=== PATIENT | female | born 1990 | race Caucasian/White ===

== ENCOUNTER 2019-09-01 21:06 | Emergency (ER) | payer OTHER, SELFPAY ==
--- NOTE | ~2019-09-01 | CT_ITS ---
EXAMINATION: CT abdomen pelvis w con EXAM DATE: 09/01/2019 23:20 INDICATION: Right upper quadrant, epigastric pain. TECHNIQUE: Spiral CT of the abdomen and pelvis was performed following intravenous injection of 100 m L Omnipaque 350. Axial, coronal and sagittal images were reviewed. The dose-length product (DLP) fo r this examination was 257.22 mGy-cm. The exposure was tailored according to patient size (auto mA e xposure control), and iterative reconstruction (ASIR) was used as additional dose reduction technique . Comparison is made to prior examination from 09/27/2018. FINDINGS: The liver, spleen, adrenal glands and pancreas are unremarkable. Gallbladder is unremarkab le. No biliary obstruction. Portal and splenic veins are patent. Kidneys enhance symmetrically. T here is no hydronephrosis. The uterus is unremarkable. The bladder is collapsed at time of imagin g limiting evaluation. There is no retroperitoneal or pelvic lymphadenopathy. The appendix is normal. There are surgical changes from intact gastric bypass surgery. There is exp ected amount of colonic stool. No free intraperitoneal gas. The heart is normal in size. There a re no pericardial or pleural effusions. The lung bases are unremarkable. The bones are unremarkable . IMPRESSION: 1. No acute intra-abdominal findings. Reviewed, dictated and finalized at location A.
[2019-09-01 21:07] VITALS: BP 120/69; PULSE 76; RESP 20; TEMP 36.9; O2SAT 100
--- NOTE | 2019-09-01 21:22 | ED.ABDPAIN ---
HPI - Abdominal Pain General Chief Complaint: Abdominal Pain Stated Complaint: abd pain Time Seen by Provider: 09/01/19 21:19 History of Present Illness HPI narrative: dull stabbing epigastric abdominal pain for the past week. Worse for the past 2 hours. Radiates to the back. She has never had this pain before. She has a h/o gastric bypass. Related Data Allergies Allergy/AdvReac Type Severity Reaction Status Date / Time NSAIDS (Non-Steroidal AdvReac Abdominal Verified 09/01/19 21:13 Anti-Inflamma Pain Review of Systems Review of Systems: All systems reviewed & are unremarkable except as noted in HPI and below Constitutional: Constitutional: Denies fever(s) Cardiovascular: Cardiovascular: Denies chest pain Respiratory: Respiratory: Denies dyspnea Gastrointestinal: Gastrointestinal: Reports abdominal pain and Denies vomiting Genitourinary: Genitourinary: Denies hematuria and Denies dysuria Neurologic: Denies numbness and Denies weakness PMFSH Past Medical History Medical History History of cardiac monitoring Hypothyroid Third degree heart block Surgical History Surgical History H/O abdominoplasty History of facial surgery right side facial reconstruction Hx of gastric bypass Hx of tonsillectomy Social History Social History Smoking status: Current every day smoker Tobacco type: cigarettes and e-cigarettes/vaping Gender identity (if verbalized by the patient): Female Exam Const: General: healthy appearing, no acute distress and alert Nutritional Appearance: well nourished Orientation/consciousness: patient oriented x3 HENMT: Head: normal to inspection Neck: Neck: normal visual inspection and no lymphadenopathy Chest: Chest palpation & inspection: no tenderness Resp: Effort & Inspection: normal respiratory effort Auscultation: clear to auscultation bilaterally, no rales, no rhonchi and no wheezes Cardio: Jugular venous distension: no JVD Rate: regular rate Rhythm: regular rhythm Heart sounds: no murmurs GI: Inspection: non-distended GI Palp: Yes Soft to palpation and Yes Tenderness to palpation present (GI) (epigastrium) Skin: General skin exam: normal color Neuro: General: patient oriented x3, moves all extremities and CN's II-XI intact bilaterally Speech: normal speech Extrem: General: no edema Psych: Appearance: well kempt Affect: normal affect Course Vital Signs Vital signs: Vital Signs Temperature 36.9 C 09/01/19 21:07 Pulse Rate 76 09/01/19 21:07 Respiratory Rate 20 09/01/19 21:07 Blood Pressure 120/69 09/01/19 21:07 Pulse Oximetry 100 09/01/19 21:07 Temperature 36.9 C 09/01/19 21:07 Pulse Rate 61 09/02/19 01:27 Respiratory Rate 18 09/02/19 01:27 Blood Pressure 112/74 09/02/19 01:27 Pulse Oximetry 98 09/02/19 01:27 MDM - Abdominal Pain MDM Narrative Medical decision making narrative: CT and labs reassuring. Differential Diagnosis Differential diagnosis: Likely pancreatitis and other (PUD, IBS) Medical Records Attestation: I reviewed the patient's medical records. Lab Data Attestation: I reviewed the patient's lab results. Result diagrams: 09/01/19 21:30 09/01/19 21:30 Labs: Lab Results 09/01/19 09/01/19 09/01/19 Range/Units 21:30 21:30 22:52 WBC 7.4 (4.5-10.0) K/mm3 RBC 3.77 L (4.2-5.4) M/mm3 Hgb 11.4 L (12.0-15.0) g/dL Hct 34.3 L (37.0-47.0) % MCV 91.0 (80-100) fl MCH 30.2 (26-34) pg MCHC 33.2 (32-36) g/dl RDW 13.3 (11.5-14.5) % Plt Count 231 (150-375) k/mm3 MPV 8.8 (7.4-10.4) fl Immature Gran % (Auto) 0.1 (0-0.5) % Neut % (Auto) 47.5 (45.5-73.1) % Lymph % (Auto) 40.8 (18.3-44.2) % [place] % (Auto) 8.6 H (2.6-8.5) % Eos % (Auto) 2.7 (0-4
[2019-09-01 21:36] LABS: Basophils Percent Auto 0.3 % (0.2-1.2); Eosinophils Absolute Auto 0.2 K/mm3 (0-0.3); Eosinophils Percent Auto 2.7 % (0-4.4); Hematocrit 34.3 % (37.0-47.0); Hemoglobin 11.4 g/dL (12.0-15.0); Immature Granulocyte Absolute 0.01 K/mm3 (0.00-0.031); Immature Granulocyte Percent A 0.1 % (0-0.5); Lymphocytes Percent Auto 40.8 % (18.3-44.2); Mean Corpuscular HGB Conc 33.2 g/dl (32-36); Mean Corpuscular Hemoglobin 30.2 pg (26-34); Mean Platelet Volume 8.8 fl (7.4-10.4); Monocytes Absolute Auto 0.6 K/mm3 (0.1-0.6); Monocytes Percent Auto 8.6 % (2.6-8.5); Neutrophils Absolute Auto 3.5 K/mm3 (1.3-6.7); Neutrophils Percent Auto 47.5 % (45.5-73.1); Platelet Count Result 231 k/mm3 (150-375); Red Blood Count 3.77 M/mm3 (4.2-5.4); Red Cell Distribution Width 13.3 % (11.5-14.5); White Blood Count 7.4 K/mm3 (4.5-10.0)
[2019-09-01 21:48] LABS: Alanine Aminotransferase 21 U/L (4-35); Albumin Level 4.4 g/dL (3.5-5.1); Alkaline Phosphatase 77 U/L (38-126); Aspartate Amino Transferase 30 U/L (14-36); Bilirubin,Total 0.2 mg/dL (0.2-1.3); Blood Urea Nitrogen 16 mg/dL (7-17); Carbon Dioxide 24 mmol/L (22-30); Chloride 107 mmol/L (98-107); Estimated CRCL calculation 108 ml/min; Estimated Glomerular Filt Rate > 60; Glucose 78 mg/dL (65-105); Lipase 70 U/L (23-300); Potassium 3.9 mmol/L (3.4-5.0); Sodium 137 mmol/L (137-145)
[2019-09-01 22:37] VITALS: BP 106/69; PULSE 54; RESP 18; O2SAT 100
[2019-09-01 23:11] LABS: Add Urine Microscopic? YES; Appearance Urine Cloudy (Clear); Bacteria Urine Trace /hpf; Bilirubin Urine Negative (Negative); Blood Urine Negative (Negative); Color Urine Yellow (Yellow); Glucose Urine UA Negative (Negative); Ketones Urine Negative (Negative); Leukocyte Esterase Ur Trace LEU/UL (Negative); Mucus Urine Rare /lpf; Nitrate Urine Negative (Negative); Protein Urine Negative (Negative); RBC Urine 0-2 /hpf (0-2); Specific Grav Ur 1.029 (1.001-1.035); Squamous Epithelial Cell Urine Many /hpf (Few)
[2019-09-02] MEDS: DICYCLOMINE HCL INJ 20 MG/2 ML VIAL IM (00:08)
[2019-09-02 01:27] VITALS: BP 112/74; PULSE 61; RESP 18; O2SAT 98
== END 2019-09-02 01:27 | disposition home or self-care (01) ==
PROVIDERS: Emergency Provider Emergency Medicine
DX: R10.13 Epigastric pain (principal); E03.9 Hypothyroidism, unspecified; Z98.84 Bariatric surgery status; F17.210 Nicotine dependence, cigarettes, uncomplicated
CPT/HCPCS: 36415; 74177; 80053; 81001; 81025; 83690; 85025; 96372; 96374; 99284; J0500; J3010; Q9967

== ENCOUNTER 2019-09-07 21:22 | Inpatient (IN) | payer OTHER, SELFPAY ==
--- NOTE | ~2019-09-07 | XR_ITS ---
EXAMINATION: XR abdomen obstructive series DATE: 09/07/2019 22:53 INDICATION: Vomiting blood for 2 hours. Midline abdominal pain for a week. TECHNIQUE: Supine and upright views of the abdomen. FINDINGS: No prior studies for comparison. The visualized lung parenchyma is normal.. There is a nonobstructive bowel gas pattern. Gas and stool are seen throughout the colon to the level of the rectum. There is no free air. . There are surgica l changes in the left upper abdomen. There are innumerable pelvic phleboliths. IMPRESSION: 1. No acute abdominal abnormality. Reviewed, dictated and finalized at location A.
[2019-09-07 21:22] VITALS: BP 159/91; PULSE 116; RESP 18; TEMP 36.8; O2SAT 100
[2019-09-07 21:35] LABS: Basophils Absolute Auto 0.1 K/mm3 (0.0-0.1); Basophils Percent Auto 0.6 % (0.2-1.2); Eosinophils Absolute Auto 0.3 K/mm3 (0-0.3); Hematocrit 32.7 % (37.0-47.0); Hemoglobin 10.9 g/dL (12.0-15.0); Immature Granulocyte Absolute 0.02 K/mm3 (0.00-0.031); Immature Granulocyte Percent A 0.2 % (0-0.5); Lymphocytes Absolute Auto 3.22 K/mm3 (0.9-3.2); Lymphocytes Percent Auto 35.9 % (18.3-44.2); Mean Corpuscular HGB Conc 33.3 g/dl (32-36); Mean Corpuscular Hemoglobin 30.7 pg (26-34); Mean Corpuscular Volume 92.1 fl (80-100); Mean Platelet Volume 8.9 fl (7.4-10.4); Monocytes Absolute Auto 0.6 K/mm3 (0.1-0.6); Monocytes Percent Auto 6.5 % (2.6-8.5); Neutrophils Absolute Auto 4.8 K/mm3 (1.3-6.7); Neutrophils Percent Auto 53.8 % (45.5-73.1); Platelet Count Result 244 k/mm3 (150-375); Red Blood Count 3.55 M/mm3 (4.2-5.4); Red Cell Distribution Width 13.3 % (11.5-14.5)
--- NOTE | 2019-09-07 21:37 | PC.NURSE ---
pt in wr at this time, states she isn't able to urinate.
[2019-09-07 21:46] LABS: Alanine Aminotransferase 18 U/L (4-35); Albumin Level 4.6 g/dL (3.5-5.1); Alkaline Phosphatase 55 U/L (38-126); Aspartate Amino Transferase 27 U/L (14-36); Bilirubin,Total 0.4 mg/dL (0.2-1.3); Blood Urea Nitrogen 17 mg/dL (7-17); Calcium 9.5 mg/dL (8.4-10.2); Carbon Dioxide 27 mmol/L (22-30); Chloride 104 mmol/L (98-107); Estimated CRCL calculation 137 ml/min; Estimated Glomerular Filt Rate > 60; Glucose 96 mg/dL (65-105); Lipase 56 U/L (23-300); Potassium 4.5 mmol/L (3.4-5.0); Sodium 137 mmol/L (137-145)
[2019-09-07 21:51] VITALS: BP 133/74; PULSE 86; RESP 20; O2SAT 100
[2019-09-07 22:16] LABS: Add Urine Microscopic? YES; Appearance Urine Clear (Clear); Bilirubin Urine Negative (Negative); Blood Urine Negative (Negative); Color Urine Yellow (Yellow); Glucose Urine UA Negative (Negative); Ketones Urine Trace mg/dL (Negative); Leukocyte Esterase Ur Negative LEU/UL (Negative); Mucus Urine Rare /lpf; Nitrate Urine Negative (Negative); Protein Urine Negative (Negative); Specific Grav Ur 1.016 (1.001-1.035); Squamous Epithelial Cell Urine Many /hpf (Few); WBC Urine 0-3 /hpf
[2019-09-07 22:27] VITALS: BP 132/86; PULSE 90; RESP 20; O2SAT 100
--- NOTE | 2019-09-07 22:29 | ED.ABDPAIN ---
HPI - Abdominal Pain General Chief Complaint: Abdominal Pain Stated Complaint: vomiting blood Time Seen by Provider: 09/07/19 22:22 Source: RN notes reviewed History of Present Illness HPI narrative: Patient presents emergency department from home for hematemesis. Patient states that she had 3 episodes of vomiting blood with clots at home today as well as 1 episode in the bathroom at the emergency department. Patient states that symptoms are associated with epigastric abdominal pain. States that she was in the emergency department on 09/02/2019 and at that time had lab performed showed no acute process. States she is on a PPI. Patient states she does have a history of gastric bypass surgery done by physician approximately 3 years ago. She denies any fevers or chills chest pain shortness of breath or any other symptoms Related Data Allergies Allergy/AdvReac Type Severity Reaction Status Date / Time NSAIDS (Non-Steroidal AdvReac Abdominal Verified 09/07/19 21:52 Anti-Inflamma Pain Review of Systems Review of Systems: Narrative: Gen.: Denies fevers or chills ENT: Denies congestion Respiratory: Denies shortness of breath or cough CV: Denies chest pain or palpitations GI: See HPI denies burning, urgency, frequency or hematuria Musculoskeletal: Denies back pain or muscle pain Neuro: Denies numbness, tingling, weakness or focal weakness Skin: Denies rash Except as documented, all other systems reviewed and negative [facility] Past Medical History Medical History History of cardiac monitoring Hypothyroid Third degree heart block Social History Social History Smoking status: Current every day smoker Tobacco type: cigarettes and e-cigarettes/vaping Gender identity (if verbalized by the patient): Female Exam Narrative: Exam Narrative: APPEARANCE: No acute distress, nontoxic, resting in bed HEENT: Normocephalic, atraumatic, OMM RESPIRATORY: No respiratory distress, clear to auscultation bilaterally with no rhonchi wheezing or rales CARDIOVASCULAR: RRR s murmur ABDOMINAL: Soft, nondistended, tender palpation epigastric, right upper quadrant left upper quadrant, no tenderness right lower quadrant left lower quadrant, no rebound or guarding MUSCULOSKELETAl: Moves all extremities. No clubbing, cyanosis or edema. NEURO: Awake and alert. Following commands, speech normal, no focal deficits SKIN:: Warm, dry. Normal Color PSYCHIATRIC: Normal affect/mood Course Course Emergency Course: Discussed with Dr. Angel presentation and work-up. At this time recommends to be started on Protonix 40 mg IV twice daily n.p.o. and will follow as inpatient Discussed with Dr. Trejo presentation work-up. Agrees with admission at this time Discussed with patient and family results of workup and diagnosis. Discussed need for admission. Patient and family understand and agree to current treatment plan Vital Signs Vital signs: Vital Signs Temperature 98.3 F 09/07/19 21:22 Pulse Rate 116 H 09/07/19 21:22 Respiratory Rate 18 09/07/19 21:22 Blood Pressure 159/91 H 09/07/19 21:22 Pulse Oximetry 100 09/07/19 21:22 Temperature 98.3 F 09/07/19 21:22 Pulse Rate 88 09/07/19 23:41 Respiratory Rate 20 09/07/19 23:41 Blood Pressure 122/77 09/07/19 23:41 Pulse Oximetry 100 09/07/19 23:41 MDM - Abdominal Pain Lab Data Result diagrams: 09/07/19 21:29 09/07/19 21:29 Labs: Lab Results 09/07/19 09/07/19 09/07/19 Range/Units 21:28 21:29 21:29 WBC 9.0 (4.5-10.0) K/mm3 RBC 3.55 L (4.2-5.4) M/mm3 Hgb 10.9 L (12.0-15.0) g/dL Hct 32.7 L (37.0-47.0) % MCV 92.1 (80-100) fl MCH 30.7 (26-34) pg MCHC 33.3 (32-36) g/dl RDW 13.3 (11.5-14.5) % Plt Count 244 (150-375) k/mm3 MPV 8.9 (7.4-10.4) fl Immature Gran % (Auto) 0.2
[2019-09-07] MEDS: ONDANSETRON INJ 4 MG/2 ML VIAL IV PUSH (22:32)
[2019-09-07] MEDS: SODIUM CHLORIDE 0.9% IV 1,000 ML 999 ML IV CONT (22:32)
[2019-09-07 22:54] LABS: INR 1.1; Prothrombin Time 13.4 Seconds (11.1-14.7)
[2019-09-07 22:55] LABS: Partial Thromboplastin Time 27.3 SECONDS (22.3-36.8)
[2019-09-07 23:07] VITALS: BP 113/80; PULSE 82; RESP 20; O2SAT 100
[2019-09-07] MEDS: PANTOPRAZOLE SODIUM IV 40 MG VIAL IV PUSH (23:15)
[2019-09-07] MEDS: MORPHINE SULFATE 2 MG/ML INJ IV PUSH (23:26)
[2019-09-07 23:41] VITALS: BP 122/77; PULSE 88; RESP 20; O2SAT 100
[2019-09-08] VITALS (10 sets, daily range): BP systolic 96–124; BP diastolic 49–79; PULSE 59–83; RESP 14–20; TEMP 36.6–37.2; O2SAT 100; BMI 20.9
--- NOTE | 2019-09-08 00:45 | ADMGEN ---
This patient, Aura Gonzalez, was admitted to [facility] Surg Room 301-01. Patient/family oriented to hospital policies and general routines including ID bracelet, bed and alarms, visiting hours, pain management, procedures, bathroom and other care routines, personal items, smoking policy, room service/diet, and visiting hours. Valuables list has been completed. Information on how to activate the Rapid Response Team has been discussed. Patient/Family are encouraged to report perceived risks to care and to ask questions if they do not understand what they are told or what they should do.
[2019-09-08] MEDS: SODIUM CHLORIDE 0.9% IV 1,000 ML 125 ML IV CONT ×2 (00:52→08:42)
[2019-09-08] MEDS: ONDANSETRON INJ 4 MG/2 ML VIAL IV PUSH ×2 (00:52→05:58)
[2019-09-08 02:27] LABS: Hemoglobin 8.2 g/dL (12.0-15.0)
[2019-09-08 02:39] LABS: Alanine Aminotransferase 15 U/L (4-35); Albumin Level 3.5 g/dL (3.5-5.1); Alkaline Phosphatase 44 U/L (38-126); Aspartate Amino Transferase 20 U/L (14-36); Bilirubin,Total 0.5 mg/dL (0.2-1.3); Blood Urea Nitrogen 19 mg/dL (7-17); Carbon Dioxide 25 mmol/L (22-30); Chloride 105 mmol/L (98-107); Estimated CRCL calculation 134 ml/min; Estimated Glomerular Filt Rate > 60; Glucose 79 mg/dL (65-105); Potassium 4.1 mmol/L (3.4-5.0); Sodium 134 mmol/L (137-145)
[2019-09-08 06:17] LABS: Basophils Percent Auto 0.5 % (0.2-1.2); Eosinophils Absolute Auto 0.3 K/mm3 (0-0.3); Eosinophils Percent Auto 3.6 % (0-4.4); Hematocrit 23.3 % (37.0-47.0); Hemoglobin 7.7 g/dL (12.0-15.0); Immature Granulocyte Absolute 0.02 K/mm3 (0.00-0.031); Immature Granulocyte Percent A 0.3 % (0-0.5); Lymphocytes Absolute Auto 3.85 K/mm3 (0.9-3.2); Lymphocytes Percent Auto 51.2 % (18.3-44.2); Mean Corpuscular Hemoglobin 30.4 pg (26-34); Mean Corpuscular Volume 92.1 fl (80-100); Mean Platelet Volume 8.9 fl (7.4-10.4); Monocytes Absolute Auto 0.5 K/mm3 (0.1-0.6); Monocytes Percent Auto 6.4 % (2.6-8.5); Neutrophils Absolute Auto 2.9 K/mm3 (1.3-6.7); Platelet Count Result 167 k/mm3 (150-375); Red Blood Count 2.53 M/mm3 (4.2-5.4); Red Cell Distribution Width 13.4 % (11.5-14.5); White Blood Count 7.5 K/mm3 (4.5-10.0)
[2019-09-08 09:00] LABS: Hematocrit 23.8 % (37.0-47.0); Hemoglobin 7.8 g/dL (12.0-15.0)
--- NOTE | 2019-09-08 10:01 | PM.IMHP ---
H&P: HPI History of Present Illness Chief complaint: GI Bleed Narrative: Date of admission: 09/07/2019 Date of service: 09/08/2019 Aura Gonzalez is a 29 year old female with a past medical history significant for Adolfo-en-Y surgery 2 and half years ago which was complicated by scarring at anastomosis site requiring 5 subsequent dilations, hypothyroidism, and anxiety who presented to the emergency department on 09/07/2019 with complaints of hematemesis and epigastric pain. She states that she has been having abdominal issues the past several months. Last week she was evaluated in the [place] ED for epigastric pain and had a CT scan which was unremarkable. She then followed up with her primary care provider and was initiated on sucralfate. She had orders to get a right upper quadrant ultrasound on 09/09/2019 and she was referred to gastroenterology, but has not been contacted with appointment information. She states that the past few weeks she has had epigastric pain which radiates directly through to her back. The pain improves shortly after eating meals, but she notes that the pain becomes much worse if she is hungry, and often wakes her up in the middle of the night when she has not eaten. Last night she was at a graduation libertarian and had approximately a half of a rum and Coke and then shortly after had a large volume of dark red emesis. This was around 8:50 p.m. on 09/07/2019. She then had several other episodes of hematemesis which were bright red and she noted that there were blood clots in her emesis. Early this morning she states that her emesis was more coffee-ground in appearance. Her last bowel movement was yesterday and was soft, formed, and light brown. She denies melena or hematochezia. She rates her epigastric pain currently as a 10/10. She also feels weak and fatigued. She reports she eats a pretty balanced diet, she avoids NSAIDs, but has been under recent stress lately related to moving to the area, concerns for COVID-19, and having general anxiety. Review of Systems Review of Systems: Narrative: She has no additional concerns. She does have depression and was recently started on Cymbalta but stopped taking this medication. She believes her mood is affected by her GI issues. Her last menstrual period was 08/09/2019. [facility] Past Medical History Medical History (Updated 09/08/19 @ 10:34 by Ghislaine Steward PA-C) Anxiety Depression History of cardiac monitoring History of uterine bleeding Hypothyroid Third degree heart block Unconfirmed, currently being evaluated by Cardiology outpatient Surgical History Surgical History (Updated 09/08/19 @ 10:17 by Ghislaine Steward PA-C) H/O abdominoplasty History of facial surgery right side facial reconstruction Hx of gastric bypass Adolfo-en-Y 2018 Hx of tonsillectomy Family History Family History (Updated 09/08/19 @ 10:17 by Ghislaine Steward PA-C) Mother Hypertension Father Hypertension Social History Social History (Updated 09/08/19 @ 10:48 by Ghislaine Steward PA-C) Social History: Ms. Gonzalez lives at home with her and two children. Her family recently moved to the area from [place] where her was stationed with the [employer]. She would like to be a full code and she designates her as her surrogate decision maker. Smoking packs per day: 0.25 Smoking cigarettes per day: 5.0 Years smoked: 15 Smoking pack-years: 3.75 Smoking status: Current every day smoker Tobacco type: cigarettes Additional smoking assessment comments: Patient used to smoke 1 ppd but has cut down to 5-6/day the past 6 months. Alcohol intake: current Drinks per week: 2 Alcohol use details: She typically drinks alcohol once every 2 weeks. Substance use: former Substance use type: marijuana Living arrangements: with family Additional occupation/education comments: She stays home with her children. Gender i
[2019-09-08] MEDS: ALPRAZOLAM 0.25 MG TABLET PO (13:06)
[2019-09-08 13:48] LABS: Hematocrit 21.8 % (37.0-47.0); Hemoglobin 7.2 g/dL (12.0-15.0)
[2019-09-08 14:10] LABS: Iron 221 ug/dL (37-170)
[2019-09-08 14:20] LABS: Percent Iron Saturation 58 % (20-50)
--- NOTE | 2019-09-08 14:55 | WPDANESEPPF ---
Anes - Initial Pre Proc Eval Procedure: Operation Date: 09/08/19 14:30 Proposed Procedures p Esophagogastroduodenoscopy - Dionisio Angel MD Date/Time: 09/08/19 14:55 Surgeon: Ghislaine Steward PA-C Pre Op Diagnosis: GI Bleed Patient Data Age: 29 Gender: F Height: 1.73 m Weight: 62.6 kg Last Vital Signs Temp 36.6 C 09/08/19 14:00 Pulse 59 L 09/08/19 14:00 Resp 18 09/08/19 14:00 BP 117/64 09/08/19 14:00 Pulse Ox 100 09/08/19 14:00 Allergies Allergy/AdvReac Type Severity Reaction Status Date / Time NSAIDS (Non-Steroidal AdvReac Abdominal Verified 09/07/19 21:52 Anti-Inflamma Pain Home Medications Medication Instructions Recorded Confirmed Type hydroxyzine HCl 50 mg PO HS PRN 09/08/19 09/08/19 History melatonin 10 mg PO HS 09/08/19 09/08/19 History multivit with min-folic acid 0.4 mg PO DAILY 09/08/19 09/08/19 History [Adult One Daily Multivitamin] omeprazole 20 mg PO DAILY 09/08/19 09/08/19 History sucralfate 1 g PO Q3-4H 09/08/19 09/08/19 History Laboratory Tests 09/07/19 09/07/19 09/07/19 21:28 21:29 21:29 WBC 9.0 K/mm3 K/mm3 (4.5-10.0) RBC 3.55 M/mm3 L M/mm3 (4.2-5.4) Hgb 10.9 g/dL L g/dL (12.0-15.0) Hct 32.7 % L % (37.0-47.0) MCV 92.1 fl fl (80-100) MCH 30.7 pg pg (26-34) MCHC 33.3 g/dl g/dl (32-36) RDW 13.3 % % (11.5-14.5) Plt Count 244 k/mm3 k/mm3 (150-375) MPV 8.9 fl fl (7.4-10.4) Immature Gran % (Auto) 0.2 % % (0-0.5) Neut % (Auto) 53.8 % % (45.5-73.1) Lymph % (Auto) 35.9 % % (18.3-44.2) [place] % (Auto) 6.5 % % (2.6-8.5) Eos % (Auto) 3.0 % % (0-4.4) Baso % (Auto) 0.6 % % (0.2-1.2) Lymph # (Auto) 3.22 K/mm3 H K/mm3 (0.9-3.2) [place] # (Auto) 0.6 K/mm3 K/mm3 (0.1-0.6) Eos # (Auto) 0.3 K/mm3 K/mm3 (0-0.3) Baso # (Auto) 0.1 K/mm3 K/mm3 (0.0-0.1) Abs Immat Gran (auto) 0.02 K/mm3 K/mm3 (0.00-0.031) Absolute Neuts (auto) 4.8 K/mm3 K/mm3 (1.3-6.7) Absolute Nucleated RBC 0.0 K/mm3 K/mm3 (0.0-0.012) Nucleated RBC % 0.0 % % (0.0-0.2) PT 13.4 Seconds Seconds (11.1-14.7) INR 1.1 APTT 27.3 SECONDS SECONDS (22.3-36.8) Sodium 137 mmol/L mmol/L (137-145) Potassium 4.5 mmol/L mmol/L (3.4-5.0) Chloride 104 mmol/L mmol/L (98-107) Carbon Dioxide 27 mmol/L mmol/L (22-30) BUN 17 mg/dL mg/dL (7-17) Creatinine 0.50 mg/dL L mg/dL (0.7-1.0) Estim Creat Clear Calc 137 ml/min ml/min Estimated GFR > 60 (59 - ) Glucose 96 mg/dL mg/dL (65-105) Calcium 9.5 mg/dL mg/dL (8.4-10.2) Iron TIBC % Saturation Ferritin Total Bilirubin 0.4 mg/dL mg/dL (0.2-1.3) AST 27 U/L U/L (14-36) ALT 18 U/L U/L (4-35) Alkaline Phosphatase 55 U/L U/L (38-126) Total Protein 7.0 g/dL g/dL (6.3-8.2) Albumin 4.6 g/dL g/dL (3.5-5.1) Lipase 56 U/L U/L (23-300) Vitamin B12 Folate TSH (Reflex) Urine Color Urine Appearance Urine pH Ur Specific [place] Urine Protein Urine Glucose (UA) Urine Ketones Ur Blood (Man) Urine Nitrate Urine Bilirubin Urine Urobilinogen Leukocyte Esterase Rfl Urine RBC Urine WBC Ur Squamous Epith Cells Hyaline Casts Urine Mucus Blood Type Antibody Screen 09/07/19 09/07/19 09/08/19 22:07 23:09 02:04 WBC RBC Hgb 8.2 g/dL L g/dL (1
[2019-09-08] MEDS: LACTATED RINGERS 1,000 ML 150 ML IV CONT (15:03)
[2019-09-08 15:07] LABS: Folic Acid 14.2 ng/mL (2.76->20)
--- NOTE | 2019-09-08 15:24 | PM.PROC ---
Procedure Note - Detailed Date of procedure: 09/08/19 Pre-op diagnosis: GI Bleed Acute blood loss anemia; hematemesis. Post-op diagnosis: other (Anastomotic ulcers.) Procedure performed: EGD Implants: None Anesthesia: MAC Surgeon: Dionisio Angel MD Estimated blood loss (mL): 0 Pathology: other (LO) Complications: No immediate complications Condition: stable Disposition: floor Findings: DIONISIO ANGEL MD, FACG, FACP UPPER ENDOSCOPY 09-08-2019 INDICATION: Acute blood loss anemia; hematemesis. POST-OP: Anastomotic ulcers-biopsied for LO. SEDATION: Per anesthesia With the patient in the left lateral decubitus position, the Action Pharman upper endoscope was used to easily intubate the patient?s esophagus and advanced to the small bowel. Careful inspection of the mucosa was made upon insertion and withdrawal of the endoscope with retroflexion in the stomach. FINDINGS: Esophagus: SC Jx at 40 cm. Esophagus normal. No esophagitis, stricture, mass or Ross?s. Stomach: The anastomosis had numerous white-based and benign appearing ulcers. The stomach was otherwise normal. Biopsies taken throughout the stomach for LO. No AVM or malignancy. Small bowel: Normal to the extent of the scope. No complications, blood loss or implants. ASSESSMENT AND PLAN: Acute blood loss anemia; hematemesis, epigastric pain: - Secondary to anastomotic ulcers - Protonix 40 mg IV BID today-> po tomorrow - Restart Carafate - Biopsies done; treat if H. pylori positive - Full liquid diet today; advance in am if ok - Repeat EGD in 8-10 weeks Dionisio Angel M.D. [phone]
--- NOTE | 2019-09-08 15:39 | CONS_ITS ---
DATE OF CONSULTATION: 09/08/2019 HISTORY OF PRESENT ILLNESS: A 29-year-old female with history of Adolfo-en-Y gastric bypass approximately 2-1/2 years ago complicated by scarring. She has had 6 dilations for dysphagia with endoscopy. These were all done in [place] where her surgery was. She has medical history of abdominoplasty, hypothyroidism, and anxiety/depression. I am now asked to provide GI evaluation at the request of the hospitalist service for epigastric pain, acute blood loss anemia with hematemesis. The patient's primary care provider is Dr. Nohemi Lees. Patient states she has had epigastric pain for 1 month that seems to get better after eating. It is worsened if she has not eaten and in the middle of the night. The pain radiates through to her back. Last night she had a rum and Coke and had significant pain associated with emesis of bright red blood. REVIEW OF SYSTEMS: She denies hematochezia or melena. She currently denies lightheadedness, chest pain, shortness of breath. She otherwise denies heartburn, trouble swallowing, loss of appetite or weight, diarrhea, constipation, fever, jaundice, scleral icterus, dark urine, light stools, itching, hot or cold intolerance, hematuria, dysuria, new cough or visual changes, easy bruising, tingling of skin, bone pain or tremors. No endocarditis risk factors. ALLERGIES: NO KNOWN DRUG ALLERGIES. MEDICATIONS: Include melatonin, multivitamin, omeprazole 20 mg daily, and Carafate 1 g 3-4 times a day. SOCIAL HISTORY: Patient is a smoker. Cessation recommended. She drinks alcohol about every other week, small amounts. FAMILY HISTORY: Negative for GI malignancy. PHYSICAL EXAM: GENERAL: Well-developed, well-nourished female, lying in bed, in no apparent distress. She has no lower extremity edema, jaundice, spider angioma, or palmar erythema. HEENT: Skull is normocephalic, atraumatic. Pupils nonicteric. Oropharynx clear. NECK: Supple without thyromegaly. LUNGS: Clear to auscultation. HEART: Rate and rhythm regular. S1, S2 normal. ABDOMEN: Normoactive bowel sounds. Soft, nontender, nonrigid, nondistended without hepatosplenomegaly or masses. RECTAL: Deferred. NEURO: Conscious and alert x3. LABORATORY DATA: On admission, hemoglobin 8, hematocrit 25. LFTs are normal. Today, hematocrit 23, MCV 92. ASSESSMENT AND PLAN: Patient with acute blood loss anemia with hematemesis and epigastric pain. Certainly concern for upper GI ulcer disease but could be Ghislaine-Jefferson tear. Less likely neoplasm or other process such as varices. Patient does not appear to have active GI bleeding. We will follow H and H and transfuse as needed. We will avoid aspirin, nonsteroidals, and anticoagulants and continue PPI. We will perform upper endoscopy and further recommendations will follow. The procedure of upper endoscopy, its indications, alternatives of barium studies, and risks including perforation, bleeding, infection, reaction to medication as well as possible need for blood or surgery. She voices understanding and agrees to proceed and provides informed consent. Thank you for allowing me to share in the care of this very nice patient. Further recommendations will follow endoscopy. CRESCENCIO NARAYAN M.D. [phone] CC:? Nohemi Lees MD DIVING SUPERVISOR DIVING SUPERVISOR D I MT: Dian [place]
[2019-09-08] MEDS: PANTOPRAZOLE SODIUM IV 40 MG VIAL IV PUSH (17:38)
[2019-09-08 20:47] LABS: Hematocrit 21.8 % (37.0-47.0); Hemoglobin 7.2 g/dL (12.0-15.0)
[2019-09-09] MEDS: ONDANSETRON INJ 4 MG/2 ML VIAL IV PUSH (01:40)
[2019-09-09] MEDS: MORPHINE SULFATE 2 MG/ML INJ IV PUSH ×2 (01:40→13:11)
[2019-09-09 02:14] LABS: Hematocrit 20.9 % (37.0-47.0)
[2019-09-09 03:16] VITALS: BP 121/45; PULSE 74; RESP 16; TEMP 37.1; O2SAT 100
[2019-09-09 03:32] VITALS: BP 109/56; PULSE 66; RESP 18; TEMP 37.2; O2SAT 100
[2019-09-09 04:32] VITALS: BP 103/49; PULSE 64; RESP 18; TEMP 36.7; O2SAT 98
[2019-09-09 05:32] VITALS: BP 107/43; PULSE 71; RESP 18; TEMP 37.1; O2SAT 100
[2019-09-09 06:00] VITALS: BP 106/50; PULSE 66; RESP 18; TEMP 36.9; O2SAT 100
[2019-09-09] MEDS: SODIUM CHLORIDE 0.9% IV 1,000 ML 125 ML IV CONT ×2 (07:43→14:42)
[2019-09-09 08:01] LABS: Basophils Percent Auto 0.2 % (0.2-1.2); Eosinophils Absolute Auto 0.2 K/mm3 (0-0.3); Eosinophils Percent Auto 3.5 % (0-4.4); Hematocrit 24.2 % (37.0-47.0); Hemoglobin 7.9 g/dL (12.0-15.0); Lymphocytes Absolute Auto 2.65 K/mm3 (0.9-3.2); Lymphocytes Percent Auto 58.4 % (18.3-44.2); Mean Corpuscular HGB Conc 32.6 g/dl (32-36); Mean Platelet Volume 9.4 fl (7.4-10.4); Monocytes Absolute Auto 0.3 K/mm3 (0.1-0.6); Monocytes Percent Auto 6.4 % (2.6-8.5); Neutrophils Absolute Auto 1.4 K/mm3 (1.3-6.7); Neutrophils Percent Auto 31.5 % (45.5-73.1); Platelet Count Result 138 k/mm3 (150-375); Red Blood Count 2.63 M/mm3 (4.2-5.4); Red Cell Distribution Width 13.6 % (11.5-14.5); White Blood Count 4.5 K/mm3 (4.5-10.0)
[2019-09-09 08:18] LABS: Alanine Aminotransferase 11 U/L (4-35); Albumin Level 3.2 g/dL (3.5-5.1); Alkaline Phosphatase 45 U/L (38-126); Aspartate Amino Transferase 19 U/L (14-36); Bilirubin,Total 0.2 mg/dL (0.2-1.3); Blood Urea Nitrogen 12 mg/dL (7-17); Calcium 7.9 mg/dL (8.4-10.2); Carbon Dioxide 27 mmol/L (22-30); Chloride 105 mmol/L (98-107); Estimated CRCL calculation 99 ml/min; Estimated Glomerular Filt Rate > 60; Glucose 86 mg/dL (65-105); Potassium 3.8 mmol/L (3.4-5.0); Sodium 134 mmol/L (137-145)
[2019-09-09] MEDS: PANTOPRAZOLE 40 MG TABLET PO (09:11)
--- NOTE | 2019-09-09 11:48 | WPDANESPN ---
Anes - Prog Note Post-Op Date/Time: 09/09/19 11:48 Cardiovascular status: normal Respiratory status: normal Airway patency: baseline Mental status: baseline Post-Op hydration status: normal Vital Signs: Last Vital Signs Temp 36.9 C 09/09/19 06:00 Pulse 66 09/09/19 06:00 Resp 18 09/09/19 06:00 BP 106/50 L 09/09/19 06:00 Pulse Ox 100 09/09/19 06:00 Pain Score (VAS): 0/10. Patient resting in bed at time of assessment, appears comfortable. PCT at bedside. I/O: Intake & Output 09/08/19 09/09/19 09/09/19 23:59 07:59 15:59 Intake Total 1000 794 Balance 1000 794 Laboratory Tests 09/09/19 07:26 09/09/19 07:26 09/07/19 09/08/19 09/08/19 23:09 13:42 13:42 WBC RBC Hgb 7.2 L Hct 21.8 L MCV MCH MCHC RDW Plt Count MPV Immature Gran % (Auto) Neut % (Auto) Lymph % (Auto) Posey % (Auto) Eos % (Auto) Baso % (Auto) Lymph # (Auto) Posey # (Auto) Eos # (Auto) Baso # (Auto) Abs Immat Gran (auto) Absolute Neuts (auto) Absolute Nucleated RBC Nucleated RBC % Sodium Potassium Chloride Carbon Dioxide BUN Creatinine Estim Creat Clear Calc Estimated GFR Glucose Calcium Iron 221 H TIBC 380 % Saturation 58 H Ferritin 16.10 Total Bilirubin AST ALT Alkaline Phosphatase Total Protein Albumin Vitamin B12 Folate TSH (Reflex) 2.560 Blood Type O Positive Antibody Screen Negative Crossmatch See Detail 09/08/19 09/08/19 09/09/19 13:42 20:42 01:18 WBC RBC Hgb 7.2 L 7.0 L Hct 21.8 L 20.9 L* MCV MCH MCHC RDW Plt Count MPV Immature Gran % (Auto) Neut % (Auto) Lymph % (Auto) Posey % (Auto) Eos % (Auto) Baso % (Auto) Lymph # (Auto) Posey # (Auto) Eos # (Auto) Baso # (Auto) Abs Immat Gran (auto) Absolute Neuts (auto) Absolute Nucleated RBC Nucleated RBC % Sodium Potassium Chloride Carbon Dioxide BUN Creatinine Estim Creat Clear Calc Estimated GFR Glucose Calcium Iron TIBC % Saturation Ferritin Total Bilirubin AST ALT Alkaline Phosphatase Total Protein Albumin Vitamin B12 274.0 Folate 14.2 TSH (Reflex) Blood Type Antibody Screen Crossmatch 09/09/19 09/09/19 07:26 07:26 WBC 4.5 RBC 2.63 L Hgb 7.9 L Hct 24.2 L MCV 92.0 MCH 30.0 MCHC 32.6 RDW 13.6 Plt Count 138 L MPV 9.4 Immature Gran % (Auto) 0.0 Neut % (Auto) 31.5 L Lymph % (Auto) 58.4 H Posey % (Auto) 6.4 Eos % (Auto) 3.5 Baso % (Auto) 0.2 Lymph # (Auto) 2.65 Posey # (Auto) 0.3 Eos # (Auto) 0.2 Baso # (Auto) 0.0 Abs Immat Gran (auto) 0.00 Absolute Neuts (auto) 1.4 Absolute Nucleated RBC 0.0 Nucleated RBC % 0.0 Sodium 134 L Potassium 3.8 Chloride 105 Carbon Dioxide 27 BUN 12 D Creatinine 0.70 Estim Creat Clear Calc 99 Estimated GFR > 60 Glucose 86 Calcium 7.9 L Iron TIBC % Saturation Ferritin Total Bilirubin 0.2 AST 19 ALT 11 Alkaline Phosphatase 45 Total Protein 5.0 L Albumin 3.2 L Vitamin B12 Folate TSH (Reflex) Blood Type Antibody Screen Crossmatch Post-procedural complaints: none Patient Feedback: Patient satisfied with anesthetic care.
--- NOTE | 2019-09-09 12:32 | PM.DS ---
DS: Admitting Diagnosis Admitting Diagnosis Admitting Diagnosis: Gastrointestinal hemorrhage, unspecified DS: Discharge Diagnosis Discharge Diagnosis (1) Anastomotic ulcer: Code(s): K28.9 - Gastrojejunal ulcer, unspecified as acute or chronic, without hemorrhage or perforation Status: Acute Assessment and Plan: Patient presented with hematemesis and 10/10 epigastric pain. She underwent EGD and colonoscopy by Dr. Angel on 09/08/19 and was found to have numerous white-based and benign appearing ulcers at the Adolfo-en-Y anastamosis. Biopsies were taken and she was tested for H. pylori. She will continue PO protonix and carafate. She will follow up with Dr. Angel for repeat EGD in 8-10 weeks. (2) Acute upper GI bleeding: Code(s): K92.2 - Gastrointestinal hemorrhage, unspecified Status: Acute Assessment and Plan: Patient had hematemesis x4, ranging in color from bright red to dark red to coffee-ground on 09/07/19. An acute abdominal series x-ray revealed no acute process. This was secondary to anastomatic ulcers. Bleeding resolved. She was able to tolerate a regular diet. (3) Normocytic anemia: Code(s): D64.9 - Anemia, unspecified Status: Acute Assessment and Plan: Patient was acutely anemic secondary to hematemesis. She underwent transfusion 1 unit pRBC on 09/09/19. H&H was monitored closely and improved following transfusion. At time of discharge, hemoglobin was 8.6 and Hct was 26.6. She will repeat an H&H in 1 week. (4) Anxiety: Code(s): F41.9 - Anxiety disorder, unspecified Status: Acute Assessment and Plan: She has a history of anxiety and believed that her anxiety has been increased lately given her recent move and concerns of the COVID-19 pandemic. She will continue hydroxyzine as needed for anxiety. (5) Hypothyroid: Code(s): E03.9 - Hypothyroidism, unspecified Status: Acute Assessment and Plan: She reports a history of hypothyroid but has been off medication for many years. She reports regular thyroid monitoring by her primary care provider. TSH was evaluated and was within normal limits. DS: Summary Hospital Course Reason for hospitalization: Hematemesis Hospital Course: Date of admission: 09/07/2019 Date of discharge: 09/09/2019 Aura Gonzalez is a 29-year-old female with a past medical history significant for Adolfo-en-Y surgery 2.5 years ago which was complicated by scarring at anastomosis site requiring 5 subsequent dilations, hypothyroidism, and anxiety who presented to the emergency department on 09/07/2019 with complaints of hematemesis and epigastric pain. She reported she been having epigastric pain for several months. One week prior to presentation, she had been evaluated in the [facility] for epigastric pain. She had CT abdomen and pelvis which was unremarkable. She then followed up with her primary care provider and was initiated on sucralfate. Her epigastric pain continued to worsen, and she noted the pain sometimes improved shortly after eating meals and worsened at night if she was hungry. At presentation, Hgb 10.9, Hct 32.7, BMP wnl, LFTs wnl, lipase 56, and abdominal x-ray with no acute abnormality. She was admitted to the hospitalist service on 09/07/2019 and was seen in consultation by deliverer food Dr. Angel. She was made NPO and initiated on IV Protonix. She underwent EGD on 09/08/19 which revealed numerous ulcers at the site of anastomosis. She will obtain a repeat EGD in 8-10 weeks. Her diet was advanced and she was able to tolerate regular diet. She began feeling much better and her pain and hematemesis resolved. Given symptomatic improvement and stable vitals and labs, she was determined to no longer require inpatient care. We discussed her medication changes and all of her questions were answered. She was discharged home in hemodynamically stable condition on the afternoon of
[2019-09-09 12:57] LABS: Hematocrit 26.6 % (37.0-47.0); Hemoglobin 8.6 g/dL (12.0-15.0)
[2019-09-09] MEDS: SUCRALFATE 1 GM TABLET PO (13:11)
[2019-09-09 14:00] VITALS: BP 100/70; PULSE 72; RESP 16; TEMP 37.1; O2SAT 100
== END 2019-09-09 16:19 | disposition home or self-care (01) | DRG 378 ==
LOC: ANHED 23:46 → ANH3MEDSUR 09-08 00:02
PROVIDERS: Internal Medicine Gastroenterology; Physician Assistant; Admitting Provider Internal Medicine; Emergency Provider Emergency Medicine; Visit Provider Internal Medicine
PROC: 0DJ08ZZ Inspection of Upper Intestinal Tract, Via Natural or Artificial Opening Endoscopic (ICD-10-PCS; CPT 43235; principal; 2019-09-08 14:30)
DX: K28.4 Chronic or unspecified gastrojejunal ulcer with hemorrhage (principal); I44.2 Atrioventricular block, complete; D62 Acute posthemorrhagic anemia; E03.9 Hypothyroidism, unspecified; F41.8 Other specified anxiety disorders; F17.210 Nicotine dependence, cigarettes, uncomplicated; F17.290 Nicotine dependence, other tobacco product, uncomplicated; Z98.84 Bariatric surgery status
CPT/HCPCS: 36415; 36430; 74019; 80053; 81001; 81025; 82607; 82728; 82746; 83540; 83550; 83690; 84443; 85014; 85018; 85025; 85610; 85730; 86850; 86900; 86901; 86920; 87081; 96361; 96374; 96375; 96376; 99285; A9270; C9113; G0378; J0131; J2001; J2270; J2405; J2704; J7030; J7120; P9016

== ENCOUNTER 2020-02-26 11:46 | Outpatient (CLI) | payer BC, SELFPAY ==
[2020-02-26 12:05] LABS: Basophils Percent Auto 0.8 % (0.2-1.2); Eosinophils Absolute Auto 0.1 K/mm3 (0-0.3); Eosinophils Percent Auto 1.4 % (0-4.4); Hematocrit 30.8 % (37.0-47.0); Hemoglobin 9.3 g/dL (12.0-15.0); Immature Granulocyte Absolute 0.01 K/mm3 (0.00-0.031); Immature Granulocyte Percent A 0.2 % (0-0.5); Lymphocytes Absolute Auto 1.36 K/mm3 (0.9-3.2); Lymphocytes Percent Auto 26.9 % (18.3-44.2); Mean Corpuscular HGB Conc 30.2 g/dl (32-36); Mean Corpuscular Hemoglobin 24.5 pg (26-34); Mean Corpuscular Volume 81.3 fl (80-100); Mean Platelet Volume 9.4 fl (7.4-10.4); Monocytes Absolute Auto 0.4 K/mm3 (0.1-0.6); Monocytes Percent Auto 7.7 % (2.6-8.5); Neutrophils Absolute Auto 3.2 K/mm3 (1.3-6.7); Platelet Count Result 208 k/mm3 (150-375); Red Blood Count 3.79 M/mm3 (4.2-5.4); Red Cell Distribution Width 20.2 % (11.5-14.5); White Blood Count 5.1 K/mm3 (4.5-10.0)
[2020-02-26 18:01] LABS: Alanine Aminotransferase 21 U/L (4-35); Albumin Level 4.2 g/dL (3.5-5.1); Alkaline Phosphatase 60 U/L (38-126); Anion Gap 6 mmol/L (8-16); Aspartate Amino Transferase 29 U/L (14-36); Bilirubin,Total 0.3 mg/dL (0.2-1.3); Blood Urea Nitrogen 13 mg/dL (7-17); Calcium 9.5 mg/dL (8.4-10.2); Carbon Dioxide 29 mmol/L (22-30); Chloride 103 mmol/L (98-107); Estimated Glomerular Filt Rate > 60; Glucose 89 mg/dL (65-105); Potassium 4.2 mmol/L (3.4-5.0); Sodium 138 mmol/L (137-145)
[2020-02-26 18:31] LABS: Iron < 10 ug/dL (37-170)
[2020-02-26 19:04] LABS: Percent Iron Saturation < 2 % (20-50)
[2020-02-26 19:07] LABS: Ferritin 8.22 ng/mL (6.24-137)
== END 2020-02-26 11:47 | disposition home or self-care (01) ==
LOC: ANHLAB 11:48
PROVIDERS: Visit Provider Internal Medicine Hematology & Oncology
DX: D64.9 Anemia, unspecified (principal)
CPT/HCPCS: 36415; 80053; 82607; 82728; 83540; 83550; 85025

== ENCOUNTER 2020-04-14 16:10 | Emergency (ER) | payer BC, SELFPAY ==
--- NOTE | ~2020-04-14 | XR_ITS ---
EXAMINATION: XR chest 2V EXAM DATE: 04/14/2020 16:50 INDICATION: Left-sided chest pain. TECHNIQUE: Frontal and lateral projections of the chest obtained and reviewed. Comparison is made to prior examination from 10/02/2018. FINDINGS: There is been interval placement of a heart monitor device. The lungs are clear. There ar e no pleural effusions. The cardiomediastinal silhouette is within normal limits. There is no pneum othorax suspected. The bones and soft tissues are unremarkable. IMPRESSION: No acute cardiopulmonary findings. Reviewed, dictated and finalized at location A. ION PLOTTER OPERATOR
[2020-04-14 16:09] VITALS: BP 134/75; PULSE 116; RESP 19; O2SAT 100
[2020-04-14 16:15] VITALS: PULSE 115
--- NOTE | 2020-04-14 16:20 | ECG_ITS ---
Measurements Intervals [place] Rate: 112 P: 78 AR: 151 QRS: 73 QRSD: 97 T: 48 QT: 331 QTc: 452 Interpretive Statements SINUS TACHYCARDIA BASELINE WANDER- I, II, AVR, AVF, V3, V6 ABNORMAL ECG Electronically Signed On 04-14-2020 18:07:42 CATEGORY SPECIALIST by Bladimir Hernandez D.O.
--- NOTE | 2020-04-14 16:22 | ED.CHESTPAIN ---
HPI - Chest Pain General Chief Complaint: Chest Pain Stated Complaint: chest fluttering Time Seen by Provider: 04/14/20 16:13 Source: patient Mode of arrival: EMS Limitations: no limitations History of Present Illness HPI narrative: A 30-year-old female presents to the emergency department today with complaints of chest pain. Patient states at baseline she always has an aching, nagging pain. She does note every once in a while that her pain seems to spike up in a sharp stabbing feeling in her left chest. She denies any radiation of this pain. She denies any associated symptoms with this specifically shortness of breath, nausea, diaphoresis and fatigue. Patient does note that she has a history of an implantable ekg monitor. Patient states that this was placed in because she was having passing out episodes. She notes this device went off yesterday, was told by the monitoring physician to come into the ER today because she was feeling unwell. Related Data Home Medications Medication Instructions Recorded Confirmed Adult One Daily Multivitamin 0.4 mg PO DAILY 09/08/19 09/08/19 hydroxyzine HCl 50 mg PO HS PRN 09/08/19 09/08/19 melatonin 10 mg PO HS 09/08/19 09/08/19 sucralfate 1 g PO Q3-4H 09/08/19 09/08/19 Allergies Allergy/AdvReac Type Severity Reaction Status Date / Time NSAIDS (Non-Steroidal AdvReac Abdominal Verified 04/14/20 16:16 Anti-Inflamma Pain Review of Systems Review of Systems: Narrative: CONSTITUTIONAL: Denies fever, chills, or sweats. EYES: Denies visual changes, redness, or discharge. ENT: Denies rhinorrhea, congestion, sore throat, or otalgia. CARDIOVASCULAR: Denies palpitations, or edema. Endorses episodic chest pain. RESPIRATORY: Denies cough or dyspnea. GASTROINTESTINAL: Denies abdominal pain, nausea, vomiting, or diarrhea. GENITOURINARY: Denies dysuria or hematuria. SKIN: Denies rash or itching. MUSCULOSKELETAL: Denies back pain, joint pain, or myalgia. NEUROLOGIC: Denies headache, numbness, dizziness, or weakness. PSYCHIATRIC: Denies anxiety or depression. All systems reviewed & are unremarkable except as noted in HPI and below PMFSH Past Medical History Medical History Anxiety Depression History of cardiac monitoring History of uterine bleeding Hypothyroid Third degree heart block Unconfirmed, currently being evaluated by Cardiology outpatient Surgical History Surgical History H/O abdominoplasty History of facial surgery right side facial reconstruction Hx of gastric bypass Adolfo-en-Y 2018 Hx of tonsillectomy Family History Family History Mother Hypertension Father Hypertension Social History Social History Social History: Ms. Gonzalez lives at home with her and two children. Her family recently moved to the area from [place] where her was stationed with the [employer]. She would like to be a full code and she designates her as her surrogate decision maker. Smoking packs per day: 0.25 Smoking cigarettes per day: 5.0 Years smoked: 15 Smoking pack-years: 3.75 Smoking status: Current every day smoker Tobacco type: cigarettes and e-cigarettes/vaping Additional smoking assessment comments: Patient used to smoke 1 ppd but has cut down to 5-6/day the past 6 months. Alcohol intake: current Drinks per week: 2 Substance use: former Substance use type: marijuana Additional occupation/education comments: She stays home with her children. Gender identity (if verbalized by the patient): Female Spiritual care concerns: No Agree to blood products: Yes Exam Narrative: Exam Narrative: GENERAL: Well-appearing, well-nourished, and in no acute distress. HEAD: Normocephalic, atraumatic. EYES: PERRLA and EOMI. EN
[2020-04-14] MEDS: MORPHINE SULFATE (*CRX) 2 MG/ML INJ IV PUSH (16:34)
[2020-04-14] MEDS: ONDANSETRON INJ 4 MG/2 ML VIAL IV PUSH (16:34)
[2020-04-14 16:48] LABS: Basophils Absolute Auto 0.1 K/mm3 (0.0-0.1); Basophils Percent Auto 1.6 % (0.2-1.2); Eosinophils Absolute Auto 0.1 K/mm3 (0-0.3); Eosinophils Percent Auto 1.2 % (0-4.4); Hematocrit 34.9 % (37.0-47.0); Hemoglobin 10.7 g/dL (12.0-15.0); Immature Granulocyte Absolute 0.02 K/mm3 (0.00-0.031); Immature Granulocyte Percent A 0.4 % (0-0.5); Lymphocytes Absolute Auto 1.52 K/mm3 (0.9-3.2); Lymphocytes Percent Auto 30.2 % (18.3-44.2); Mean Corpuscular HGB Conc 30.7 g/dl (32-36); Mean Corpuscular Hemoglobin 25.5 pg (26-34); Mean Corpuscular Volume 83.1 fl (80-100); Mean Platelet Volume 8.7 fl (7.4-10.4); Monocytes Absolute Auto 0.3 K/mm3 (0.1-0.6); Monocytes Percent Auto 5.4 % (2.6-8.5); Neutrophils Absolute Auto 3.1 K/mm3 (1.3-6.7); Neutrophils Percent Auto 61.2 % (45.5-73.1); Platelet Count Result 264 k/mm3 (150-375); Red Cell Distribution Width 19.9 % (11.5-14.5)
--- NOTE | 2020-04-14 16:53 | PC.NURSE ---
patient unable to give urine sample at this time, will attempt again later. patient declines straight cath
[2020-04-14 16:57] LABS: Alanine Aminotransferase 30 U/L (4-35); Albumin Level 4.8 g/dL (3.5-5.1); Alkaline Phosphatase 91 U/L (38-126); Anion Gap 18 mmol/L (8-16); Aspartate Amino Transferase 65 U/L (14-36); Bilirubin,Total 0.4 mg/dL (0.2-1.3); Blood Urea Nitrogen 10 mg/dL (7-17); Carbon Dioxide 20 mmol/L (22-30); Chloride 104 mmol/L (98-107); Estimated Glomerular Filt Rate > 60; Glucose 65 mg/dL (65-105); Lipase 60 U/L (23-300); Potassium 3.6 mmol/L (3.4-5.0); Sodium 142 mmol/L (137-145)
[2020-04-14 17:08] LABS: Troponin I < 0.012 ng/mL (0.000-0.034)
[2020-04-14 17:13] LABS: Beta HCG Quantitative < 2.39 mIU/ML
[2020-04-14 17:34] VITALS: BP 112/72; PULSE 102; RESP 13; O2SAT 99
[2020-04-14 17:45] LABS: Add Urine Microscopic? YES; Appearance Urine Clear (Clear); Bacteria Urine Trace /hpf; Bilirubin Urine Negative (Negative); Blood Urine Negative (Negative); Color Urine Straw (Yellow); Glucose Urine UA Negative (Negative); Ketones Urine 1+ mg/dL (Negative); Leukocyte Esterase Ur Negative LEU/UL (Negative); Mucus Urine Rare /lpf; Nitrate Urine Negative (Negative); Protein Urine Negative (Negative); RBC Urine 0-2 /hpf (0-2); Squamous Epithelial Cell Urine Many /hpf (Few); Urobilinogen Urine Negative mg/dL (<2.0); WBC Urine 0-3 /hpf
[2020-04-14] MEDS: LORazepam INJ (*CRX) 2 MG/ML VIAL 1 MG IV PUSH (18:03)
[2020-04-14 18:34] VITALS: BP 111/76; PULSE 95; RESP 18; O2SAT 99
--- NOTE | 2020-04-14 18:51 | PC.NURSE ---
Patient found in room taking medications out of pill bottles. patient states I took lots of pills from these two bottles of home medications. Patients bottles of sucralfate 1gm, Ferrous Sulfate 325mg both empty at bedside. Patient states I just took all the medications that I wanted, not to hurt myself. Patient also found with pantoprazole and amitriptyline that are her daughters medications. patient denies any SI or HI at this time. EDP aware at this time, verbal order for activated charcoal.
--- NOTE | 2020-04-14 18:57 | PC.NURSE ---
Poison Control called at this time, states that they would not expect toxicity from the iron at this time. Could result in abd pain and vomiting. Monitoring for a few hours at this time. Patient also was found with venlafaxine 150mg empty bottle at bedside, patient is unsure how many she took, prescription filled on 02/04/20.
[2020-04-14] MEDS: CHARCOAL ACTIVATED LIQUID 50 GM/240 ML BOTTLE PO (19:14)
[2020-04-14 19:42] LABS: Troponin I < 0.012 ng/mL (0.000-0.034)
[2020-04-14] MEDS: LACTATED RINGERS 1,000 ML 999 ML IV CONT (20:33)
[2020-04-14 21:03] VITALS: BP 114/64; PULSE 92; RESP 16; O2SAT 99
== END 2020-04-14 21:42 | disposition home or self-care (01) ==
PROVIDERS: Emergency Provider Emergency Medicine; PCP Family Medicine
DX: T50.904A Poisoning by unspecified drugs, medicaments and biological substances, undetermined, initial encounter (principal); F41.9 Anxiety disorder, unspecified; R00.0 Tachycardia, unspecified; F32.9 Major depressive disorder, single episode, unspecified; E03.9 Hypothyroidism, unspecified; Z98.84 Bariatric surgery status
CPT/HCPCS: 36415; 71046; 80053; 81001; 81025; 83690; 84484; 84702; 85025; 93005; 96361; 96374; 96375; 99284; J2060; J2270; J2405; J7120

== ENCOUNTER 2020-05-18 14:53 | Emergency (ER) | payer BC, SELFPAY ==
[2020-05-18] VITALS (25 sets, daily range): BP systolic 99–128; BP diastolic 53–88; PULSE 69–109; RESP 13–21; TEMP 36.8; O2SAT 98–100
--- NOTE | ~2020-05-18 | XR_ITS ---
XR chest 2V DATE: 05/18/2020 15:27 INDICATION: Left chest pain, irregular heart rate. TECHNIQUE: PA and lateral views COMPARISON: 04/14/2020 2 view chest FINDINGS: Normal heart size. No hilar or mediastinal enlargement. cardiac monitor technician device is noted in the left chest wall. The lungs are clear of infiltrate or consolidation. No pleural effusion or pulmonary vascular congest ion or pneumothorax is detected. IMPRESSION: No active cardiopulmonary disease Reviewed, dictated and finalized at location A. FERRY MASTER
--- NOTE | ~2020-05-18 | CT_ITS ---
EXAMINATION: CTA chest PE protocol DATE: 05/18/2020 17:11 INDICATION: Rest pain and dyspnea TECHNIQUE: Computed tomography (CT) pulmonary angiogram of the chest was performed with 100 mL Omnipa que-350 intravenous contrast. Additional 3D reconstructions utilizing coronal maximum intensity proje ction (MIP) were performed. The dose-length product was 209.93 mGy-cm. COMPARISON: None FINDINGS: Good contrast opacification of the pulmonary arteries. There is mild streak artifact from dense contr ast in the superior vena cava and right atrium. Minimal scattered respiratory motion artifact which d oes not significantly limit evaluation. No pulmonary embolism. No pneumonia, pulmonary edema or other pulmonary infiltrates. No pleural effusion or pneumothorax. Heart size is normal. No pericardial eff usion. Thoracic aorta is normal in caliber with no dissection. No pathologically enlarged thoracic ly mphadenopathy. Diffuse hepatic steatosis. Postoperative changes in the left upper quadrant of likely prior gastric bypass procedure. Mild S-shaped curvature of the thoracic and upper lumbar spine. Bones are otherwise unremarkable. IMPRESSION: 1. No pulmonary nodule is more other acute cardiopulmonary disease. 2. Diffuse hepatic steatosis. Reviewed, dictated and finalized at location A. NDARY MARKET MANAGER
--- NOTE | ~2020-05-18 | CT_ITS ---
EXAMINATION: CT brain wo con DATE: 05/18/2020 17:11 INDICATION: Fall with loss of consciousness TECHNIQUE: Computed tomography (CT) of the head was performed without intravenous contrast. Sagittal and coronal reconstructions were performed. The mA was adjusted according to patient size. Iterative reconstruction technique was employed. The dose-length product was 605.33 mGy-cm. COMPARISON: head CT dated 02/09/2008 FINDINGS: No fracture. No acute intracranial hemorrhage, acute infarction or abnormal extra axial fluid collect ion. Ventricles are normal and symmetric. No mass/mass effect. Mild mucoperiosteal thickening the isma ateral ethmoid sinuses. The orbits and mastoid air cells are normal. IMPRESSION: 1. Normal brain. No fracture or acute intracranial process. Reviewed, dictated and finalized at location A. T PRODUCER
--- NOTE | 2020-05-18 15:03 | ECG_ITS ---
Measurements Intervals [place] Rate: 104 P: 58 MN: 103 QRS: 42 QRSD: 93 T: 4 QT: 366 QTc: 482 Interpretive Statements SINUS TACHYCARDIA WITH SHORT [place] INTERVAL BORDERLINE ST-T WAVE ABNORMALITY- INFERIOR LEADS BASELINE ARTIFACT- V1, V3-V6 ABNORMAL ECG Electronically Signed On 05-18-2020 17:18:42 DIRECTOR OF RESTAURANT by Bladimir Hernandez D.O.
--- NOTE | 2020-05-18 15:21 | PC.NURSE ---
Called to lab to add on MG & TSH
--- NOTE | 2020-05-18 15:28 | PC.NURSE ---
Called lab to add on D Dimer
--- NOTE | 2020-05-18 15:31 | ED.ARRPALP ---
HPI - Arrhythmia/Palpitations General Chief Complaint: Arrhythmia/Palpitations Stated Complaint: cp Time Seen by Provider: 05/18/20 15:19 Source: RN notes reviewed History of Present Illness HPI narrative: Patient presents to emergency department from home via EMS for heart arrhythmia. Patient states upon arrival she began to feel like her heart was racing. She states that that time she had left-sided chest pain shortness of breath and passed out having a syncopal episode hitting the right side of her head. States that time her called EMS and that when EMS arrived patient was noted to be in SVT Valsalva maneuvers were done and the patient's heart rate returned to sinus tachycardia patient states her chest pain and shortness of breath have resolved this time. States she is followed by [facility] and has a legal assistant on she denies any fevers or chills or any other symptoms Related Data Home Medications Medication Instructions Recorded Confirmed Adult One Daily Multivitamin 0.4 mg PO DAILY 09/08/19 05/12/20 melatonin 10 mg PO HS 09/08/19 05/12/20 sucralfate 1 g PO Q3-4H 09/08/19 05/12/20 alprazolam [Xanax] 0.5 mg PO TID PRN 05/05/20 05/12/20 olanzapine 2.5 mg PO DAILY 05/05/20 05/12/20 Allergies Allergy/AdvReac Type Severity Reaction Status Date / Time NSAIDS (Non-Steroidal AdvReac Abdominal Verified 05/18/20 15:10 Anti-Inflamma Pain Review of Systems Review of Systems: Narrative: Gen.: Denies fevers or chills Eyes: Denies eye pain or visual change ENT: Denies congestion Respiratory: Denies shortness of breath CV: See HPI GI: Denies abdominal pain nausea, emesis or diarrhea Musculoskeletal: Denies back pain or muscle pain Neuro: Denies numbness, tingling, weakness or focal weakness with loss of consciousness Skin: Denies rash Except as documented, all other systems reviewed and negative PMFSH Past Medical History Medical History Anxiety Depression History of cardiac monitoring History of uterine bleeding Hypothyroid Third degree heart block Unconfirmed, currently being evaluated by Cardiology outpatient Surgical History Surgical History H/O abdominoplasty History of facial surgery right side facial reconstruction Hx of gastric bypass Adolfo-en-Y 2018 Hx of tonsillectomy Family History Family History Mother Hypertension Father Hypertension Social History Social History Social History: Ms. Gonzalez lives at home with her and two children. Her family recently moved to the area from [place] where her was stationed with the [employer]. She would like to be a full code and she designates her as her surrogate decision maker. Smoking packs per day: 0.5 Smoking cigarettes per day: 10.0 Years smoked: 15 Smoking pack-years: 7.50 Smoking status: Current every day smoker Tobacco type: cigarettes Additional smoking assessment comments: Patient used to smoke 1 ppd but has cut down to 5-6/day the past 6 months. Alcohol intake: current Drinks per week: 2 Substance use: former Substance use type: marijuana Additional occupation/education comments: She stays home with her children. Gender identity (if verbalized by the patient): Female Agree to blood products: Yes Exam Narrative: Exam Narrative: APPEARANCE: No acute distress, nontoxic, resting in bed EYES: EOMI HEENT: Normocephalic, atraumatic, OMM RESPIRATORY: No respiratory distress Clear to auscultation bilaterally with no rhonchi wheezing or rales. CARDIOVASCULAR: Regular rate and rhythm without murmurs rubs or gallops. ABDOMINAL: Soft, nontender, nondistended, no rebound or guarding MUSCULOSKELETAl: Moves all extremities. No clubbing, cyanosis or ed
[2020-05-18 15:35] LABS: INR 0.9; Prothrombin Time 12.7 Seconds (11.1-14.7)
[2020-05-18 15:36] LABS: Partial Thromboplastin Time 25.5 SECONDS (22.3-36.8)
[2020-05-18 15:39] LABS: D Dimer 0.93 ug/mL (<0.48)
[2020-05-18 15:41] LABS: Anion Gap 18 mmol/L (8-16); Blood Urea Nitrogen 13 mg/dL (7-17); Calcium 9.8 mg/dL (8.4-10.2); Carbon Dioxide 21 mmol/L (22-30); Chloride 104 mmol/L (98-107); Estimated CRCL calculation 86 ml/min; Estimated Glomerular Filt Rate > 60; Glucose 119 mg/dL (65-105); Magnesium 1.7 mg/dL (1.6-2.3); Potassium 3.6 mmol/L (3.4-5.0); Sodium 143 mmol/L (137-145)
[2020-05-18 15:53] LABS: Troponin I < 0.012 ng/mL (0.000-0.034)
[2020-05-18 16:06] LABS: Amphetamine Screen Urine Negative (Negative); Barbiturate Screen Urine Negative (Negative); Benzodiazepines Screen Urine Negative (Negative); Cannabinoid Screen Urine Negative (Negative); Cocaine Screen Urine Negative (Negative); Methadone Screen Urine Negative (Negative); Opiate Screen Urine Negative (Negative); Phencyclidine Screen Urine Negative (Negative)
[2020-05-18 16:11] LABS: Basophils Absolute Auto 0.1 K/mm3 (0.0-0.1); Basophils Percent Auto 1.1 % (0.2-1.2); Eosinophils Absolute Auto 0.1 K/mm3 (0-0.3); Eosinophils Percent Auto 0.9 % (0-4.4); Hemoglobin 11.3 g/dL (12.0-15.0); Immature Granulocyte Absolute 0.04 K/mm3 (0.00-0.031); Immature Granulocyte Percent A 0.7 % (0-0.5); Lymphocytes Absolute Auto 1.47 K/mm3 (0.9-3.2); Lymphocytes Percent Auto 26.6 % (18.3-44.2); Mean Corpuscular HGB Conc 32.3 g/dl (32-36); Mean Corpuscular Hemoglobin 26.5 pg (26-34); Mean Corpuscular Volume 82.2 fl (80-100); Mean Platelet Volume 8.9 fl (7.4-10.4); Monocytes Absolute Auto 0.3 K/mm3 (0.1-0.6); Monocytes Percent Auto 4.9 % (2.6-8.5); Neutrophils Absolute Auto 3.6 K/mm3 (1.3-6.7); Neutrophils Percent Auto 65.8 % (45.5-73.1); Platelet Count Result 287 k/mm3 (150-375); Red Blood Count 4.26 M/mm3 (4.2-5.4); Red Cell Distribution Width 20.9 % (11.5-14.5); White Blood Count 5.5 K/mm3 (4.5-10.0)
[2020-05-18 16:12] LABS: Thyroid Stimulating Hormone 0.777 uIU/mL (0.465-4.680)
[2020-05-18] MEDS: SODIUM CHLORIDE 0.9% IV 1,000 ML 999 ML IV CONT (16:24)
[2020-05-18 16:50] LABS: Pregnancy On Board Control Positive; Urine Pregnancy Test Negative
[2020-05-18 18:26] LABS: Troponin I < 0.012 ng/mL (0.000-0.034)
[2020-05-18] MEDS: METOPROLOL TARTRATE 12.5 MG TABLET PO (18:32)
== END 2020-05-18 19:10 | disposition home or self-care (01) ==
PROVIDERS: Emergency Provider Emergency Medicine; PCP Family Medicine
DX: I47.1 Supraventricular tachycardia (principal); R55 Syncope and collapse; R07.9 Chest pain, unspecified; F41.9 Anxiety disorder, unspecified; F32.9 Major depressive disorder, single episode, unspecified; E03.9 Hypothyroidism, unspecified; Z98.84 Bariatric surgery status; F17.210 Nicotine dependence, cigarettes, uncomplicated; K76.0 Fatty (change of) liver, not elsewhere classified; R94.31 Abnormal electrocardiogram [ECG] [EKG]
CPT/HCPCS: 36415; 70450; 71046; 71275; 80048; 80307; 81025; 83735; 84443; 84484; 85025; 85380; 85610; 85730; 93005; 99284; A9270; J7030; Q9967

== ENCOUNTER 2020-07-01 00:09 | Emergency (ER) | payer BC, SELFPAY ==
[2020-07-01 00:13] VITALS: BP 125/76; PULSE 88; RESP 20; TEMP 36.3; O2SAT 100
--- NOTE | 2020-07-01 00:26 | ED.FEMALEGU ---
HPI - Female Genitourinary General Chief complaint: Urogenital-Female Stated complaint: Blood in urine, lower abd pain Time Seen by Provider: 07/01/20 00:26 History of Present Illness HPI Narrative: 30 yo female presents to the ED for abdominal pain and dysuria. She reports that she had mild abdominal pain in the morning. Later she noted a small amount of blood on the tissue after she urinated. She then developed several lower abdominal and gross hematuria. No fever, flank pain, vaginal bleeding, discharge. Related Data Home Medications Medication Instructions Recorded Confirmed Adult One Daily Multivitamin 0.4 mg PO DAILY 09/08/19 06/17/20 melatonin 10 mg PO HS 09/08/19 06/17/20 sucralfate 1 g PO Q3-4H 09/08/19 06/17/20 alprazolam [Xanax] 0.5 mg PO TID PRN 05/05/20 06/17/20 olanzapine 2.5 mg PO DAILY 05/05/20 06/17/20 metoprolol tartrate 25 mg PO ONCE 06/03/20 06/17/20 Allergies Allergy/AdvReac Type Severity Reaction Status Date / Time NSAIDS (Non-Steroidal AdvReac Abdominal Verified 06/03/20 13:18 Anti-Inflamma Pain Review of Systems Review of Systems: All systems reviewed & are unremarkable except as noted in HPI and below Constitutional: Constitutional: Denies chills ENT: Reports system reviewed and no additional complaints, except as documented Cardiovascular: Cardiovascular: Denies chest pain Respiratory: Respiratory: Denies dyspnea Gastrointestinal: Gastrointestinal: Reports abdominal pain and Reports nausea Genitourinary: Genitourinary: Denies abnormal vaginal bleeding, Reports hematuria, Denies flank pain and Denies vaginal discharge Musculoskeletal: Musculoskeletal: Denies back pain Neurologic: Reports system reviewed and no additional complaints, except as documented [facility] Past Medical History Medical History Anxiety Depression History of cardiac monitoring History of uterine bleeding Hypothyroid Third degree heart block Unconfirmed, currently being evaluated by Cardiology outpatient Surgical History Surgical History H/O abdominoplasty History of facial surgery right side facial reconstruction Hx of gastric bypass Adolfo-en-Y 2018 Hx of tonsillectomy Family History Family History Mother Hypertension Father Hypertension Social History Social History Social History: Ms. Gonzalez lives at home with her and two children. Her family recently moved to the area from [place] where her was stationed with the [employer]. She would like to be a full code and she designates her as her surrogate decision maker. Smoking packs per day: 0.5 Smoking cigarettes per day: 10.0 Years smoked: 15 Smoking pack-years: 7.50 Smoking status: Current every day smoker Tobacco type: cigarettes Additional smoking assessment comments: Patient used to smoke 1 ppd but has cut down to 5-6/day the past 6 months. Alcohol intake: current Drinks per week: 2 Substance use: former Substance use type: marijuana Additional occupation/education comments: She stays home with her children. Gender identity (if verbalized by the patient): Female Agree to blood products: Yes Exam Const: General: healthy appearing, no acute distress and alert Orientation/consciousness: patient oriented x3 HENMT: Head: normal to inspection Chest: Chest palpation & inspection: no tenderness Resp: Effort & Inspection: normal respiratory effort Auscultation: clear to auscultation bilaterally, no rales, no rhonchi and no wheezes Cardio: Jugular venous distension: no JVD Rate: regular rate Rhythm: regular rhythm Heart sounds: no murmurs GI: Inspection: non-distended GI Palp: Yes Soft to palpation and No Tenderness to palpation present (GI) Ski
[2020-07-01] MEDS: PHENAZOPYRIDINE HCL 100 MG TABLET 200 MG PO (00:45)
[2020-07-01 00:55] LABS: Add Urine Microscopic? YES; Appearance Urine Cloudy (Clear); Mucus Urine Heavy /lpf; RBC Urine >75 /hpf (0-2); Squamous Epithelial Cell Urine Many /hpf (Few); WBC Urine >75 /hpf
[2020-07-01 00:56] LABS: Color Urine Red (Yellow)
[2020-07-01 00:58] LABS: Bilirubin Urine Unable to determine (Negative); Blood Urine Unable to determine (Negative); Glucose Urine UA Unable to determine mg/dL (Negative); Ketones Urine Unable to determine mg/dL (Negative); Nitrate Urine Unable to determine (Negative); Protein Urine Unable to determine mg/dL (Negative)
[2020-07-01 00:59] LABS: Leukocyte Esterase Ur Unable to determine LEU/UL (Negative); Urobilinogen Urine Unable to determine mg/dL (<2.0)
[2020-07-01] MEDS: NITROFURANTOIN MONOHYD MACROCR 100 MG CAP PO (01:26)
[2020-07-01] MEDS: HYDROcodone/acetaminophen (*CRX) 5-325 MG TABLET 1 TAB PO (01:33)
[2020-07-01 01:54] VITALS: BP 119/70; PULSE 77; RESP 18; O2SAT 98
--- NOTE | 2020-07-01 02:04 | PC.NURSE ---
pt d/ci was going over her urine results ,pt asking how can you tell i have a uti, pt states why did you not draw my blood. pt had told dr. ponce she just had her blood drawen the other day. offered lighter captain wheelchair to exit . pt refused and said i am going to another hospital. pt mad a statement that last time i was here they gave me pain meds, and i said something , and the someone from crisis came out to talk to me . pt appeared angry , i was very polite and professional, but pt did not understand her care.
== END 2020-07-01 01:59 | disposition home or self-care (01) ==
PROVIDERS: Emergency Provider Emergency Medicine; PCP Family Medicine
DX: N30.01 Acute cystitis with hematuria (principal); F17.210 Nicotine dependence, cigarettes, uncomplicated; F41.9 Anxiety disorder, unspecified; F32.9 Major depressive disorder, single episode, unspecified; E03.9 Hypothyroidism, unspecified; Z98.84 Bariatric surgery status
CPT/HCPCS: 81001; 81025; 87077; 87086; 87088; 99283; A9270

== ENCOUNTER 2020-08-27 06:28 | Emergency (ER) | payer BC, SELFPAY ==
--- NOTE | ~2020-08-27 | CT_ITS ---
EXAMINATION: CT brain wo con DATE: 08/27/2020 09:03 INDICATION: Syncope. Dizziness. Head injury. TECHNIQUE: Computed tomography (CT) of the head was performed without intravenous contrast. The mA wa s adjusted according to patient size. Iterative reconstruction technique was employed. The dose-lengt h product was 605.33 mGy-cm. COMPARISON: Head CT 05/18/2020 FINDINGS: There is no intracranial hemorrhage, acute infarction, or abnormal intracranial mass lesion . The ventricles are normal in size. There is mucosal thickening in the paranasal sinuses. The orbits are normal. The mastoid air cells are normal. IMPRESSION: 1. Normal brain. Reviewed, dictated and finalized at location A. IMPRESSION: 1. Normal brain.
--- NOTE | ~2020-08-27 | CT_ITS ---
EXAMINATION: CTA chest PE protocol DATE: 08/27/2020 09:03 INDICATION: Syncope. TECHNIQUE: Computed tomography angiography (CTA) of the chest was performed with 100 mL Omnipaque-350 intravenous contrast timed to evaluate the pulmonary arteries. Coronal maximum intensity projection 3D-reconstructions were created by the technologist. Automated exposure control and iterative reconst ruction technique were employed. The dose-length product was 605.33 mGy-cm. COMPARISON: Chest CT 05/18/2020 FINDINGS: There are centrilobular nodules and small airspace and groundglass opacities in posterior s egment right upper lobe, consistent with pneumonia. No pleural effusion. The heart size is normal. No pericardial effusion. There is no pulmonary embolus. There are surgical changes in the stomach. Ther e is mild thoracic spondylosis. IMPRESSION: 1. No pulmonary embolus. 2. Pneumonia involving posterior segment right upper lobe. Reviewed, dictated and finalized at location A.
[2020-08-27 06:32] VITALS: BP 126/89; PULSE 121; RESP 17; TEMP 36.9; O2SAT 100
[2020-08-27 06:41] VITALS: BP 111/86; PULSE 108
--- NOTE | 2020-08-27 06:41 | ECG_ITS ---
Measurements Intervals [place] Rate: 116 P: 140 MS: 153 QRS: 143 QRSD: 92 T: -40 QT: 330 QTc: 460 Interpretive Statements SINUS TACHYCARDIA ARM LEADS REVERSED BORDERLINE ST-T WAVE ABNORMALITY- ANTEROLAT/INF LEADS BASELINE ARTIFACT- I, II, III, AVL, AVF ABNORMAL ECG Electronically Signed On 08-27-2020 10:27:27 CDT by Bladimir Hernandez D.O.
[2020-08-27 06:44] VITALS: BP 122/88; PULSE 118
[2020-08-27 06:45] VITALS: BP 119/78; PULSE 128
--- NOTE | 2020-08-27 06:48 | PC.NURSE ---
Pt ambulated in green to restroom to provide urine sample. Standby assist and steady gait.
--- NOTE | 2020-08-27 06:52 | PC.NURSE ---
Pt presents to ED with complaints of a syncopal episode at approx 0430 at home. Pt states she loc at home in the kitchen. States she hit her head possibly on the counter top. No obvious wounds or injury noted post fall. Denies use of blood thinner. Pt states on Monday she had an ablasion done and she has not been feeling well since. Pt states she has had x2 blood transfusions in the past due to low hgb. Pt states she also had gastric bypass performed in 2017 and she now receives iron transfusion every 6+ weeks. Pt noted to be alert and oriented x4 with stable vitals. Pt is no obvious distress at this time. Call button and personal items within reach. Pt advised to press call button for assistance.
[2020-08-27 07:05] LABS: Basophils Absolute Auto 0.1 K/mm3 (0.0-0.1); Basophils Percent Auto 0.5 % (0.2-1.2); Eosinophils Absolute Auto 0.3 K/mm3 (0-0.3); Eosinophils Percent Auto 2.9 % (0-4.4); Hematocrit 39.2 % (37.0-47.0); Hemoglobin 13.2 g/dL (12.0-15.0); Immature Granulocyte Absolute 0.03 K/mm3 (0.00-0.031); Immature Granulocyte Percent A 0.3 % (0-0.5); Lymphocytes Absolute Auto 2.36 K/mm3 (0.9-3.2); Lymphocytes Percent Auto 21.6 % (18.3-44.2); Mean Corpuscular HGB Conc 33.7 g/dl (32-36); Mean Corpuscular Hemoglobin 32.5 pg (26-34); Mean Corpuscular Volume 96.6 fl (80-100); Mean Platelet Volume 8.5 fl (7.4-10.4); Monocytes Absolute Auto 0.6 K/mm3 (0.1-0.6); Monocytes Percent Auto 5.5 % (2.6-8.5); Neutrophils Absolute Auto 7.6 K/mm3 (1.3-6.7); Neutrophils Percent Auto 69.2 % (45.5-73.1); Platelet Count Result 179 k/mm3 (150-375); Red Blood Count 4.06 M/mm3 (4.2-5.4); White Blood Count 10.9 K/mm3 (4.5-10.0)
[2020-08-27 07:18] LABS: Anion Gap 8 mmol/L (8-16); Blood Urea Nitrogen 10 mg/dL (7-17); Calcium 8.7 mg/dL (8.4-10.2); Carbon Dioxide 29 mmol/L (22-30); Chloride 105 mmol/L (98-107); Estimated Glomerular Filt Rate > 60; Glucose 154 mg/dL (65-105); Sodium 142 mmol/L (137-145)
--- NOTE | 2020-08-27 07:20 | PC.NURSE ---
Water provided to pt, ok per Dr. Amato. Pt states she received last iron transfusion in May, had ablation Mon for heavy menses, this am stood up to get water I tried grabbing onto a chair, then I ended up on the floor . States she hit R side of forehead, no wounds or deformities observed. Denies N/V
--- NOTE | 2020-08-27 07:29 | ED.SYNCOPE ---
HPI - Syncope General Chief Complaint: Syncope Stated Complaint: passed out. Time Seen by Provider: 08/27/20 07:02 Source: patient and RN notes reviewed Mode of arrival: ambulatory Limitations: no limitations History of Present Illness HPI narrative: This is a 30 year old female with history of gastric bypass, PUD, abnormal uterine bleeding s/p uterine ablation who presents for evaluation of a syncopal episode. She states this morning she passed out. She states she got up to walk to kitchen when she developed dizziness, and she passed out. She does report hitting her head on the counter. She reports mild right frontal headache and dizziness. She denies chest pain, palpitations or shortness of breath. She also denies nausea, vomiting or diarrhea. She thinks her blood count may be low. She states on Monday she was having heavy vaginal bleeding so her route driver salesperson performed an ablation. She reports minimal bleeding now. She denies bloody stools or melena. She is receiving iron infusions. Related Data Home Medications Medication Instructions Recorded Confirmed Adult One Daily Multivitamin 0.4 mg PO DAILY 09/08/19 07/01/20 melatonin 10 mg PO HS 09/08/19 07/01/20 sucralfate 1 g PO Q3-4H 09/08/19 07/01/20 alprazolam [Xanax] 0.5 mg PO TID PRN 05/05/20 07/01/20 olanzapine 2.5 mg PO DAILY 05/05/20 07/01/20 metoprolol tartrate 25 mg PO ONCE 06/03/20 07/01/20 Allergies Allergy/AdvReac Type Severity Reaction Status Date / Time NSAIDS (Non-Steroidal AdvReac Abdominal Verified 06/03/20 13:18 Anti-Inflamma Pain Review of Systems Review of Systems: All systems reviewed & are unremarkable except as noted in HPI and below PMFSH Past Medical History Medical History Anxiety Depression History of cardiac monitoring History of uterine bleeding Hypothyroid Third degree heart block Unconfirmed, currently being evaluated by Cardiology outpatient Surgical History Surgical History H/O abdominoplasty History of facial surgery right side facial reconstruction Hx of gastric bypass Adolfo-en-Y 2018 Hx of tonsillectomy Family History Family History Mother Hypertension Father Hypertension Social History Social History Social History: Ms. Gonzalez lives at home with her and two children. Her family recently moved to the area from [place] where her was stationed with the [employer]. She would like to be a full code and she designates her as her surrogate decision maker. Smoking packs per day: 0.5 Smoking cigarettes per day: 10.0 Years smoked: 15 Smoking pack-years: 7.50 Smoking status: Current every day smoker Tobacco type: cigarettes Additional smoking assessment comments: Patient used to smoke 1 ppd but has cut down to 5-6/day the past 6 months. Alcohol intake: current Drinks per week: 2 Substance use: former Substance use type: marijuana Additional occupation/education comments: She stays home with her children. Gender identity (if verbalized by the patient): Female Agree to blood products: Yes Exam Const: General: no acute distress and alert Orientation/consciousness: patient oriented x3 Eyes: EOM: EOMs intact bilaterally Chest: Chest palpation & inspection: normal inspection of the chest Resp: Effort & Inspection: normal respiratory effort and no retractions Auscultation: clear to auscultation bilaterally Cardio: Rate: regular rate Rhythm: regular rhythm Heart sounds: no murmurs GI: GI Palp: Yes Soft to palpation and No Tenderness to palpation present (GI) Auscultation: normal bowel sounds Skin: General skin exam: normal color Rashes: no rashes Neuro: General: patient oriented x3, moves all extremities a
[2020-08-27] MEDS: SODIUM CHLORIDE 0.9% IV 1,000 ML 999 ML IV CONT (07:38)
[2020-08-27] MEDS: POTASSIUM CHLORIDE 20 MEQ TABLET 40 MEQ PO (07:39)
[2020-08-27 08:15] VITALS: BP 119/79; PULSE 78; RESP 18; O2SAT 100
[2020-08-27 08:17] LABS: INR 0.9; Prothrombin Time 12.9 Seconds (11.1-14.7)
[2020-08-27 08:18] LABS: Partial Thromboplastin Time 26.8 SECONDS (22.3-36.8)
[2020-08-27 08:21] LABS: D Dimer 0.94 ug/mL (<0.48)
[2020-08-27 09:53] VITALS: BP 116/75; PULSE 91; RESP 13; O2SAT 100
== END 2020-08-27 10:31 | disposition home or self-care (01) ==
PROVIDERS: Emergency Provider General Practice; PCP Family Medicine
DX: J18.9 Pneumonia, unspecified organism (principal); E87.6 Hypokalemia; R55 Syncope and collapse; S09.90XA Unspecified injury of head, initial encounter; E03.9 Hypothyroidism, unspecified; Z98.84 Bariatric surgery status; Z87.11 Personal history of peptic ulcer disease; F41.9 Anxiety disorder, unspecified; F32.9 Major depressive disorder, single episode, unspecified; F17.210 Nicotine dependence, cigarettes, uncomplicated; W01.198A Fall on same level from slipping, tripping and stumbling with subsequent striking against other object, initial encounter
CPT/HCPCS: 36415; 70450; 71275; 80048; 81025; 85025; 85380; 85610; 85730; 93005; 96361; 96365; 99284; A9270; J0696; J7030; Q9967

== ENCOUNTER 2021-08-07 15:55 | Emergency (ER) | payer BC, SELFPAY ==
--- NOTE | ~2021-08-07 | XR_ITS ---
EXAM: XR ribs LT 2V w CXR 2V HISTORY: left rib pain after fall TODAY, PAIN AROUND RIB 8 COMPARISON: 05/18/2020 FINDINGS: Loop recorder. Suture material in the left upper quadrant. Lungs are clear. Normal cardiom ediastinal silhouette. Left ninth posterolateral rib fracture, with one half shaft width inferior dis placement of the distal fragment. No other fracture detected. IMPRESSION: Displaced left ninth posterolateral rib fracture. Reviewed, dictated and finalized at location K.
--- NOTE | ~2021-08-07 | CT_ITS ---
EXAMINATION: CT abdomen pelvis w con DATE: 08/07/2021 18:00 INDICATION: Rib fracture, evaluate for intra-abdominal trauma. TECHNIQUE: Computed tomography (CT) of the chest, abdomen, and pelvis was performed with 100 mL Omnip aque-350 intravenous contrast. Automated exposure control and iterative reconstruction technique were employed. The dose-length product was 537.13 mGy-cm. COMPARISON: CT abdomen pelvis 09/01/2019. FINDINGS: ABDOMEN/PELVIS: Left subcapsular renal hematoma. No other solid organ injury. No evidence of bowel or mesenteric injury. No free fluid or free air. No retroperitoneal hematoma. Pelvic contents are atraumatic. Bladder wall thickening. MUSCULOSKELETAL: Mildly displaced left posterior 12th rib fracture. Displaced fracture of the left ninth posterior lat eral rib. Displaced and nondisplaced fractures of the left eighth posterior lateral and lateral rib. No fracture or traumatic malalignment of the thoracic or lumbar spine. IMPRESSION: Multiple left rib fractures. Left renal subcapsular hematoma (grade 1 injury). Possible cystitis. Reviewed, dictated and finalized at location K.
[2021-08-07 16:13] VITALS: BP 134/94; PULSE 116; RESP 16; TEMP 37; O2SAT 100
--- NOTE | 2021-08-07 16:48 | ED.FALL ---
HPI - Fall General Chief Complaint: Fall <Brisa Amado PA-C - Last Filed: 08/07/21 19:06> Stated Complaint: fall, left rib pain <BERT Maurer Last Filed: 08/07/21 19:06> Time Seen by Provider: 08/07/21 16:22 <BERT Maurer Last Filed: 08/07/21 19:06> Source: patient <BERT Maurer Last Filed: 08/07/21 19:06> Mode of arrival: ambulatory <BERT Maurer Last Filed: 08/07/21 19:06> Limitations: no limitations <BERT Maurer Last Filed: 08/07/21 19:06> History of Present Illness HPI Narrative: This is a 31 year old female that presents to the ER for left lateral rib pain present after a fall today. Reports she slipped while in the shower and hit her left side of the bathtub. Reports pain in the ribs since. Worse with movement and breathing. Relieved with rest. Denies other injuries, hitting her head, loss of consciousness, or vomiting. <Brisa Amado PA-C - Last Filed: 08/07/21 19:06> Related Data Home Medications: Home Medications Medication Instructions Recorded Confirmed melatonin 10 mg PO HS 09/08/19 02/17/21 multivit with min-folic acid 0.4 mg PO DAILY 09/08/19 02/17/21 [Adult One Daily Multivitamin] sucralfate 1 g PO Q3-4H 09/08/19 02/17/21 alprazolam [Xanax] 0.5 mg PO TID PRN 05/05/20 02/17/21 olanzapine 2.5 mg PO DAILY 05/05/20 02/17/21 metoprolol tartrate 25 mg PO ONCE 06/03/20 02/17/21 <BERT Maurer Last Filed: 08/07/21 19:06> Allergies/Adverse Reactions: Allergies Allergy/AdvReac Type Severity Reaction Status Date / Time NSAIDS (Non-Steroidal AdvReac Abdominal Verified 08/07/21 16:24 Anti-Inflamma Pain <Brisa Amado PA-C - Last Filed: 08/07/21 19:06> Review of Systems Review of Systems: CONSTITUTIONAL: Denies fever CARDIOVASCULAR: Reports rib pain RESPIRATORY: Denies dyspnea. GASTROINTESTINAL: Denies abdominal pain, nausea, vomiting <Brisa Amado PA-C - Last Filed: 08/07/21 19:06> All systems reviewed & are unremarkable except as noted in HPI and below <Brisa Amado PA-C - Last Filed: 08/07/21 19:06> [facility] Past Medical History Medical History: Medical History Anxiety Depression History of cardiac monitoring History of uterine bleeding Hypothyroid Third degree heart block Unconfirmed, currently being evaluated by Cardiology outpatient <Brisa Amado PA-C - Last Filed: 08/07/21 19:06> Surgical History Surgical History: Surgical History H/O abdominoplasty History of facial surgery right side facial reconstruction Hx of gastric bypass Adolfo-en-Y 2018 Hx of tonsillectomy <Brisa Amado PA-C - Last Filed: 08/07/21 19:06> Family History Family History: Family History Mother Hypertension Father Hypertension <Brisa Amado PA-C - Last Filed: 08/07/21 19:06> Social History Social History: Social History Social History: Ms. Gonzalez lives at home with her and two children. Her family recently moved to the area from [place] where her was stationed with the [employer]. She would like to be a full code and she designates her as her surrogate decision maker. Smoking packs per day: 0.5 Smoking cigarettes per day: 10.0 Years smoked: 15 Smoking pack-years: 7.50 Smoking status: Current every day smoker Tobacco type: cigarettes Additional smoking assessment comments: Patient used to smoke 1 ppd but has cut down to 5-6/day the past 6 months. Alcohol intake: current Drinks per week: 2 Alcohol use details: She typically drinks alcohol once every 2 weeks. Substance use: former Substance use type: marijuana Additional occupation/education comments: She st
[2021-08-07] MEDS: HYDROcodone/acetaminophen (*CRX) 5-325 MG TABLET 1 TAB PO (16:49)
[2021-08-07 17:17] LABS: Basophils Percent Auto 0.4 % (0.2-1.2); Eosinophils Absolute Auto 0.1 K/mm3 (0-0.3); Eosinophils Percent Auto 0.7 % (0-4.4); Immature Granulocyte Absolute 0.03 K/mm3 (0.00-0.031); Immature Granulocyte Percent A 0.4 % (0-0.5); Lymphocytes Absolute Auto 1.51 K/mm3 (0.9-3.2); Lymphocytes Percent Auto 20.7 % (18.3-44.2); Mean Corpuscular HGB Conc 34.2 g/dl (32-36); Mean Corpuscular Hemoglobin 31.9 pg (26-34); Mean Corpuscular Volume 93.1 fl (80-100); Mean Platelet Volume 8.6 fl (7.4-10.4); Monocytes Absolute Auto 0.5 K/mm3 (0.1-0.6); Monocytes Percent Auto 6.8 % (2.6-8.5); Neutrophils Absolute Auto 5.2 K/mm3 (1.3-6.7); Platelet Count Result 209 k/mm3 (150-375); Red Blood Count 4.08 M/mm3 (4.2-5.4); Red Cell Distribution Width 12.6 % (11.5-14.5); White Blood Count 7.3 K/mm3 (4.5-10.0)
[2021-08-07 17:27] LABS: Prothrombin Time 12.6 Seconds (11.1-14.7)
[2021-08-07 17:28] LABS: Partial Thromboplastin Time 26.2 SECONDS (22.3-36.8)
[2021-08-07 17:29] LABS: Anion Gap 10 mmol/L (8-16); Blood Urea Nitrogen 7 mg/dL (7-17); Calcium 8.7 mg/dL (8.4-10.2); Carbon Dioxide 27 mmol/L (22-30); Chloride 106 mmol/L (98-107); Estimated CRCL calculation 114 ml/min; Estimated Glomerular Filt Rate > 60; Glucose 99 mg/dL (65-110); Potassium 3.9 mmol/L (3.4-5.0); Sodium 143 mmol/L (137-145)
[2021-08-07] MEDS: ONDANSETRON INJ 4 MG/2 ML VIAL IV PUSH (17:35)
[2021-08-07] MEDS: MORPHINE SULFATE (*CRX) 2 MG/ML INJ IV PUSH ×2 (17:36→18:51)
[2021-08-07 18:59] VITALS: BP 115/84; PULSE 100; RESP 20; O2SAT 100
--- NOTE | 2021-08-07 19:08 | PC.NURSE ---
consent obtained and patient aware of transfer. no questions/concerns at this time. report called to mahi at [facility].
[2021-08-07] MEDS: LORazepam INJ (*CRX) 2 MG/ML VIAL 0.5 MG IV PUSH (19:27)
== END 2021-08-07 19:33 | disposition short-term general hospital (02) ==
PROVIDERS: Physician Assistant; Emergency Provider Emergency Medicine; PCP Family Medicine
DX: S22.42XA Multiple fractures of ribs, left side, initial encounter for closed fracture (principal); S37.012A Minor contusion of left kidney, initial encounter; E03.9 Hypothyroidism, unspecified; F41.9 Anxiety disorder, unspecified; F32.A Depression, unspecified; Z98.84 Bariatric surgery status; F17.210 Nicotine dependence, cigarettes, uncomplicated; W18.2XXA Fall in (into) shower or empty bathtub, initial encounter
CPT/HCPCS: 36415; 71046; 71100; 74177; 80048; 81025; 85025; 85610; 85730; 96374; 96375; 96376; 99285; A9270; J2060; J2270; J2405; Q9967

== ENCOUNTER 2022-01-27 10:00 | Emergency (ER) | payer BC, SELFPAY ==
--- NOTE | ~2022-01-27 | XR_ITS ---
EXAMINATION: XR sacrum coccyx min 2V DATE: 01/27/2022 12:41 INDICATION: Sacral injury. Low back injury. TECHNIQUE: 3 views of the sacrum and coccyx were obtained. COMPARISON: None. FINDINGS: There is thoracolumbar dextrocurvature. No fracture. There is mild osteoarthritis of the sa croiliac joints. There is mild lumbar spondylosis. IMPRESSION: 1. No fracture. Reviewed, dictated and finalized at location A. IMPRESSION: 1. No fracture.
--- NOTE | ~2022-01-27 | XR_ITS ---
EXAMINATION: XR lumbar spine 2-3V DATE: 01/27/2022 12:41 INDICATION: Low back injury. TECHNIQUE: 3 views of lumbar spine were obtained. COMPARISON: Lumbar spine radiographs 10/09/2006 FINDINGS: There is 7 degrees dextrocurvature of thoracic lumbar spine. Vertebral body heights are nor mal. There is mildly decreased disc height at L4-L5. There are endplate osteophytes at multiple level s. There is multilevel mild to moderate facet joint osteoarthritis. IMPRESSION: 1. Mild lumbar spondylosis. Reviewed, dictated and finalized at location A. IMPRESSION: 1. Mild lumbar spondylosis.
[2022-01-27 10:39] VITALS: BP 106/65; PULSE 75; RESP 18; TEMP 36.7; O2SAT 100
[2022-01-27 11:23] LABS: Basophils Percent Auto 0.5 % (0.2-1.2); Eosinophils Absolute Auto 0.2 K/mm3 (0-0.3); Hematocrit 38.5 % (37.0-47.0); Hemoglobin 12.8 g/dL (12.0-15.0); Immature Granulocyte Absolute 0.04 K/mm3 (0.00-0.031); Immature Granulocyte Percent A 0.5 % (0-0.5); Lymphocytes Absolute Auto 1.42 K/mm3 (0.9-3.2); Lymphocytes Percent Auto 16.4 % (18.3-44.2); Mean Corpuscular HGB Conc 33.2 g/dl (32-36); Mean Corpuscular Hemoglobin 31.4 pg (26-34); Mean Corpuscular Volume 94.4 fl (80-100); Mean Platelet Volume 9.4 fl (7.4-10.4); Monocytes Absolute Auto 0.6 K/mm3 (0.1-0.6); Monocytes Percent Auto 6.5 % (2.6-8.5); Neutrophils Absolute Auto 6.4 K/mm3 (1.3-6.7); Neutrophils Percent Auto 74.1 % (45.5-73.1); Platelet Count Result 195 k/mm3 (150-375); Red Blood Count 4.08 M/mm3 (4.2-5.4); Red Cell Distribution Width 12.8 % (11.5-14.5); White Blood Count 8.7 K/mm3 (4.5-10.0)
[2022-01-27 11:31] LABS: Add Urine Microscopic? YES; Appearance Urine Cloudy (Clear); Bacteria Urine Trace /hpf; Bilirubin Urine Negative (Negative); Blood Urine Negative (Negative); Color Urine Yellow (Yellow); Glucose Urine UA Negative (Negative); Ketones Urine Negative (Negative); Leukocyte Esterase Ur Negative LEU/UL (Negative); Mucus Urine Few /lpf; Nitrate Urine Negative (Negative); Protein Urine Negative (Negative); Specific Grav Ur 1.027 (1.001-1.035); Squamous Epithelial Cell Urine Many /hpf (Few); WBC Urine 0-3 /hpf
[2022-01-27 11:39] LABS: Alanine Aminotransferase 27 U/L (6-35); Albumin Level 4.8 g/dL (3.5-5.1); Alkaline Phosphatase 76 U/L (38-126); Anion Gap 8 mmol/L (8-16); Aspartate Amino Transferase 24 U/L (14-36); Bilirubin,Total 0.5 mg/dL (0.2-1.3); Blood Urea Nitrogen 15 mg/dL (7-17); Calcium 9.4 mg/dL (8.4-10.2); Carbon Dioxide 26 mmol/L (22-30); Chloride 105 mmol/L (98-107); Estimated CRCL calculation 88 ml/min; Estimated Glomerular Filt Rate > 60; Glucose 78 mg/dL (65-110); Potassium 3.9 mmol/L (3.4-5.0); Sodium 139 mmol/L (137-145)
--- NOTE | 2022-01-27 12:35 | ED.GENADULT ---
HPI - General Adult General Chief complaint: Urogenital-Female Stated complaint: blood in urine Time Seen by Provider: 01/27/22 10:49 History of Present Illness HPI narrative: 31-year-old female history of kidney injury secondary to rib fracture presents to the emergency room for left-sided lower back pain. Patient states several days ago she was wrestling with her children, 1 1 jumped on her landing on her lower back. Patient patient states that she took a muscle relaxer and an old [place] with no relief. Patient states that she is also being treated for a urinary tract infection, and has noticed scant amount of blood in her urine. Patient states pain is worse with bending forward and rotating her trunk Related Data Home Medications Medication Instructions Recorded Confirmed melatonin 10 mg capsule 10 mg PO HS 09/08/19 02/17/21 multivitamin with minerals-folic 0.4 mg PO DAILY 09/08/19 02/17/21 acid 0.4 mg tablet (Adult One Daily Multivitamin) sucralfate 1 gram tablet 1 g PO Q3-4H 09/08/19 02/17/21 alprazolam 0.5 mg tablet (Xanax) 0.5 mg PO TID PRN Anxiety 05/05/20 02/17/21 olanzapine 2.5 mg tablet 2.5 mg PO DAILY 05/05/20 02/17/21 metoprolol tartrate 25 mg tablet 25 mg PO ONCE 06/03/20 02/17/21 Allergies Allergy/AdvReac Type Severity Reaction Status Date / Time NSAIDS (Non-Steroidal AdvReac Abdominal Verified 08/07/21 16:24 Anti-Inflamma Pain Review of Systems Review of Systems: CONSTITUTIONAL: Denies fever, chills, or sweats. EYES: Denies visual changes, redness, or discharge. ENT: Denies rhinorrhea, congestion, sore throat, or otalgia. CARDIOVASCULAR: Denies chest pain, palpitations, or edema. RESPIRATORY: Denies cough or dyspnea. GASTROINTESTINAL: Denies abdominal pain, nausea, vomiting, or diarrhea. GENITOURINARY: Denies dysuria or hematuria. SKIN: Denies rash or itching. MUSCULOSKELETAL: Reports lower back pain NEUROLOGIC: Denies headache, numbness, dizziness, or weakness. PSYCHIATRIC: Denies anxiety or depression. [facility] Past Medical History Medical History Anxiety Depression History of cardiac monitoring History of uterine bleeding Hypothyroid Third degree heart block Unconfirmed, currently being evaluated by Cardiology outpatient Surgical History Surgical History H/O abdominoplasty History of facial surgery right side facial reconstruction Hx of gastric bypass Adolfo-en-Y 2018 Hx of tonsillectomy Family History Family History Mother Hypertension Father Hypertension Social History Social History Social History: Ms. Gonzalez lives at home with her and two children. Her family recently moved to the area from [place] where her was stationed with the [employer]. She would like to be a full code and she designates her as her surrogate decision maker. Smoking packs per day: 0.5 Smoking cigarettes per day: 10.0 Years smoked: 15 Smoking pack-years: 7.50 Smoking status: Current every day smoker Tobacco type: cigarettes Additional smoking assessment comments: Patient used to smoke 1 ppd but has cut down to 5-6/day the past 6 months. Alcohol intake: current Drinks per week: 2 Alcohol use details: She typically drinks alcohol once every 2 weeks. Substance use: former Substance use type: marijuana Additional occupation/education comments: She stays home with her children. Gender identity (if verbalized by the patient): Female Agree to blood products: Yes Exam Narrative: GENERAL: Well-appearing, well-nourished, no physical limitations, and in no acute distress. HEAD: Normocephalic, atraumatic. EYES: Conjunctivae normal, PERRLA and EOMI. CHEST: Clear to auscultation. No respiratory distress. No wheezes rales or rhon
--- NOTE | 2022-01-27 15:38 | PC.NURSE ---
Patient presented to the nurse desk stating that she was leaving and going to her doctor . Patient informed she would need to sign an AMA form. Patient signed form and ambulated out of department before waiting for discharge instructions or vital signs
== END 2022-01-27 13:30 | disposition home or self-care (01) ==
PROVIDERS: Emergency Medicine; Emergency Provider Nurse Practitioner Family; PCP Family Medicine
DX: S30.0XXA Contusion of lower back and pelvis, initial encounter (principal); E03.9 Hypothyroidism, unspecified; F41.9 Anxiety disorder, unspecified; F32.A Depression, unspecified; Z95.0 Presence of cardiac pacemaker; F17.210 Nicotine dependence, cigarettes, uncomplicated; W51.XXXA Accidental striking against or bumped into by another person, initial encounter
CPT/HCPCS: 36415; 72100; 72220; 80053; 81001; 85025; 99284

== ENCOUNTER 2022-05-25 15:01 | Outpatient (CLI) | payer BC, SELFPAY ==
[2022-05-25 15:50] LABS: Alanine Aminotransferase 27 U/L (6-35); Albumin Level 4.8 g/dL (3.5-5.1); Alkaline Phosphatase 59 U/L (38-126); Anion Gap 6 mmol/L (8-16); Aspartate Amino Transferase 24 U/L (14-36); Bilirubin,Total 0.4 mg/dL (0.2-1.3); Blood Urea Nitrogen 14 mg/dL (7-17); Calcium 9.3 mg/dL (8.4-10.2); Carbon Dioxide 26 mmol/L (22-30); Chloride 103 mmol/L (98-107); Estimated Glomerular Filt Rate > 60; Glucose 113 mg/dL (65-110); Potassium 4.3 mmol/L (3.4-5.0); Sodium 135 mmol/L (137-145)
== END 2022-05-25 15:02 | disposition home or self-care (01) ==
PROVIDERS: Visit Provider Obstetrics & Gynecology
DX: N94.6 Dysmenorrhea, unspecified (principal); Z92.89 Personal history of other medical treatment; Z01.818 Encounter for other preprocedural examination
CPT/HCPCS: 36415; 80053; 86850; 86900; 86901

== ENCOUNTER 2022-06-01 01:37 | Day surgery (SDC) | payer BC, SELFPAY ==
[2022-05-17 14:38] VITALS: BMI 21.9
--- NOTE | 2022-05-17 14:55 | PC.NURSE ---
Report to the Outpatient Waiting Room, entrance under the green pavilion located off [facility], at 0600 on 06/01/22. Planned Procedure Time: 0730. Time changes happen often and if your time is changed the preop area will call you the afternoon before. - You and your visitor will be asked to self-screen and do not enter if you have any COVID symptoms. - Only one visitor is requested with a max of two and NO children visitors are allowed at this time. - The patient visitor may be requested to leave or wait in car when not with patient due to distancing restrictions. - A mask is optional within the hospital at this time. Patients may have clear liquids (water, carbonated beverages, clear teas, apple juice) until 3 hours prior to surgery with a maximum of 20 ounces. - No food from midnight until time of surgery. Take the following medications with a SIP of water the morning of surgery: Adderall DO NOT STOP ANY OF YOUR OTHER PRESCRIPTION MEDICATIONS PRIOR TO SURGERY ?EXCEPT THE FOLLOWING Medications to discontinue per physician multivitamin Date to take last dose 3 days prior Please no make-up, nail [place], hairspray, perfume, deodorant, or body powder the day of surgery. No jewelry (including any body piercings) or valuables the day of surgery, leave them at home. Please take a shower or bath the night before, or the morning of, surgery with an antibacterial soap. Wear comfortable, loose fitting clothing. - Jewelry must be removed prior to entering the operating room. Rings and piercings that are not removed may be cut off. - The hospital will not accept responsibility for valuables. - Please leave all valuables, including medications, at home the day of surgery. If you are going home after surgery, a licensed tour bus driver/guide must drive you home. - NO public transportation without another adult if you receive anesthesia. - We recommend that an adult stay with you for 24 hours following discharge. - We also recommend that you do not drive, make important decision, drink alcoholic beverages, or take any drugs that were not prescribed by your health care provider for at least 24 hours after your discharge time. Follow any additional instructions given to you from your surgeon. If you or anyone in your household have experienced Covid symptoms in the past week, please notify your surgeon or the nurse liaison at the phone number below for possible testing. Telephone instructions given to patient and asked if any additional questions and then verbalized understanding. Patient advised to call surgeon office or pre surgery nurse liaison [phone] if any additional questions.
[2022-06-01] VITALS (9 sets, daily range): BP systolic 100–121; BP diastolic 60–76; PULSE 55–88; RESP 9–16; TEMP 36.3–36.7; O2SAT 94–100
[2022-06-01] MEDS: ACETAMINOPHEN 500 MG TABLET 1000 MG PO (06:30)
[2022-06-01] MEDS: KETOROLAC 15 MG/ML VIAL (*BKC) IV PUSH (06:30)
[2022-06-01] MEDS: LACTATED RINGERS 1,000 ML 30 ML IV CONT ×2 (06:30→09:37)
--- NOTE | 2022-06-01 07:15 | WPDANESEPPF ---
Anes - Initial Pre Proc Eval Procedure: Operation Date: 06/01/22 07:30 Proposed Procedures p Total Laparoscopic Hysterectomy, Bilateral Salpingectomy - Moisés Steve MD Date/Time: 06/01/22 07:15 Surgeon: Moisés Steve MD Pre Op Diagnosis: dysmenorrhea Patient Data Age: 32 Gender: F Height: 1.7 m Weight: 63.5 kg Allergies Allergy/AdvReac Type Severity Reaction Status Date / Time NSAIDS (Non-Steroidal AdvReac Unknown r/t Verified 05/17/22 14:30 Anti-Inflamma gastric bypass and ulcer history Home Medications Medication Instructions Recorded Confirmed Type melatonin 10 mg capsule 10 mg PO HS 09/08/19 05/17/22 History multivitamin with minerals-folic 0.4 mg PO DAILY 09/08/19 05/17/22 History acid 0.4 mg tablet (Adult One Daily Multivitamin) sucralfate 1 gram tablet 1 g PO Q3-4H 09/08/19 05/17/22 History pantoprazole 40 mg tablet,delayed 40 mg PO Q12HR #30 tabs 09/09/19 05/17/22 Rx release dextroamphetamine-amphetamine ER 10 mg PO DAILY 05/17/22 05/17/22 History 10 mg 24hr capsule,extend release (Adderall XR) Laboratory Tests 06/01/22 06:51 Serum HCG, Qual Pending Patient hx anesthesia problems: none Family hx anesthesia problems: none Results Review: All pre-operative results and documents have been reviewed as part of the pre-operative evaluation. [facility] Past Medical History Medical History Anxiety Depression History of cardiac monitoring History of uterine bleeding Hypothyroid Third degree heart block Unconfirmed, currently being evaluated by Cardiology outpatient Surgical History Surgical History H/O abdominoplasty History of facial surgery right side facial reconstruction Hx of gastric bypass Adolfo-en-Y 2018 Hx of tonsillectomy Family History Family History Mother Hypertension Father Hypertension Social History Social History Social History: Ms. Gonzalez lives at home with her and two children. Her family recently moved to the area from [place] where her was stationed with the [employer]. She would like to be a full code and she designates her as her surrogate decision maker. Smoking packs per day: 0.5 Smoking cigarettes per day: 10.0 Years smoked: 15 Smoking pack-years: 7.50 Smoking status: Current every day smoker Tobacco type: cigarettes Second hand tobacco smoke exposure: Yes Additional smoking assessment comments: Patient used to smoke 1 ppd but has cut down to 5-6/day the past 6 months. Alcohol intake: never Drinks per week: 2 Alcohol use details: She typically drinks alcohol once every 2 weeks. Substance use: never Substance use type: marijuana Living arrangements: with family Additional occupation/education comments: She stays home with her children. Gender identity (if verbalized by the patient): Female Spiritual care concerns: No Agree to blood products: Yes Anes - Eval Final PreProcedure Day of Procedure 06/01/22 07:15 Patient weight: normal Heart: regular rate and rhythm Lungs: clear to auscultation Airway: Mallampati scale class II Neurological: alert and oriented (really sleep states took anxiety pill last night) Last oral intake: >/= 8 hours ASA classification: II Emergent: no Anesthetic plan: proceed Anesthesia type and monitoring: general ETT and standard monitoring Results Review: All pre-operative results and documents have been reviewed as part of the pre-operative evaluation. Informed Consent: The patient's anesthetic plan and its attendant risks and benefits were discussed with the patient/family/POA. Questions were solicited and answers provided to the satisfaction of the patient/family/POA.
--- NOTE | 2022-06-01 07:17 | WPDHPUPDATE1 ---
History and Physical Update Update Date/Time: 06/01/22 07:17 History and Physical has been reviewed, including an updated exam of the patient. There are NO changes in the patient's condition. Risks, benefits, and alternatives have been discussed and questions answered. Patient agrees to proceed with procedure.
[2022-06-01 07:34] LABS: SPREG INTERNAL CONTROL Positive; Serum Qual hCG Negative
[2022-06-01] MEDS: ceFAZolin 2 GM/D5W 50 ML 2 GM/50 ML BAG IVPB (07:43)
[2022-06-01] MEDS: ceFAZolin SODIUM 1 GM VIAL (08:10)
--- NOTE | 2022-06-01 08:41 | SUR.OPER ---
Pre op patient very sleepy with sedated type affect. Answered all questions appropriately with eyes closed.
--- NOTE | 2022-06-01 09:12 | SUR.OPER ---
PATIENT MAINTAINS POSITION AND URINE BAG COLOR YELLOW NO AIR
--- NOTE | 2022-06-01 09:17 | SUR.OPER ---
uterus 68.8gm
[2022-06-01] MEDS: fentaNYL CITRATE INJ (*CRX) 100 MCG/2 ML VIAL 25 MCG IV PUSH ×8 (09:45→10:32)
--- NOTE | 2022-06-01 09:46 | W.PM.PROC2 ---
Procedure Note - Detailed Date of Procedure 06/01/22 Pre-op Diagnosis dysmenorrhea Post-op Diagnosis Same Procedure Performed Total laparoscopic hysterectomy. Surgeon Moisés Steve MD Anesthesia General Indications Dysmenorrhea Findings normal appearing uterus, tubes, ovaries. Description of Procedure This patient was taken to the operating room. She was prepped and draped in the dorsal lithotomy position after induction of general anesthesia. The uterine manipulator and Medardo cup were placed. This was done with a speculum and tenaculum. The speculum was placed. The cervix was grasped with a tenaculum. The stay sutures were placed at 3 and 9:00 a.m.. The stay sutures of 0 Vicryl were brought through the appropriately sized Medardo cup. The tip of the VALORIE manipulator was placed in the intrauterine cavity. The cup was slid into place around the cervix and into the fornices. It was locked into place. The sutures were then wrapped around the handle and tied under tension. A 5 mm skin incision was made in the left upper quadrant the abdomen. A 5 mm trocar was inserted into the intrauterine cavity under direct visualization of the scope. Pneumoperitoneum was achieved. A left lower quadrant 11 mm incision was made with scalpel. An 11 mm trocar was inserted into the anterior abdominal cavity under direct visualization the scope. A 5 mm infraumbilical incision was made with a scalpel and a 5 mm trocar was inserted the intra-abdominal cavity under direct visualization of the scope. Bilateral ureteral lysis was performed. This was done from the pelvic brim down to the uterine artery. This was done with careful dissection using sharp and blunt dissection. The fallopian tubes were removed bilaterally. The mesosalpinx around the fallopian tubes were cauterized transected with LigaSure cautery. This was done in a bilateral fashion from the ovary to the uterine cornua. The fallopian tube was transected at the uterine cornu and amputated. The tube was taken out the left lower quadrant trocar site. In a stepwise fashion along the lateral aspects of the uterus the round ligament and broad ligaments were cauterized transected down to the level of the uterine arteries. A bladder flap was created in the bladder was moved distally to the end of the cervix and over the Medardo cup. The bilateral uterine arteries were cauterized and transected. Colpotomy was then performed. In a circumferential fashion the vagina was transected using unipolar cautery. The incision was made down on the Medardo cup. The uterus and cervix were taken out through the vagina. A pneumo occluder was placed in the vagina. The vaginal cuff was closed with a 0 V lock suture in a running fashion. The pelvis was irrigated with copious amounts antibiotic irrigation. The ureters were again examined and found to be intact and flowing freely under the uterine arteries into the bladder. The bladder was intact. It was examined directly. The vagina was irrigated with Betadine solution after removal of the Pneumo occluder. The patient was taken to recovery room. She was stable condition. Sponge lap and needle counts were correct x2. Estimated Blood Loss -50.0 Urine Output -150.0 Drains Yes Packing No Pathology Yes Complications No immediate complications Condition Stable Disposition Floor
[2022-06-01] MEDS: ONDANSETRON INJ 4 MG/2 ML VIAL IV PUSH (10:07)
[2022-06-01] MEDS: HYDROmorphone HCL INJ (*CRX) 1 MG/ML SYR 0.5 MG IV PUSH ×2 (10:36→10:43)
--- NOTE | 2022-06-01 11:00 | PC.NURSE ---
PT arrived on unit via bed accompanied by spouse and taken to room 283. PT alert and awake and oriented to room and surrounding area. PT introductions made and plan of care discussed per post op surgery, pain management, and daily care activities and pending discharge to home.
[2022-06-01] MEDS: DEXTROSE 5%/0.45% SOD CHL 1,000 ML 125 ML IV CONT (12:02)
[2022-06-01] MEDS: Acetaminophen/HYDROcodone ELIXIR (*CRX) 7.5 MG/15 ML UDC PO ×2 (12:03→15:09)
[2022-06-01] MEDS: PHARMACIST COMMUNICATION ORDER 1 EACH XX (14:35)
--- NOTE | 2022-06-01 15:20 | PC.NURSE ---
Pt discharged to home via wheelchair accompanied by spouse and taken to waiting car. follow up appts confirmed
== END 2022-06-01 15:20 | disposition home or self-care (01) ==
LOC: ANHSURGERY 10:18 → ANHOB2 11:04
PROVIDERS: Anesthesiology; Visit Provider Obstetrics & Gynecology
PROC: 0UT9FZZ Resection of Uterus, Via Natural or Artificial Opening With Percutaneous Endoscopic Assistance (ICD-10-PCS; CPT 58571; principal; 2022-06-01 07:30)
DX: N94.6 Dysmenorrhea, unspecified (principal); N87.9 Dysplasia of cervix uteri, unspecified; N83.8 Other noninflammatory disorders of ovary, fallopian tube and broad ligament; F41.9 Anxiety disorder, unspecified; F32.A Depression, unspecified; F17.210 Nicotine dependence, cigarettes, uncomplicated
CPT/HCPCS: 58571; 36415; 84703; 88307; 99199; A9270; J0330; J0690; J1100; J1170; J1885; J2250; J2370; J2405; J2704; J2710; J3010; J7030; J7120

== ENCOUNTER 2022-07-02 11:27 | Outpatient (CLI) | payer BC, SELFPAY ==
--- NOTE | ~2022-07-02 | MR_ITS ---
MRI of the lumbar spine Clinical History: Back pain Technique: Axial T2-weighted images, and sagittal T1-weighted, T2-weighted, and T2 fat-sat images wer e acquired. Findings: There is no fracture or subluxation of the lumbar spine. Vertebral bodies maintain normal h eight and alignment. No suspicious or focal bone marrow signal abnormality seen. At L1-L2 and L2-L3, there is no disc bulge or herniation. There are mild facet joint degenerative lorena nges. No spinal canal stenosis or neural foraminal narrowing at these levels. At L3-L4, there is minimal disc bulge with facet arthropathy. No spinal canal stenosis or neural fora vane narrowing. At L4-L5, there is minimal disc bulge with facet arthropathy. No spinal canal stenosis or neural fora vane narrowing. At L5-S1, there is a disc extrusion at the central to left paracentral region, which mildly compresse s the thecal sac, and impinges the descending left-sided S1-S2 level nerve root. There is severe bila teral neural foraminal narrowing. Impression: Disc extrusion at the central left paracentral region L5-S1, impinging the descending left-sided S1-S 2 level nerve root, and contributing to severe bilateral neural foraminal narrowing and mild compress ion of the thecal sac at this level. Additional minimal degenerative changes, as above. Reviewed, dictated and finalized at [facility]. Impression: Disc extrusion at the central left paracentral region L5-S1, impinging the desc ending left-sided S1-S2 level nerve root, and contributing to severe bilateral neural foraminal narrowing and mild compression of the thecal sac at this level . Additional minimal degenerative changes, as above.
== END 2022-07-02 11:28 ==
LOC: MICIMG 11:29
PROVIDERS: PCP Nurse Practitioner Family; Visit Provider Nurse Practitioner Family
DX: M25.552 Pain in left hip (principal); M51.27 Other intervertebral disc displacement, lumbosacral region
CPT/HCPCS: 72148

== ENCOUNTER 2022-07-15 17:44 | Emergency (ER) | payer BC, SELFPAY ==
--- NOTE | 2022-07-15 17:47 | ED.EYEPROB ---
HPI - Eye Problem General Chief complaint: Eye Problems Stated complaint: Bilateral Eye Irritation Time Seen by Provider: 07/15/22 18:24 Source: patient and RN notes reviewed Mode of arrival: ambulatory Limitations: no limitations History of Present Illness HPI Narrative: 32-year-old female presents with concern for bilateral eye irritation discharge. Reports she noticed symptoms this morning. 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 She denies vision changes, cold symptoms MD chief complaint: eye redness Related Data Home Medications Medication Instructions Recorded Confirmed multivitamin with minerals-folic 0.4 mg PO DAILY 09/08/19 07/15/22 acid 0.4 mg tablet (Adult One Daily Multivitamin) dextroamphetamine-amphetamine ER 10 mg PO BID 05/17/22 07/15/22 10 mg 24hr capsule,extend release (Adderall XR) esomeprazole magnesium 40 mg 40 mg PO BID 06/15/22 07/15/22 capsule,delayed release lamotrigine 25 mg tablet 100 mg PO DAILY 06/15/22 07/15/22 disulfiram 250 mg tablet 250 mg PO DAILY 07/15/22 07/15/22 spironolactone 100 mg tablet 100 mg PO DAILY 07/15/22 07/15/22 vortioxetine 10 mg tablet 10 mg PO DAILY 07/15/22 07/15/22 (Trintellix) Allergies Allergy/AdvReac Type Severity Reaction Status Date / Time NSAIDS (Non-Steroidal AdvReac Unknown r/t Verified 07/15/22 18:16 Anti-Inflamma gastric bypass and ulcer history Review of Systems Review of Systems: CONSTITUTIONAL: Denies malaise, chills, sweats, or fever. EYES: Denies visual changes. Reports bilateral redness, irritation, discharge. ENT: Denies rhinorrhea, congestion, sinus pain, otalgia or sore throat. SKIN: Denies rash or itching. NEUROLOGIC: Denies numbness, weakness, or headache. PSYCHIATRIC: Denies anxiety or depression. All systems reviewed & are unremarkable except as noted in HPI and below PMFSH Past Medical History Medical History (Updated 07/15/22 @ 18:30 by Catrachita Cheng NP) Anxiety Depression Encounter to establish care History of cardiac monitoring History of uterine bleeding Hypothyroid Low back pain radiating to left lower extremity Third degree heart block Unconfirmed, currently being evaluated by Cardiology outpatient Surgical History Surgical History (Updated 06/15/22 @ 14:19 by SHARIF Yoder) H/O abdominoplasty H/O section H/O: hysterectomy History of facial surgery right side facial reconstruction Hx of gastric bypass Adolfo-en-Y 2018 Hx of tonsillectomy Family History Family History (Updated 06/15/22 @ 14:22 by SHARIF Yoder) Mother Hypertension Anxiety Depression Father Hypertension Other Cancer Anxiety Depression Grandparent Cancer Diabetes mellitus Depression Heart disease Anxiety Sibling Anxiety Depression Daughter Anxiety Depression Social History Social History (Updated 06/15/22 @ 15:30 by SHARIF Yoder) Social History: Ms. Gonzalez lives at home with her and two children. Her family recently moved to the area from [place] where her was stationed with the [employer]. She would like to be a full code and she designates her as her surrogate decision maker. Smoking packs per day: 0.5 Smoking cigarettes per day: 10.0 Years smoked: 15 Smoking pack-years: 7.50 Smoking status: Current every day smoker Tobacco type: cigarettes Second hand tobacco smoke exposure: Yes Alcohol intake: never Substance use: never Substance use type: does not use Lack of Transportation: No Lack of Food: Never True Current Housing: I Have Housing Concerned About Future Housing: No Difficulty Paying Gas/Electric Bills: No Difficulty Paying for Meds: No Currently Unemployed: No Education: Master's Degree or Higher Difficulty w/ Childcare or Family Care: No Living arrangements: with family Trevor
[2022-07-15 17:53] VITALS: BP 113/69; PULSE 85; RESP 18; TEMP 36.9; O2SAT 100
== END 2022-07-15 18:33 | disposition home or self-care (01) ==
PROVIDERS: Emergency Provider Nurse Practitioner; PCP Nurse Practitioner Family
DX: H10.33 Unspecified acute conjunctivitis, bilateral (principal); E03.9 Hypothyroidism, unspecified; F17.210 Nicotine dependence, cigarettes, uncomplicated
CPT/HCPCS: 99213; G0463

== ENCOUNTER 2022-07-18 10:13 | Emergency (ER) | payer BC, SELFPAY ==
[2022-07-18 11:29] VITALS: BP 107/63; PULSE 87; RESP 18; TEMP 36.9; O2SAT 100
--- NOTE | 2022-07-18 11:34 | ED.URI ---
HPI - URI/Sore Throat General Chief Complaint: Upper Respiratory Infection Stated Complaint: sorethroat Time Seen by Provider: 07/18/22 11:35 History of Present Illness HPI Narrative: 32-year-old female presented for complaint of sore throat since yesterday. Endorses current treatment for pink eye, which she states is improving. Denies any associated symptoms. Denies taking anything for symptoms. Denies sick contacts. Related Data Home Medications Medication Instructions Recorded Confirmed multivitamin with minerals-folic 0.4 mg PO DAILY 09/08/19 07/18/22 acid 0.4 mg tablet (Adult One Daily Multivitamin) dextroamphetamine-amphetamine ER 10 mg PO BID 05/17/22 07/18/22 10 mg 24hr capsule,extend release (Adderall XR) esomeprazole magnesium 40 mg 40 mg PO BID 06/15/22 07/18/22 capsule,delayed release lamotrigine 25 mg tablet 100 mg PO DAILY 06/15/22 07/18/22 spironolactone 100 mg tablet 100 mg PO DAILY 07/15/22 07/18/22 vortioxetine 10 mg tablet 10 mg PO DAILY 07/15/22 07/18/22 (Trintellix) Allergies Allergy/AdvReac Type Severity Reaction Status Date / Time NSAIDS (Non-Steroidal AdvReac Unknown r/t Verified 07/18/22 11:32 Anti-Inflamma gastric bypass and ulcer history Review of Systems Review of Systems: CONSTITUTIONAL: Denies body aches, fever, chills, or sweats. EYES: Denies visual changes, redness, or discharge. ENT: Denies rhinorrhea, congestion, or otalgia. CARDIOVASCULAR: Denies chest pain, palpitations, or edema. RESPIRATORY: Denies dyspnea. GASTROINTESTINAL: Denies abdominal pain, nausea, vomiting, or diarrhea. SKIN: Denies rash, itching, or wounds. MUSCULOSKELETAL: Denies back pain, joint pain, or myalgia. NEUROLOGIC: Denies headache PMFSH Past Medical History Medical History Anxiety Depression Encounter to establish care History of cardiac monitoring History of uterine bleeding Hypothyroid Low back pain radiating to left lower extremity Third degree heart block Unconfirmed, currently being evaluated by Cardiology outpatient Surgical History Surgical History H/O abdominoplasty H/O section H/O: hysterectomy History of facial surgery right side facial reconstruction Hx of gastric bypass Adolfo-en-Y 2018 Hx of tonsillectomy Family History Family History Mother Hypertension Anxiety Depression Father Hypertension Other Cancer Anxiety Depression Grandparent Cancer Diabetes mellitus Depression Heart disease Anxiety Sibling Anxiety Depression Daughter Anxiety Depression Social History Social History Social History: Ms. Gonzalez lives at home with her and two children. Her family recently moved to the area from [place] where her was stationed with the [employer]. She would like to be a full code and she designates her as her surrogate decision maker. Smoking packs per day: 0.5 Smoking cigarettes per day: 10.0 Years smoked: 15 Smoking pack-years: 7.50 Smoking status: Current every day smoker Tobacco type: cigarettes Second hand tobacco smoke exposure: Yes Alcohol intake: never Substance use: never Substance use type: does not use Lack of Transportation: No Lack of Food: Never True Current Housing: I Have Housing Concerned About Future Housing: No Difficulty Paying Gas/Electric Bills: No Difficulty Paying for Meds: No Currently Unemployed: No Education: Master's Degree or Higher Difficulty w/ Childcare or Family Care: No Living arrangements: with family Additional occupation/education comments: She stays home with her children. Gender identity (if verbalized by the patient): Female Spiritual care concerns: No Agree to b
== END 2022-07-18 11:39 | disposition home or self-care (01) ==
PROVIDERS: Emergency Provider Nurse Practitioner Family; PCP Nurse Practitioner Family
DX: J02.9 Acute pharyngitis, unspecified (principal); F17.210 Nicotine dependence, cigarettes, uncomplicated; E03.9 Hypothyroidism, unspecified; I44.2 Atrioventricular block, complete; F32.A Depression, unspecified; Z98.84 Bariatric surgery status
CPT/HCPCS: 87081; 87880; 99213; G0463

== ENCOUNTER 2022-12-03 08:22 | Outpatient (CLI) | payer BC, SELFPAY ==
--- NOTE | ~2022-12-03 | MR_ITS ---
MRI of the lumbar spine Clinical History: Left lower extremity pain and numbness Technique: Axial T2-weighted images, and sagittal T1-weighted, T2-weighted, and T2 fat-sat images wer e acquired. COMPARISON: 07/02/2022 Findings: There is no fracture or subluxation of the lumbar spine. Vertebral bodies maintain normal h eight and alignment. Patient is status post interval left L5 hemilaminectomy. No suspicious bone lizbeth ow signal abnormality seen. At L1-L2 and L2-L3, the intervertebral discs maintain normal signal and position. No disc bulge or he rniation at these levels. No spinal canal stenosis or neural foraminal narrowing at these levels. The re are mild facet joint degenerative changes at these levels. At L3-L4, there is minimal disc bulge with moderate facet arthropathy. No central canal stenosis or n eural foraminal narrowing. Tiny annular fissure noted. At L4-L5, there is mild disc bulge with moderate facet arthropathy and tiny annular fissure. No centr al canal stenosis or definite neural foraminal narrowing. At L5-S1, there is persistent/recurrent left paracentral disc protrusion, with left lateral recess st enosis. There is moderate to severe bilateral neural foraminal narrowing. Paravertebral soft tissues are unremarkable aside from expected postoperative change. Impression: Persistent/recurrent left paracentral disc protrusion at L5-S1, with left lateral recess stenosis and moderate to severe bilateral neural foraminal narrowing. The size of the disc protrusion/herniation is decreased as compared to prior exam. Status post interval left hemilaminectomy at L5. Additional minimal degenerative changes, as above. Reviewed, dictated and finalized at location . Impression: Persistent/recurrent left paracentral disc protrusion at L5-S1, with left later al recess stenosis and moderate to severe bilateral neural foraminal narrowing. The size of the disc protrusion/herniation is decreased as compared to prior e xam. Status post interval left hemilaminectomy at L5. Additional minimal degenerative changes, as above.
== END 2022-12-03 08:23 ==
LOC: MICIMG 08:23
DX: M79.605 Pain in left leg (principal); R29.898 Other symptoms and signs involving the musculoskeletal system; M51.27 Other intervertebral disc displacement, lumbosacral region
CPT/HCPCS: 72148

== ENCOUNTER 2023-04-27 10:17 | Outpatient (CLI) | payer BC, SELFPAY ==
[2023-04-27 10:32] LABS: Basophils Percent Auto 0.7 % (0.2-1.2); Eosinophils Absolute Auto 0.2 K/mm3 (0-0.3); Eosinophils Percent Auto 2.9 % (0-4.4); Hematocrit 39.5 % (37.0-47.0); Immature Granulocyte Absolute 0.02 K/mm3 (0.00-0.031); Immature Granulocyte Percent A 0.3 % (0-0.5); Lymphocytes Absolute Auto 1.71 K/mm3 (0.9-3.2); Lymphocytes Percent Auto 29.2 % (18.3-44.2); Mean Corpuscular HGB Conc 32.9 g/dl (32-36); Mean Corpuscular Hemoglobin 29.4 pg (26-34); Mean Corpuscular Volume 89.4 fl (80-100); Mean Platelet Volume 9.1 fl (7.4-10.4); Monocytes Absolute Auto 0.4 K/mm3 (0.1-0.6); Monocytes Percent Auto 6.7 % (2.6-8.5); Neutrophils Absolute Auto 3.5 K/mm3 (1.3-6.7); Neutrophils Percent Auto 60.2 % (45.5-73.1); Platelet Count Result 215 k/mm3 (150-375); Red Blood Count 4.42 M/mm3 (4.2-5.4); Red Cell Distribution Width 13.6 % (11.5-14.5); White Blood Count 5.9 K/mm3 (4.5-10.0)
[2023-04-27 11:11] LABS: Alanine Aminotransferase 25 U/L (6-35); Albumin Level 4.6 g/dL (3.5-5.1); Alkaline Phosphatase 71 U/L (38-126); Anion Gap 9 mmol/L (8-16); Aspartate Amino Transferase 28 U/L (14-36); Bilirubin,Total 0.6 mg/dL (0.2-1.3); Blood Urea Nitrogen 14 mg/dL (7-17); Calcium 9.6 mg/dL (8.4-10.2); Carbon Dioxide 27 mmol/L (22-30); Chloride 107 mmol/L (98-107); Estimated Glomerular Filt Rate > 60; Glucose 75 mg/dL (65-110); Potassium 4.1 mmol/L (3.4-5.0); Sodium 143 mmol/L (137-145)
[2023-04-27 12:18] LABS: Folic Acid 7.2 ng/mL (2.76->20)
[2023-04-27 13:47] LABS: Iron 76 ug/dL (37-170)
[2023-04-27 14:03] LABS: Percent Iron Saturation 16 % (20-50)
[2023-04-27 14:21] LABS: Ferritin 8.84 ng/mL (6.24-137)
== END 2023-04-27 10:18 | disposition home or self-care (01) ==
LOC: ANHLAB 10:19
PROVIDERS: Nurse Practitioner Family; Visit Provider Internal Medicine Hematology & Oncology
DX: D51.3 Other dietary vitamin B12 deficiency anemia (principal); D64.9 Anemia, unspecified
CPT/HCPCS: 36415; 80053; 82607; 82728; 82746; 83540; 83550; 85025

== ENCOUNTER 2023-04-28 15:19 | Outpatient (CLI) | payer BC, SELFPAY ==
--- NOTE | ~2023-04-28 | CT_ITS ---
EXAMINATION: CT lumbar spine wo con DATE: 04/28/2023 15:46 INDICATION: Lower lumbar spinal fusion presenting with postoperative low back pain and left hip pain. TECHNIQUE: Computed tomography (CT) of the lumbar spine was performed without intravenous contrast. A utomated exposure control and iterative reconstruction technique were employed. The dose-length produ ct was 236.07 mGy-cm. COMPARISON: None FINDINGS: Again seen are changes of a prior L5 left hemilaminotomy with resection of the left inferior articula r process. Postoperative change of interval L5-S1 instrumented anterior spinal fusion with interbody fusion device and posterior fusion with bilateral vertical diana and pedicle screw fixation. No lucency surrounding the screws to suggest loosening or infection. Alignment is normal. Vertebral body height s are normal. Mild disc height loss at L4-L5. 7 mm sclerotic likely bone island at the right posterio r iliac spine. The following disc levels are specifically discussed: T11-T12: The disc does not extend beyond the endplate margin. There is mild bilateral facet joint ost eoarthritis. There is no neural foraminal stenosis. There is no central canal stenosis. T12-L1: The disc does not extend beyond the endplate margin. There is minimal bilateral facet joint o steoarthritis. There is no neural foraminal stenosis. There is no central canal stenosis. L1-L2: The disc does not extend beyond the endplate margin. There is mild bilateral facet joint osteo arthritis. There is no neural foraminal stenosis. There is no central canal stenosis. L2-L3: The disc does not extend beyond the endplate margin. There is mild bilateral facet joint osteo arthritis. There is no neural foraminal stenosis. There is no central canal stenosis. L3-L4: Disc is bulging. There is mild bilateral facet joint osteoarthritis. There is mild right and m inimal left neural foraminal stenosis. There is mild central canal stenosis. L4-L5: Disc is bulging. There is mild bilateral facet joint osteoarthritis. There is mild bilateral n eural foraminal stenosis. There is mild central canal stenosis. L5-S1: There is streak artifact from the instrumentation for the anterior and posterior spinal fusion at this level which mildly limits evaluation. There is mild bilateral neural foraminal stenosis. The re is no evident central canal stenosis although assessment is significantly limited by the artifact. IMPRESSION: 1. Mild lumbar spondylosis with interval placement of an estimated anterior and posterior spinal fusi on at L5-S1. Reviewed, dictated and finalized at location A. [employer] CURVE GRINDER IMPRESSION: 1. Mild lumbar spondylosis with interval placement of an estimated anterior and posterior spinal fusion at L5-S1.
== END 2023-04-28 15:20 ==
LOC: MICIMG 15:20
DX: Z98.890 Other specified postprocedural states (principal); M47.896 Other spondylosis, lumbar region; Z98.1 Arthrodesis status
CPT/HCPCS: 72131

== ENCOUNTER 2023-05-05 13:11 | Outpatient (CLI) | payer BC, SELFPAY ==
[2023-05-05 14:32] LABS: Appearance Urine Clear (Clear); Bacteria Urine 1+ /hpf; Bilirubin Urine Negative (Negative); Blood Urine Negative (Negative); Color Urine Yellow (Yellow); Glucose Urine UA Negative (Negative); Ketones Urine Trace mg/dL (Negative); Leukocyte Esterase Ur Trace LEU/UL (NEGATIVE); Nitrate Urine Negative (Negative); Non Pathogenic Casts 0-2; Protein Urine Negative (Negative); RBC Urine 0-2 /hpf (0-2); Specific Grav Ur 1.024 (1.001-1.035); Squamous Epithelial Cell Urine Moderate /hpf (Few); WBC Urine 0-5 /hpf (0-3); pH Urine 6.5 (5.0-9.0)
[2023-05-05 14:34] LABS: Add Urine Microscopic? YES
== END 2023-05-05 13:12 | disposition home or self-care (01) ==
LOC: ANHLAB 13:14
PROVIDERS: Nurse Practitioner Family; Visit Provider Internal Medicine Hematology & Oncology
DX: D64.9 Anemia, unspecified (principal); E53.8 Deficiency of other specified B group vitamins; N39.0 Urinary tract infection, site not specified
CPT/HCPCS: 81001; 87086

== ENCOUNTER 2023-05-20 08:56 | Outpatient (CLI) | payer BC, SELFPAY ==
--- NOTE | ~2023-05-20 | MR_ITS ---
MRI of the thoracic spine Clinical History: Back pain, upper extremity numbness Technique: Axial T2-weighted and gradient images, and sagittal T1-weighted, T2-weighted, and STIR justine ges were acquired. Findings: There is no fracture or subluxation of the thoracic spine. Vertebral bodies maintain normal height and alignment. Intervertebral disc spaces are relatively well-preserved. No significant disc bulge or herniation seen at any thoracic level. No spinal canal stenosis or cord compression identified. No epidural mass or collection seen. No abnormal signal seen in the spinal cord. Paravertebral soft tissues are unremarkable. Impression: No significant abnormality seen. Reviewed, dictated and finalized at [facility]. TIONS ANALYST Impression: No significant abnormality seen.
== END 2023-05-20 08:57 ==
LOC: MICIMG 08:57
DX: N64.4 Mastodynia (principal); M54.9 Dorsalgia, unspecified
CPT/HCPCS: 72146

== ENCOUNTER 2023-06-16 00:26 | Day surgery (SDC) | payer BC, SELFPAY ==
[2023-06-05 15:43] VITALS: BMI 20.5
[2023-06-16 09:45] VITALS: BP 102/59; PULSE 66; RESP 18; TEMP 36.1; O2SAT 100
[2023-06-16] MEDS: LACTATED RINGERS 1,000 ML 150 ML IV CONT (09:54)
--- NOTE | 2023-06-16 10:18 | WPDANESEPPF ---
Anes - Initial Pre Proc Eval Procedure: Operation Date: 06/16/23 11:00 Proposed Procedures p Esophagogastroduodenoscopy - Gurinder Hoffman MD Date/Time: 06/16/23 10:18 Surgeon: Gurinder Hoffman MD Pre Op Diagnosis: bariatic status,Epigastric pain,Gastric ulcer Patient Data Age: 33 Gender: F Height: 1.73 m Weight: 63.5 kg Last Vital Signs Temp 97 F L 06/16/23 09:45 Pulse 66 06/16/23 09:45 Resp 18 06/16/23 09:45 BP 102/59 L 06/16/23 09:45 Pulse Ox 100 06/16/23 09:45 O2 Del Method Room Air 06/16/23 09:45 Allergies Allergy/AdvReac Type Severity Reaction Status Date / Time NSAIDS (Non-Steroidal AdvReac Unknown r/t Verified 06/16/23 09:43 Anti-Inflamma gastric bypass and ulcer history Home Medications Medication Instructions Recorded Confirmed Type sucralfate 1 gram tablet 1 g PO TID #90 tabs 08/04/22 06/05/23 Rx esomeprazole magnesium 40 mg 40 mg PO BID #60 caps 02/22/23 06/05/23 Rx capsule,delayed release (Nexium) Adult Multivitamin Gummies 1 gummy PO DAILY 06/05/23 06/05/23 History Caltrate with Vitamin D3 1 cap PO DAILY 06/05/23 06/05/23 History Ultra [place]-3 1,135 mg PO DAILY 06/05/23 06/05/23 History cyanocobalamin (vitamin B-12) 1,000 mcg PO DAILY 06/05/23 06/05/23 History 1,000 mcg tablet (Vitamin B-12) dextroamphetamine-amphetamine 20 20 mg PO DAILY 06/05/23 06/05/23 History mg tablet (Adderall) estradiol 0.025 mg/24 hr 1 patch topical 2XW 06/05/23 06/05/23 History semiweekly transdermal patch (Lyllana) lamotrigine 100 mg tablet 100 mg PO DAILY 06/05/23 06/05/23 History magnesium 2 gummy PO DAILY 06/05/23 06/05/23 History Results Review: All pre-operative results and documents have been reviewed as part of the pre-operative evaluation. PMFSH Past Medical History Medical History (Updated 02/22/23 @ 11:47 by Silvina Mello APRN) Anxiety BMI 21.0-21.9, adult Chronic anastomotic ulcer of gastrojejunal region Depression Encounter to establish care Epigastric pain GERD (gastroesophageal reflux disease) Hematemesis History of cardiac monitoring History of uterine bleeding Hypothyroid Low back pain radiating to left lower extremity Third degree heart block Unconfirmed, currently being evaluated by Cardiology outpatient Tobacco abuse Surgical History Surgical History (Updated 02/22/23 @ 11:28 by Silvina Mello APRN) H/O abdominoplasty H/O section H/O spinal fusion H/O: hysterectomy History of facial surgery right side facial reconstruction History of Adolfo-en-Y gastric bypass Hx of gastric bypass Adolfo-en-Y 2018 Hx of tonsillectomy Family History Family History Mother Hypertension Anxiety Depression Father Hypertension Other Cancer Anxiety Depression Grandparent Cancer Diabetes mellitus Depression Heart disease Anxiety Sibling Anxiety Depression CVS disease Daughter Anxiety Depression Social History Social History Social History: Ms. Gonzalez lives at home with her and two children. Her family recently moved to the area from [place] where her was stationed with the [employer]. She would like to be a full code and she designates her as her surrogate decision maker. Smoking packs per day: 0.5 Smoking cigarettes per day: 10.0 Years smoked: 15 Smoking pack-years: 7.50 Smoking status: Never smoker Tobacco type: cigarettes Second hand tobacco smoke exposure: Yes Alcohol intake: current Substance use: former Substance use type: does not use Lack of Transportation: No Lack of Food: Never True Current Housing: I Have Housing Concerned About Future Housing: No Difficulty Paying Gas/Electric Bills: No Difficulty Paying for Meds: No Currently Unemployed: No Education: Master'
--- NOTE | 2023-06-16 10:22 | WPDANESEPPF ---
Anes - Initial Pre Proc Eval Procedure: Operation Date: 06/16/23 11:00 Proposed Procedures p Esophagogastroduodenoscopy - Gurinder Hoffman MD Date/Time: 06/16/23 10:22 Surgeon: Gurinder Hoffman MD Pre Op Diagnosis: bariatic status,Epigastric pain,Gastric ulcer Patient Data Age: 33 Gender: F Height: 1.73 m Weight: 63.5 kg Last Vital Signs Temp 97 F L 06/16/23 09:45 Pulse 66 06/16/23 09:45 Resp 18 06/16/23 09:45 BP 102/59 L 06/16/23 09:45 Pulse Ox 100 06/16/23 09:45 O2 Del Method Room Air 06/16/23 09:45 Allergies Allergy/AdvReac Type Severity Reaction Status Date / Time NSAIDS (Non-Steroidal AdvReac Unknown r/t Verified 06/16/23 09:43 Anti-Inflamma gastric bypass and ulcer history Home Medications Medication Instructions Recorded Confirmed Type sucralfate 1 gram tablet 1 g PO TID #90 tabs 08/04/22 06/05/23 Rx esomeprazole magnesium 40 mg 40 mg PO BID #60 caps 02/22/23 06/05/23 Rx capsule,delayed release (Nexium) Adult Multivitamin Gummies 1 gummy PO DAILY 06/05/23 06/05/23 History Caltrate with Vitamin D3 1 cap PO DAILY 06/05/23 06/05/23 History Ultra [place]-3 1,135 mg PO DAILY 06/05/23 06/05/23 History cyanocobalamin (vitamin B-12) 1,000 mcg PO DAILY 06/05/23 06/05/23 History 1,000 mcg tablet (Vitamin B-12) dextroamphetamine-amphetamine 20 20 mg PO DAILY 06/05/23 06/05/23 History mg tablet (Adderall) estradiol 0.025 mg/24 hr 1 patch topical 2XW 06/05/23 06/05/23 History semiweekly transdermal patch (Lyllana) lamotrigine 100 mg tablet 100 mg PO DAILY 06/05/23 06/05/23 History magnesium 2 gummy PO DAILY 06/05/23 06/05/23 History Patient hx anesthesia problems: none Family hx anesthesia problems: none Results Review: All pre-operative results and documents have been reviewed as part of the pre-operative evaluation. [facility] Past Medical History Medical History (Updated 02/22/23 @ 11:47 by Silvina Mello APRN) Anxiety BMI 21.0-21.9, adult Chronic anastomotic ulcer of gastrojejunal region Depression Encounter to establish care Epigastric pain GERD (gastroesophageal reflux disease) Hematemesis History of cardiac monitoring History of uterine bleeding Hypothyroid Low back pain radiating to left lower extremity Third degree heart block Unconfirmed, currently being evaluated by Cardiology outpatient Tobacco abuse Surgical History Surgical History (Updated 02/22/23 @ 11:28 by Silvina Mello APRN) H/O abdominoplasty H/O section H/O spinal fusion H/O: hysterectomy History of facial surgery right side facial reconstruction History of Adolfo-en-Y gastric bypass Hx of gastric bypass Adolfo-en-Y 2018 Hx of tonsillectomy Family History Family History Mother Hypertension Anxiety Depression Father Hypertension Other Cancer Anxiety Depression Grandparent Cancer Diabetes mellitus Depression Heart disease Anxiety Sibling Anxiety Depression CVS disease Daughter Anxiety Depression Social History Social History Social History: Ms. Gonzalez lives at home with her and two children. Her family recently moved to the area from [place] where her was stationed with the [employer]. She would like to be a full code and she designates her as her surrogate decision maker. Smoking packs per day: 0.5 Smoking cigarettes per day: 10.0 Years smoked: 15 Smoking pack-years: 7.50 Smoking status: Never smoker Tobacco type: cigarettes Second hand tobacco smoke exposure: Yes Alcohol intake: current Substance use: former Substance use type: does not use Lack of Transportation: No Lack of Food: Never True Current Housing: I Have Housing Concerned About Future Housing: No Difficulty Paying Gas/Electric Bills: No Diffic
--- NOTE | 2023-06-16 10:42 | PM.HPGS ---
History of Present Illness History of Present Illness Consent: Risks, benefits, and alternatives have been discussed and questions answered. Patient agrees to proceed with procedure. Chief complaint: bariatic status,Epigastric pain,Gastric ulcer Narrative: Aura Gonzalez is a 33 year old female here for egd with more epigastric pain recently, using omeprazole 40 mg and carafate both bid. She has a history of Adolfo-en Y gastric bypass for weight loss in [place] in 2018 complicated in the past with bleeding ulcers and previous dilatation- no recent dysphagia. Review of Systems Constitutional: Constitutional: Denies headache(s) and Denies weakness Eyes: Eyes: Denies blurry vision ENT: Reports Normal hearing present, Denies headache(s) and Denies neck pain Cardiovascular: Cardiovascular: Denies chest pain and Denies dyspnea Respiratory: Respiratory: Denies dyspnea Gastrointestinal: Gastrointestinal: Reports no additional gastrointestinal complaints Genitourinary: Genitourinary: Denies dysuria Musculoskeletal: Musculoskeletal: Denies neck pain Integumentary/Breasts: Skin/Breast: Denies dry skin Neurologic: Reports Normal hearing present, Denies headache(s) and Denies weakness Psychiatric: Psychiatric: Denies anxiety Endocrine: Endocrine: Denies change in body appearance Hematologic/Lymphatic: Hematologic/Lymphatic: Denies easy bleeding Allergic/Immunologic: Allergic/Immunologic: Denies urticaria PMFSH Past Medical History Medical History (Updated 02/22/23 @ 11:47 by Silvina Mello APRN) Anxiety BMI 21.0-21.9, adult Chronic anastomotic ulcer of gastrojejunal region Depression Encounter to establish care Epigastric pain GERD (gastroesophageal reflux disease) Hematemesis History of cardiac monitoring History of uterine bleeding Hypothyroid Low back pain radiating to left lower extremity Third degree heart block Unconfirmed, currently being evaluated by Cardiology outpatient Tobacco abuse Surgical History Surgical History (Updated 02/22/23 @ 11:28 by Silvina Mello APRN) H/O abdominoplasty H/O section H/O spinal fusion H/O: hysterectomy History of facial surgery right side facial reconstruction History of Adolfo-en-Y gastric bypass Hx of gastric bypass Adolfo-en-Y 2018 Hx of tonsillectomy Family History Family History Mother Hypertension Anxiety Depression Father Hypertension Other Cancer Anxiety Depression Grandparent Cancer Diabetes mellitus Depression Heart disease Anxiety Sibling Anxiety Depression CVS disease Daughter Anxiety Depression Social History Social History Social History: Ms. Gonzalez lives at home with her and two children. Her family recently moved to the area from [place] where her was stationed with the [employer]. She would like to be a full code and she designates her as her surrogate decision maker. Smoking packs per day: 0.5 Smoking cigarettes per day: 10.0 Years smoked: 15 Smoking pack-years: 7.50 Smoking status: Never smoker Tobacco type: cigarettes Second hand tobacco smoke exposure: Yes Alcohol intake: current Substance use: former Substance use type: does not use Lack of Transportation: No Lack of Food: Never True Current Housing: I Have Housing Concerned About Future Housing: No Difficulty Paying Gas/Electric Bills: No Difficulty Paying for Meds: No Currently Unemployed: No Education: Master's Degree or Higher Difficulty w/ Childcare or Family Care: No Living arrangements: with family Occupation/Education: occupation Additional occupation/education comments: She stays home with her children. Gender identity (if verbalized by the patient): Female Spiritual care concerns: No Agree to blood products: Yes Meds Home Medicatio
[2023-06-16 10:55] VITALS: BP 100/62; PULSE 76; RESP 17; O2SAT 100
[2023-06-16 11:05] VITALS: BP 107/72; PULSE 64; RESP 18; O2SAT 100
[2023-06-16 11:15] VITALS: BP 97/64; PULSE 56; RESP 13; O2SAT 100
== END 2023-06-16 11:21 | disposition home or self-care (01) ==
PROVIDERS: PCP Family Medicine; Visit Provider Internal Medicine Gastroenterology
PROC: 0DJ08ZZ Inspection of Upper Intestinal Tract, Via Natural or Artificial Opening Endoscopic (ICD-10-PCS; CPT 43235; principal; 2023-06-16 11:00)
DX: K28.9 Gastrojejunal ulcer, unspecified as acute or chronic, without hemorrhage or perforation (principal); Z98.84 Bariatric surgery status; K21.9 Gastro-esophageal reflux disease without esophagitis; E03.9 Hypothyroidism, unspecified; F41.9 Anxiety disorder, unspecified; F32.A Depression, unspecified
CPT/HCPCS: 43239; 88305; J2704; J7120

== ENCOUNTER 2023-08-15 11:24 | Emergency (ER) | payer BC, SELFPAY ==
--- NOTE | 2023-08-15 11:30 | ED.URI ---
HPI - URI/Sore Throat General Chief Complaint: Upper Respiratory Infection Stated Complaint: Sore Throat Time Seen by Provider: 08/15/23 11:30 Source: patient Mode of arrival: ambulatory Limitations: no limitations History of Present Illness HPI Narrative: Aura is a 33-year-old female patient presenting to the clinic today with complaints of a sore throat, body aches, chills, congestion x 5 days. She reports that her kids both have strep at home. Has completed two at-home COVID testing and they were negative. MD elicited complaint: sore throat and nasal congestion Related Data Home Medications Medication Instructions Recorded Confirmed cyclobenzaprine 30 mg 30 mg PO PRN PRN Muscle Pain 08/15/23 08/15/23 capsule,extended release 24 hr dextroamphetamine-amphetamine 20 20 mg PO BID 08/15/23 08/15/23 mg tablet esomeprazole magnesium 40 mg 40 mg PO BID 08/15/23 08/15/23 capsule,delayed release estradiol 0.05 mg/24 hr semiweekly 1 patch transdermal 2XW 08/15/23 08/15/23 transdermal patch lamotrigine 100 mg tablet 100 mg PO DAILY 08/15/23 08/15/23 lisdexamfetamine 50 mg chewable 50 mg PO DAILY 08/15/23 08/15/23 tablet sucralfate 1 gram tablet 1 g PO TID 08/15/23 08/15/23 Allergies Allergy/AdvReac Type Severity Reaction Status Date / Time NSAIDS (Non-Steroidal AdvReac Intermediate r/t Verified 08/15/23 11:36 Anti-Inflamma gastric bypass and ulcer history Review of Systems Review of Systems: Pertinent positives per HPI. Patient denies any fever, chills, rash, headache, visual changes, dizziness, cough, shortness of breath, chest pain, palpitations, nausea, vomiting, diarrhea, constipation, abdominal pain, or any urinary issues. [facility] Past Medical History Medical History Anxiety BMI 21.0-21.9, adult Chronic anastomotic ulcer of gastrojejunal region Depression Encounter to establish care Epigastric pain GERD (gastroesophageal reflux disease) Hematemesis History of cardiac monitoring History of uterine bleeding Hypothyroid Low back pain radiating to left lower extremity Third degree heart block Unconfirmed, currently being evaluated by Cardiology outpatient Tobacco abuse Surgical History Surgical History H/O abdominoplasty H/O section H/O spinal fusion H/O: hysterectomy History of facial surgery right side facial reconstruction History of Adolfo-en-Y gastric bypass Hx of gastric bypass Adolfo-en-Y 2018 Hx of tonsillectomy Family History Family History Mother Hypertension Anxiety Depression Father Hypertension Other Cancer Anxiety Depression Grandparent Cancer Diabetes mellitus Depression Heart disease Anxiety Sibling Anxiety Depression CVS disease Daughter Anxiety Depression Social History Social History Social History: Ms. Gonzalez lives at home with her and two children. Her family recently moved to the area from [place] where her was stationed with the [employer]. She would like to be a full code and she designates her as her surrogate decision maker. Smoking packs per day: 0.5 Smoking cigarettes per day: 10.0 Years smoked: 15 Smoking pack-years: 7.50 Smoking status: Never smoker Tobacco type: cigarettes Second hand tobacco smoke exposure: Yes Alcohol intake: current Substance use: former Substance use type: does not use Lack of Transportation: No Lack of Food: Never True Current Housing: I Have Housing Concerned About Future Housing: No Difficulty Paying Gas/Electric Bills: No Difficulty Paying for Meds: No Currently Unemployed: No Education: Master's Degree or Higher Difficulty w/ Childcare or Family Care: No [place]
[2023-08-15 11:38] VITALS: BP 102/61; PULSE 84; RESP 16; TEMP 36.7; O2SAT 100
[2023-08-15 11:41] VITALS: BP 102/61; PULSE 84; RESP 16; TEMP 36.7; O2SAT 100
== END 2023-08-15 11:54 | disposition home or self-care (01) ==
PROVIDERS: Emergency Provider Nurse Practitioner Family; PCP Family Medicine
DX: J06.9 Acute upper respiratory infection, unspecified (principal); J02.9 Acute pharyngitis, unspecified; K21.9 Gastro-esophageal reflux disease without esophagitis; E03.9 Hypothyroidism, unspecified; F41.8 Other specified anxiety disorders
CPT/HCPCS: 87081; 87804; 87880; 99213; G0463

== ENCOUNTER 2023-08-18 19:25 | Emergency (ER) | payer BC, SELFPAY ==
[2023-08-18 19:38] VITALS: BP 113/56; PULSE 90; RESP 18; TEMP 37.3; O2SAT 100
--- NOTE | 2023-08-18 20:01 | ED.SKABFB ---
HPI - Skin/Abscess/Foreign Bdy General Chief complaint: Skin/Abscess/Foreign Body Stated complaint: swollen & painful rt breast Source: patient Mode of arrival: ambulatory Limitations: no limitations History of Present Illness HPI narrative: 33 y/o female presented for c/o right breast pain for over one month. Pain is described as 'someone punched it,' and states the breast appeared swollen to her today when she did a BSE. Endorses she has been able to express 'white discharge' from the nipple for many years. Reports subjective fever. Denies redness, streaking, or pus. Denies injury. No med for pain. Scheduled for further evaluation with Obgyn in September. Related Data Home Medications Medication Instructions Recorded Confirmed cyclobenzaprine 30 mg 30 mg PO PRN Muscle Pain 08/15/23 08/18/23 capsule,extended release 24 hr dextroamphetamine-amphetamine 20 20 mg PO BID 08/15/23 08/18/23 mg tablet estradiol 0.05 mg/24 hr semiweekly 1 patch transdermal 2XW 08/15/23 08/18/23 transdermal patch lamotrigine 100 mg tablet 100 mg PO DAILY 08/15/23 08/18/23 sucralfate 1 gram tablet 1 g PO TID 08/15/23 08/18/23 omeprazole 20 mg tablet,delayed 20 mg PO BID 08/18/23 08/18/23 release Allergies Allergy/AdvReac Type Severity Reaction Status Date / Time NSAIDS (Non-Steroidal AdvReac Intermediate r/t Verified 08/18/23 19:45 Anti-Inflamma gastric bypass and ulcer history Review of Systems Review of Systems: CONSTITUTIONAL: Denies body aches, fever, chills, or sweats. EYES: Denies visual changes, redness, or discharge. ENT: Denies rhinorrhea, congestion CARDIOVASCULAR: Denies chest pain, palpitations, or edema. RESPIRATORY: Denies cough or dyspnea. GASTROINTESTINAL: Denies abdominal pain, nausea, vomiting, or diarrhea. SKIN: denies wounds, rash MUSCULOSKELETAL: Reports right breast pain Denies back pain, joint pain, or myalgia. NEUROLOGIC: Denies headache, numbness, tingling, or weakness. [facility] Past Medical History Medical History Anxiety BMI 21.0-21.9, adult Chronic anastomotic ulcer of gastrojejunal region Depression Encounter to establish care Epigastric pain GERD (gastroesophageal reflux disease) Hematemesis History of cardiac monitoring History of uterine bleeding Hypothyroid Low back pain radiating to left lower extremity Third degree heart block Unconfirmed, currently being evaluated by Cardiology outpatient Tobacco abuse Surgical History Surgical History H/O abdominoplasty H/O section H/O spinal fusion H/O: hysterectomy History of facial surgery right side facial reconstruction History of Adolfo-en-Y gastric bypass Hx of gastric bypass Adolfo-en-Y 2018 Hx of tonsillectomy Family History Family History Mother Hypertension Anxiety Depression Father Hypertension Other Cancer Anxiety Depression Grandparent Cancer Diabetes mellitus Depression Heart disease Anxiety Sibling Anxiety Depression CVS disease Daughter Anxiety Depression Social History Social History Social History: Ms. Gonzalez lives at home with her and two children. Her family recently moved to the area from [place] where her was stationed with the [employer]. She would like to be a full code and she designates her as her surrogate decision maker. Smoking packs per day: 0.5 Smoking cigarettes per day: 10.0 Years smoked: 15 Smoking pack-years: 7.50 Smoking status: Never smoker Tobacco type: cigarettes Second hand tobacco smoke exposure: Yes Alcohol intake: current Substance use: former Substance use type: does not use Lack of Transportation: No Lack of Food: Never True Current Housing: I Have
== END 2023-08-18 20:18 | disposition home or self-care (01) ==
PROVIDERS: Emergency Provider Nurse Practitioner Family; PCP Family Medicine
DX: N64.4 Mastodynia (principal); K21.9 Gastro-esophageal reflux disease without esophagitis; E03.9 Hypothyroidism, unspecified; Z98.84 Bariatric surgery status
CPT/HCPCS: 99213; G0463

== ENCOUNTER 2023-08-24 13:43 | Outpatient (CLI) | payer BC, SELFPAY ==
--- NOTE | ~2023-08-24 | MMUS_ITS ---
EXAMINATION: MM diagnostic elmer BI w august, US breast BI complete HISTORY: Referring physician reportedly felt a lump in the right breast TECHNIQUE: ML, MLO and CC 3-D tomosynthesis images of both breasts were performed and synthetic 2-D i mages were generated. CAD analysis was submitted and interpreted. High resolution complete bilateral breast ultrasound examination including all 4 quadrants and subareolar area of each breast was perfor med. COMPARISON: None BREAST PARENCHYMAL COMPOSITION: The breasts are heterogeneously dense, which may obscure small masses . FINDINGS: MAMMOGRAPHIC FINDINGS: No suspicious mass or architectural distortion, malignant calcification, skin thickening or retractio n is detected. ULTRASOUND: No suspicious mass or shadowing, cyst or other survey of sonographic abnormality of either breast is detected. IMPRESSION: 1. No evidence of malignancy 2. Routine annual mammographic screening beginning at age 40 is recommended unless there are earlier symptoms or physical findings. BI-RADS Category 1: Negative Reviewed, dictated and finalized at location B. IMPRESSION: 1. No evidence of malignancy 2. Routine annual mammographic screening beginning at age 40 is recommended unl ess there are earlier symptoms or physical findings. BI-RADS Category 1: Negative
== END 2023-08-24 13:44 | disposition home or self-care (01) ==
PROVIDERS: PCP Family Medicine; Visit Provider Nurse Practitioner
DX: N63.10 Unspecified lump in the right breast, unspecified quadrant (principal); R92.8 Other abnormal and inconclusive findings on diagnostic imaging of breast
CPT/HCPCS: 76641; 77062; 77066; G0279

== ENCOUNTER 2023-09-18 09:32 | Outpatient (CLI) | payer BC, SELFPAY ==
--- NOTE | ~2023-09-18 | MR_ITS ---
MR breast BI wo/w con 09/18/2023 12:48 CDT INDICATION: Breast pain. Nipple discharge. TECHNIQUE: MRI of the breasts perform using standard protocol pre-and post IV contrast with the follo wing sequences: Axial T2 STIR, axial T1, axial vibrant T1 with fat suppression precontrast and multip hasic postcontrast. 12 cc MultiHance administered intravenously. COMPARISON: Mammogram and ultrasound dated 08/24/2023 FINDINGS: There are no abnormalities on the precontrast sequences. There is moderate background paren chymal enhancement. In the upper inner quadrant of the right breast at approximately 12:00, middle th ird there is a 9 x 1.6 x 0.5 cm enhancing mass 4 cm posterior to the nipple with oval-shaped, circums cribed margins and heterogeneous enhancement. There are is rapid plateau enhancement. No evidence of signal abnormalities in the axillary or internal mammary node distributions. LEFT BREAST: No signal abnormalities on precontrast sequences. There is moderate background parenchy mal enhancement. No enhancing lesions following contrast administration. No areas of enhancement m eeting threshold criteria on CAD analysis. No evidence of signal abnormalities in the axillary or i nternal mammary node distributions.] IMPRESSION: 1: Right breast: Enhancing 1.6 cm mass upper inner quadrant of the right breast at approximately 12: 00, most likely benign intramammary lymph node. Recommend second look targeted right breast ultrasoun d. BI-RADS Category 3. 2: Left breast: Negative. No evidence of malignancy. BI-RADS category 1. Recommend annual mammogr aphy follow-up. Reviewed, dictated and finalized at location B. IMPRESSION: 1: Right breast: Enhancing 1.6 cm mass upper inner quadrant of the right breas t at approximately 12:00, most likely benign intramammary lymph node. Recommend second look targeted right breast ultrasound. BI-RADS Category 3. 2: Left breast: Negative. No evidence of malignancy. BI-RADS category 1. Re commend annual mammography follow-up.
== END 2023-09-18 09:33 | disposition home or self-care (01) ==
PROVIDERS: PCP Family Medicine; Visit Provider Surgery
DX: N64.52 Nipple discharge (principal)
CPT/HCPCS: 77049; A9577; C8908

== ENCOUNTER 2023-10-06 08:22 | Outpatient (CLI) | payer BC, SELFPAY ==
--- NOTE | ~2023-10-06 | US_ITS ---
Ultrasound of the right axilla CLINICAL HISTORY: Palpable lump Technique: Targeted sonographic imaging at the area of palpable concern in the right axilla was perfo rmed. FINDINGS: At the area of clinical concern, there is a 1.8 x 2.4 x 0.6 cm lymph node, with prominent f atty hilum. The lymph node cortex is uniform and thin at 2-3 mm. No other lesion identified in the re gion scanned. IMPRESSION: Prominent, but morphologically normal, right axillary lymph node, as detailed above. Reviewed, dictated and finalized at location M. IMPRESSION: Prominent, but morphologically normal, right axillary lymph node, as detailed a freddy.
--- NOTE | ~2023-10-06 | US_ITS ---
EXAMINATION: US breast RT limited HISTORY: Probable intramammary lymph node versus other mass seen in the upper, inner right breast on breast MRI. Second look ultrasound was recommended. TECHNIQUE: High resolution limited right breast ultrasound was performed. COMPARISON: MRI dated 09/18/2023 FINDINGS: Sonographic imaging of the upper, inner right breast demonstrates no convincing abnormal mass or lymp h node. No cystic lesion identified. IMPRESSION: No definite sonographic correlate for the MR lesion is identified. No distinct sonographic abnormali ty seen in the region scanned. As the lesion is only identified on MR imaging, and was rated probably benign, six-month follow-up MR is advised. BI-RADS category 3, probably benign findings. Reviewed, dictated and finalized at [facility]. IMPRESSION: No definite sonographic correlate for the MR lesion is identified. No distinct sonographic abnormality seen in the region scanned. As the lesion is only iden tified on MR imaging, and was rated probably benign, six-month follow-up MR is advised. BI-RADS category 3, probably benign findings.
--- NOTE | ~2023-10-06 | CT_ITS ---
EXAMINATION: CTA neck DATE: 10/06/2023 08:55 INDICATION: Cervical lymphadenopathy. TECHNIQUE: Computed tomographic angiography (CTA) of the neck was performed with 100 mL Omnipaque-350 intravenous contrast. Automated exposure control and iterative reconstruction technique were employe d. The dose-length product was 492.84 mGy-cm. Maximum intensity projection 3D-reconstructions were cr eated by the technologist on a separate workstation. COMPARISON: None. FINDINGS: There are no pathologically enlarged lymph nodes. The major salivary glands are normal. The re is no significant stenosis of the vertebral arteries. There is no visible plaque in the proximal i nternal carotid arteries. There is 0% stenosis of the proximal right internal carotid artery relative to normal distal artery lumen diameter (NASCET criteria). There is 0% stenosis of the proximal left internal carotid artery relative to normal distal artery lumen diameter. There is mild facet joint os teoarthritis in lower cervical spine. IMPRESSION: 1. No lymphadenopathy. 2. 0% stenosis of the proximal internal carotid arteries relative to normal distal artery lumen diame ters (NASCET criteria). Reviewed, dictated and finalized at location A. IMPRESSION: 1. No lymphadenopathy. 2. 0% stenosis of the proximal internal carotid arteries relative to normal dis nella artery lumen diameters (NASCET criteria).
== END 2023-10-06 08:23 | disposition home or self-care (01) ==
PROVIDERS: PCP Family Medicine; Visit Provider Surgery
DX: N63.12 Unspecified lump in the right breast, upper inner quadrant (principal); R59.0 Localized enlarged lymph nodes; R92.8 Other abnormal and inconclusive findings on diagnostic imaging of breast
CPT/HCPCS: 70498; 76642; 76882; Q9967

== ENCOUNTER 2023-11-15 09:30 | Outpatient (CLI) | payer BC, SELFPAY ==
--- NOTE | ~2023-11-15 | US_ITS ---
Limited Abdominal Sonogram: Real-time sonographic imaging of the right upper quadrant was performed. Clinical History: Epigastric pain Findings: The liver appears normal with no evidence of mass lesion or bile duct dilatation. Main por nella vein demonstrates normal direction of flow. The gallbladder is well distended, and appears normal with no evidence of gallstone or wall thickening. The common bile duct measures 5 mm. The visualize d pancreas, aorta, and IVC are unremarkable. Impression: No significant abnormality seen. Reviewed, dictated and finalized at location M. Impression: No significant abnormality seen.
== END 2023-11-15 09:31 | disposition home or self-care (01) ==
LOC: ANHIMG 09:31
PROVIDERS: PCP Family Medicine; Visit Provider Nurse Practitioner
DX: R10.13 Epigastric pain (principal)
CPT/HCPCS: 76705

== ENCOUNTER 2023-11-30 11:29 | Outpatient (CLI) | payer BC, SELFPAY ==
[2023-11-30 11:47] LABS: Basophils Absolute Auto 0.1 K/mm3 (0.0-0.1); Basophils Percent Auto 0.7 % (0.2-1.2); Eosinophils Absolute Auto 0.1 K/mm3 (0-0.3); Eosinophils Percent Auto 1.9 % (0-4.4); Hematocrit 33.2 % (37.0-47.0); Hemoglobin 10.6 g/dL (12.0-15.0); Immature Granulocyte Absolute 0.01 K/mm3 (0.00-0.031); Immature Granulocyte Percent A 0.1 % (0-0.5); Lymphocytes Absolute Auto 2.52 K/mm3 (0.9-3.2); Lymphocytes Percent Auto 36.7 % (18.3-44.2); Mean Corpuscular HGB Conc 31.9 g/dl (32-36); Mean Corpuscular Hemoglobin 28.7 pg (26-34); Mean Platelet Volume 9.3 fl (7.4-10.4); Monocytes Absolute Auto 0.5 K/mm3 (0.1-0.6); Monocytes Percent Auto 7.1 % (2.6-8.5); Neutrophils Absolute Auto 3.7 K/mm3 (1.3-6.7); Neutrophils Percent Auto 53.5 % (45.5-73.1); Platelet Count Result 225 k/mm3 (150-375); Red Blood Count 3.69 M/mm3 (4.2-5.4); Red Cell Distribution Width 13.5 % (11.5-14.5); White Blood Count 6.9 K/mm3 (4.5-10.0)
[2023-11-30 12:31] LABS: Alanine Aminotransferase 48 U/L (6-35); Albumin Level 4.4 g/dL (3.5-5.1); Alkaline Phosphatase 72 U/L (38-126); Anion Gap 7 mmol/L (4-12); Aspartate Amino Transferase 41 U/L (14-36); Bilirubin,Total 0.1 mg/dL (0.2-1.3); Blood Urea Nitrogen 26 mg/dL (7-17); Calcium 8.7 mg/dL (8.4-10.2); Carbon Dioxide 27 mmol/L (22-30); Chloride 103 mmol/L (98-107); Estimated Glomerular Filt Rate > 60; Glucose 97 mg/dL (65-110); Sodium 137 mmol/L (137-145)
[2023-11-30 13:07] LABS: Iron 23 ug/dL (37-170)
[2023-11-30 13:18] LABS: Percent Iron Saturation 5 % (20-50)
[2023-11-30 13:38] LABS: Folic Acid 6.4 ng/mL (2.76->20)
[2023-11-30 13:47] LABS: Ferritin 5.85 ng/mL (6.24-137)
== END 2023-11-30 11:30 | disposition home or self-care (01) ==
LOC: ANHLAB 11:31
PROVIDERS: Nurse Practitioner Family; PCP Family Medicine; Visit Provider Internal Medicine Hematology & Oncology
DX: D51.3 Other dietary vitamin B12 deficiency anemia (principal); D64.9 Anemia, unspecified; N39.0 Urinary tract infection, site not specified
CPT/HCPCS: 36415; 80053; 82607; 82728; 82746; 83540; 83550; 85025; 87086; 87088

== ENCOUNTER 2023-12-07 10:16 | Outpatient (CLI) | payer BC, SELFPAY ==
--- NOTE | ~2023-12-07 | US_ITS ---
EXAMINATION: US soft tissue head and neck DATE: 12/07/2023 10:47 INDICATION: Swollen right posterior neck lymph node. TECHNIQUE: Multiple grayscale and Doppler ultrasound images of the head and neck were obtained. COMPARISON: Neck CTA 10/06/2023 FINDINGS: There are normal superficial lymph nodes in the patient's area of concern in right posterio r neck. IMPRESSION: 1. No abnormal neck mass or lymphadenopathy. Reviewed, dictated and finalized at location A.
--- NOTE | ~2023-12-07 | US_ITS ---
US axilla RT 12/07/2023 10:47 Indication: Follow-up right axillary lymph node Procedure: High-resolution ultrasound of the right axilla Comparison: Ultrasound dated 10/06/2023 Findings: There is a normal-appearing right axillary lymph node measuring 2 x 0.5 x 1.4 cm compared w ith 2.4 x 1.8 x 0.6 cm on prior examination. Normal cortical thickness. Impression: 1: Decreased size of normal-appearing right axillary lymph node, likely reactive. Reviewed, dictated and finalized at location B. Impression: 1: Decreased size of normal-appearing right axillary lymph node, likely reactiv e.
== END 2023-12-07 10:17 ==
PROVIDERS: PCP Surgery; Visit Provider Surgery
DX: R59.0 Localized enlarged lymph nodes (principal); N63.10 Unspecified lump in the right breast, unspecified quadrant
CPT/HCPCS: 76536; 76882

== ENCOUNTER 2023-12-12 09:36 | Outpatient (CLI) | payer BC, SELFPAY ==
[2023-12-12 09:58] LABS: Basophils Absolute Auto 0.1 K/mm3 (0.0-0.1); Basophils Percent Auto 0.6 % (0.2-1.2); Eosinophils Absolute Auto 0.2 K/mm3 (0-0.3); Eosinophils Percent Auto 1.8 % (0-4.4); Hematocrit 35.3 % (37.0-47.0); Hemoglobin 11.2 g/dL (12.0-15.0); Immature Granulocyte Absolute 0.02 K/mm3 (0.00-0.031); Immature Granulocyte Percent A 0.2 % (0-0.5); Lymphocytes Absolute Auto 3.19 K/mm3 (0.9-3.2); Lymphocytes Percent Auto 39.3 % (18.3-44.2); Mean Corpuscular HGB Conc 31.7 g/dl (32-36); Mean Corpuscular Hemoglobin 28.6 pg (26-34); Mean Corpuscular Volume 90.1 fl (80-100); Mean Platelet Volume 8.8 fl (7.4-10.4); Monocytes Absolute Auto 0.6 K/mm3 (0.1-0.6); Monocytes Percent Auto 7.4 % (2.6-8.5); Neutrophils Absolute Auto 4.1 K/mm3 (1.3-6.7); Neutrophils Percent Auto 50.7 % (45.5-73.1); Platelet Count Result 228 k/mm3 (150-375); Red Blood Count 3.92 M/mm3 (4.2-5.4); Red Cell Distribution Width 13.7 % (11.5-14.5); White Blood Count 8.1 K/mm3 (4.5-10.0)
[2023-12-12 12:05] LABS: Anion Gap 10 mmol/L (4-12); Blood Urea Nitrogen 20 mg/dL (7-17); Carbon Dioxide 26 mmol/L (22-30); Chloride 102 mmol/L (98-107); Estimated Glomerular Filt Rate > 60; Glucose 89 mg/dL (65-110); Potassium 3.7 mmol/L (3.4-5.0); Sodium 138 mmol/L (137-145)
[2023-12-12 13:06] LABS: Folic Acid 10.5 ng/mL (2.76->20)
[2023-12-12 16:49] LABS: Iron 35 ug/dL (37-170)
[2023-12-12 17:00] LABS: Percent Iron Saturation 7 % (20-50)
[2023-12-12 17:20] LABS: Ferritin 6.51 ng/mL (6.24-137)
== END 2023-12-12 09:37 | disposition home or self-care (01) ==
LOC: ANHLAB 09:42
PROVIDERS: Nurse Practitioner Family; PCP Surgery; Visit Provider Internal Medicine Hematology & Oncology
DX: D64.9 Anemia, unspecified (principal)
CPT/HCPCS: 36415; 80048; 82607; 82728; 82746; 83540; 83550; 85025

== ENCOUNTER 2023-12-20 13:46 | Outpatient (CLI) | payer BC, SELFPAY ==
--- NOTE | ~2023-12-20 | MR_ITS ---
EXAMINATION: MR brain/brain stem wo con DATE: 12/20/2023 14:27 INDICATION: Memory loss. Syncope. TECHNIQUE: Magnetic resonance imaging (MRI) of the brain and brainstem was performed without intraven ous contrast. COMPARISON: None. FINDINGS: There is no intracranial hemorrhage, acute infarction, or abnormal intracranial mass lesion . The ventricles are normal in size. The orbits are normal. There is mild mucosal thickening in the p aranasal sinuses. The mastoid air cells are normal. IMPRESSION: 1. Normal brain. Reviewed, dictated and finalized at location A. IMPRESSION: 1. Normal brain.
== END 2023-12-20 13:47 | disposition home or self-care (01) ==
LOC: GOSHIMG 13:47
PROVIDERS: PCP Nurse Practitioner Family; Visit Provider Nurse Practitioner Family
DX: R41.3 Other amnesia (principal); R55 Syncope and collapse; R29.90 Unspecified symptoms and signs involving the nervous system
CPT/HCPCS: 70551

== ENCOUNTER 2023-12-22 07:45 | Outpatient (CLI) | payer BC, SELFPAY ==
--- NOTE | ~2023-12-22 | CT_ITS ---
EXAMINATION: CT soft tissue neck w con DATE: 12/22/2023 08:09 INDICATION: Cervical lymphadenopathy. TECHNIQUE: Computed tomography (CT) of the neck was performed with 75 mL Omnipaque-350 intravenous co ntrast. Automated exposure control and iterative reconstruction technique were employed. The dose-leonor gth product was 351.47 mGy-cm. COMPARISON: CT 10/06/2023 FINDINGS: There are no pathologically enlarged lymph nodes. The cervical carotid arteries are normal. There is mild kyphosis of cervical spine. The mastoid air cells are normal. There is mild mucosal th ickening in the ethmoid sinuses. IMPRESSION: 1. No abnormal neck mass or lymphadenopathy. Reviewed, dictated and finalized at location A.
== END 2023-12-22 07:46 | disposition home or self-care (01) ==
PROVIDERS: PCP Family Medicine; Visit Provider Family Medicine
DX: R59.0 Localized enlarged lymph nodes (principal)
CPT/HCPCS: 70491; Q9967

== ENCOUNTER 2024-01-17 12:32 | Outpatient (CLI) | payer BC, SELFPAY ==
--- NOTE | ~2024-01-17 | XR_ITS ---
Exam: Abdomen 2V HISTORY: R10.2 - Pelvic and perineal pain, LEFT LOWER QUAD PAIN COMPARISON: 09/07/2019 TECHNIQUE: Supine images of the abdomen and pelvis. FINDINGS: Postoperative change within the left upper quadrant and left flank. Orthopedic hardware within the lower lumbar spine. Fecal stasis throughout the colon. Air identified within the rectum. IMPRESSION: Nonspecific, nonobstructive bowel gas pattern, as detailed above. Reviewed, dictated and finalized at location A.
[2024-01-17 12:56] LABS: Hematocrit 38.3 % (37.0-47.0); Hemoglobin 12.4 g/dL (12.0-15.0); Mean Corpuscular HGB Conc 32.4 g/dl (32-36); Mean Corpuscular Hemoglobin 29.5 pg (26-34); Mean Platelet Volume 8.8 fl (7.4-10.4); Platelet Count Result 223 k/mm3 (150-375); Red Blood Count 4.21 M/mm3 (4.2-5.4); Red Cell Distribution Width 16.3 % (11.5-14.5); White Blood Count 6.8 K/mm3 (4.5-10.0)
[2024-01-17 12:58] LABS: Add Urine Microscopic? NO; Appearance Urine Clear (Clear); Bilirubin Urine Negative (Negative); Blood Urine Negative (Negative); Color Urine Yellow (Yellow); Glucose Urine UA Negative (Negative); Ketones Urine Negative (Negative); Leukocyte Esterase Ur Negative LEU/UL (Negative); Nitrate Urine Negative (Negative); Protein Urine Negative (Negative); Specific Grav Ur 1.016 (1.001-1.035); Urobilinogen Urine 0.2 mg/dL (<2.0); pH Urine 5.5 (5.0-9.0)
[2024-01-17 13:14] LABS: Alanine Aminotransferase 27 U/L (6-35); Albumin Level 4.4 g/dL (3.5-5.1); Alkaline Phosphatase 61 U/L (38-126); Anion Gap 4 mmol/L (4-12); Aspartate Amino Transferase 23 U/L (14-36); Bilirubin,Total 0.4 mg/dL (0.2-1.3); Blood Urea Nitrogen 15 mg/dL (7-17); CRP < 0.5 mg/dL (<1.0); Calcium 9.1 mg/dL (8.4-10.2); Carbon Dioxide 27 mmol/L (22-30); Chloride 107 mmol/L (98-107); Estimated Glomerular Filt Rate > 60; Glucose 61 mg/dL (65-110); Lipase 54 U/L (23-300); Potassium 3.8 mmol/L (3.4-5.0); Sodium 138 mmol/L (137-145)
[2024-01-17 13:40] LABS: Erythrocyte Sedimentation Rate 16 mm/hr (0-20)
== END 2024-01-17 12:33 | disposition home or self-care (01) ==
PROVIDERS: PCP Family Medicine; Visit Provider Nurse Practitioner
DX: R10.2 Pelvic and perineal pain (principal); R10.32 Left lower quadrant pain
CPT/HCPCS: 36415; 74018; 80053; 81003; 83690; 84443; 85027; 85652; 86140

== ENCOUNTER 2024-01-20 12:20 | Outpatient (CLI) | payer BC, SELFPAY ==
--- NOTE | ~2024-01-20 | CT_ITS ---
EXAMINATION: CT abdomen pelvis w con DATE: 01/20/2024 12:46 INDICATION: suprapubic pain/llq pain, mucous in stools TECHNIQUE: Computed tomography (CT) of the abdomen and pelvis was performed with 100 mL Omnipaque-350 intravenous contrast. Automated exposure control and iterative reconstruction technique were employe d. The dose-length product was 348.45 mGy-cm. COMPARISON: 08/07/2021, 09/01/2019; x-ray abdomen 01/17/2024; ultrasound abdomen 11/15/2023. FINDINGS: Lower thorax: Unremarkable Liver: Normal. Biliary/Gallbladder: Gallbladder is normal. No bile duct dilation. Pancreas: No mass or duct dilation. Spleen: Normal. Adrenals:No mass. Kidneys: No suspicious mass, obstructing stone, or hydronephrosis. GI tract: Prior gastric surgery. Mild distal esophageal and gastric wall edema. No small or large bow el dilation. Normal appendix. Mesentery/Peritoneum: No ascites, mass, or free air. Retroperitoneum: No mass. Pelvis: Incompletely distended but otherwise normal-appearing urinary bladder. Absent uterus. Normal bilateral ovaries. Corpus luteal cyst on the left. Small volume deep pelvic fluid, in physiologic ran ge. Soft Tissues: Soft tissues and body wall unremarkable. Bones: No acute osseous finding. Uncomplicated posterior fusion hardware at L5-S1. IMPRESSION: Mild esophagitis/gastritis. Otherwise unremarkable CT abdomen and pelvis findings. Reviewed, dictated and finalized at location K.
== END 2024-01-20 12:21 | disposition home or self-care (01) ==
LOC: ANHIMG 12:21
PROVIDERS: PCP Family Medicine; Visit Provider Nurse Practitioner
DX: K20.90 Esophagitis, unspecified without bleeding (principal); R10.2 Pelvic and perineal pain; R10.32 Left lower quadrant pain
CPT/HCPCS: 74177; Q9967

== ENCOUNTER 2024-01-30 09:09 | Outpatient (CLI) | payer BC, SELFPAY ==
--- NOTE | ~2024-01-30 | NM_ITS ---
EXAMINATION: NM hepatobiliary wo pharm DATE: 01/30/2024 11:49 INDICATION: Functional dyspepsia. COMPARISON: CT abdomen and pelvis 01/20/2024 TECHNIQUE: 4.8 mCi Tc-99m mebrofenin (Choletec) was administered intravenously. Scintigraphic images of the abdomen were obtained for one hour. Then, the patient drank 8 oz Ensure, and imaging was cont inued for 60 minutes. FINDINGS: There is normal clearance of radiotracer from the blood pool. There is homogeneous tracer u ptake by the liver. Activity progresses to the bowel and gallbladder. Gallbladder ejection fraction (GBEF) was 50%. Note that with this technique, normal GBEF >= 33%. IMPRESSION: 1. Normal hepatobiliary scintigraphy. Reviewed, dictated and finalized at location A.
== END 2024-01-30 09:10 | disposition home or self-care (01) ==
LOC: ANHIMG 09:10
PROVIDERS: PCP Family Medicine; Visit Provider Nurse Practitioner
DX: K30 Functional dyspepsia (principal)
CPT/HCPCS: 78226; A9537

== ENCOUNTER 2024-03-11 00:17 | Day surgery (SDC) | payer BC, SELFPAY ==
[2024-02-20 12:57] VITALS: BMI 22.1
[2024-03-11 11:22] VITALS: BP 101/61; PULSE 84; RESP 18; TEMP 36.4; O2SAT 100; BMI 21.7
[2024-03-11] MEDS: LACTATED RINGERS 1,000 ML 150 ML IV CONT (11:30)
--- NOTE | 2024-03-11 11:32 | SUR.PREOP ---
md eda notified pt requesting anti anxiety medication prior to procedure
--- NOTE | 2024-03-11 11:34 | WPDANESEPPF ---
Anes - Initial Pre Proc Eval Procedure: Operation Date: 03/11/24 12:30 Proposed Procedures p Colonoscopy - Gurinder Hoffman MD Date/Time: 03/11/24 11:34 Surgeon: Gurinder Hoffman MD Pre Op Diagnosis: hx colon polyps, LLQP Patient Data Age: 33 Gender: F Height: 1.73 m Weight: 64.8 kg Last Vital Signs Temp 36.4 C L 03/11/24 11:22 Pulse 84 03/11/24 11:22 Resp 18 03/11/24 11:22 BP 101/61 03/11/24 11:22 Pulse Ox 100 03/11/24 11:22 O2 Del Method Room Air 03/11/24 11:22 Allergies Allergy/AdvReac Type Severity Reaction Status Date / Time NSAIDS (Non-Steroidal AdvReac Intermediate r/t Verified 03/11/24 11:17 Anti-Inflamma gastric bypass and ulcer history Home Medications Medication Instructions Recorded Confirmed Type esomeprazole magnesium 40 mg 40 mg PO BID #60 caps 01/17/24 03/11/24 Rx capsule,delayed release viloxazine 100 mg capsule,extended 200 mg PO DAILY 02/05/24 03/11/24 History release 24 hr (Qelbree) dextroamphetamine-amphetamine 15 15 mg PO BID 02/20/24 03/11/24 History mg tablet (Adderall) ferrous sulfate 27 mg iron tablet 27 mg PO DAILY 02/20/24 03/11/24 History multivit with minerals-folic acid 1 tablet PO DAILY 02/20/24 03/11/24 History 200 mcg-biotin 300 mcg chew tablet (Women's Multivitamin with Biotin) sucralfate 1 gram tablet 1 g PO DAILY 02/20/24 03/11/24 History bupropion HCl 300 mg 24 hr tablet, 300 mg PO DAILY 03/11/24 03/11/24 History extended release Patient hx anesthesia problems: none Family hx anesthesia problems: none Results Review: All pre-operative results and documents have been reviewed as part of the pre-operative evaluation. [facility] Past Medical History Medical History Anxiety BMI 21.0-21.9, adult Chronic anastomotic ulcer of gastrojejunal region Depression Encounter to establish care Epigastric pain GERD (gastroesophageal reflux disease) Hematemesis History of cardiac monitoring History of uterine bleeding Hypothyroid Low back pain radiating to left lower extremity Third degree heart block Unconfirmed, currently being evaluated by Cardiology outpatient Tobacco abuse Surgical History Surgical History H/O abdominoplasty H/O section H/O rhinoplasty H/O spinal fusion H/O: hysterectomy History of facial surgery right side facial reconstruction History of Adolfo-en-Y gastric bypass Hx of gastric bypass Adolfo-en-Y 2018 Hx of tonsillectomy Family History Family History Mother Hypertension Anxiety Depression Alcoholism Heart disease Father Hypertension Heart disease Cancer Other Cancer Anxiety Depression Grandparent Cancer Diabetes mellitus Depression Heart disease Anxiety Cerebrovascular accident Sibling Anxiety Depression CVS disease Daughter Anxiety Depression Grandparent Cancer Grandparent Cancer Social History Social History Social History: Ms. Gonzalez lives at home with her and two children. Her family recently moved to the area from [place] where her was stationed with the [employer]. She would like to be a full code and she designates her as her surrogate decision maker. Smoking packs per day: 0.5 Smoking cigarettes per day: 10.0 Years smoked: 15 Smoking pack-years: 7.50 Smoking status: Current every day smoker Tobacco type: cigarettes Second hand tobacco smoke exposure: Yes Alcohol intake: never Substance use: former Substance use type: does not use Do You Feel Safe in your Home?: Yes Lack of Transportation: No Lack of Food: Never True Current Housing: I Have Housing Concerned About Future Housing: No Difficulty Paying Gas/Electric Bills: No Difficulty Paying for Meds: No Currently Unemployed: No Education: Master's Degree or Higher Difficulty w/ Childcare or Family Care: No Living arrangements: with family Additional living arrangements comments: with and kids Occupation/Education: occupation Additional occupation/education comments: She stays home with her children. Gender identity (if verbalized by the patient): Female Spiritual care concerns: No Agree to blood products: Yes Anes - Eval Final PreProcedure Day of Procedure 03/11/24 11:34 Patient weight: normal Heart: regular rate and rhythm Lungs: clear to auscultation Airway: Mallampati scale class 1 Neurological: alert and oriented Last oral intake: >/= 8 hours ASA classification: III Emergent: no Anesthetic plan: proceed Anesthesia type and monitoring: general GIVS and standard monitoring Results Review: All pre-operative results and documents have been reviewed as part of the pre-operative evaluation. Informed Consent: The patient's anesthetic plan and its attendant risks and benefits were discussed with the patient/family/POA. Questions were solicited and answers provided to the satisfaction of the patient/family/POA.
[2024-03-11] MEDS: MIDAZOLAM HCL (*CRX) 2 MG/2 ML VIAL IV PUSH (11:58)
--- NOTE | 2024-03-11 12:05 | PM.HPGS ---
History of Present Illness History of Present Illness Consent: Risks, benefits, and alternatives have been discussed and questions answered. Patient agrees to proceed with procedure. Chief complaint: hx colon polyps, LLQP Narrative: Aura Gonzalez is a 33 year old female with a past medical surgical history of gastric bypass in 2007 complicated with chronic ulcers at anastomosis. She has been having intermittent pain in lower abdomen, last colonoscopy 2018. Review of Systems Review of Systems: All systems reviewed & are unremarkable except as noted in HPI and below PMFSH Past Medical History Medical History Anxiety BMI 21.0-21.9, adult Chronic anastomotic ulcer of gastrojejunal region Depression Encounter to establish care Epigastric pain GERD (gastroesophageal reflux disease) Hematemesis History of cardiac monitoring History of uterine bleeding Hypothyroid Low back pain radiating to left lower extremity Third degree heart block Unconfirmed, currently being evaluated by Cardiology outpatient Tobacco abuse Surgical History Surgical History H/O abdominoplasty H/O section H/O rhinoplasty H/O spinal fusion H/O: hysterectomy History of facial surgery right side facial reconstruction History of Adolfo-en-Y gastric bypass Hx of gastric bypass Adolfo-en-Y 2018 Hx of tonsillectomy Family History Family History Mother Hypertension Anxiety Depression Alcoholism Heart disease Father Hypertension Heart disease Cancer Other Cancer Anxiety Depression Grandparent Cancer Diabetes mellitus Depression Heart disease Anxiety Cerebrovascular accident Sibling Anxiety Depression CVS disease Daughter Anxiety Depression Grandparent Cancer Grandparent Cancer Social History Social History Social History: Ms. Gonzalez lives at home with her and two children. Her family recently moved to the area from [place] where her was stationed with the [employer]. She would like to be a full code and she designates her as her surrogate decision maker. Smoking packs per day: 0.5 Smoking cigarettes per day: 10.0 Years smoked: 15 Smoking pack-years: 7.50 Smoking status: Current every day smoker Tobacco type: cigarettes Second hand tobacco smoke exposure: Yes Alcohol intake: never Substance use: former Substance use type: does not use Do You Feel Safe in your Home?: Yes Lack of Transportation: No Lack of Food: Never True Current Housing: I Have Housing Concerned About Future Housing: No Difficulty Paying Gas/Electric Bills: No Difficulty Paying for Meds: No Currently Unemployed: No Education: Master's Degree or Higher Difficulty w/ Childcare or Family Care: No Living arrangements: with family Additional living arrangements comments: with and kids Occupation/Education: occupation Additional occupation/education comments: She stays home with her children. Gender identity (if verbalized by the patient): Female Spiritual care concerns: No Agree to blood products: Yes Meds Home Medications and Allergies Home Medications Medication Instructions Recorded Confirmed Type esomeprazole magnesium 40 mg 40 mg PO BID #60 caps 01/17/24 03/11/24 Rx capsule,delayed release viloxazine 100 mg capsule,extended 200 mg PO DAILY 02/05/24 03/11/24 History release 24 hr (Qelbree) dextroamphetamine-amphetamine 15 15 mg PO BID 02/20/24 03/11/24 History mg tablet (Adderall) ferrous sulfate 27 mg iron tablet 27 mg PO DAILY 02/20/24 03/11/24 History multivit with minerals-folic acid 1 tablet PO DAILY 02/20/24 03/11/24 History 200 mcg-biotin 300 mcg chew tablet (Women's Multivitamin with Biotin) sucralfate 1 gram tablet 1 g PO DAILY 02/20/24 03/11/24 History bupropion HCl 300 mg 24 hr tablet, 300 mg PO DAILY 03/11/24 03/11/24 History extended release Allergies Allergy/AdvReac Type Severity Reaction Status Date / Time NSAIDS (Non-Steroidal AdvReac Intermediate r/t Verified 03/11/24 11:17 Anti-Inflamma gastric bypass and ulcer history Vital Signs Vital Signs - 24 hr 03/11/24 11:22 Temperature 97.5 F L Pulse Rate 84 Respiratory Rate 18 Blood Pressure 101/61 Pulse Oximetry 100 Oxygen Delivery Room Air Exam Const: General: comfortable and no acute distress HENMT: Face/Nose/Sinus: Normal nares present Eyes: General: appearance normal, both eyes and all related structures Neck: Neck: no JVD Resp: Auscultation: clear to auscultation bilaterally Cardio: Rate: regular rate Rhythm: regular rhythm GI: Inspection: non-distended GI Palp: Yes Soft to palpation Skin: General skin exam: normal color Neuro: General: gait normal Speech: normal speech Extrem: General: normal to inspection Psych: Mental Status: mental status grossly normal Assessment and Plan Assessment and plan (1) LLQ pain: Code(s): R10.32 - Left lower quadrant pain Status: Acute Assessment and Plan: colonoscopy
[2024-03-11 12:24] VITALS: BP 93/52; PULSE 78; RESP 19; O2SAT 100
[2024-03-11 12:34] VITALS: BP 88/55; PULSE 75; RESP 14; O2SAT 100
[2024-03-11 12:44] VITALS: BP 97/60; PULSE 74; RESP 17; O2SAT 100
== END 2024-03-11 12:53 | disposition home or self-care (01) ==
PROVIDERS: PCP Family Medicine; Referring Provider Nurse Practitioner; Visit Provider Internal Medicine Gastroenterology
PROC: 0DJD8ZZ Inspection of Lower Intestinal Tract, Via Natural or Artificial Opening Endoscopic (ICD-10-PCS; CPT 45378; principal; 2024-03-11 12:30)
DX: R10.32 Left lower quadrant pain (principal); K21.9 Gastro-esophageal reflux disease without esophagitis; F41.9 Anxiety disorder, unspecified; F32.A Depression, unspecified; Z98.84 Bariatric surgery status; F17.210 Nicotine dependence, cigarettes, uncomplicated
CPT/HCPCS: 45378; J2003; J2250; J2704; J7120

== ENCOUNTER 2024-03-14 11:25 | Outpatient (CLI) | payer BC, SELFPAY ==
--- NOTE | ~2024-03-14 | MR_ITS ---
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 Nipple discharge. TECHNIQUE: MRI of the breasts perform using standard protocol pre-and post IV contrast with the follo wing sequences: Axial T2 STIR, axial T1, axial vibrant T1 with fat suppression precontrast and multip hasic postcontrast. 14 cc MultiHance administered intravenously. COMPARISON: MRI dated 09/18/2023, right breast ultrasound dated 10/06/2023 and 08/24/2023 and diagnostic bilateral mammogram dated 08/24/2023 FINDINGS: There are no abnormalities on the precontrast sequences. There is mild background parenchym al enhancement. No enhancing lesions following contrast administration. No areas of enhancement apple ting threshold criteria on CAD analysis. No evidence of signal abnormalities in the axillary or inte rnal mammary node distributions. LEFT BREAST: No signal abnormalities on precontrast sequences. There is moderate background parenchy mal enhancement. No enhancing lesions following contrast administration. There is susceptibility ar tifact in the left breast medially. No areas of enhancement meeting threshold criteria on CAD analysi s. No evidence of signal abnormalities in the axillary or internal mammary node distributions.] IMPRESSION: 1: Right breast: Negative. Enhancing mass seen on prior MRI examination not visualized on the curre nt study. No evidence of malignancy. BI-RADS category 1. Recommend annual mammography follow-up. 2: Left breast: Negative. No evidence of malignancy. BI-RADS category 1. Recommend annual mammogr aphy follow-up. Follow-up MRI may be useful for supplementing mammographic evaluation as clinically indicated. Reviewed, dictated and finalized at location B. 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 Enhancing mass seen on prior MRI examination not v isualized on the current study. No evidence of malignancy. BI-RADS category 1. Recommend annual mammography follow-up. 2: Left breast: Negative. No evidence of malignancy. BI-RADS category 1. Re commend annual mammography follow-up. Follow-up MRI may be useful for supplementing mammographic evaluation as clinic ally indicated.
== END 2024-03-14 11:26 | disposition home or self-care (01) ==
LOC: ANHIMG 11:27
PROVIDERS: PCP Family Medicine; Visit Provider Surgery
DX: N63.10 Unspecified lump in the right breast, unspecified quadrant (principal); N64.52 Nipple discharge
CPT/HCPCS: 77049; A9577; C8908

== ENCOUNTER 2024-03-20 01:27 | Day surgery (SDC) | payer BC, SELFPAY ==
[2024-03-19 12:44] VITALS: BMI 22.1
--- NOTE | 2024-03-20 12:10 | P.SEDATION_ITS ---
Moderate Sedation Note-Pt Data Patient Data Diagnosis: Permanently implant loop recorder at MOMO Present Complaint: No complaints, desire to have all loop recorder explanted Procedure to be performed/Plan: Explantation of Medtronic LINQ loop recorder Allergies Allergy/AdvReac Type Severity Reaction Status Date / Time NSAIDS (Non-Steroidal AdvReac Intermediate r/t Verified 03/19/24 12:56 Anti-Inflamma gastric bypass and ulcer history Home Medications ?Medication ?Instructions ?Recorded ?Confirmed ?Type esomeprazole magnesium 40 mg 40 mg PO BID #60 caps 01/17/24 03/19/24 Rx capsule,delayed release ferrous sulfate 27 mg iron tablet 27 mg PO DAILY 02/20/24 03/19/24 History sucralfate 1 gram tablet 1 g PO QID 02/20/24 03/19/24 History bupropion HCl 300 mg 24 hr tablet, 300 mg PO DAILY 03/11/24 03/19/24 History extended release cholecalciferol (vitamin D3) 1,250 50,000 unit PO WEEKLY 03/19/24 03/19/24 History mcg (50,000 unit) capsule omeprazole 40 mg capsule,delayed 40 mg PO BID 03/19/24 03/19/24 History release viloxazine 200 mg capsule,extended 200 mg PO BID 03/19/24 03/19/24 History release 24 hr (Qelbree) Sedation/Anesthesia: No previous sedation/anesthesia problems (including family history). [facility] Past Medical History Medical History Anxiety BMI 21.0-21.9, adult Chronic anastomotic ulcer of gastrojejunal region Depression Encounter to establish care Epigastric pain GERD (gastroesophageal reflux disease) Hematemesis History of cardiac monitoring History of uterine bleeding Hypothyroid Low back pain radiating to left lower extremity Third degree heart block Unconfirmed, currently being evaluated by Cardiology outpatient Tobacco abuse Surgical History Surgical History H/O abdominoplasty H/O section H/O rhinoplasty H/O spinal fusion H/O: hysterectomy History of facial surgery right side facial reconstruction History of Adolfo-en-Y gastric bypass Hx of gastric bypass Adolfo-en-Y 2018 Hx of tonsillectomy Family History Family History Mother Hypertension Anxiety Depression Alcoholism Heart disease Father Hypertension Heart disease Cancer Other Cancer Anxiety Depression Grandparent Cancer Diabetes mellitus Depression Heart disease Anxiety Cerebrovascular accident Sibling Anxiety Depression CVS disease Daughter Anxiety Depression Grandparent Cancer Grandparent Cancer Social History Social History Social History: Ms. Gonzalez lives at home with her and two children. Her family recently moved to the area from [place] where her was stationed with the [employer]. She would like to be a full code and she designates her as her surrogate decision maker. Smoking packs per day: 0.5 Smoking cigarettes per day: 10.0 Years smoked: 15 Smoking pack-years: 7.50 Smoking status: Current every day smoker Tobacco type: cigarettes Second hand tobacco smoke exposure: Yes Alcohol intake: never Substance use: former Substance use type: does not use Do You Feel Safe in your Home?: Yes Lack of Transportation: No Lack of Food: Never True Current Housing: I Have Housing Concerned About Future Housing: No Difficulty Paying Gas/Electric Bills: No Difficulty Paying for Meds: No Currently Unemployed: No Education: Master's Degree or Higher Difficulty w/ Childcare or Family Care: No Living arrangements: with family Additional living arrangements comments: with and kids Occupation/Education: occupation Additional occupation/education comments: She stays home with her children. Gender identity (if verbalized by the patient): Female Spiritual care concerns: No Agree to blood products: Yes Mod Sed Physical Exam Physical Exam Pre Procedural Exam: Normal: Appearance, Throat, Airway, Lungs, Heart Size, Heart Rate, Heart Rhythm, Neuro Exam and Extremities Hours since solid foods: 12 Hours since liquid intake: 12 Mallampati Classification: class II ASA Classification/Sedation ASA Classification/Sedation ASA Class: II Emergent: No Risks: Risks, benefits and alternatives explained and patient/family accepted plan for sedation. Patient re-evaluated immediately prior to sedation.
--- NOTE | 2024-03-20 12:14 | P.PCNCC_ITS ---
Cardiac Cath Procedure Note Date of procedure:: 03/20/24 Performing physician:: Khalif Melo MD Indication:: LINQ loop recorder at end of service Brief clinical history:: This is a 33-year-old woman who had a Medtronic LINQ loop recorder implanted in the past elsewhere because of palpitations. No arrhythmias were discovered. The device is nonfunctional as battery has been depleted. The patient is dima irous of having the device removed Procedure Procedure performed:: Explantation of Medtronic LINQ loop recorder Sedation/Medication given:: Versed 2 will Access site:: Left anterior chest Estimated blood loss:: Minimal Procedure note:: Patient was brought to the cardiac catheterization lab where the left anterior chest wall was prepped and draped in the sterile fashion. The site of the implanted LINQ device was easily palpable. She received 10 cc of 1% lidocaine over the device and an incision was then made about 1 cm long above the device. The electrocautery was used to provide cutaneous hemostasis. The subcutaneous tissue was dissected to the level of the LINQ device this was then expressed out of the incision and sick and controlled using the Jael clamp. Following this device was extracted with the surrounding fibrous tissue being a cut with the blade and the Metzenbaum scissors. The wound was then closed with 4-0 Vicryl and subcuticular fashion. Aquacel dressing was placed over the incision she was taken to the holding area stable condition without any complaints or problems Findings:: As above Conclusion:: Successful uncomplicated explantation of depleted Medtronic LINQ loop recorder Khalif Melo MD [facility]
[2024-03-20 12:15] VITALS: BP 109/58; PULSE 66; RESP 14; O2SAT 100
[2024-03-20 12:30] VITALS: BP 104/57; PULSE 79; RESP 16; O2SAT 99
[2024-03-20 12:45] VITALS: BP 102/59; PULSE 64; RESP 14; O2SAT 98
[2024-03-20 13:00] VITALS: BP 103/57; PULSE 66; RESP 16; O2SAT 98
== END 2024-03-20 13:08 | disposition home or self-care (01) ==
PROVIDERS: PCP Family Medicine; Visit Provider Specialist
PROC: (CPT 33286; principal; 2024-03-20 11:00)
DX: Z45.09 Encounter for adjustment and management of other cardiac device (principal); I47.10 Supraventricular tachycardia, unspecified; E03.9 Hypothyroidism, unspecified; K21.9 Gastro-esophageal reflux disease without esophagitis; F41.9 Anxiety disorder, unspecified; K28.7 Chronic gastrojejunal ulcer without hemorrhage or perforation; F32.A Depression, unspecified; F17.210 Nicotine dependence, cigarettes, uncomplicated; Z98.890 Other specified postprocedural states; Z98.1 Arthrodesis status; Z98.84 Bariatric surgery status; Z80.9 Family history of malignant neoplasm, unspecified; Z82.49 Family history of ischemic heart disease and other diseases of the circulatory system
CPT/HCPCS: 33286; J2003; J2250

== ENCOUNTER 2024-06-20 08:57 | Outpatient (CLI) | payer BC, SELFPAY ==
[2024-06-20 09:10] LABS: Hematocrit 39.3 % (37.0-47.0); Hemoglobin 13.2 g/dL (12.0-15.0); Mean Corpuscular HGB Conc 33.6 g/dl (32-36); Mean Corpuscular Hemoglobin 31.7 pg (26-34); Mean Corpuscular Volume 94.5 fl (80-100); Mean Platelet Volume 8.7 fl (7.4-10.4); Platelet Count Result 174 k/mm3 (150-375); Red Blood Count 4.16 M/mm3 (4.2-5.4); Red Cell Distribution Width 12.5 % (11.5-14.5); White Blood Count 5.7 K/mm3 (4.5-10.0)
--- OUTSIDE RECORDS SUMMARY | 2024-06-20 09:49 | XMS_ITS ---
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 Name Role Phone Sreekanth Maciel Primary Care Provider Herman Castillo [phone] REASON FOR VISIT Patient billed $50.00 for missed appointment Medications Medication SIG (Take, Route, Frequency, Duration) Notes Start Date End Date Status Esomeprazole Magnesium 40 MG Oral for 30 Days Active Qelbree 200 MG Oral for 30 Days Active Vitamin D 50 MCG (1999) 1 tablet Oral ly Once a day Active Iron 28 MG 1 tablet Orally Thre e times a Week Active Amphetamine-Dextroamphetami ne 30 MG Oral for 30 Days Active Encounters Encounter Location Date Provider Diagnosis [facility] [address] [place] [address] 03/18/2024 Herman Kumar Plan Of Treatment Next Appt Details Follow Up: prn, Reason: Progress Notes * Maximiliano TREVIZOOB:1990 (33 yo F)Acc No.[id number]:03/18/2024 Asthma F/U Patient: Daisha BILL Geronimo Provider: Johnnie Kumar PA-C :1990 A ge:33 Y S ex:Female Date:03/18/2024 Address:[address] [id number] Pcp:Sreekanth Maciel Subjective: * Chief Complaints: * P atient billed $50.00 for missed appointment * Medical History: * Surgical History: * Hospitalization/Major Diagno stic Procedure: * Medications: T akingIron 28 MG Tablet 1 tablet Orally Three times a Week Vitamin D 50 MCG (1999) Tablet 1 tablet Orally Once a day Esomeprazole Magnesium 40 MG Capsule Delayed Release Oral Qelbree 200 MG Capsule Extended Release 24 Hour Oral Amphetamine-Dextroamphetamine 30 MG Tablet Oral Taking Iron 28 MG Tablet 1 tablet Orally Three times a Week Taking Vitamin D 50 MCG (1999 [place]) Tablet 1 tablet Orally Once a day Taking Esomeprazole Magnesium 40 MG Capsule Delayed Release Oral Taking Qelbree 200 MG Capsule Extended Release 24 Hour Oral Taking Amphetamine-Dextroamphetamine 30 MG Tablet Oral Objective: * Vitals: Assessment: Plan: * Treatment: * Procedure Codes: 0 0002 No Show - Follow-up * Follow Up: p rn * Billing Information: * Visit Code: * Procedure Codes: 48626 No Show - Follow-up. * STAGE CONSULTANT Sign off status: Completed true * Provider: Johnnie Kumar PA-C Date: 1 05/19/2023 Generated for Jus martinez/Travis/Jean Carlositting on: 0 06/20/2024 09:49 AM CDT History and Physical Notes * HPI (History of Present Illness) Category Sub-Category Detail Notes Category Not es *Introduction
--- OUTSIDE RECORDS SUMMARY | 2024-06-20 09:50 | XMS_ITS | Clinical Summary ---
Author Organization [address] Address [address] [place] [id number] Care Team Providers Care Credit Interviewer Name Role Phone Sreekanth Maciel MD Primary Care Provider Theresa Mcgowan ELECTRONIC OPERATOR Unavailable Arash Steve MD Unavailable [phone] Sandoval Jung MD Unavailable [phone] Allergies Active Allergy Reactions Criticality Noted Date Comments [place] Gluconate Unknown 02/28/2024 Patient had testing done and is allergic to cobalt in ingredients in medications Nsaids (Non-Steroidal Anti-Inflammatory Drug) Other (See comments) High 08/27/2019 Post gastric bypass Medications omeprazole (PriLOSEC) 40 mg capsule Take 1 capsule (40 mg total) by mouth 2 (two) times a day Active Qelbree 200 mg capsule,extende d release 24hr 4 Active sucralfate (CARAFATE) 1 gram tablet Take 1 tablet (1 g total) by mouth 4 (four) times a day 1 Active cholecalciferol (VITAMIN D-3) 50,000 unit capsule TAKE 1 CAPSULE BY MOUTH ONCE A WEEK 12 capsule 4 Active buPROPion XL (WELLBUTRIN XL) 300 mg 24 hr tablet TAKE 1 TABLET BY MOUTH DAILY IN THE MORNING. 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 Symptoms appear to be in remission, partially, at this time. Visit for wound check 03/28/2024 SVT (supraventricular tachycardia) 02/26/2024 Allergic rhinitis due to animal hair and dander 01/02/2024 Allergic rhinitis due to pollen 01/02/2024 Chronic allergic conjunctivitis 01/02/2024 Allergic rhinitis 01/02/2024 Chronic rhinitis 01/02/2024 Mild persistent asthma without complication 12/10 Encounter for medical examination to establish c are 05/15/2023 Assessment & Plan (05/18/2023 4:40 PM MANAGER SPRING): A(n) initial well visit to establish care has been performed today. Aura Trevizo is not up to date on screening tests. She is in need of Cholesterol screening. She is not up to date on needed preventative vaccinations; She is in need of Tdap/Td, Influenza, Pneumonia (Prevnar-13 or Pneumovax-23), and Covid-19 (booster). We discussed healthy lifestyle habits, educational material has been given. Medications reviewed, changes documented as per the medical record and discussed with patient along with risks vs benefits. 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 Fatigue 05/15/2023 Heartburn 05/15/2023 Hypermobility syndrome 05/15/2023 Laryngopharyngeal reflux 05/15/2023 Lumbago 05/15/2023 Lumbar radiculopathy 05/15/2023 Neoplasm of uncertain behavior of skin Nondisplaced fracture of lateral malleolus of ri ght fibula 05/15/2023 Pain in thoracic spine 05/15/2023 Stricture intestinal 05/15/2023 Vitamin D deficiency 05/15/2023 Fall 08/07/2021 Multiple closed fractures of ribs of left side 0 08/07/2021 Renal hematoma, left 08/07/2021 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 Overview (03/18/2021): Added automatically from request for surgery [id number] Marginal ulcer 02/18/2021 Overview (02/18/2021): Added automatically from request for surgery [id number] Other dietary vitamin B12 deficiency anemia 02/08 Iron deficiency anemia 02/26/2020 Tobacco use 09/17/2019 Assessment & Plan (09/17/2019 10:38 AM CDT): Will start chantix Monitor symptoms Reviewed the risks/benefits of medication Call if symptoms change Peptic ulcer 09/17/2019 Assessment & Plan (09/17/2019 10:39 AM CDT): By history Continue protonix twice a day Keep appointment with GI Work on quitting Avoid triggers that could upset stomach Update me after GI Call for questions or concerns Epigastric discomfort 08/27/2019 Assessment & Plan (09/03/2019 3:59 PM CDT): Will start with an ultrasound Will refer to GI for further guidance Will refill omeprazole 20 mg BID Petroleum diet Update me in the next couple days Anything emergent, to the er Call for questions or concerns Assessment & Plan (08/27/2019 1:20 PM CDT): GERD versus other We discussed checking an ultrasound, patient declined at this time Continue her Prilosec Continue to avoid triggers Call if symptoms worsen or change Palpitations 08/27/2019 Assessment & Plan (08/27/2019 10:55 AM CDT): Will refer to cardiology H/O gastric bypass 08/27/2019 Assessment & Plan (08/27/2019 10:56 AM CDT): Will check labs GERD (gastroesophageal reflux disease) 0 Assessment & Plan (09/03/2019 4:02 PM CDT): Will restart omeprazole Will do a trial of sulcrafate in case it is an ulcer Will place referral to GI Monitor symptoms Call for questions or concerns Assessment & Plan (08/27/2019 1:21 PM CDT): Continue Prilosec Reviewed the risk of proton pump inhibitors including pneumonia, C diff Continue to avoid triggers Call for questions or concerns Depression 05/09/2019 Dizziness 05/09/2019 Nondependent alcohol abuse, in remission 020 Panic attacks 05/09/2019 Status post placement of implantable loop record er 05/09/2019 Overview (01/06/2022): [employer] LINQ11 Loop Recorder. Dx; Syncope, Palpitations. DOI 01/31/2019- elsewhere. Carelink remote requested on 01/06/2022. Smoker 05/09/2019 Posttraumatic stress disorder 04/30/2019 Assessment & Plan (08/27/2019 10:55 AM CDT): Patient reiterated no suicidal thoughts at this time; contact 911 and go to the ER if becomes suicidal Cymbalta 20 mg daily take medication as directed discussed side effects of medication with patient encouraged healthy diet and exercise encouraged patient to see a counselor use support structures you have in place consider meditation-look at Calm kristine try to work on healthy sleep habits If mood worsens or changes, please contact the office Anything emergent, to the er Syncope 04/30/2019 Assessment & Plan (08/27/2019 10:55 AM CDT): Will place referral to cardiology Update me after the visit Other disturbances of skin sensation 07/03/2018 Weakness of both lower extremities 01/08/2018 Sensory deficit, bilateral 01/06/2018 Degenerative disc disease, lumbar 01/05/2018 Other partial intestinal obstruction 11/23/2017 Autoimmune thyroiditis 01/16/2017 Mixed hyperlipidemia 01/16/2017 Abnormal weight gain 01/11/2017 Polycystic ovarian syndrome 01/11/2017 Female hirsutism 01/15/2016 Nicotine dependence, unspecified, uncomplicated 01/04/2016 Acquired hypothyroidism 06/04/2015 Resolved Problems Problem Noted Date Diagnosed Date Resolved Date Morbid (severe) obesity due to excess calories 06/04/2015 05/18/2023 Encounters Date Type Department Care Team Description 06/18/2024 Telephone [facility] Rheumatology at [facility] [address] [phone] Faith Browning MD New Pt Appt Work Q 06/17/2024 Results Follow-Up [facility] [address] [place] [phone] Skylar Bailey MA 06/14/2024 11:51 AM MANAGER SPRING - 06/14/2024 11:59 PM MANAGER SPRING Hospital Encounter [address] [address] [place] Discharge Disposition: Discharge to home or self care 06/14/2024 11:51 AM MANAGER SPRING - 06/14/2024 11:59 PM MANAGER SPRING Hospital Encounter [address] [address] [place] Discharge Disposition: Discharge to home or self care 05/03/2024 9:10 AM MANAGER SPRING Lab [facility] [address] [address] [place] [id number] Atax[place] 05/03/2024 8:00 AM MANAGER SPRING Office Visit [facility] [address] [place] [phone] Mahendra Larson Si, MD Chronic fatigue syndrome (Primary Dx); Facial nerve disorder; Ataxia; 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 04/16/2024 10:30 AM MANAGER SPRING Office Visit [facility] Primary Care at [address] [phone] Sreekanth Maciel MD Facial nerve disorder (Primary Dx); Skin lesion of left external ear 04/01/2024 Orders Only [facility] [address] [place] [phone] Khalif Melo MD 03/28/2024 1:30 PM MANAGER SPRING Clinical Support [facility] [address] [place] [phone] Visit for wound check (Primary Dx) 03/22/2024 Telephone [facility] [address] [place] [address] [address] [place] [phone] Khalif Melo MD from Last 3 Months Immunizations Immunization Administration Dates Next Due Influenza, Quadrivalent, Spl it, Intramuscular 02/18/2019 Influenza, Split 04/15/2011 Influenza, Unspecified 05/15/2023(Deferr ed: Patient Refused),04/11/2022(Deferred: Patient Refused),01/09/2022(Deferred: Patient Refused),01/22/2021 Influenza, Whole 03/27/2012 Pneumococcal Polysaccharide PPV23 03/27/2012 Tdap 09/29/2011 Surgical History Surgery Date Site/Laterality Comments GASTRIC BYPASS 04/10/2017 - 04/09/2018 SECTION 04/10/2014 - 04/09/2015 TONSILLECTOMY 04/10/2003 - 04/09/2004 ABDOMINOPLASTY 04/10/2018 - 04/09/2019 HERNIA REPAIR 2018 HYSTERECTOMY 2022 SPINE SURGERY 2022 BARIATRIC SURGERY 2017 Medical History Medical History Date Comments GERD (gastroesophageal reflux disease) DDD (degenerative disc disease), cervical DDD (degenerative disc disease), thoracolumbar Aneta's disease PCOS (polycystic ovarian syndrome) History of colon polyps Peptic ulceration 2019 GI (gastrointestinal bleed) 2020 Premature ovarian failure 2022 Family History Medical History Relation Name Comments Liver cancer Father COPD Maternal Grandfather Ayaz Cancer Maternal Grandmother Rita Anemia Mother Lisbeth Bleeding Disorder Mother Lisbeth COPD Mother Lisbeth Cancer Mother Lisbeth Heart disease Mother Lisbeth Stroke Mother Lisbeth Cancer Mother's Sister Sandra Diabetes Other Hyperlipidemia Other Hypertension Other Stroke Other Multiple sclerosis Neg Hx Parkinsonism Neg Hx Relation Name Status Comments Father Alive Maternal Grandfather Ayaz Maternal Grandmother Rita Mother Lisbeth Mother's Sister Sandra Other Social History Tobacco Use Types Packs/Day Years Used Date Smoking Tobacco: Every Day Cigarettes 0.8 23.8 Started: 09/16/2000 Smokeless Tobacco: Never Tobacco Cessation:Ready to Q uit: Not Asked; Counseling Given: Not Answered Alcohol Use Standard Drinks/Week Comments Yes 4 (1 standard drink = 0.6 oz pur e alcohol) AUDIT-C Answer Date Recorded Q1: How often do you have a drink containing alc ohol? Never 05/26/2021 Average Number of Drinks Not on file 022 Q3: How often do you have si x or more drinks on one occasion? Never 05/26/2021 PHQ-2 Answer Date Recorded PHQ-2 Total Score (If total score is 3 or more points, staff should administer the PHQ-9) 0 04/16/2024 PHQ-9 Answer Date Recorded PHQ-9 Total Score 7 11/29/2023 Personal Safety Answer Date Recorded Have you ever been in or are you currently in a harmful physical or emotional relationship or is someone making you feel afraid or unsafe? Denies 02/14/2023 Comments No Sex and Gender Information Value Date Recorded Sex Assigned at Not on file Legal Sex Female 10:42 AM MANAGER SPRING Gender Identity Female 02/14/2021 8:33 PM MANAGER SPRING Sexual Orientation Straight 02/14/2021 8: 33 PM MANAGER SPRING Obstetrics History Last Filed Vital Signs Vital Sign Reading Time Taken Comments Blood Pressure 100/60 05/03/2024 7:52 AM MANAGER SPRING Pulse 78 05/03/2024 7:52 AM MANAGER SPRING Temperature 36.5 C (97.7 F) 04/16/2024 10:36 AM MANAGER SPRING Respiratory Rate 16 04/16/2024 10:36 AM MANAGER SPRING Oxygen Saturation 98% 04/16/2024 10:36 AM MANAGER SPRING Inhaled Oxygen Concentration - - Weight 68 kg (150 lb) 05/03/2024 7:52 AM MANAGER SPRING Height 172.7 cm (5' 8 ) 05/03/2024 7:52 AM MANAGER SPRING Body Mass Index 22.81 05/03/2024 7:52 AM MANAGER SPRING Plan of Treatment Health Maintenance Due Date Last Done Comments Hepatitis C Screening 1988 Hepatitis B Screening 2006 Regular Well Visit/Exam 18-64 2006 Pneumococcal vaccine <65 (2 of 2 - PCV) 03/27/2013 03/27/2012 DTaP/Tdap/Td Vaccine (2 - Td or Tdap) 09/28/2021 09/29/2011 Covid-19 Vaccine (3 - season) 2023 11/05/2020, 10/09/2020 Influenza Vaccine (#1) 2023 , 02/18/2019, 03/27/2012, Additional history exists Depression Screening 04/16/2025 04/16/2024, 02/15/2024, 12/18/2023, Additional history exists HPV Vaccines Aged Out No longer eligi ble based on patient's age to complete this topic Varicella Vaccines Discontinued Medical Devices Implanted Type Area Retail Sales Lead Device Identifier Shelf Expiration Date Model / Serial / Lot Loop Recorder Heart Procedures Procedure Name Priority Date/Time Associated Diagnosis Comments MRI BRAIN W WO CONTRAST Schedule Routine, Read Routine (OP Routine) 06/14/2024 1:43 PM MANAGER SPRING Ataxia MRI CERVICAL SPINE W WO CONTRAST Schedule Routine, Read Routine (OP Routine) 06/14/2024 1:36 PM MANAGER SPRING Ataxia EGFR Routine 05/03/2024 9:17 AM MANAGER SPRING Ataxia BASIC METABOLIC PANEL Routine 05/03/2024 9:17 AM MANAGER SPRING Ataxia THYROID FUNCTION CASCADE Routine 05/03/2024 9:17 AM MANAGER SPRING Ataxia VITAMIN B12 Routine 05/03/2024 9:17 AM MANAGER SPRING Ataxia METHYLMALONIC ACID, SERUM Routine 05/03/2024 9:17 AM MANAGER SPRING Ataxia from Last 3 Months Results * MRI Brain W WO Contrast (06/14/2024 1:43 PM MANAGER SPRING) Anatomical Region Laterality Modality Head and Neck N/A Magnetic Resonan ce 06/14/2024 2:59 PM MANAGER SPRING Narrative 06/14/2024 3:28 PM MANAGER SPRING EXAM DESCRIPTION: MRI CERVICAL SPINE W WO CONTRAST; MRI BRAIN W WO CONTRAST REASON FOR STUDY: Demyelinating disease with spinal cord symptoms Numbness/tingling in arms, cognitive declining, did have loss of mobility in LT leg (since returned); symptoms since April 2023; pt states abnormal MRI Brain done w/o contrast at [facility] about Mar 2024 TECHNIQUE: Sagittal and Axial imaging includes T1, T2, STIR and gradient echo sequences. Post contrast T1-weighted images. CONTRAST TYPE/DOSE: 15mL of GADOTERATE MEGLUMINE 0.5 MMOL/ML INTRAVENOUS SOLUTION (SO) injected via intravenous COMPARISON: None BRAIN: No acute infarction. No evidence of acute or chronic hemorrhage identified. No mass effect, mass or midline shift. The ventricles are normal in size. Brain volume appears within normal limits for patient age. There is a punctate STIR hyperintensity in the left anterior frontal lobe subcortical white matter. Additional punctate focus of FLAIR hyperintensity in the right anterior frontal lobe subcortical white matter. Minimal FLAIR hyperintensity of the bilateral frontal horn periventricular white matter. No callosal, pericallosal, juxtacortical or infratentorial FLAIR hyperintense lesions are identified. The major flow voids are within normal limits. The pituitary gland is within normal limits for patient age. Minimal low-lying tonsils likely indicating benign tonsillar ectopia. The calvarium is unremarkable. The orbits are unremarkable. The paranasal sinuses are well aerated. The mastoid air cells are well aerated. CERVICAL SPINE: ALIGNMENT: Normal. VERTEBRAE: Vertebral body height maintained. Normal appearing marrow. DISCS: Multi-level degenerative disc disease with disc height loss and dessication. CORD: No definitive T2 hyperintensity of the cervical spinal cord is identified. No definitive contrast enhancement of the cervical spinal cord is identified, noting areas of pulsation artifact at the level of C5-C6 and C6-C7. UPPER THORACIC: Incompletely imaged. No significant spinal stenosis or foraminal stenosis. SOFT TISSUES: No significant abnormality identified. A left thyroid nodule measuring 9 mm in diameter does not require follow-up per ACR criteria. INDIVIDUAL LEVELS: C2-C3: The disc is normal in configuration. There is mild facet arthropathy. There is no uncovertebral joint disease. There is no neuroforaminal stenosis. There is no spinal canal stenosis. C3-C4: Small posterior disc osteophyte complex. There is mild facet arthropathy. There is no uncovertebral joint disease. There is no neuroforaminal stenosis. There is no spinal canal stenosis. C4-C5: Posterior disc osteophyte complex. There is mild facet arthropathy. There is no uncovertebral joint disease. There is no neuroforaminal stenosis. There is no spinal canal stenosis. C5-C6: Small posterior disc osteophyte complex. There is mild facet arthropathy. There is no uncovertebral joint disease. There is no neuroforaminal stenosis. There is no spinal canal stenosis. C6-C7: Small posterior disc osteophyte complex. Annular fissure. There is mild facet arthropathy. There is no uncovertebral joint disease. There is no neuroforaminal stenosis. There is no spinal canal stenosis. C7-T1: The disc is normal in configuration. There is no facet arthropathy. There is no uncovertebral joint disease. There is no neuroforaminal stenosis. There is no spinal canal stenosis. IMPRESSION: No prior studies are available for comparison at time of this dictation. 1. Minimal T2 FLAIR hyperintensity of the bilateral frontal lobe subcortical white matter and periventricular white matter is nonspecific. No abnormal intracranial enhancement. 2. No significant abnormality of the cervical spine is identified. THIS IS AN ELECTRONICALLY VERIFIED FINAL REPORT 06/14/2024 3:28 PM - Electronically signed by Gregory Mcallister M.D. MM T: Report ID: [id number] Reading Location: [place] [address] Procedure Note Gregory Mcallister MD - 06/14/2024 EXAM DESCRIPTION: MRI CERVICAL SPINE W WO CONTRAST; MRI BRAIN W WOCONTRAST REASON FOR STUDY: Demyelinating disease with spinal cord symptoms Numbness/tingling in arms, cognitive declining, did have loss of mobilityin LT leg (since returned); symptoms since April 2023; pt states abnormalMRI Brain done w/o contrast at [facility] about Mar 2024 TECHNIQUE: Sagittal and Axial imaging includes T1, T2, STIR and gradientecho sequences. Post contrast T1-weighted images. CONTRAST TYPE/DOSE: 15mL of GADOTERATE MEGLUMINE 0.5 MMOL/ML INTRAVENOUS SOLUTION (SO) injected via intravenous COMPARISON: None BRAIN: No acute infarction. No evidence of acute or chronic hemorrhage identified. No mass effect, mass or midline shift. The ventricles are normal in size. Brain volume appears within normallimits for patient age. There is a punctate STIR hyperintensity in the left anterior frontal lobe subcortical white matter. Additional punctate focusof FLAIR hyperintensity in the right anterior frontal lobe subcortical white matter. Minimal FLAIR hyperintensity of the bilateral frontal horn periventricular white matter. No callosal, pericallosal, juxtacortical or infratentorial FLAIR hyperintense lesions are identified. The majorflow voids are within normal limits. The pituitary gland is within normallimits for patient age. Minimal low-lying tonsils likely indicating benign tonsillar ectopia. The calvarium is unremarkable. The orbits are unremarkable. Theparanasal sinuses are well aerated. The mastoid air cells are well aerated. CERVICAL SPINE: ALIGNMENT: Normal. VERTEBRAE: Vertebral body height maintained. Normal appearing marrow. DISCS: Multi-level degenerative disc disease with disc height loss and dessication. CORD: No definitive T2 hyperintensity of the cervical spinal cord is identified. No definitive contrast enhancement of the cervical spinalcord is identified, noting areas of pulsation artifact at the level of C5-C6 and C6-C7. UPPER THORACIC: Incompletely imaged. No significant spinal stenosis or foraminal stenosis. SOFT TISSUES: No significant abnormality identified. A left thyroidnodule measuring 9 mm in diameter does not require follow-up per ACR criteria. INDIVIDUAL LEVELS: C2-C3: The disc is normal in configuration. There is mild facet arthropathy. There is no uncovertebral joint disease. There is no neuroforaminal stenosis. There is no spinal canal stenosis. C3-C4: Small posterior disc osteophyte complex. There is mild facet arthropathy. There is no uncovertebral joint disease. There is no neuroforaminal stenosis. There is no spinal canal stenosis. C4-C5: Posterior disc osteophyte complex. There is mild facetarthropathy. There is no uncovertebral joint disease. There is no neuroforaminal stenosis. There is no spinal canal stenosis. C5-C6: Small posterior disc osteophyte complex. There is mild facet arthropathy. There is no uncovertebral joint disease. There is no neuroforaminal stenosis. There is no spinal canal stenosis. C6-C7: Small posterior disc osteophyte complex. Annular fissure. Thereis mild facet arthropathy. There is no uncovertebral joint disease. Thereis no neuroforaminal stenosis. There is no spinal canal stenosis. C7-T1: The disc is normal in configuration. There is no facetarthropathy. There is no uncovertebral joint disease. There is no neuroforaminal stenosis. There is no spinal canal stenosis. IMPRESSION: No prior studies are available for comparison at time of this dictation. 1. Minimal T2 FLAIR hyperintensity of the bilateral frontal lobesubcortical white matter and periventricular white matter is nonspecific. No abnormal intracranial enhancement. 2. No significant abnormality of the cervical spine is identified. THIS IS AN ELECTRONICALLY VERIFIED FINAL REPORT 06/14/2024 3:28 PM - Electronically signed by Gregory Mcallister M.D. MM T: Report ID: [id number] Reading Location: [id number] Mayuri Larson MD IMG MRI PROCEDURES Final Result * MRI Cervical Spine W WO Contrast (06/14/2024 1:36 PM MANAGER SPRING) Anatomical Region Laterality Modality Spine N/A Magnetic Resonan ce 06/14/2024 2:59 PM MANAGER SPRING Narrative 06/14/2024 3:28 PM MANAGER SPRING EXAM DESCRIPTION: MRI CERVICAL SPINE W WO CONTRAST; MRI BRAIN W WO CONTRAST REASON FOR STUDY: Demyelinating disease with spinal cord symptoms Numbness/tingling in arms, cognitive declining, did have loss of mobility in LT leg (since returned); symptoms since April 2023; pt states abnormal MRI Brain done w/o contrast at [facility] about Mar 2024 TECHNIQUE: Sagittal and Axial imaging includes T1, T2, STIR and gradient echo sequences. Post contrast T1-weighted images. CONTRAST TYPE/DOSE: 15mL of GADOTERATE MEGLUMINE 0.5 MMOL/ML INTRAVENOUS SOLUTION (SO) injected via intravenous COMPARISON: None BRAIN: No acute infarction. No evidence of acute or chronic hemorrhage identified. No mass effect, mass or midline shift. The ventricles are normal in size. Brain volume appears within normal limits for patient age. There is a punctate STIR hyperintensity in the left anterior frontal lobe subcortical white matter. Additional punctate focus of FLAIR hyperintensity in the right anterior frontal lobe subcortical white matter. Minimal FLAIR hyperintensity of the bilateral frontal horn periventricular white matter. No callosal, pericallosal, juxtacortical or infratentorial FLAIR hyperintense lesions are identified. The major flow voids are within normal limits. The pituitary gland is within normal limits for patient age. Minimal low-lying tonsils likely indicating benign tonsillar ectopia. The calvarium is unremarkable. The orbits are unremarkable. The paranasal sinuses are well aerated. The mastoid air cells are well aerated. CERVICAL SPINE: ALIGNMENT: Normal. VERTEBRAE: Vertebral body height maintained. Normal appearing marrow. DISCS: Multi-level degenerative disc disease with disc height loss and dessication. CORD: No definitive T2 hyperintensity of the cervical spinal cord is identified. No definitive contrast enhancement of the cervical spinal cord is identified, noting areas of pulsation artifact at the level of C5-C6 and C6-C7. UPPER THORACIC: Incompletely imaged. No significant spinal stenosis or foraminal stenosis. SOFT TISSUES: No significant abnormality identified. A left thyroid nodule measuring 9 mm in diameter does not require follow-up per ACR criteria. INDIVIDUAL LEVELS: C2-C3: The disc is normal in configuration. There is mild facet arthropathy. There is no uncovertebral joint disease. There is no neuroforaminal stenosis. There is no spinal canal stenosis. C3-C4: Small posterior disc osteophyte complex. There is mild facet arthropathy. There is no uncovertebral joint disease. There is no neuroforaminal stenosis. There is no spinal canal stenosis. C4-C5: Posterior disc osteophyte complex. There is mild facet arthropathy. There is no uncovertebral joint disease. There is no neuroforaminal stenosis. There is no spinal canal stenosis. C5-C6: Small posterior disc osteophyte complex. There is mild facet arthropathy. There is no uncovertebral joint disease. There is no neuroforaminal stenosis. There is no spinal canal stenosis. C6-C7: Small posterior disc osteophyte complex. Annular fissure. There is mild facet arthropathy. There is no uncovertebral joint disease. There is no neuroforaminal stenosis. There is no spinal canal stenosis. C7-T1: The disc is normal in configuration. There is no facet arthropathy. There is no uncovertebral joint disease. There is no neuroforaminal stenosis. There is no spinal canal stenosis. IMPRESSION: No prior studies are available for comparison at time of this dictation. 1. Minimal T2 FLAIR hyperintensity of the bilateral frontal lobe subcortical white matter and periventricular white matter is nonspecific. No abnormal intracranial enhancement. 2. No significant abnormality of the cervical spine is identified. THIS IS AN ELECTRONICALLY VERIFIED FINAL REPORT 06/14/2024 3:28 PM - Electronically signed by Gregory Mcallister M.D. MM T: Report ID: [id number] Reading Location: [id number] Procedure Note Gregory Mcallister MD - 06/14/2024 EXAM DESCRIPTION: MRI CERVICAL SPINE W WO CONTRAST; MRI BRAIN W WOCONTRAST REASON FOR STUDY: Demyelinating disease with spinal cord symptoms Numbness/tingling in arms, cognitive declining, did have loss of mobilityin LT leg (since returned); symptoms since April 2023; pt states abnormalMRI Brain done w/o contrast at [facility] about Mar 2024 TECHNIQUE: Sagittal and Axial imaging includes T1, T2, STIR and gradientecho sequences. Post contrast T1-weighted images. CONTRAST TYPE/DOSE: 15mL of GADOTERATE MEGLUMINE 0.5 MMOL/ML INTRAVENOUS SOLUTION (SO) injected via intravenous COMPARISON: None BRAIN: No acute infarction. No evidence of acute or chronic hemorrhage identified. No mass effect, mass or midline shift. The ventricles are normal in size. Brain volume appears within normallimits for patient age. There is a punctate STIR hyperintensity in the left anterior frontal lobe subcortical white matter. Additional punctate focusof FLAIR hyperintensity in the right anterior frontal lobe subcortical white matter. Minimal FLAIR hyperintensity of the bilateral frontal horn periventricular white matter. No callosal, pericallosal, juxtacortical or infratentorial FLAIR hyperintense lesions are identified. The majorflow voids are within normal limits. The pituitary gland is within normallimits for patient age. Minimal low-lying tonsils likely indicating benign tonsillar ectopia. The calvarium is unremarkable. The orbits are unremarkable. Theparanasal sinuses are well aerated. The mastoid air cells are well aerated. CERVICAL SPINE: ALIGNMENT: Normal. VERTEBRAE: Vertebral body height maintained. Normal appearing marrow. DISCS: Multi-level degenerative disc disease with disc height loss and dessication. CORD: No definitive T2 hyperintensity of the cervical spinal cord is identified. No definitive contrast enhancement of the cervical spinalcord is identified, noting areas of pulsation artifact at the level of C5-C6 and C6-C7. UPPER THORACIC: Incompletely imaged. No significant spinal stenosis or foraminal stenosis. SOFT TISSUES: No significant abnormality identified. A left thyroidnodule measuring 9 mm in diameter does not require follow-up per ACR criteria. INDIVIDUAL LEVELS: C2-C3: The disc is normal in configuration. There is mild facet arthropathy. There is no uncovertebral joint disease. There is no neuroforaminal stenosis. There is no spinal canal stenosis. C3-C4: Small posterior disc osteophyte complex. There is mild facet arthropathy. There is no uncovertebral joint disease. There is no neuroforaminal stenosis. There is no spinal canal stenosis. C4-C5: Posterior disc osteophyte complex. There is mild facetarthropathy. There is no uncovertebral joint disease. There is no neuroforaminal stenosis. There is no spinal canal stenosis. C5-C6: Small posterior disc osteophyte complex. There is mild facet arthropathy. There is no uncovertebral joint disease. There is no neuroforaminal stenosis. There is no spinal canal stenosis. C6-C7: Small posterior disc osteophyte complex. Annular fissure. Thereis mild facet arthropathy. There is no uncovertebral joint disease. Thereis no neuroforaminal stenosis. There is no spinal canal stenosis. C7-T1: The disc is normal in configuration. There is no facetarthropathy. There is no uncovertebral joint disease. There is no neuroforaminal stenosis. There is no spinal canal stenosis. IMPRESSION: No prior studies are available for comparison at time of this dictation. 1. Minimal T2 FLAIR hyperintensity of the bilateral frontal lobesubcortical white matter and periventricular white matter is nonspecific. No abnormal intracranial enhancement. 2. No significant abnormality of the cervical spine is identified. THIS IS AN ELECTRONICALLY VERIFIED FINAL REPORT 06/14/2024 3:28 PM - Electronically signed by Gregoyr Mcallister M.D. MM T: Report ID: [id number] Reading Location: [place] [address] Mahendra Larson MD IMG MRI PROCEDURES Final Result * eGFR (05/03/2024 9:17 AM MANAGER SPR[facility]) eGFR >90 >=60 mL/min/1. 73 m2 Comment: Interpretive Data Reference Interval Normal >/= 90 mL/min/1.73m2 Mildly decreased* 60 - 89 mL/min/1.73m2 Mildly to moderately decreased 45 - 59 mL/min/1.73m2 Moderately to severely decreased 30 - 44 mL/min/1.73m2 Severely decreased 15 - 29 mL/min/1.73m2 Kidney Failure < 15 mL/min/1.73m2 *Relative to young adult level Estimated glomerular filtration rate is determined by the 2020 CKD-EPI equation recommended by the National Kidney Foundation (A Unifying Approach to GFR Estimation: Recommendations of the NKF-ASK Task Force on Reassessing the Inclusion of Race in Diagnosing Kidney Disease, JASN 2020). The CKD-EPI equation should not be used for patients with unstable renal function and has not been validated in children and those over 70. Current interpretive data was last reviewed 2021. Blood 05/03/2024 9:17 AM MANAGER SPR[facility] 05/03/2024 12:12 PM MANAGER [facility] Mahendra Larson MD LAB BLOOD ORDERABLES Final Resul t Performing Organization Address [facility] de Phone Number [address] [place] [address] * Thyroid Function [place] (05/03/2024 9:17 AM MANAGER SPR[facility]) TSH 3.02 0.30 - 4.20 mcIUnit/mL Blood 05/03/2024 9:17 AM MANAGER SPRING 05/03/2024 12:12 PM MANAGER [facility] Mahendra Larson MD LAB BLOOD ORDERABLES Final Resul t Performing Organization Address [facility] Co de Phone Number [address] [place] [address] * Methylmalonic acid, serum (05/03/2024 9:17 AM MANAGER SPRING) [facility] MMA 0.12 <=0.40 nmol/mL [facility] Comment: ADDITIONAL INFORMATION This test was developed and its performance characteristics determined by [facility] in a manner consistent with CLIA requirements. This test has not been cleared or approved by the U.S. Food and Drug Administration. Test Performed by: [place] [address] Waste Minimization Technician: Alyssa Wise Ph.D.; CLIA# [id number] Blood 05/03/2024 9:17 AM MANAGER SPRING 05/03/2024 12:12 PM MANAGER [facility] Mahendra Larson MD LAB BLOOD ORDERABLES Final Resul t Performing Organization Address [facility] Co de Phone Number [address] [place] [address] [facility] * Vitamin B12 (05/03/2024 9:17 AM MANAGER SPRING) [facility] Vitamin B12 922 230 - 1,250 pg/mL Blood 05/03/2024 9:17 AM MANAGER [facility]ING 05/03/2024 12:12 PM MANAGER [facility] Mahendra Larson MD LAB BLOOD ORDERABLES Final Resul t Performing Organization Address [facility] de Phone Number [address] [place] [address] * Basic metabolic panel (05/03/2024 9:17 AM MANAGER SPRING) [facility] Sodium 140 135 - 145 mmol/L Potassium, pl 4.4 3.3 - 4.9 mmol/L [facility] Chloride 107 97 - 110 mmol/L [facility] CO2 28 22 - 32 mmol/L [facility] Anion gap 5 2 - 15 mmol/L [facility] BUN 15 6 - 25 mg/dL [facility] Creatinine 0.80 0.60 - 1.10 mg/dL [facility] Glucose 99 70 - 199 mg/dL [facility] Comment: Interpretive Data Fasting glucose >/= 126 mg/dl is diagnostic for diabetes. Fasting is defined as no caloric intake for at least 8 hours. Fasting glucose between 100 mg/dl to 125 mg/dl is diagnostic of prediabetes. In a patient with classic symptoms of hyperglycemia or hyperglycemic crisis, a random glucose >/= 200 mg/dl is diagnostic for diabetes. In the absence of unequivocal hyperglycemia, results should be confirmed by repeat testing. The classification and Diagnosis of Diabetes Diabetes Care 202; 46: S19-S40. Current interpretive data was last revised 2022. Calcium 9.3 8.5 - 10.3 mg/dL [facility] Blood 05/03/2024 9:17 AM MANAGER SPRING 05/03/2024 12:12 PM MANAGER [facility] Mahendra Larson MD LAB BLOOD ORDERABLES Final Resul t [facility] [address] [facility] Department [place] [address] from Last 3 Months Insurance ANTH ACCESS ANTHEM ACCESS ANTHEM ACCESS Care Teams Credit Interviewer Relationship Specialty Start Date End Date Sreekanth Maciel MD [id number] [address] PCP - General Family Medicine 05/15/23 Theresa Mcgowan NP [address] [place] [address] [place] [address] Nurse Practitioner Behavioral Health 05/15/23 Arash Steve MD [address] [place] [address] Referring Physician Obstetrics and Gynecology 05/15/23 Sandoval Jung MD [address] [id number] Referring Physician Hematology 05/15/23
--- OUTSIDE RECORDS SUMMARY | 2024-06-20 09:50 | XMS_ITS | Patient Health Summary ---
Author Organization [facility] Address [address] [place] [address] Care Team Providers Care Captain Waiter/Waitress Name Role Phone Unavailable Primary Care Provider Unavailabl e Note from [facility],non-owned Affiliates and Associated Physician Practices is amultiple site organization consisting of ambulatory clinics and hospital sitesin [place], [place], [place] and [place]. This disclosure is being madepursuant to the Care Everywhere program and may not contain all information available regarding this patient. Last updated 17.[facility] Allergies * Nsaids(Other) Medications * Be aware that medications may not be up to date on this document. Alwaysverify current medications with the patient. * sertraline (ZOLOFT) 50 MG tablet Take 50 mg by mouth once daily * esomeprazole (NEXIUM) 40 MG capsule Take 40 mg by mouth daily before breakfast * buPROPion SR 12hr (WELLBUTRIN-SR) 150 MG tablet Take 150 mg by mouth 2 times daily * acetaminophen (TYLENOL) 325 MG tablet(Started 08/08/2021) Take 2 (two) tablets by mouth every 6 hours Maximum allowable Acetaminophen amount = 4 Grams (4000 mg) / 24 hours. * grxambez-xdbpwxksp-rfpermuxmgn (MAALOX; MYLANTA) 200-200-20 MG/5ML suspension (Started 08/08/2021) Take 30 mL by mouth every 6 hours as needed for Heartburn * lidocaine (LIDODERM) 5 % patch(Started 08/09/2021) Apply 1 (one) patch to skin every 24 hours * oxyCODONE, immediate release, (ROXICODONE) 10 MG tablet(Started 08/08/2021) Take 1 (one) tablet by mouth every 6 hours as needed * senna (SENOKOT EXTRA STRENGTH) 17.2 MG(Started 08/09/2021) Take 17.2 mg by mouth once daily * Vortioxetine HBr (TRINTELLIX PO) Take 10 mg by mouth once daily * methocarbamol (ROBAXIN) 750 MG tablet(Started 08/19/2021) Take 1 (one) tablet by mouth every 6 hours Active Problems Problem Noted Date Diagnosed Date Fall 08/07/2021 Renal hematoma, left 08/07/2021 Multiple closed fractures of ribs of left side 0 08/07/2021 Immunizations * INFLUENZA VACCINE(Given 01/22/2021) Social History Tobacco Use Types Packs/Day Years Used Date Smoking Tobacco: Every Day Smokeless Tobacco: Current AUDIT-C Answer Date Recorded Frequency of Alcohol Consumption Not on file 08/07/2021 Average Number of Drinks Not on file 022 Q3: How often do you have si x or more drinks on one occasion? Never 08/07/2021 Sex and Gender Information Value Date Recorded Sex Assigned at Not on file Gender Identity Not on file Sexual Orientation Not on file Last Filed Vital Signs Vital Sign Reading Time Taken Comments Blood Pressure 111/76 08/19/2021 11:40 AM CDT Pulse 78 08/19/2021 11:40 AM CDT Temperature 37.1 C (98.7 F) 08/19/2021 11:40 AM CDT Respiratory Rate 18 08/08/2021 12:02 PM CDT Oxygen Saturation 98% 08/19/2021 11:40 AM CDT Inhaled Oxygen Concentration - - Weight 73 kg (161 lb) 08/19/2021 11:40 AM CDT Height 172.7 cm (5' 8 ) 08/19/2021 11:40 AM CDT Body Mass Index 24.48 08/19/2021 11:40 AM CDT Procedures * PTT(Performed 09/27/2022) * PT-INR(Performed 09/27/2022) * BASIC METABOLIC PANEL (CALCIUM TOTAL)(Performed 09/27/2022) * CBC W AUTO DIFFERENTIAL(Performed 09/27/2022) * CBC W/O DIFFERENTIAL(Performed 08/08/2021) Performed for Hematoma of left kidney, initial encounter * URINALYSIS W/MICROSCOPIC NO CULTURE(Performed 08/07/2021) * URINE DRUG SCREEN IMMUNOASSAY(Performed 08/07/2021) * XR CHEST 1VW PORTABLE(Performed 08/07/2021) Performed for Fall, initial encounter * XR PELVIS 1 OR 2VW(Performed 08/07/2021) Performed for Fall, initial encounter * BLOOD TYPE VERIFICATION(Performed 08/07/2021) * TEG 6S PLATELET MAPPING(Performed 08/07/2021) * TEG 6 GLOBAL HEMOSTASIS W/ LYSIS(Performed 08/07/2021) * HCG BETA BLOOD QUANTITATIVE(Performed 08/07/2021) * BASIC METABOLIC PANEL (CALCIUM TOTAL)(Performed 08/07/2021) * ALCOHOL ETHYL BLOOD(Performed 08/07/2021) * TYPE + SCREEN PANEL(Performed 08/07/2021) * PT-INR [facility](Performed 08/07/2021) * CBC W AUTO DIFFERENTIAL(Performed 08/07/2021) Results * PTT (09/27/2022 1:46 PM CDT) PTT 28 24 - 33 sec [facility]erved INSURANCE BILL Comment: This test has not been validated for monitoring unfractionated heparin therapy. aPTT-based therapeutic ranges for unfractionated heparin therapy have not been established. For general guidelines on Heparin monitoring, refer to the [employer] Directory of Services. 09/27/2022 1:46 PM CDT 09/27/2022 Narrative [facility] INSURANCE BILL - 09/28/2022 1:09 PM CDT A courtesy copy of this report has been sent to [phone] Resulting Agency Comment Lab Testing performed at: [facility] [address] [phone] Anselmo Rivera MD LAB - COAGULATIO N ORDERABLES [facility] INSURANCE BILL [address] [place] [address] * PT-INR (09/27/2022 1:46 PM CDT) INR 1.0 0.9 - 1.2 [facility]erved INSURANCE BILL Comment: Reference interval is for non-anticoagulated patients. . Suggested INR therapeutic range for Vitamin K antagonist therapy: Standard Dose (moderate intensity therapeutic range): 2.0 - 3.0 Higher intensity therapeutic range 2.5 - 3.5 PT 10.4 9.1 - 12.0 sec [facility] INSURANCE BILL 09/27/2022 1:46 PM CDT 09/27/2022 Narrative [facility] INSURANCE BILL - 09/28/2022 1:09 PM CDT A courtesy copy of this report has been sent to [phone] Resulting Agency Comment Lab Testing performed at: [facility] [address] [id number] Anselmo Rivera MD LAB - COAGULATIO N ORDERABLES [facility] INSURANCE BILL [address] [place] [address] * CBC WITH DIFFERENTIAL (09/27/2022 1:46 PM CDT) Only the most recent of2 resultswithin the time period is included. WBC 6.2 3.4 - 10.8 x10E3/uL [facility] INSURANCE BILL RBC 4.26 3.77 - 5.28 x10E6/uL [facility] INSURANCE BILL Hemoglobin 13.0 11.1 - 15.9 g/dL [facility] INSURANCE BILL Hematocrit 38.9 34.0 - 46.6 % [facility] INSURANCE BILL MCV 91 79 - 97 fL [facility] INSURANCE BILL MCH 30.5 26.6 - 33.0 pg [facility] INSURANCE BILL MCHC 33.4 31.5 - 35.7 g/dL [facility] INSURANCE BILL RDW 12.2 11.7 - 15.4 % [facility] INSURANCE BILL Platelet Count 213 150 - 450 x10E3/uL [facility] INSURANCE BILL Granulocytes % 62 Not Estab. % [facility] INSURANCE BILL Lymphocytes % 28 Not Estab. % [facility] INSURANCE BILL Monocytes % 7 Not Estab. % [facility] INSURANCE BILL Eosinophils % 2 Not Estab. % [facility] INSURANCE BILL Basophils % 1 Not Estab. % [facility] INSURANCE BILL Immature Cells NOT AVAILABLE [facility] INSURANCE BILL Comment:Result cannot be obt ained for this observation. Granulocytes Absolute 3.9 1.4 - 7.0 x10E3/uL [facility] INSURANCE BILL Lymphocytes Absolute 1.7 0.7 - 3.1 x10E3/uL [facility] INSURANCE BILL Monocytes Absolute 0.4 0.1 - 0.9 x10E3/uL [facility] INSURANCE BILL Eosinophils Absolute 0.1 0.0 - 0.4 x10E3/uL [facility] INSURANCE BILL Basophils Absolute 0.0 0.0 - 0.2 x10E3/uL [facility] INSURANCE BILL Immature Granulocytes 0 Not Estab. % [facility] INSURANCE BILL Immature Granulocytes Absolute 0.0 0.0 - 0.1 x10E3/uL [facility] INSURANCE BILL nRBC NOT AVAILABLE [facility] INSURANCE BILL Comment:Result cannot be obt ained for this observation. Comment Hematology NOT AVAILABLE [facility] INSURANCE BILL Comment: A hand-written panel/profile was received from your office. In accordance with the [facility] Ambiguous Test Code Policy dated October 2002, we have assigned CBC with Differential/Platelet, Test Code #292863 to this request. If this is not the testing you wished to receive on this specimen, please contact the [facility] Client Inquiry/ Technical Services Department to clarify the test order. We appreciate your business. Result cannot be obtained for this observation. 09/27/2022 1:46 PM CDT 09/27/2022 Narrative [facility] INSURANCE BILL - 09/28/2022 1:09 PM CDT A courtesy copy of this report has been sent to [phone] Resulting Agency Comment Lab Testing performed at: [facility] [address] [id number] Anselmo Rivera MD LAB - HEMATOLOGY ORDERABLES [facility] INSURANCE BILL [address] [place] [address] * (ABNORMAL) BASIC METABOLIC PANEL (CALCIUM TOTAL) (09/27/2022 1:46 PM CDT) Only the most recent of2 resultswithin the time period is included. Glucose 87 70 - 99 mg/dL [facility] INSURANCE BILL BUN 18 6 - 20 mg/dL [facility] INSURANCE BILL Creatinine 0.69 0.57 - 1.00 mg/dL [facility] INSURANCE BILL eGFR by CKD-EPI 117 >59 mL/min/1.7 3 [facility] INSURANCE BILL BUN/Creatinine Ratio 26(H) 9 - 23 [facility] INSURANCE BILL Sodium 140 134 - 144 mmol/L [facility] INSURANCE BILL Potassium 4.5 3.5 - 5.2 mmol/L [facility] INSURANCE BILL Chloride 105 96 - 106 mmol/L [facility] INSURANCE BILL CO2 24 20 - 29 mmol/L [facility] INSURANCE BILL Calcium 9.4 8.7 - 10.2 mg/dL [facility] INSURANCE BILL 09/27/2022 1:46 PM CDT 09/27/2022 Narrative [facility] INSURANCE BILL - 09/28/2022 1:09 PM CDT A courtesy copy of this report has been sent to [phone] Resulting Agency Comment Lab Testing performed at: [facility] [address] [phone] Anselmo Rivera MD LAB - CHEMISTRY ORDERABLES [facility] INSURANCE BILL [address] [place] [address] * (ABNORMAL) CBC W/O DIFFERENTIAL (08/08/2021 6:29 AM CDT) WBC 7.5 3.5 - 10.5 10 3/uL 08/08/2021 6:50 AM [facility] RBC 3.42(L) 3.80 - 5.20 10 6/uL 08/08/2021 6:50 AM [facility] Hemoglobin 10.8(L) 12.0 - 15.6 g/dL 08/08/2021 6:50 AM [facility] Hematocrit 31.5(L) 35.0 - 45.0 % 08/08/2021 6:50 AM [facility] MCV 92.1 80.7 - 98.3 fL 08/08/2021 6:50 AM T [facility] [employer] [facility] [employer] [facility] MCH 31.6 26.7 - 34.0 pg 08/08/2021 6:50 AM [facility] [employer] [facility] [facility] MCHC 34.3 30.8 - 35.9 g/dL 08/08/2021 6:50 AM [facility] Platelet Count 157 150 - 400 10 3/uL 08/08/2021 6:50 AM [facility] RDW-SD 42.4 36.0 - 50.0 fL 08/08/2021 6:50 AM [facility] RDW-CV 12.7 11.2 - 14.8 % 08/08/2021 6:50 AM [facility] MPV 9.0(L) 9.4 - 12.9 fL 08/08/2021 6:50 AM [facility] nRBC Absolute 0.00 0 10 3/uL 08/08/2021 6:50 AM [facility] nRBC Auto 0.0 0 /100 WBC 08/08/2021 6:50 AM [facility] Blood BLOOD SPECIMEN / Unknown Venipuncture / Unknown 08/08/2021 6:29 AM CDT 08/08/2021 6:45 AM T Naida Cabello MD LAB - HEMATOLOGY ORD ERABLES [facility] [address] [place] [address], [facility] [phone] * (ABNORMAL) URINALYSIS W/MICROSCOPIC NO CULTURE (08/07/2021 10:54 PM [facility]) Color UA Yellow Straw, Yellow 08/07/2021 11:10 PM [facility] Clarity UA Clear Clear 08/07/2021 11:10 PM [facility] Specific [place] UA 1.058(H) 1.005 - 1.030 08/07/2021 11:10 PM [facility] pH UA 6.0 5.0 - 8.0 pH 08/07/2021 11:10 PM [facility] Protein UA Negative Negative 08/07/2021 11:10 PM [facility] Glucose UA Negative Negative 08/07/2021 11:10 PM [facility] Ketone UA Negative Negative 08/07/2021 11:10 PM [facility] Bilirubin UA Negative Negative 08/07/2021 11:10 PM [facility] Blood UA 2+(A) Negative 08/07/2021 11:10 PM [facility] Nitrite UA Negative Negative 08/07/2021 11:10 PM [facility] Leukocyte Esterase Negative Negative 08/07/2021 11:10 PM [facility] Urobilinogen UA Negative Negative mg/dL 08/07/2021 11:10 PM [facility] RBC UA 0-2 None Seen, 0-2, 3-5 /HPF 08/07/2021 11:10 PM [facility] WBC UA 0-5 None Seen, 0-5 /HPF 08/07/2021 11:10 PM [facility] Squamous Epithelial Cells UA 0-2 None Seen, 0-2, 3-5 /HPF 08/07/2021 11:10 PM [facility] Urine URINE SPECIMEN OBTAINED BY CLEAN CATCH PROCEDURE / Unknown Collection / Unknown 08/07/2021 10:54 PM CDT 08/07/2021 11:02 PM CDT [facility] - 08/07/2021 11:10 PM CDT Wong Asher MD LAB - URINALYSIS ORD ERABLES [address] [address], [facility] [phone] * (ABNORMAL) URINE DRUG SCREEN IMMUNOASSAY (08/07/2021 10:54 PM CDT) [facility] Amphetamines Screen Urine Negative Negative : < 1000 ng/mL 08/07/2021 11:21 PM [facility] Barbiturates Screen Urine Negative Negative : < 200 ng/mL 08/07/2021 11:21 PM [facility] Benzodiazepine Screen Urine Positive(A) Negative : < 200 ng/mL 08/07/2021 11:21 PM [facility] Comment: Positive urine benzodiazepine screening results should be confirmed by another generally accepted non-immunological method such as gas chromatography or mass spectrometry. Opiates Urine Positive(A) Negative : < 300 ng/mL 08/07/2021 11:21 PM [facility] Comment:Positive urine opiat e screening results should be confirmed by another generally accepted non-immunological method such as gas chromatography or mass spectrometry. Cocaine Metabolites Urine Negative Negative : < 300 ng/mL 08/07/2021 11:21 PM CDT [facility] Phencyclidine Screen Urine Negative Negative : < 25 ng/ml 08/07/2021 11:21 PM CDT [facility] Cannabinoids Screen Urine Negative Negative : <50 ng/mL 08/07/2021 11:21 PM CDT [facility] Methadone Screen Urine Negative Negative : < 300 ng/mL 08/07/2021 11:21 PM T [facility] Fentanyl Screen Urine Positive(A) Negative : <1.0 ng/mL 08/07/2021 11:21 PM T [facility] Comment:Positive urine fenta nyl screening results should be confirmed by another generally accepted non-immunological method such as gas chromatography or mass spectrometry. Urine URINE / Unknown Collection / Unknown 08/07/2021 10:54 PM CDT 08/07/2021 11:01 PM CDT Narrative [facility] - 08/07/2021 11:21 PM CDT The Urine Toxicology Screening Panel does not screen for Propoxyphene, Meprobamate, Carisoprodol, Trazodone, fdch-nqn-zinsroe medications and/or volatiles (Acetone, Isopropanol, Methanol or Ethylene Glycol). Ethanol, Salicylate, Acetaminophen, Tricyclic Antidepressants and several therapeutic drugs may be individually assayed in serum or plasma specimen. Toxicology testing by the [facility] is an aid to medical diagnosis and treatment of patients. No documented chain of custody was maintained. Results are intended to be used for clinical purposes only. Wong Asher MD LAB - URINE CHEMISTR Y ORDERABLES [facility] [address] [place] [address], [facility] [phone] * XR CHEST 1VW PORTABLE (08/07/2021 9:10 PM CDT) Anatomical Region Laterality Modality Chest Radiographic Yelitza ging 08/07/2021 9:22 PM CDT Impressions 08/08/2021 10:50 AM CDT FINDINGS/IMPRESSION: *Cardiac loop recorder superimposes the cardiac silhouette. There is no focal consolidation, pleural effusion, or pneumothorax. The cardiomediastinal silhouette is normal. The visible bony thorax is intact. Dictated by Obdulio Olivo MD (residential sales executive). Dr. PRESLEY Heard have personally reviewed and interpreted this examination/study. This report was electronically signed by PRESLEY CORBETT on 08/08/2021 10:50 AM . Narrative 08/08/2021 10:50 AM CDT EXAMINATION: XR CHEST 1VW PORTABLE HISTORY: Trauma COMPARISON: No prior study is available for comparison. Procedure Note Presley Corbett DO - 08/08/2021 EXAMINATION: XR CHEST 1VW PORTABLE HISTORY: Trauma COMPARISON: No prior study is available for comparison. FINDINGS/IMPRESSION: *Cardiac loop recorder superimposes the cardiac silhouette. There is no focal consolidation, pleural effusion, or pneumothorax. The cardiomediastinal silhouette is normal. The visible bony thorax isintact. Dictated by Obdulio Olivo MD (residential sales executive). Dr. PRESLEY Haerd have personally reviewed and interpreted this examination/study. This report was electronically signed by PRESLEY CORBETT on 08/08/2021 10:50 AM . Wong Asher MD DIAGNOSTIC IMAGING O RDERABLES * XR PELVIS 1 OR 2VW (08/07/2021 9:09 PM CDT) Anatomical Region Laterality Modality Pelvis Radiographic Yelitza ging 08/07/2021 9:23 PM CDT Impressions 08/08/2021 10:49 AM CDT IMPRESSION: No acute fracture or dislocation identified. Dictated by Obdulio Olivo MD (residential sales executive). Dr. PRESLEY Heard have personally reviewed and interpreted this examination/study. This report was electronically signed by PRESLEY CORBETT on 08/08/2021 10:49 AM . Narrative 08/08/2021 10:49 AM CDT EXAMINATION: XR PELVIS 1 OR 2VW HISTORY: Trauma Fracture suspected COMPARISON: No prior study is available for comparison. FINDINGS: No acute fracture is identified. The bilateral hip joint spaces are preserved. The pubic symphysis is intact. Contrast opacification of the urinary bladder. The sacroiliac joints are normal. Procedure Note Presley Corbett DO - 08/08/2021 EXAMINATION: XR PELVIS 1 OR 2VW HISTORY: Trauma Fracture suspected COMPARISON: No prior study is available for comparison. FINDINGS: No acute fracture is identified. The bilateral hip joint spaces are preserved. The pubic symphysis is intact. Contrast opacification of the urinary bladder. The sacroiliac joints are normal. IMPRESSION: No acute fracture or dislocation identified. Dictated by Obdulio Olivo MD (residential sales executive). I, Dr. PRESLEY CORBETT have personally reviewed and interpreted this examination/study. This report was electronically signed by PRESLEY CORBETT on 08/08/2021 10:49 AM . Wong Asher MD DIAGNOSTIC IMAGING O RDERABLES * TEG 6 GLOBAL HEMOSTASIS W/ LYSIS (08/07/2021 8:32 PM CDT) Pathologist [facility] Citrated Kaolin R (Reaction Time) 6.5 4.6 - 9.1 min 08/07/2021 9:42 PM CDT [facility] Citrated Kaolin LY30 (Lysis) 1.4 0.0 - 2.6 % 08/07/2021 9:42 PM CDT [facility] Citrated RapidTEG MA (Max Amplitude) 56.8 52.0 - 70.0 mm 08/07/2021 9:42 PM CDT [facility] Citrated Functional Fibrinogen MA (Max Amplitude) 16.8 15.0 - 32.0 mm 08/07/2021 9:42 PM CDT [facility] Blood BLOOD SPECIMEN / Unknown Venipuncture / Unknown 08/07/2021 8:32 PM CDT 08/07/2021 8:36 PM CDT Wong Asher MD LAB - HEMATOLOGY ORD ERABLES [address] [address], [facility] [phone] * TEG 6S PLATELET MAPPING (08/07/2021 8:32 PM CDT) TEGPLM (Max Amplitude) Koalin 60 53 - 68 mm 08/07/2021 9:42 PM CDT [facility] TEGPLM (Max Amplitude) ACTF 8 2 - 19 mm 08/07/2021 9:42 PM CDT [facility] TEGPLM (Max Amplitude) ADP 56 45 - 69 mm 08/07/2021 9:42 PM CDT [facility] TEGPLM (Max Amplitude) AA 60 51 - 71 mm 08/07/2021 9:42 PM CDT [facility] TEGPLM %Inhibition ADP 9 0 - 17 % 08/07/2021 9:42 PM CDT [facility] TEGPLM %Inhibition AA 2 0 - 11 % 08/07/2021 9:42 PM CDT [facility] TEGPLM %Aggregation ADP 91 83 - 100 % 08/07/2021 9:42 PM CDT [facility] TEGPLM % Aggregation AA 98 89 - 100 % 08/07/2021 9:42 PM CDT [facility] Blood BLOOD SPECIMEN / Unknown Venipuncture / Unknown 08/07/2021 8:32 PM CDT 08/07/2021 8:36 PM CDT Wong Asher MD LAB - HEMATOLOGY ORD ERABLES [address] [address], [place] [phone] * BLOOD TYPE VERIFICATION (08/07/2021 8:32 PM CDT) ABO Rh O POS 08/07/2021 9:1 1 PM CDT [facility] Blood Bank BLOOD SPECIMEN / Unknown Venipuncture / Unknown 08/07/2021 8:32 PM CDT 08/07/2021 8:41 PM CDT Wong Asher MD LAB - BLOOD BANK ORD ERABLES [facility] [address] [place] [address], [facility] [phone] * HCG BETA BLOOD QUANTITATIVE (08/07/2021 8:24 PM CDT) [facility] Beta-hCG Total Quantitative <3 <5 mIU/mL 08/07/2021 8:59 PM CDT [facility] Comment: This assay is cleared for use in the early detection of only. It is not approved for any other uses such as tumor marker screening, tumor marker monitoring, etc. and should not be used for any other purposes. HCG Numeric Result Interpretation: Non- Females: < 5 mIU/mL Post-Menopausal Females: < 7 mIU/mL Blood BLOOD SPECIMEN / Unknown Venipuncture / Unknown 08/07/2021 8:24 PM CDT 08/07/2021 8:27 PM CDT Wong Asher MD LAB - CHEMISTRY [facility] Organization Address City/State/ZIP Co de Phone Number [address] [address], [facility] [phone] * (ABNORMAL) ALCOHOL ETHYL BLOOD (08/07/2021 8:24 PM CDT) [facility] Ethanol (mg/dL) 217(H) <10 mg/dL 8:55 PM CDT [facility] Ethanol Calculated (g/dL) 0.217(H) <0.010 g/dL 08/07/2021 8:55 PM CDT [facility] Blood BLOOD SPECIMEN / Unknown Venipuncture / Unknown 08/07/2021 8:24 PM CDT 08/07/2021 8:27 PM CDT Narrative [facility] - 08/07/2021 8:55 PM CDT Ethanol Interp <10: None Detected. Depression of CHILD CARE PROVIDER: >100 mg/dl Potentially Critical: >250 mg/dl Potentially Fatal >400 mg/dl Ethanol in the patient's blood will contribute to the osmolar gap. Ethanol's contribution to the osmolar gap can be estimated by dividing the concentration of ethanol in mg/dL by 4.6. This test is for clinical use only and does not equal a RUTH for legal purposes. Wong Asher MD LAB - CHEMISTRY ORDE RABOZIEL Performing Organization Address City/[facility]/ZIP Co de Phone Number [address] [address], [place] [phone] * PT-INR [facility] (08/07/2021 8:23 PM CDT) PT 12.8 12.1 - 14.8 Seconds 08/07/2021 8:45 PM CDT [facility] [employer] [facility] INR 1.0 See Comment 08/07/2021 8:45 PM CDT [facility] Comment:The suggested therap eutic range for standard coumadin (warfarin) therapy is an INR of 2.0-3.0. For high-risk patients (Mechanical Mitral Valve Prosthesis, etc.), the suggested prophylactic therapeutic range is an INR of 2.5-3.5. Blood BLOOD SPECIMEN / Unknown Venipuncture / Unknown 08/07/2021 8:23 PM CDT 08/07/2021 8:26 PM CDT Wong Asher MD LAB - COAGULATION OR DERABLES Performing Organization Address [facility]/ZIP Co de Phone Number [address] [address], [place] [phone] * TYPE + SCREEN PANEL (08/07/2021 8:23 PM CDT) Antibody Screen NEG 9:10 PM CDT [facility] ABO Rh O POS 08/07/2021 9:10 PM CDT [facility] Blood Bank BLOOD SPECIMEN / Unknown Venipuncture / Unknown 08/07/2021 8:23 PM CDT 08/07/2021 8:28 PM CDT Wong Asher MD LAB - BLOOD BANK ORD ERABLES Performing Organization Address City/[facility]/ZIP Co de Phone Number [facility] [address] [place] [address], [place] [phone]
--- OUTSIDE RECORDS SUMMARY | 2024-06-20 09:50 | XMS_ITS | Encounter Summary ---
Author Organization [facility] Address [address] [facility] [place] [address] Care Team Providers Care Maintenance Painter Apprentice Name Role Phone Unavailable Primary Care Provider Unavailabl e Reason for Visit * Reason Comments Refill Request Encounter Details Date Type Department Care Team (Late st Contact Info) Description 05/28/2022 Refill [facility] [address] [place] [address], [place] [address] David Jean MD [address] [place] [address] [place] [address] Refill Request Social History Tobacco Use Types Packs/Day Years [...] on file Sexual Orientation Not on file documented as of this encounter Plan of Treatment Not on file documented as of this encounter Visit Diagnoses Not on filedocumented in this encounter
--- OUTSIDE RECORDS SUMMARY | 2024-06-20 09:50 | XMS_ITS | Clinical Summary ---
Author Organization [facility] Address [address] [place] [address] Care Team Providers Care Reproduction Production Manager Name Role Phone Unavailable Primary Care Provider Unavailabl e Source Comments [facility],non-owned Affiliates and Associated Physician Practices is amultiple site organization consisting of ambulatory clinics and hospital sitesin [place], [place], [place] and [place]. This disclosure is being madepursuant to the Care Everywhere program and may not contain all information available regarding this patient. Last updated 17.[facility] [employer] Allergies Active Allergy Reactions Criticality Noted Date Comments Nsaids Other 08/07/2021 Abdominal pain Medications * Be aware that medications may not be up to date on this document. Alwaysverify current medications with the patient. Medication Sig Dispensed Refills Start Date End Date Status sertraline (ZOLOFT) 50 MG tablet Take 50 mg by mouth once daily Active esomeprazole (NEXIUM) 40 MG capsule Take 40 mg by mouth daily before breakfast Active buPROPion SR 12hr (WELLBUTRIN-SR) 150 MG tablet Take 150 mg by mouth 2 times daily Active acetaminophen (TYLENOL) 325 MG tablet Take 2 (two) tablets by mouth every 6 hours Maximum allowable Acetaminophen amount = 4 Grams (4000 mg) / 24 hours. 08/08/2021 Active aluminum-magnesium -simethicone (MAALOX; MYLANTA) 200-200-20 MG/5ML suspension Take 30 mL by mouth every 6 hours as needed for Heartburn 08/08/2021 Active lidocaine (LIDODERM) 5 % patch Apply 1 (one) patch to skin every 24 hours 7 patch 08/09/2021 Active oxyCODONE, immediate release, (ROXICODONE) 10 MG tablet Take 1 (one) tablet by mouth every 6 hours as needed 30 tablet 08/08/2021 Active senna (SENOKOT EXTRA STRENGTH) 17.2 MG Take 17.2 mg by mouth once daily 30 tablet 08/09/2021 Active Vortioxetine HBr (TRINTELLIX PO) Take 10 mg by mouth once daily Active methocarbamol (ROBAXIN) 750 MG tablet Take 1 (one) tablet by mouth every 6 hours 30 tablet 08/19/2021 Active Active Problems Problem Noted Date Diagnosed Date Fall 08/07/2021 Renal hematoma, left 08/07/2021 Multiple closed fractures of ribs of left side 0 08/07/2021 Immunizations Name Administration Dates Next Due INFLUENZA VACCINE 01/22/2021 Social History Tobacco Use Types Packs/Day Years [...] Mass Index 24.48 08/19/2021 11:40 AM CDT Plan of Treatment Health Maintenance Due Date Last Done Comments HIV SCREENING 2003 HEPATITIS C SCREENING 03/17/2006 DTAP/TDAP/TD VACCINES (1 - Tdap) 2007 HEPATITIS B VACCINE (1 of 3 - 19+ 3-dose series) 2007 PNEUMOCOCCAL VACCINE (1 of 2 - PCV) 2007 PAP SMEAR 07/08/2023 07/07/2020 COVID-19 VACCINE (1 - 2023-2 5 season) 2023 INFLUENZA VACCINE (#1) 2023 , 02/18/2019, 04/15/2011 DEPRESSION SCREENING 04/10/2024 ZOSTER VACCINE (1 of 2) 2038 HIB VACCINE Aged Out No longer eligi ble based on patient's age to complete this topic HPV VACCINE Aged Out No longer eligi ble based on patient's age to complete this topic MENINGOCOCCAL (Group B) VACCINE SHARED DECISION-MAKING Aged Out No longer eligible based on patient's age to complete this topic MENINGOCOCCAL GROUPS A/C/Y/W VACCINE Aged Out No longer eligible b ased on patient's age to complete this topic Advance Directives * Full Code (Latest Code Status on File) Date Activated Date Inactivated Comments 08/08/2021 3:58 AM 08/08/2021 5:20 PM
--- OUTSIDE RECORDS SUMMARY | 2024-06-20 09:50 | XMS_ITS | CONTINUITY OF CARE DOCUMENT ---
Author Name earnest tinoco Address Unknown Organization [facility] Address [address] [place] [address] Phone [phone] Care Team Providers Care Hot Bread Baker Name Role Phone Lissy CHRIS, Berry Unavailable Lauren CHEESEMAKING LABORER-BC, Cari L Unavailable [phone] [place] CHEESEMAKING LABORER-BC, Cari L Unavailable [phone] PROBLEMS Condition Status Date Provider Notes Shortness of breath (SOB) active Butch Wich Syncope active Berry Yuan MD Presence of implantable loop recorder active 0 Berry Yuan MD PTSD active Berry Yuan MD Depression active Berry Yuan MD Smoker active Berry Yuan MD Family hx of alcohol abuse active Berry castillo MD Dizziness active Berry Yuan MD Panic attacks active Berry Yuan MD Cardiology examination active Matthew Berg MD ENCOUNTERS Date Type Provider Location Encounter Diag nosis 9 - 9 In-person encounter Office Visit [facility] MD [facility] 6 - 6 In-person encounter Office Visit Matthew Berg MD [facility] Cardiology examination 0 - 1 In-person encounter Office Visit Berry Yuan MD [facility] Office 0 - 1 In-person encounter Office Visit Berry Yuan MD [place] [facility] SyncopePresence of implantable loop recorderPTSDDepressionSmokerFamily hx of alcohol abuseDizzinessPanic attacks VITAL SIGNS Date Observation Value Provider Body Mass Index (Ratio) 20.10 kg/m2 Jayna Yuan MD blood pressure, resting No Allan ty Scar blood pressure, cuff size regular Kr isty [place] blood pressure, diastolic 70 mm[Hg] Kr isty Scar blood pressure, systolic 140 mm[Hg] Kri sty Scar oxygen saturation, oximetry 97 % Linda Scar respiratory rate E&M 18 /min Linda [place] pulse rate 87 /min [facility] weight E&M 132.2 [lb_av] Linda Scar height E&M 68 [in_i] [facility] Body Mass Index (Ratio) 20.83 kg/m2 Tony Berg MD blood pressure, cuff size regular Mendoza Hillyyum blood pressure, diastolic 72 mm[Hg] Mendoza blanc Arlene blood pressure, systolic 128 mm[Hg] Kuldip Hillyyum oxygen saturation, oximetry 98 % [facility] Arlene respiratory rate E&M 16 /min [facility] Arlene pulse rate 106 /min [facility] Arlene weight E&M 137 [lb_av] [facility] Arlene height E&M 68 [in_i] [facility] Arlene Body Mass Index (Ratio) 20.37 kg/m2 Jayna Yuan MD blood pressure, cuff size regular Cy ntestee Alonso blood pressure, diastolic 64 mm[Hg] Cy ntestee Alonso blood pressure, systolic 106 mm[Hg] Lxei thiantonio Alonso oxygen saturation, oximetry 97 % Maya Alonso respiratory rate E&M 16 /min Maya Alonso pulse rate 67 /min Maya hall height E&M 68 [in_i] Maya hall weight E&M 134 [lb_av] Maya hall ALLERGIES No Known Drug Allergies HISTORY OF MEDICATION USE Medication Status Instructions Dates Provider Indications Com ments metoprolol succinate 25 mg tablet extended release 24 hr active TAKE 1 TABLET BY MOUTH EVERY NIGHT Berry Yuan MD BLOOD PRESSURE MONITOR AUTOMAT VENUS active Use twice a day as needed Anali Riddle metoprolol succinate 25 mg tablet extended release 24 hr completed Take 1 tablet every night - Anali Venkatesh sucralfate 1 gram tablet active 1 by mouth three times a day Berry Yuan MD pantoprazole 40 mg tablet,delayed release (DR/EC) active by mouth twice a day Berry Yuan MD METOPROLOL TARTRATE 25 MG ORAL TABLET completed taek 1/2 tablet by mouth twice daily - Berry Yuan MD albuterol sulfate 90 mcg/actuation HFA aerosol inhaler active Inhale 1 puff by mouth every four hours as needed Linda Abbott #8.5, 33 days supply, Prescribed by GIOVANNI GARCIA, Filled 03/31/2020 CHANTIX CONTINUING MONTH KE 1 MG ORAL TABLET completed take 1 mg by mouth twice daily - Linda Abbott CHANTIX STARTING MONTH KE 0.5 MG X 11 & 1 MG X 42 ORAL TABLET completed Take 0.5mg daily on days 1-3, take 0.5mg twice daily on days 4-7, take 1mg twice daily on day 8 and to end of treatment - Linda Abbott NALTREXONE HCL 50 MG ORAL TABLET completed take 1 tab daily as needed - Tyelr Jacobs SOCIAL HISTORY Date Observation Value Provider social history reviewed E&M revi ewed - no changes required Berry Yuan MD smoking/tobacco cess ation, patient education and counseling yes Linda Abbott number of years as a smoker 16 a Linda Abbott smoking history, tot al pack/day 10-15cpd Linda Abbott cigarette use yes Linda Abbott smoking status Current every day smoker Daisha Abbott social history E&M S moking History: P atient currently smokes every day. P atient has been counseled to quit. Matthew Berg MD social history reviewed E&M revi ewed - no changes required Matthew Berg MD smoking/tobacco cess ation, patient education and counseling yes Tyler Jacobs number of years as a smoker 16 a Tyler Christineyum smoking history, tot al pack/day 10-15cpd Tyler Christineyum cigarette use yes Tyler Hillyyum smoking status Current every day smoker M mukul Christineyum social history E&M S moking History: P atient currently smokes every day. P atient has been counseled to quit. Celestino Nacht smoking/tobacco cess ation, patient education and counseling yes Celestino Nacht number of years as a smoker 16 a Celestino Nacht smoking history, tot al pack/day 1 1/2 PPD Celestino Nacht cigarette use yes Celestino Nacht smoking status Current every day smoker J acob Nacht social history reviewed E&M revi ewed - no changes required Celestino Smith social history E&M S moking History: P atient currently smokes every day. P atient has been counseled to quit. Berry Yuan MD smoking/tobacco cess ation, patient education and counseling yes Berry Yuan MD social history reviewed E&M revi ewed - no changes required Berry Yuan MD number of grandchildren Berry Yuan MD number of years as a smoker 16 a Maya aGvin smoking history, tot al pack/day 1 1/2 PPD Maya Gavin cigarette use yes Maya Watts cub[place] smoking status Current every day smoker C domenic Gavin FAMILY HISTORY Family Member Condition Maternal Grandmother Family History of C VA or Stroke: Mother Family History of Hy pertension: Father Family History of Hy pertension: INSURANCE PROVIDERS Payer name Policy type / Coverage type [place] red green party ID [facility] [id number] ADVANCE DIRECTIVES Name Date DISCUSSED - NO DECISION MADE TREATMENT PLAN Date Name Performer Cardiology:recent re current event with ER visit to [facility] er updated medication list for this problem includes: Metoprolol Tartrate 25 Mg Oral Tablet (Metoprolol tartrate) ..... Taek 1/2 tablet by mouth twice daily Berry Yuan MD Cardiology Berry Dumont Tele[facility], 3 month f/u. Berry Yuan MD Telehealth, 3 month f/u. Berry Yuan MD Telehealth, 3 month f/u. Berry Yuan MD Telehealth, 3 month f/u. Berry Yuan MD Telehealth, 3 month f/u. Berry Yuan MD Cardiology Matthew Berg MD Cardiology Matthew Berg MD TeleHealth, 6 month f/u. Celestino Guthrie acht TeleHealth, 6 month f/u. Celestino Guthrie acht TeleHealth, 6 month f/u. Celestino Guthrie acht TeleHealth, 6 month f/u. Celestino N acht Cardiology New Patient Berry castillo MD Cardiology New Patient Berry castillo MD Cardiology New Patient Berry castillo MD Cardiology New Patient Berry castillo MD Cardiology New Patient Berry castillo MD Date Name DLCO - 36458 FRC - 06604 FVC - 98831 Complete Echo HISTORY OF PROCEDURES Procedure Date Procedure Name Provider Procedure Notes S tatus EKG Berry Yuan MD complet ed EKG Matthew Berg MD completed FVC / MVV - 35953 Berry Yuan MD completed BLOOD COUNT HEMOGLOBIN Berry Yuan MD completed FRC - 73509 Berry Yuan MD comple emerson SpO2 w/o 6min walk/titration Berry Yuan MD completed DLCO - 80494 Berry Yuan MD compl eted EKG Berry Yuan MD complet ed
--- OUTSIDE RECORDS SUMMARY | 2024-06-20 09:50 | XMS_ITS | Encounter Summary ---
Author Organization [facility] Address [address] [place] [address] Care Team Providers Care Buckle Gluer Name Role Phone Sreekanth Maciel MD Primary Care Provider [phone] Theresa Mcgowan NP Unavailable Arash Steve MD Unavailable [phone] Sandoval Jung MD Unavailable [phone] Reason for Visit * Reason Onset Date Comments New Pt Appt Work Q 06/18/2024 Encounter Details Date Type Department Care Team (Late st Contact Info) Description 06/18/[address] [facility] Rheumatology at [facility] [address] [place] [address] Faith Browning MD [address] [address] [place] [address] New Pt Appt Work Q Social History Tobacco Use Types Packs/Day Years Used Date Smoking Tobacco: Every Day Cigarettes 0.8 23.8 Started: 09/16/2000 Smokeless Tobacco: Never Alcohol Use Standard Drinks/Week Comments Yes 4 [...] on file Legal Sex Female 10:42 AM DATABASE MANAGEMENT SPECIALIST Gender Identity Female 02/14/2021 8:33 PM DATABASE MANAGEMENT SPECIALIST Sexual Orientation Straight 02/14/2021 8: 33 PM DATABASE MANAGEMENT SPECIALIST documented as of this encounter Miscellaneous Notes * Telephone Encounter - Juliann Sanchez - 06/18/2024 2:53 PM CDT ok * Telephone Encounter - Fatou Dolan - 06/18/2024 10:20 AM CDT Scheduled. documented in this encounter Plan of Treatment Not on file documented as of this encounter Visit Diagnoses Not on filedocumented in this encounter Care Teams Buckle Gluer Relationship Specialty Start Date End Date Sreekanth Maciel MD [address] [address] PCP - General Family Medicine 05/15/23 Theresa Mcgowan NP [address] [place] [address] [place] [address] Nurse Practitioner Behavioral Health 05/15/23 Arash Steve MD [address] [place] [address] Referring Physician Obstetrics and Gynecology 05/15/23 Sandoval Jung MD [address] [address] Referring Physician Hematology 05/15/23 documented as of this encounter
--- OUTSIDE RECORDS SUMMARY | 2024-06-20 09:50 | XMS_ITS | Encounter Summary ---
Author Organization [facility] Address [address] [place] [address] Care Team Providers Care Construction Equipment Operator Name Role Phone Unavailable Primary Care Provider Unavailabl e Reason for Visit * Reason Comments Refill Request Encounter Details Date Type Department Care Team (Late st Contact Info) Description 05/24/2022 Refill [facility] [address] [place] [address], [place] [address] David Jean MD [address] [place] [address] DIV OF TRAUMA [place] [address] Refill Request Social History Tobacco [...]
--- OUTSIDE RECORDS SUMMARY | 2024-06-20 09:50 | XMS_ITS | Encounter Summary ---
Author Organization [facility] Address [address] [place] [address] Care Team Providers Care Chicken Boner Name Role Phone Unavailable Primary Care Provider Unavailabl e Reason for Visit * Reason Comments Refill Request Encounter Details Date Type Department Care Team (Late st Contact Info) Description 05/20/2022 Refill [facility] [address] [place] [address], [place] [address] David Jean MD [address] [place] [address] DIV [place] [address] Refill Request Social History Tobacco [...]
--- OUTSIDE RECORDS SUMMARY | 2024-06-20 09:50 | XMS_ITS | Referral Summary ---
Author Organization [address] Address [address] [place] [phone] Care Team Providers Care Railroad Switchman Name Role Phone Sreekanth Maciel MD Primary Care Provider Theresa Mcgowan PRIMARY CARE COORDINATOR Unavailable Arash Steve MD Unavailable [phone] Sandoval Jung MD Unavailable Encounters Date Type Department Care Team Description 06/18/[address] [facility] Rheumatology at [facility] [address] [facility] [address], [place] [address] Faith Browning MD New Pt Appt Work Q 06/17/2024 Results Follow-Up [facility] Neurology [address] [address] Skylar Bailey MA 06/14/2024 11:51 AM VICE PRESIDENT OF SOFTWARE DEVELOPMENT - 06/14/2024 11:59 PM VICE PRESIDENT OF SOFTWARE DEVELOPMENT Hospital Encounter [facility] [address] [place] [address] [place] Discharge Disposition: Discharge to home or self care 06/14/2024 11:51 AM VICE PRESIDENT OF SOFTWARE DEVELOPMENT - 06/14/2024 11:59 PM VICE PRESIDENT OF SOFTWARE DEVELOPMENT Hospital Encounter [facility] [address] [place] [address] [place] Discharge Disposition: Discharge to home or self care 05/03/2024 9:10 AM VICE PRESIDENT OF SOFTWARE DEVELOPMENT Lab [facility] Medical Office Bldg 3 OP Lab [address] [facility] [address] [place] [address] Ataxia 05/03/2024 8:00 AM VICE PRESIDENT OF SOFTWARE DEVELOPMENT Office Visit [facility] [address] [facility] [address] [place] [address] Mahendra Larson Si, MD Chronic fatigue syndrome (Primary Dx); Facial nerve disorder; Ataxia; 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 04/16/2024 10:30 AM VICE PRESIDENT OF SOFTWARE DEVELOPMENT Office Visit [facility] at [address] [phone] Sreekanth Maciel MD Facial nerve disorder (Primary Dx); Skin lesion of left external ear 04/01/2024 Orders Only [facility] Cardiology [address] [place] [address] [address] [place] [phone] Khalif Melo MD 03/28/2024 1:30 PM VICE PRESIDENT OF SOFTWARE DEVELOPMENT Clinical Support [facility] [address] [place] [address] [place] [phone] Visit for wound check (Primary Dx) 03/22/2024 Telephone [facility] [address] [place] [address] [address] [place] [phone] Khalif Melo MD from Last 3 Months Allergies Active Allergy Reactions Criticality Noted Date Comments [place] Gluconate Unknown 02/28/2024 Patient had testing done [...] 04/19/2024 Assessment & Plan (04/19/2024 3:06 PM VICE PRESIDENT OF SOFTWARE DEVELOPMENT): there may a link, given the facial [...] 05/15/2023 Assessment & Plan (05/18/2023 4:40 PM VICE PRESIDENT OF SOFTWARE DEVELOPMENT): A(n) initial well visit to establish care [...] along with risks vs benefits. Vitamin D 6356-9292 international units per day Calcium 500 mg/day [...] (03/18/2021): Added automatically from request for surgery [id number] Marginal ulcer 02/18/2021 Overview (02/18/2021): Added automatically from request for surgery [id number] Other dietary vitamin B12 deficiency anemia 02/08 [...] guidance Will refill omeprazole 20 mg BID [place] diet Update me in the next couple [...] obesity due to excess calories 06/04/2015 05/18/2023 Immunizations Immunization Administration Dates Next Due Influenza, Quadrivalent, Spl it, Intramuscular 02/18/2019 Influenza, Split 04/15/2011 Influenza, Unspecified 05/15/2023(Deferr ed: Patient Refused),04/11/2022(Deferred: Patient Refused),01/09/2022(Deferred: Patient Refused),01/22/2021 Influenza, Whole 03/27/2012 Pneumococcal Polysaccharide PPV23 03/27/2012 Tdap 09/29/2011 Social History Tobacco Use Types Packs/Day Years [...] on file Legal Sex Female 10:42 AM VICE PRESIDENT OF SOFTWARE DEVELOPMENT Gender Identity Female 02/14/2021 8:33 PM VICE PRESIDENT OF SOFTWARE DEVELOPMENT Sexual Orientation Straight 02/14/2021 8: 33 PM VICE PRESIDENT OF SOFTWARE DEVELOPMENT Last Filed Vital Signs Vital Sign Reading Time Taken Comments Blood Pressure 100/60 05/03/2024 7:52 AM VICE PRESIDENT OF SOFTWARE DEVELOPMENT Pulse 78 05/03/2024 7:52 AM VICE PRESIDENT OF SOFTWARE DEVELOPMENT Temperature 36.5 C (97.7 F) 04/16/2024 10:36 AM VICE PRESIDENT OF SOFTWARE DEVELOPMENT Respiratory Rate 16 04/16/2024 10:36 AM VICE PRESIDENT OF SOFTWARE DEVELOPMENT Oxygen Saturation 98% 04/16/2024 10:36 AM VICE PRESIDENT OF SOFTWARE DEVELOPMENT Inhaled Oxygen Concentration - - Weight 68 kg (150 lb) 05/03/2024 7:52 AM VICE PRESIDENT OF SOFTWARE DEVELOPMENT Height 172.7 cm (5' 8 ) 05/03/2024 7:52 AM VICE PRESIDENT OF SOFTWARE DEVELOPMENT Body Mass Index 22.81 05/03/2024 7:52 AM VICE PRESIDENT OF SOFTWARE DEVELOPMENT Plan of Treatment Not on file Medical Devices Implanted Type Area Tricot Knitter Device Identifier Shelf Expiration Date Model / Serial / Lot Loop Recorder Heart Procedures Procedure Name Priority Date/Time Associated Diagnosis Comments MRI BRAIN W WO CONTRAST Schedule Routine, Read Routine (OP Routine) 06/14/2024 1:43 PM VICE PRESIDENT OF SOFTWARE DEVELOPMENT Ataxia MRI CERVICAL SPINE W WO CONTRAST Schedule Routine, Read Routine (OP Routine) 06/14/2024 1:36 PM VICE PRESIDENT OF SOFTWARE DEVELOPMENT [place] EGFR Routine 05/03/2024 9:17 AM VICE PRESIDENT OF SOFTWARE DEVELOPMENT [place] BASIC METABOLIC PANEL Routine 05/03/2024 9:17 AM VICE PRESIDENT OF SOFTWARE DEVELOPMENT A[place] THYROID FUNCTION CASCADE Routine 05/03/2024 9:17 AM VICE PRESIDENT OF SOFTWARE DEVELOPMENT [place] VITAMIN B12 Routine 05/03/2024 9:17 AM VICE PRESIDENT OF SOFTWARE DEVELOPMENT A[place] METHYLMALONIC ACID, SERUM Routine 05/03/2024 9:17 AM VICE PRESIDENT OF SOFTWARE DEVELOPMENT Ataxia from Last 3 Months Results * MRI Brain W WO Contrast (06/14/2024 1:43 PM VICE PRESIDENT OF SOFTWARE DEVELOPMENT) Anatomical Region Laterality Modality Head and Neck N/A Magnetic Resonan ce 06/14/2024 2:59 PM VICE PRESIDENT OF SOFTWARE DEVELOPMENT Narrative 06/14/2024 3:28 PM VICE PRESIDENT OF SOFTWARE DEVELOPMENT EXAM DESCRIPTION: MRI CERVICAL SPINE W WO CONTRAST; MRI BRAIN W WO CONTRAST REASON FOR STUDY: Demyelinating disease with spinal cord symptoms Numbness/tingling in arms, cognitive declining, did have loss of mobility in LT leg (since returned); symptoms since April 2023; pt states abnormal MRI Brain done w/o contrast at [facility] about Mar 2024 TECHNIQUE: Sagittal and Axial [...] Gregory Mcallister M.D. MM T: Report ID: [id number] Reading Location: [id number] Procedure Note Gregory Mcallister MD - 06/14/2024 EXAM DESCRIPTION: MRI CERVICAL SPINE W WO CONTRAST; MRI BRAIN W WOCONTRAST REASON FOR STUDY: Demyelinating disease with spinal cord symptoms Numbness/tingling in arms, cognitive declining, did have loss of mobilityin LT leg (since returned); symptoms since April 2023; pt states abnormalMRI Brain done w/o contrast at [facility] about Mar 2024 TECHNIQUE: Sagittal and Axial [...] Gregory Mcallister M.D. MM T: Report ID: [id number] Reading Location: [id number] [facility] IM MRI PROCEDURES Final Result * MRI Cervical Spine W WO Contrast (06/14/2024 1:36 PM VICE PRESIDENT OF SOFTWARE DEVELOPMENT) Anatomical Region Laterality Modality Spine N/A Magnetic Resonan ce 06/14/2024 2:59 PM VICE PRESIDENT OF SOFTWARE DEVELOPMENT Narrative 06/14/2024 3:28 PM VICE PRESIDENT OF SOFTWARE DEVELOPMENT EXAM DESCRIPTION: MRI CERVICAL SPINE W WO CONTRAST; MRI BRAIN W WO CONTRAST REASON FOR STUDY: Demyelinating disease with spinal cord symptoms Numbness/tingling in arms, cognitive declining, did have loss of mobility in LT leg (since returned); symptoms since April 2023; pt states abnormal MRI Brain done w/o contrast at [facility] about Mar 2024 TECHNIQUE: Sagittal and Axial [...] Gregory Mcallister M.D. MM T: Report ID: [id number] Reading Location: [id number] Procedure Note Gregory Mcallister MD - 06/14/2024 EXAM DESCRIPTION: MRI CERVICAL SPINE W WO CONTRAST; MRI BRAIN W WOCONTRAST REASON FOR STUDY: Demyelinating disease with spinal cord symptoms Numbness/tingling in arms, cognitive declining, did have loss of mobilityin LT leg (since returned); symptoms since April 2023; pt states abnormalMRI Brain done w/o contrast at [facility] about Mar 2024 TECHNIQUE: Sagittal and Axial [...] Gregory Mcallister M.D. MM T: Report ID: [id number] Reading Location: [place] [id number] us Mahendra Larson MD IMG MRI PROCEDURES Final Result * eGFR (05/03/2024 9:17 AM VICE PRESIDENT OF SOFTWARE DEVELOPMENT) eGFR >90 >=60 mL/min/1. 73 m2 Comment: [...] last reviewed 2021. Blood 05/03/2024 9:17 AM VICE PRESIDENT OF SOFTWARE DEVELOPMENT 05/03/2024 12:12 PM VICE PRESIDENT OF SOFTWARE DEVELOPMENT us Mahendra Larson MD LAB BLOOD ORDERABLES Final [facility]ul t [facility] [address] [facility] Department [place] [address] * Thyroid Function [place] (05/03/2024 9:17 AM VICE PRESIDENT OF SOFTWARE DEVELOPMENT) TSH 3.02 0.30 - 4.20 mcIUnit/mL Blood 05/03/2024 9:17 AM VICE PRESIDENT OF SOFTWARE DEVELOPMENT 05/03/2024 12:12 PM VICE PRESIDENT OF SOFTWARE DEVELOPMENT Mahendra Larson MD LAB BLOOD ORDERABLES Final Resul t Performing Organization Address City/[facility]/ZIP Co de Phone Number OJ [address] [place] [address] * Methylmalonic acid, serum (05/03/2024 9:17 AM VICE PRESIDENT OF SOFTWARE DEVELOPMENT) Pathologist [facility] [place] MMA 0.12 <=0.40 nmol/mL [facility] Comment: ADDITIONAL INFORMATION This test was developed and its performance characteristics determined by [facility] in a manner consistent with CLIA requirements. This test has not been cleared or approved by the U.S. Food and Drug Administration. Test Performed by: [address] [address] Business Attorney: Alyssa Wise Ph.D.; CLIA# [id number] Blood 05/03/2024 9:17 AM VICE PRESIDENT OF SOFTWARE DEVELOPMENT 05/03/2024 12:12 PM VICE PRESIDENT OF SOFTWARE DEVELOPMENT Mahendra Larson MD LAB BLOOD ORDERABLES Final Resul t Performing Organization Address [facility] Co de Phone Number OJ [address] [place] [address] [place] ref Lab * Vitamin B12 (05/03/2024 9:17 AM VICE PRESIDENT OF SOFTWARE DEVELOPMENT) [facility] Vitamin B12 922 230 - 1,250 pg/mL Blood 05/03/2024 9:17 AM VICE PRESIDENT OF SOFTWARE DEVELOPMENT 05/03/2024 12:12 PM VICE PRESIDENT OF SOFTWARE DEVELOPMENT Mahendra Larson MD LAB BLOOD ORDERABLES Final Resul t Performing Organization Address [facility] Co de Phone Number OJ [address] [place] [address] * Basic metabolic panel (05/03/2024 9:17 AM VICE PRESIDENT OF SOFTWARE DEVELOPMENT) Pathologist [facility] [place] Sodium 140 135 - 145 mmol/L Potassium, pl 4.4 3.3 - 4.9 mmol/L [facility] Chloride 107 97 - 110 mmol/L [facility] CO2 28 22 - 32 mmol/L [facility] Anion gap 5 2 - 15 mmol/L [facility] BUN 15 6 - 25 mg/dL [facility] Creatinine 0.80 0.60 - 1.10 mg/dL [facility] Glucose 99 70 - 199 mg/dL [facility] Comment: Interpretive Data Fasting glucose >/= 126 [...] 2022. Calcium 9.3 8.5 - 10.3 mg/dL [facility] Blood 05/03/2024 9:17 AM VICE PRESIDENT OF SOFTWARE DEVELOPMENT 05/03/2024 12:12 PM VICE PRESIDENT OF SOFTWARE DEVELOPMENT Mahendra Larson MD LAB BLOOD ORDERABLES Final Resul t [facility] [address] [facility] Department [place] [address] from Last 3 Months Insurance ANTH ACCESS ANTHEM ACCESS ANTHEM ACCESS Care Teams Railroad Switchman Relationship Specialty Start Date End Date Sreekanth Maciel MD [address] [address] PCP - General Family Medicine 05/15/23 Theresa Mcgowan NP [address] [place] [address] Nurse Practitioner Behavioral Health 05/15/23 Arash Steve MD [address] [place] [address] Referring Physician Obstetrics and Gynecology 05/15/23 Sandoval Jung MD [address] [phone] Referring Physician Hematology 05/15/23
--- OUTSIDE RECORDS SUMMARY | 2024-06-20 09:50 | XMS_ITS | Encounter Summary ---
Author Organization [facility] Address [address] [facility] [place] [address] Care Team Providers Care Medical Billing Assistant Name Role Phone Unavailable Primary Care Provider Unavailabl e Reason for Visit * Reason Comments Refill Request Encounter Details Date Type Department Care Team (Late st Contact Info) Description 05/16/2022 Refill [facility] [address] [place] [address], [place] [address] David Jean MD [address] [place] [address] [place] [address] Refill Request Social History Tobacco [...]
--- OUTSIDE RECORDS SUMMARY | 2024-06-20 09:50 | XMS_ITS | Patient Health Record ---
Author Organization [facility] Address [address] [place] [address] Care Team Providers Care Composition Roofer Name Role Phone Janell Sreekanth Primary Care Provider Herman Castillo Unavailable [phone] Julissa Moses Unavailable [phone] Nora Andrews Unavailable [phone] Allergies Allergen (clinical drug ingredient) Drug/Non Drug Allergy documented on EMR Reaction Allergy Type Onset Date Status Non-steroidal anti-inflammatory agent (FN) NSAIDs Unknown Drug Allergy Active Results Component Value Reference Range Notes -Tryptase ([id number]) Reviewed date:02/12/2024 12:32:00 PM Interpretation:Normal Performing Lab:[facility] [address] [id number], Phone - [phone], Director - Claudy Notes/Report: Tryptase 3.8 2.2-13.2 ug/L -Immunoglobulins A/G/M, Qn, Ser Reviewed date:02/06/2024 01:08:45 PM Interpretation:Normal Performing Lab:[facility] [address] [id number], Phone - [phone], Director - Jose Notes/Report: Immunoglobulin G, Qn, Serum 410 481-1470 mg/d L Immunoglobulin A, Qn, Serum 138 87-352 mg/dL Immunoglobulin M, Qn, Serum 130 26-217 mg/dL Reason For Referral No Information Medications Medication SIG (Take, Route, Frequency, Duration) [...] 30 MG Oral for 30 Days Active Social History Tobacco Use: Social History Observation Description Date Details (start date - stop date) Current Smoker NA - NA Tobacco Control (Standard) Question Answer Notes Tobacco use: Current smoker Additional Findings: Tobacco user Light cigarett e smoker (1-9 cigs/day) Problems Problem Type SNOMED Code ICD Code Onset Dates Problem Status W/U Status Risk Notes Problem Idiopathic urticaria (58308597) Idiopathic urticaria (L50.1) Active confirmed Problem Relapsing fever, 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) Active confirmed Problem Polycystic ovary syndrome (disorder) (144693871) Polycystic ovarian syndrome (E28.2) Active confirmed Problem Allergic contact dermatitis due to metals (L23.0) Active confirmed Problem Irritant contact dermatitis due to metals (L24.81) Active confirmed Problem Eruption of skin (455052479) Rash and other nonspecific skin eruption (R21) Active confirmed Vital Signs Oximetry 100 % 02/26/2024 Blood pressure diastolic 73 mm Hg 02/26/2024 Height 68 in 02/26/2024 Blood pressure systolic 110 mm Hg 02/26/2024 Weight 145.4 lbs 02/26/2024 BMI 22.11 kg/m2 02/26/2024 Encounters Encounter Location Date Provider Diagnosis [address] [address] 12/19/2023 Herman Kumar [address] [address] 01/29/2024 Herman Kumar Relapsing fever, unspecified A68.9 ; Rash and other nonspecific skin eruption R21 and Idiopathic urticaria L50.[address] [address] 02/19/2024 Nora Andrews Relapsing fever, unspecified A68.9 ; Rash and other nonspecific skin eruption R21 and Idiopathic urticaria L50.[address] [address] 02/21/2024 Julissa Moses Relapsing fever, unspecified A68.9 ; Rash and other nonspecific skin eruption R21 and Idiopathic urticaria L50.1 [facility] [address] [place] [id number] 02/22/2024 Julissa Moses Relapsing fever, unspecified A68.9 ; Rash and other nonspecific skin eruption R21 and Idiopathic urticaria L50.[address] [address] 02/26/2024 Herman Kumar Allergic contact dermatitis due to metals L23.0 ; Irritant contact dermatitis due to metals L24.81 ; Relapsing fever, unspecified A68.9 and Idiopathic urticaria L50.[address] [address] 03/18/2024 Herman Kumar Assessments Encounter Date Diagnosis (ICD Code) Assessment Notes Treatment Notes Treatment Clinical Notes Section Notes 01/29/2024 Relapsing fever, unspecified (ICD-10 - A68.9) Waxing and waning fever up to 101 with associated reported enlarged lymph noted. Overall with increased fatigue and joint pain. She has been treated with 6 round of abx in the past year though not for upper or lower airway infections. Of note, she did have mono not long after having her back surgery. Recent CBC was WNL. She feels this is related to the metal hardware of her spinal fusion, otherwise, there is no clear cause of said fever at this time. Instructed to bring in temp log for review. Will check IgG/A/M level for now given amount of abx she has had in the past year. If fevers continue to arise, consider additional work-up. Otherwise, return in 1 month for metal patcht testing 01/29/2024 Rash and other nonspecific skin eruption (ICD-10 - R21) Chronic erythematous rash to general area of spinal fusions since 2-3 months after surgery with additional increased tenderness to the site. She feels she is having a multitude of generalized symptoms due to this include fatigue, joint paints, and recurrent illness. Although I cannot directly relate these symptoms to her implants, the presence of a chronic rash to the area of concerning for a metal allergy. She reports titanium was used for the procedure. Will plan on metal patch testing. She recently came off steroids so plan on returning next month to start patch testing 02/19/2024 Relapsing fever, unspecified (ICD-10 - A68.9) Waxing and waning fever up to 101 with associated reported enlarged lymph noted. Overall with increased fatigue and joint pain. She has been treated with 6 round of abx in the past year though not for upper or lower airway infections. Of note, she did have mono not long after having her back surgery. Recent CBC was WNL. She feels this is related to the metal hardware of her spinal fusion, otherwise, there is no clear cause of said fever at this time. Instructed to bring in temp log for review. - IgG/A/M checked and within normal limits. If fevers continue to arise, consider additional work-up. - Return as above for patch testing 02/19/2024 Rash and other nonspecific skin eruption (ICD-10 - R21) Chronic erythematous rash to general area of spinal fusions since 2-3 months after surgery with additional increased tenderness to the site. She feels she is having a multitude of generalized symptoms due to this include fatigue, joint paints, and recurrent illness. Although we cannot directly relate these symptoms to her implants, the presence of a chronic rash to the area of concerning for a metal allergy. She reports titanium was used for the procedure. - Patch testing was initiated today using MatchMate.Me1000 test patch testing delivery system. - Keep back dry and avoid topical and oral steroids. - Return in 2 days for patch removal and initial read. 02/21/2024 Relapsing fever, unspecified (ICD-10 - A68.9) Waxing and waning fever up to 101 with associated reported enlarged lymph noted. Overall with increased fatigue and joint pain. She has been treated with 6 round of abx in the past year though not for upper or lower airway infections. Of note, she did have mono not long after having her back surgery. Recent CBC was WNL. She feels this is related to the metal hardware of her spinal fusion, otherwise, there is no clear cause of said fever at this time. Instructed to bring in temp log for review. - IgG/A/M checked and within normal limits. If fevers continue to arise, consider additional work-up. - Return as above for patch testing 02/21/2024 Rash and other nonspecific skin eruption (ICD-10 - R21) Chronic erythematous rash to general area of spinal fusions since 2-3 months after surgery with additional increased tenderness to the site. She feels she is having a multitude of generalized symptoms due to this include fatigue, joint paints, and recurrent illness. Although we cannot directly relate these symptoms to her implants, the presence of a chronic rash to the area of concerning for a metal allergy. She reports titanium was used for the procedure. - Patch testing using MET-1000 test patch testing delivery system was removed today 48 hours with several sensitivities present and listed below. - She was instructed to keep back dry and avoid topical and oral steroids until patch testing is complete. - Return tomorrow for patch read #2 at 72 hours. 02/22/2024 Relapsing fever, unspecified (ICD-10 - A68.9) Waxing and waning fever up to 101 with associated reported enlarged lymph noted. Overall with increased fatigue and joint pain. She has been treated with 6 round of abx in the past year though not for upper or lower airway infections. Of note, she did have mono not long after having her back surgery. Recent CBC was WNL. She feels this is related to the metal hardware of her spinal fusion, otherwise, there is no clear cause of said fever at this time. Instructed to bring in temp log for review. - IgG/A/M checked and within normal limits. If fevers continue to arise, consider additional work-up. - Return as above for patch testing 02/22/2024 Rash and other nonspecific skin eruption (ICD-10 - R21) Chronic erythematous rash to general area of spinal fusions since 2-3 months after surgery with additional increased tenderness to the site. She feels she is having a multitude of generalized symptoms due to this include fatigue, joint paints, and recurrent illness. Although we cannot directly relate these symptoms to her implants, the presence of a chronic rash to the area of concerning for a metal allergy. She reports titanium was used for the procedure. - Patch testing using MET-1000 test patch testing delivery system was removed today 48 hours with several sensitivities present and listed below. - She was instructed to keep back dry and avoid topical and oral steroids until patch testing is complete. - Return Monday for final patch read at 168 hours. 02/26/2024 Allergic contact dermatitis due to metals (ICD-10 - L23.0) Chronic erythematous rash to general area of spinal fusions since 2-3 months after surgery with additional increased tenderness to the site. - She underwent patch testing using MET-1000 test patch testing delivery system was notable ++ for gold and IR to titatium. Results negative today at 168 hours. - Given the IR reaction to titanium, I cannot rule out tatium being an aspect of rash and tenderness to her surgical site. Will defer to PCP and surgery RE risks and benefit if surgial intervention is nessicary. In terms of generalized symptoms including fatigue, joint paints, and recurrent illness, it is unlikely her symptoms relate to her implants. I would not rule out prior mono infection this year being a significant factor. That said, I would continue per PCP given noted tongue and neck numbness. Recent Brain MRI was normal. 02/26/2024 Irritant contact dermatitis due to metals (ICD-10 - L24.81) as above 01/29/2024 Idiopathic urticaria (ICD-10 - L50.1) Reported history of hives occurring a few times a year most of her life c/w idiopathic urticaria. That said, she reports recently EGD showing edema on the distal esophagus and gastric area with reported history of abdominal swelling. No swelling noted on PE today. Given concern, will check tryptase level to rule out any underlying mast cell conditions. Continue f/u with GI. No eosinophils noted 02/26/2024 Relapsing fever, unspecified (ICD-10 - A68.9) Waxing and waning fever up to 101 with associated reported enlarged lymph noted. Overall with increased fatigue and joint pain. She has been treated with 6 round of abx in the past year though not for upper or lower airway infections. Of note, she did have mono not long after having her back surgery. Recent CBC was WNL. She feels this is related to the metal hardware of her spinal fusion, otherwise, there is no clear cause of said fever at this time. - IgG/A/M checked and within normal limits. - She does report numbess to right side of her tongue down to her neck. Prior work-up with her PCP with negatie CMV IgG and IgM, ANCA panel, normal PT/INR and Lipus anticoagulant. Noted + EBV ab and EBV VA IgG indicating prior infeciton. Negative COLBY, Rheumatoid factor, Beta-2 glycoprotein 1, Cardiolopin IgG, IgM, HIV. Prior holter monitor with 3 episodes of SVT with plan on stress. - Instructed to start to log for fevers for the next month to ensure true clinical fevers are occuring. If so, plan on additioanl work-up at the time for recurrent fevers 02/22/2024 Idiopathic urticaria (ICD-10 - L50.1) Reported history of hives occurring a few times a year most of her life c/w idiopathic urticaria. That said, she reports recently EGD showing edema on the distal esophagus and gastric area with reported history of abdominal swelling. No swelling noted on PE today. - Given concern, ordered check for tryptase level to rule out any underlying mast cell conditions, which returned within normal limits. - Continue f/u with GI. No eosinophils noted 02/21/2024 Idiopathic urticaria (ICD-10 - L50.1) Reported history of hives occurring a few times a year most of her life c/w idiopathic urticaria. That said, she reports recently EGD showing edema on the distal esophagus and gastric area with reported history of abdominal swelling. No swelling noted on PE today. - Given concern, ordered check for tryptase level to rule out any underlying mast cell conditions, which returned within normal limits. - Continue f/u with GI. No eosinophils noted 02/19/2024 Idiopathic urticaria (ICD-10 - L50.1) Reported history of hives occurring a few times a year most of her life c/w idiopathic urticaria. That said, she reports recently EGD showing edema on the distal esophagus and gastric area with reported history of abdominal swelling. No swelling noted on PE today. - Given concern, ordered check for tryptase level to rule out any underlying mast cell conditions, which returned within normal limits. - Continue f/u with GI. No eosinophils noted 02/26/2024 Idiopathic urticaria (ICD-10 - L50.1) Reported history of hives occurring a few times a year most of her life c/w idiopathic urticaria. That said, she reports recently EGD showing edema on the distal esophagus and gastric area with reported history of abdominal swelling. No swelling noted on PE today. - Given concern, ordered check for tryptase level to rule out any underlying mast cell conditions, which returned within normal limits. - Continue f/u with GI. No eosinophils noted 01/29/2024 Other 02/19/2024 Other 02/21/2024 Other 02/22/2024 Other 02/26/2024 Other Plan Of Treatment No Information Insurance Providers Payer Name Payer Address Payer Phone Subscriber Number Group Number Insured Name Patient Relationship to Insured Coverage Start Date Coverage End Date [facility] [id number] [place] [address] [id number] Shankar Garcias Spouse - patient is the spouse of the insured Medical (General) History Medical History History ICD Code Attention-deficit hyperactivity disorder , unspecified type F90.9 Esophagitis, unspecified K20.9 Polycystic ovarian syndrome E28.2 Endometriosis, unspecified N80.9 Gastro-esophageal reflux disease without esophagitis K21.9 Surgical History Surgery Date(Month/Year) GASTRIC BYPASS FOR OBESITY DELIVERY Spinal Fusion L5-S1
--- OUTSIDE RECORDS SUMMARY | 2024-06-20 09:50 | XMS_ITS | Encounter Summary ---
Author Organization [facility] Address [address] [place] [address] Care Team Providers Care Escrow Officer Name Role Phone Unavailable Primary Care Provider Unavailabl e Reason for Visit * Reason Comments Refill Request Encounter Details Date Type Department Care Team (Late st Contact Info) Description 05/12/2022 Refill [facility] [address] [place] [address], [place] [address] David Jean MD [address] [place] [address] DIV [place] [address] Refill Request Social History Tobacco [...]
--- OUTSIDE RECORDS SUMMARY | 2024-06-20 09:50 | XMS_ITS | Referral Summary ---
Author Organization [facility] Address [address] [facility] [place] [address] Care Team Providers Care Rn Ostomy Name Role Phone Unavailable Primary Care Provider Unavailabl e Source Comments [facility],non-owned Affiliates and Associated Physician Practices is amultiple site organization consisting of ambulatory clinics and hospital sitesin [place], [place], [place] and [place]. This disclosure is being madepursuant to the Care Everywhere program and may not contain all information available regarding this patient. Last updated 17.[facility] [employer] Allergies Active Allergy Reactions Criticality Noted Date [...] 08/19/2021 11:40 AM CDT Plan of Treatment Not on file Advance Directives * Full Code (Latest Code Status on File) Date Activated Date Inactivated Comments 08/08/2021 3:58 AM 08/08/2021 5:20 PM
--- OUTSIDE RECORDS SUMMARY | 2024-06-20 09:50 | XMS_ITS | Clinical Summary ---
Author Organization [facility] Address [address] [place] [place] [address] Care Team Providers Care Hands And Dial Inspector Name Role Phone Endy Zuñiga MD Primary Care Provider [phone] Allergies Active Allergy Reactions Criticality Noted Date Comments [facility] [place] Gluconate Unknown 02/28/2024 Patient had testing done and is allergic to cobalt in ingredients in medications Nsaids (Non-Steroidal Anti-Inflammatory Drug) Other (See Comments) High 08/27/2019 Post gastric bypass Other reaction(s): GI Upset Pt is post gastric bypass - unable to have nsaids Medications multivitamin-m gj-ordk-GM-vit K (Bariatric Multivitamins) 45 mg iron- 800 mcg-120 mcg Capsule Bariatric Multivitamins Active sucralfate (CARAFATE) 1 gram tablet 0 Active dextroamphetam ine-amphetamin e (ADDERALL) 30 mg tablet Take 15 mg by mouth daily. Active Qelbree 200 mg Capsule, Sust. Release 24HR Oral for 30 Days 4 Active buPROPion HCL (WELLBUTRIN XL) 300 mg Extended Release 24 hour tablet Take 300 mg by mouth daily in the morning. 4 Active Active Problems Problem Noted Date Diagnosed Date Iron deficiency anemia 02/26/2020 Other dietary vitamin B12 deficiency anemia 02/08 Encounters Date Type Department Care Team Description 06/15/2024 External Device Data [facility]CTION Provider, Abstract 06/15/2024 External Device Data [facility] Provider, Abstract 06/12/2024 External Device Data [facility] Provider, Abstract 05/29/2024 External Device Data [facility] Provider, Abstract 05/08/2024 External Device Data [facility] Provider, Abstract 05/02/2024 External Device Data [facility] Provider, Abstract from Last 3 Months Family History Medical History Relation Name Comments Uterine Cancer Mother Relation Name Status Comments Brother Alive Daughter Alive Father Alive Mother Alive Sister Alive Son Alive Social History Tobacco Use Types Packs/Day Years Used Date Smoking Tobacco: Former Cigarettes 0.5 15 Q uit: 11/09/2023 Tobacco Cessation:Counseling Given: Not Answered Comments:has nicotine losenges Alcohol Use Standard Drinks/Week Comments Never 0 (1 standard drink = 0.6 oz pur e alcohol) Comments Unknown Sex and Gender Information Value Date Recorded Sex Assigned at Not on file Legal Sex Female 11:52 AM CONSTRUCTION ESTIMATOR Gender Identity Not on file Sexual Orientation Not on file Last Filed Vital Signs Vital Sign Reading Time Taken Comments Blood Pressure 117/66 02/28/2024 11:43 AM CONSTRUCTION ESTIMATOR Pulse 79 02/28/2024 11:43 AM CONSTRUCTION ESTIMATOR Temperature 36.8 C (98.2 F) 02/28/2024 11:43 AM CONSTRUCTION ESTIMATOR Respiratory Rate 18 02/28/2024 11:43 AM CONSTRUCTION ESTIMATOR Oxygen Saturation 98% 02/28/2024 11:43 AM CONSTRUCTION ESTIMATOR Inhaled Oxygen Concentration - - Weight 65.3 kg (144 lb) 02/28/2024 11:43 AM CONSTRUCTION ESTIMATOR Height 172.7 cm (5' 8 ) 09/07/2021 3:51 PM CDT Body Mass Index 21.9 09/07/2021 3:51 PM CDT Plan of Treatment Upcoming Encounters Date Type Department Care Team (Late st Contact Info) Description 06/28/2024 10:15 AM CDT Office Visit [facility] Oncology and Hematology - [place] [address] [facility] [address] [place] [address] Sandoval Jung MD [address] [facility] [address] [place] [address] Health Maintenance Due Date Last Done Comments HEPATITIS B VACCINES (1 of 3 - 19+ 3-dose series) 2007 DTAP/TDAP/TD VACCINES (2 - T d or Tdap) 09/28/2021 09/29/2011 CERVICAL CANCER SCREENING 07/08/2023 07/07/2020 INFLUENZA VACCINE (#1) 2023 02/18/2019 COVID-19 Vaccine (2 - 2023-2 5 season) 2023 11/05/2020 Preventative Visit- Commercial 04/10/2024 05/03/2023 HPV VACCINES Aged Out No longer eligi ble based on patient's age to complete this topic Insurance [facility] Care Teams Hands And Dial Inspector Relationship Specialty Start Date End Date Endy Zuñiga MD [address] [facility] [address] [place] [address] PCP - General Internal Medicine 02/13/20
--- OUTSIDE RECORDS SUMMARY | 2024-06-20 09:50 | XMS_ITS | Encounter Summary ---
Author Organization [facility] Address [address] [place] [address] Care Team Providers Care Dry Placer Machine Operator Name Role Phone Sreekanth Maciel MD Primary Care Provider [phone] Theresa Mcgowan NP Unavailable Arash Steve MD Unavailable [phone] Sandoval Jung MD Unavailable [phone] Reason for Visit * Reason Onset Date Comments Test Results 06/17/2024 Results Encounter Details Date Type Department Care Team (Late st Contact Info) Description 06/17/2024 Results Follow-Up [facility] Neurology [address] [place] [id number] Skylar Bailey MA Social History Tobacco Use Types Packs/Day Years [...] on file Legal Sex Female 10:42 AM DIRECTOR OF RECRUITMENT Gender Identity Female 02/14/2021 8:33 PM DIRECTOR OF RECRUITMENT Sexual Orientation Straight 02/14/2021 8: 33 PM DIRECTOR OF RECRUITMENT documented as of this encounter Miscellaneous Notes * Telephone Encounter - Skylar Bailey MA - 06/17/2024 2:52 PM CDT Patient was informed of MRI brain and cervical spine do not show any concerning findings. There is no evidence of multiple sclerosis or spinal cord abnormality. * Telephone Encounter - Skylar Bailey MA - 06/17/2024 2:51 PM CDT ----- Message from Mahendra Larson MD sent at 06/14/2024 3:35 PM DIRECTOR OF RECRUITMENT ----- MRI brain and cervical spine do not show any concerning findings. There is no evidence of multiple sclerosis or spinal cord abnormality. documented in this encounter Plan of Treatment Not on file documented as of this encounter Visit Diagnoses Not on filedocumented in this encounter Care Teams Dry Placer Machine Operator Relationship Specialty Start Date End Date Sreekanth Maciel MD [address] [address] PCP - General Family Medicine 05/15/23 Theresa Mcgowan NP [address] [place] [address] [place] [address] Nurse Practitioner Behavioral Health 05/15/23 Arash Steve MD [address] [place] [address] Referring Physician Obstetrics and Gynecology 05/15/23 Sandoval Jung MD [address] [address] Referring Physician Hematology 05/15/23 documented as of this encounter
--- OUTSIDE RECORDS SUMMARY | 2024-06-20 09:50 | XMS_ITS ---
Author Organization [facility] Address [address] [place] [address] Care Team Providers Care Compressed Gas Tester Name Role Phone Sreekanth Maciel Primary Care Provider Herman Castillo Unavailable [phone] Julissa Moses Unavailable [phone] Allergies Allergen (clinical drug ingredient) Drug/Non Drug Allergy documented on EMR Reaction Allergy Type Onset Date Status Non-steroidal anti-inflammatory agent (FN) NSAIDs Unknown Drug Allergy Active REASON FOR VISIT History of recurrent rash and pain to the area of her L5-S1 surgical fusion site. Present since 2-3months after undergoing surgery. Additional history of recurrent fevers and infections since. Here for patch test read #2 at 72 hours., History of hives occurring twice a year with additional lower esophageal and gastric edema seen on EGD. Reports recurrent abdominal swelling without clear trigger. Medications Medication SIG (Take, Route, Frequency, Duration) Notes Start Date End Date Status Iron 28 MG 1 tablet Orally Thre e times a Week Active Vitamin D 50 MCG (1999) 1 tablet Oral ly Once a day Active Esomeprazole Magnesium 40 MG Oral for 30 Days Active Qelbree 200 MG Oral for 30 Days Active Amphetamine-Dextroamphetami ne 30 MG Oral for 30 Days Active Social History Tobacco Use: Social History Observation Description Date Details (start date - stop date) Current Smoker NA - NA Tobacco Control (Standard) Question Answer Notes Tobacco use: Current smoker Additional Findings: Tobacco user Light cigarett e smoker (1-9 cigs/day) Vital Signs Blood pressure systolic 102 mm Hg 02/22/20 24 Blood pressure diastolic 68 mm Hg 024 Height 68 in 02/22/2024 Weight 148.0 lbs 02/22/2024 BMI 22.5 kg/m2 02/22/2024 Oximetry 100 % 02/22/2024 Encounters Encounter Location Date Provider Diagnosis [facility] - [place] [address] [facility] [address] [place] [address] 02/22/2024 Julissa Moses Relapsing fever, unspecified A68.9 ; Rash and other nonspecific skin eruption R21 and Idiopathic urticaria L50.1 Assessments Encounter Date Diagnosis (ICD Code) Assessment Notes Treatment Notes Treatment Clinical Notes Section Notes 02/22/2024 Relapsing fever, unspecified (ICD-10 - A68.9) [...] for final patch read at 168 hours. 02/22/2024 Idiopathic urticaria (ICD-10 - L50.1) Reported [...] Continue f/u with GI. No eosinophils noted 02/22/2024 Other Plan Of Treatment Treatment Notes Assessment Notes Relapsing fever, unspecified Waxing and waning fever up to 101 [...] - Return as above for patch testing Rash and other nonspecific skin eruption Chronic erythematous rash to general area of [...] for final patch read at 168 hours. Idiopathic urticaria Reported history of hives occurring a few [...] Continue f/u with GI. No eosinophils noted Next Appt Details Follow Up: 4 Days, Reason: P atch Testing: Reading @ 168 hours (1 week) Procedure Notes * Category Sub-Category Detail Notes Patch Testing Patch Testing (Metal Series MET-1000) was performed using the [employer] MET-1000 Metal Series test patch testing delivery system; Positive reactions graded: ; Gold(I)sodium thiosulfate dihydrate; Stannous chloride; Questionable reaction to: ; Vanadium(III) chloride; MANGANESE CHLORIDE; Irritant reaction (IR): ; Mercury; Mohawk(II) chloride hexahydrate ; The patient will follow-up on the following dates for patch test readin02/26/24 Progress Notes * Maximiliano TREVIZOOB:1990 (33 yo F)Acc No.[id number]:02/22/2024 Progress Notes Patient: Aura MATHEWS Provider: WALTER Bobby :1990 A ge:33 Y S ex:Female Date:02/22/2024 Address:[address] [place] [address] [id number] Subjective: * Chief Complaints: * H istory of recurrent rash and pain to the area of her L5-S1 surgical fusion site. Present since 2-3 months after undergoing surgery. Additional history of recurrent fevers and infections since. Here for patch test read #2 at 72 hours.History of hives occurring twice a year with additional lower esophageal and gastric edema seen on EGD. Reports recurrent abdominal swelling without clear trigger. * HPI: * Introduction: I had the pleasure of seeing Faviola Trevizo, a 33 y/o female with history ofhypothyroidism and ADHDreturning for patch test read #2. Aura is alone for today's visit. She reports undergoing L5 S1 spinal fusion in December 2022. Soon after, she reports increased feelings of tiredness with recurrent fever up to 101. This has lead to increased join pains and increased frequency of sickness. She has been on steroids before with some benefit. Also noting the lymph nodes on my face keep swelling up and busting open. She feels this has been in relation to her surgery. She has been on 6 different abx in the past year due to recurrent enlarged lymph nodes. Of note, she does have a breast mass, that is currently being monitored every 6 months. Recent CBC was WNL. She reports titanium was used during said surgery. Since having undergoing spinal fusion, she is now having increased pain and reddish, purplish around the area of surgery. This started approx 2-3 months after surgery. She additionally reports history of hives and stomach ulcers. She reports EGD showing gastric and esophageal edema additionally with reported history of abdominal swelling.Today, she reports no fevers, chills, night sweats or other constitutional symptoms. * ROS: A LLERGY: runny nose N o. s cratchy throat N o. i tchy eyes N o. e ar fullness Y es. s inus congestion N o. P ositive p er the HPI and history, otherwise unremarkable. S PECIAL SENSES: Positve for n one. g laucoma N o. l oss of hearing N o. i tching in ears N o. r inging in ears N o. l oss of balance Y es. l oss of smell N o. d ry eyes Y es. e xcessive tearing N o. i tching eyes N o. l oss of taste N o. e ar infections N o. C ONSTITUTIONAL: weight gain N o. l oss of appetite N o. f ever?Yes. w eakness Y es. w eight loss N o. f atigue Y es. n ight sweats?Yes. P ositive for n one. E NT: cold Y es. c ough N o. e pistaxis N o. h earing loss N o. c hange in voice N o. s ore throat N o. r inging in ears?No. s inus pain N o. P ositive p er the HPI and history, otherwise unremarkable. R ESPIRATORY: shortness of breath N o. c hest pain N o. c hest congestion N o. c ough N o. P ositive p er the HPI and history, otherwise unremakable. O PHTHALMOLOGY: Positive for p er the HPI and history, otherwise unremarkable. s ensitivity to light Y es. E NDOCRINOLOGY: fatigue Y es. p olydipsia Y es. p olyuria Y es. w eight loss N o. s leep disturbance N o. c old intolerance Y es. h eat intolerance N o. d iabetes N o. P ositive for n one. C ARDIOLOGY: palpitations Y es. d izziness Y es. s hortness of breath Y es. P ositive for n one. G ASTROENTEROLOGY: abdominal pain Y es. v omiting Y es. b lood in stool N o. i ndigestion Y es. P ositive for n one. U ROLOGY: frequent urination Y es. P ositive for n one. ? D ERMATOLOGY: rash Y es. m ole Y es. l umps Y es. d ry or sensitive skin N o. h tonny (urticaria) Y es. a cne Y es. s kin cancer?No. P ositive for p er the HPI and history, otherwise unremakable. N EUROLOGY: headache Y es. t ingling numbness N o. s eizures N o. i nsomnia N o. m adryan loss Y es. P ositive for n one. H EMATOLOGY/LYMPH: Positive for n one. M USCULOSKELETAL: joint swelling Y es. j oint pain Y es. l eg cramps Y es. j oint stiffness Y es. s ciatica Y es. o steoporosis N o. f racture Y es. g out N o. P ositive for n one. P SYCHOLOGY: Positive for n one. F EMALE REPRODUCTIVE: heavy periods N o. h ot flashes N o. a bnormal vaginal discharge N o. s exually active Y es. i nfertility N o. f requent yeat infections N o. p elvic pain Y es. b reast pain Y es. n ipple discharge Yes. A re you ? N o. A re you planning on a future pregancy? N o. ? A ll other review of systems per the HPI and history, otherwise unremarkable. * Medical History: * Surgical History: G ASTRIC BYPASS FOR OBESITY DELIVERY Spinal Fusion L5-S1 * Hospitalization/Major Diagno stic Procedure: N o Hospitalization History. * Family History: N o Family History documented.. * Social History: M arital Status What is your marital status? m arried A lcohol Screening Do you ever drink alcoholic beverages? N o S moking Additional Findings: Tobacco User L ight cigarette smoker ((1-9 cigs/day) Are you a : l ight tobacco smoker R ecreational drug use Have you ever used recreational drugs? N o D etails on consumption of certain products? Do you regularly consume products with aspartame; Equal or NutraSweet? N o Do you regularly consume products with artificial coloring??No E xercise What kind(s) of exercise do you perform regularly? w alking How often do you perform this exercise? d aily A re any of the following personal care products containing fragrance, dye or preservatives used regularly? Shampoo: Y es Conditioner: Y es Soap: Y es Laundry Detergent: Y es Fabric Softener: Y es Deodorant: N o O ccupation Are you currenly employed? N o Have you had any job with high exposure to fumes, chemicals, dust or other noxious substances? N o Are you currently a student? N o E nvironmental History Living environment: p rivate home Where is the home located? r ural Age of home: 3 0 How long have you lived there? 5 years or more How many people live in the home? 4 H ome description Basement: Y es Any water damage in basement? N o Smokers in the home? N o Smokers outside the home? Y es Air Conditioning? Y es Central Air? Y es Forced air heating? N o Fireplace? Y es Used how often? w inter months only Wood burning stove? N o Do you vacuum the home? Y es Air purification systems? Y es Is it a HEPA (high-efficiency particulate air filter)? Y es Pillow and mattress dust-proof encasings? N o Do you use a humidifier? N o Do you own any pets? Y es What kind(s)? (click all that apply) d og Where do your pets sleep? o ther room in home Fabric softeners used? N o Plants in the home? Y es How many? 6 Where are they kept? o ther room in home Is there carpeting in your bedroom? Y es Age of carpet? 4 Do you have [id number] carpeting? N o What is the age of your mattress (years)? 5 What material(s) are used to manufacture your bedding and pillow? s ynthetic What is the age of your pillow (years)? 1 What material are your bedding items made of? n atural fiber (e.g. cotton) Do you sleep with quilts or blankets or a duvet? Y es What material? s ynthetic How many dogs? 2 T obacco Control (Standard) Tobacco use: C urrent smoker Additional Findings: Tobacco user L ight cigarette smoker (1-9 cigs/day) * Medications: T akingIron 28 MG Tablet 1 tablet Orally Three times a Week Vitamin D 50 MCG (1999) Tablet 1 tablet Orally Once a day Esomeprazole Magnesium 40 MG Capsule Delayed Release Oral Qelbree 200 MG Capsule Extended Release 24 Hour Oral Amphetamine-Dextroamphetamine 30 MG Tablet Oral Medication List reviewed and reconciled with the patientTaking Iron 28 MG Tablet 1 tablet Orally Three times a Week Taking Vitamin D 50 MCG (1999) Tablet 1 tablet Orally Once a day Taking Esomeprazole Magnesium 40 MG Capsule Delayed Release Oral Taking Qelbree 200 MG Capsule Extended Release 24 Hour Oral Taking Amphetamine-Dextroamphetamine 30 MG Tablet Oral Medication List reviewed and reconciled with the patient * Allergies: Jerri Oliver[Allergies Verified] Objective: * Vitals: B P:102/68mm Hg, HR:73/min, Pulse Oximetry:100%, Ht: 68 in, Wt: 148.0 lbs, BMI:22.5Index. * Examination: G eneral examination: General appearance: p leasant, well-developed, well-nourished, female, i n no apparent distress, speaking in full sentences. HEENT: c onjunctiva are normal bilaterally. Oral cavity: n ormal, no lesions. Breasts : n ot performed. Heart: n ormal, RRR, S1-S2, no murmurs. Neurologic exam: u nremarkable. Skin: n ormal, no visible rash, dermatographism, urticaria, angioedema. Back: n ormal. Extremities: n ormal ROM, no clubbing, no cyanosis, no edema. Genitalia: n ot performed. Assessment: * Assessment: 1. R sayra and other nonspecific skin eruption - R21 (Primary) 2 . R elapsing fever, unspecified - A68.9 3 . I diopathic urticaria - L50.1 Plan: * Treatment: 2. R elapsing fever, unspecified Notes:Waxing and waning fever up to 101 with [...] - Return as above for patch testing 3. I diopathic urticaria Notes: Reported history of hives occurring a few [...] Continue f/u with GI. No eosinophils noted * Procedures: P atch Testing: Patch Testing (Metal Series MET-1000) w as performed using the [employer] MET-1000 Metal Series test patch testing delivery system;Positive reactions graded:; Gold(I)sodium thiosulfate dihydrate; Stannous chloride;Questionable reaction to:; Vanadium(III) chloride; MANGANESE CHLORIDE;Irritant reaction (IR):; Mercury; Mohawk(II) chloride hexahydrate ; The patient will follow-up on the following dates for patch test readin02/26/24. * Procedure Codes: G 8427 DOC MEDS VERIFIED W/PT OR RE * Preventive Medicine: Counseling: E xercise L imit exercise while patch test is secured, Avoid bathing, showering while patch test is secured and after removal during read phase of procedure through 168 hours. M edication instruction: [facility] for side effects of prescribed medications, , Hold oral/topical corticosteroids until after allergen patch testing. P atient education material sent to portal? Y es * Follow Up: 4 Days (Reason: Patch Testing: Reading @ 168 hours (1 week)) * Billing Information: * Visit Code: 33795 Office Visit, Est Pt., Level 3. Modifiers: 25 * Procedure Codes: G8427 DOC MEDS VERIFIED W/PT OR RE. Images * Metal Patch test Read 2 * THETIC ASSISTANT Electronically co-signed by Bharat Duque MD, FAAAAI on 04/14/2024 at 01:31 PM ANESTHETIC ASSISTANT Sign off status: Completed true * Provider: WALTER Bobby Date: 1 04/23/2023 Generated for Jus martinez/Travis/eTransmitting on: 0 06/20/2024 09:50 AM CDT History and Physical Notes * HPI (History of Present Illness) Category Sub-Category Detail Notes Category Not es *Introduction I had the pleasure o f seeing Aura Trevizo, a 33 y/o female with history of hypothyroidism and ADHD returning for patch test read #2. Aura is alone for today's visit. She reports undergoing L5 S1 spinal fusion in December 2022. Soon after, she reports increased feelings of tiredness with recurrent fever up to 101. This has lead to increased join pains and increased frequency of sickness. She has been on steroids before with some benefit. Also noting the lymph nodes on my face keep swelling up and busting open. She feels this has been in relation to her surgery. She has been on 6 different abx in the past year due to recurrent enlarged lymph nodes. Of note, she does have a breast mass, that is currently being monitored every 6 months. Recent CBC was WNL. She reports titanium was used during said surgery. Since having undergoing spinal fusion, she is now having increased pain and reddish, purplish around the area of surgery. This started approx 2-3 months after surgery. She additionally reports history of hives and stomach ulcers. She reports EGD showing gastric and esophageal edema additionally with reported history of abdominal swelling. Today, she reports no fevers, chills, night sweats or other constitutional symptoms Examination Category Sub-Category Detail Notes Category Not es General examination HEENT: conjunctiva are frandy l bilaterally Heart: normal, RRR, S1-S2, no murmurs Extremities: normal ROM, no clubb ing, no cyanosis, no edema General appearance: pleasant, well-devel oped, well-nourished, female, in no apparent distress, speaking in full sentences Skin: normal, no visible r sayra, dermatographism, urticaria, angioedema Neurologic exam: unremarkable Oral cavity: normal, no lesions Breasts : not performed Back: normal Genitalia: not performed
--- OUTSIDE RECORDS SUMMARY | 2024-06-20 09:51 | XMS_ITS | Data Portability ---
Author Organization [facility] [place] Address [address] [address] [place] [address] Care Team Providers Care Third Officer Name Role Phone [facility] Primary Care Provider Assessment Encounter Date Assessment Date Assessment LastModified by Organization Details LastModified Time 05/03/2023 05/03/2023 Annual gynecological exam performed. Patient will come back in a year unless there are new symptoms. [email or web address] Not available 05/03/2023 11:07:32 Plan of Treatment Reminders Order Date Submit Date Provider Last Modified By Organization Details Last Modified Time Details Appointments None recorded. Lab prolactin, serum 2023 024 [facility] (Lab), [address] [facility], [place], [address], 02:36:29 Referral None recorded. Procedures None recorded. Surgeries None recorded. Imaging US, pelvis [email or web address], [address], [address], [place], [address], 4 22:09:54 US, transvagina l [email or web address], [address], [address], [place], [address], 4 22:09:54 US, breast - Right breast lump, located around 9-12 oclock. Breast pain, nipple discharge [address] (Imaging), [address] [facility] [address], [place], [address], 4 13:42:43 MAMMO, diagnostic, digital, bilateral 2023 024 [facility] (Imaging), [address] [facility] [address], [place], [address], 4 15:02:10 US, pelvis [email or web address], [address], [address], [place], [address], 3 20:25:25 US, transvagina l [email or web address], [address], [address], [place], [address], 3 20:25:25 Medication Orders Imvexxy Maintenance Pack 4 mcg vaginal insert [address] [id number], [address] [place], [place], [id number], 4 10:23:21 estradiol 0.025 mg/24 hr semiweekly transdermal patch [address] [id number], [address] [place], [place], [id number], 4 14:19:33 Patient TargetsNo targets recorded. Patient InstructionsNo instructions recorded. Reason for Referral None Reported. Results Created Date Observation Date Name Description Value Unit Range Abnormal Flag Note LastModifiedBy Organization Detail LastModifiedTime 06/14/1906/13/2022 CULTU RE: AEROB IC/AN AEROB IC culture: aerobic/anae robic CANCEL LED Reord ered Not Available [facility] (Lab) [address], [place], [address], 06/14/2022 07:57:53 06/14/19 23 06/13/2022 CULTU RE: GENIT AL result report SEE RESULT S BELOW Test: Cultu re: Genit al Speci men Sourc e: Vagin a Speci men Type: Swab Speci men Date: 023 4:22 PM Resul t Date: 2022 6:42 PM Resul t Statu s: Final resul t Resul ting Lab: [facility] [address] [facility] [address] Tel: CULTU RE ----- ----- ----- --- No Neiss eria gonor rhoea e isola emreson Light Growt h Leila l Vagin al Karine STAIN ----- ----- ----- --- Leila l vagin al karine negat keron for bacte rial vagin osis Not Available [facility] (Lab) [address] [facility], [place], [address], 06/17/2022 19:45:41 06/14/19 23 06/13/2022 CULTU RE: URINE result report SEE RESULT S BELOW Test: Cultu re: Urine Speci men Sourc e: Urine Voide d Speci men Type: Urine Speci men Date: 023 4:22 PM Resul t Date: 023 5:51 AM Resul t Statu s: Final resul t Abnor mal: No Resul ting Lab: [facility] [address] [facility] [address] Tel: CULTU RE ----- ----- ----- --- No growt h in 1 day (dete ction level of 10,00 0 colon ies / ml.) Not Available [facility] (Lab) [address] [facility], [place], [address], 06/17/2022 19:45:41 06/14/19 23 06/13/2022 urina lysis , dipst ick Leukocytes +3 Not Available Jose españa [address], [place], [address], 06/13/2022 16:06:01 06/14/19 23 06/13/2022 urina lysis , dipst ick Blood +++ Not Available [facility] [address], [place], [address], 06/13/2022 16:06:01 05/11/19 24 05/11/2023 FSH, LH, ESTRA DIOL estradiol 72.4 pg/mL This assay was perfo rmed using [employer] reage nts and test kits. Value s obtai cathy with other assay metho ds or kits canno t be used inter lazo eay . Femal e Estra diol Range s: Folli cular phase 12.4- 233 pg/mL Ovula tion phase 41.0- 398 pg/mL Lutea l phase 22.3- 341 pg/mL Postm enopa usal< 5-138 pg/mL Healt hy Pregn ant Women 1st Trime ster1 54-32 43 pg/mL 2nd Trime ster1 561-2 1280 pg/mL 3rd Trime ster8 525-> 87200 pg/mL Not Available [facility] (Lab) [address] [place], [address], 05/12/2023 06:58:38 05/11/19 24 05/11/2023 FSH, LH, ESTRA DIOL FSH 4.2 mIU/m L This assay was perfo rmed using [employer] reage nts and test kits. Value s obtai cathy with other assay metho ds or kits canno t be used inter lazo eably . Femal es Folli cular : 3.5-1 2.5 mIU/m L Ovula tion: 4.7-2 1.5 mIU/m L Lutea l: 1.7-7 .7 mIU/m L Postm enopa use: 25.8- 134.8 mIU/m L Not Available [facility] (Lab) [address] [place], [address], 05/12/2023 06:58:38 05/11/19 24 05/11/2023 FSH, LH, ESTRA DIOL LH 5.1 mIU/m L This assay was perfo rmed using [employer] reage nts and test kits. Value s obtai cathy with other assay metho ds or kits canno t be used [facility] . Femal es Mid-F ollic ular: 2.4-1 2.6 mIU/m L Mid-C ycle: 14.0- 95.6 mIU/m L Mid-L uteal : 1.0-1 1.4 mIU/m L Postm enopa use: 7.7-5 8.5 mIU/m L Not Available [facility] (Lab) [address] [facility], [place], [address], 05/12/2023 06:58:38 08/21/19 24 08/21/2023 PROLA CTIN prolactin, total 13.60 NG/mL 4.79-2 3.30 This assay was perfo rmed using [employer] reage nts and test kits. Value s obtai cathy with other assay metho ds or kits canno t be used [facility] . Not Available [facility] (Lab) [address] [facility], [place], [address], 08/22/2023 02:36:29 06/14/19 23 06/13/2022 US, pelvi s No observ ation record ed. [email or web address] [facility] [address] [facility] [address], [place], [address], 06/13/2022 18:20:46 06/14/19 23 06/13/2022 US, trans vagin al No observ ation record ed. [email or web address] [facility] [address] [facility] [address], [place], [address], 06/13/2022 18:20:35 06/14/19 23 06/13/2022 US, pelvi s No observ ation record ed. [email or web address] [address], [place], [address], 06/13/2022 21:26:14 07/08/19 23 07/07/2022 US, pelvi s No observ ation record ed. [email or web address] [address], [place], [address], 05/03/2023 11:47:24 07/08/19 23 07/07/2022 US, pelvi s No observ ation record ed. [email or web address] [facility] [address], [place], [address], 05/03/2023 11:47:24 07/08/19 23 07/07/2022 US, trans vagin al No observ ation record ed. [email or web address] [facility] [address], [place], [address], 05/03/2023 11:47:24 08/25/19 24 08/24/2023 MAMMO , diagn ostic , digit al, bilat eral No observ ation record ed. [facility] [address], [place], [address], 08/31/2023 11:30:59 10/05/19 24 10/05/2023 US, pelvi s No observ ation record ed. [email or web address] [facility] [address], [place], [address], 10/05/2023 18:17:09 10/05/19 24 10/05/2023 US, trans vagin al No observ ation record ed. [email or web address] [facility] [address], [place], [address], 10/05/2023 18:16:59 10/05/19 24 10/05/2023 US, pelvi s No observ ation record ed. [email or web address] [address], [place], [address], 10/05/2023 22:42:35 Result Notes None recorded. Procedures Surgical History Date Name Laterality Status Provider Name and Address Organization Details Recorded Time 01/03/20 23 procedure on back completed Alice Yee [facility] 05/03/2023 11:16:38 06/01/19 23 ROBOTIC ASSISTED HYSTERECTOMY WITH SALPINGECTOMY (SURG) completed Alva Neff [facility] 06/02/2022 10:15:42 08/25/19 21 Endometrial Ablation with Hysteroscopy completed Arash Steve MD [address], [place], [address], [facility] 08/24/2020 17:18:53 08/25/19 21 hysteroscopy with endometrial ablation completed Hailey Fletcher [facility] 09/03/2020 14:38:56 07/08/19 21 Date of Last Pap Smear completed Hailey Fletcher [facility] 05/05/2022 09:38:24 04/10/19 21 completed Brenda Regalado [facility] 01/21/2022 15:12:36 09/09/19 19 abdominoplasty completed [facility] 07/02/2020 11:27:20 06/09/19 18 Gastric Bypass completed [facility] 07/02/2020 11:38:27 02/20/20 15 delivery completed [facility] 07/02/2020 11:27:00 Imaging Results Imaging Date Name Status LastModified by Organization Details LastModified Time 06/13/2022 US, pelvis completed [email or web address] [facility] [address], [place], [address], 06/13/2022 18:20:46 06/13/2022 US, transvaginal completed [email or web address] [place] [address], [place], [address], 06/13/2022 18:20:35 06/13/2022 US, pelvis completed [email or web address] [address], [place], [address], 06/13/2022 21:26:14 07/07/2022 US, pelvis completed [email or web address] [address], [place], [address], 05/03/2023 11:47:24 07/07/2022 US, pelvis completed [email or web address] [facility] [address], [place], [address], 05/03/2023 11:47:24 07/07/2022 US, transvaginal completed [email or web address] [place] [address], [place], [address], 05/03/2023 11:47:24 08/24/2023 MAMMO, diagnostic, digital, bilateral completed [facility] [address], [place], [address], 08/31/2023 11:30:59 10/05/2023 US, pelvis completed [email or web address] [facility] [address], [place], [address], 10/05/2023 18:17:09 10/05/2023 US, transvaginal completed [email or web address] [place] [address], [place], [address], 10/05/2023 18:16:59 10/05/2023 US, pelvis completed [email or web address] [address], [place], [address], 10/05/2023 22:42:35 Procedure Notes None recorded. Medical Equipment None Reported. Allergies Allergen ID Allergen Name Allergen Category Reaction Reaction Severity Criticality Documentation Date Start Date Code Code System Note Provider Name and Address Organization Details Recorded Time 62837 Non-stero idal anti-infl ammatory agent (product) medicatio n Not available Not available Not available 07/02/2020 18025 005 SNOMED [facility] 11:31:04 Medications Name Sig Start Date Stop Date Status Note LastModified by Organization Details LastModified Time Hydromet 5 mg-1.5 mg/5 mL oral syrup TAKE 5 ML BY MOUTH EVERY 4 HOURS 05/03 completed Not Available Not Available Not Available quetiapine 25 mg tablet TAKE 1 TABLET BY MOUTH EVERY DAY AT BEDTIME 05/03 completed Not Available Not Available Not Available cyclobenzap rine 10 mg tablet TAKE 1 TABLET BY MOUTH THREE TIMES DAILY NEEDED FOR MUSCLE SPASM 08/20 completed Not Available Not Available Not Available methocarbam ol 500 mg tablet TAKE 1 TABLET BY MOUTH THREE TIMES DAILY FOR 10 DAYS 05/03 completed Not Available Not Available Not Available promethazin e-DM 6.25 mg-15 mg/5 mL oral syrup TAKE 5 ML BY MOUTH EVERY 4 HOURS NEEDED FOR COUGH 08/20 completed Not Available Not Available Not Available venlafaxine ER 37.5 mg capsule,ext ended release 24 hr 07/07 completed Not Available Not Available Not Available venlafaxine ER 75 mg capsule,ext ended release 24 hr TK 1 C PO QD WF 07/07 completed Not Available Not Available Not Available nicotine 14 mg/24 hr daily transdermal patch APPLY 1 PATCH TOPICALLY TO THE SKIN EVERY DAY FOR 14 DAYS DIRECTED 10/14 completed Not Available Not Available Not Available clindamycin HCl 300 mg capsule Take 1 capsule twice a day by oral route for 7 days. 01/21 completed Not Available Not Available Not Available trazodone 50 mg tablet TAKE 1 TABLET BY MOUTH EVERY DAY AT BEDTIME 10/14 completed Not Available Not Available Not Available ibuprofen 800 mg tablet Take 1 tablet 2 hours before the procedure . 08/13 completed Not Available Not Available Not Available alprazolam 1 mg tablet 08/13 completed Not Available Not Available Not Available fluconazole 150 mg tablet TAKE 1 TABLET BY MOUTH EVERY DAY FOR 1 DAY 05/03 completed Not Available Not Available Not Available benzonatate 200 mg capsule 08/20 completed Not Available Not Available Not Available hydrocodone 5 mg-acetamin ophen 325 mg tablet TAKE 1 TABLET BY MOUTH EVERY 4 TO 6 HOURS NEEDED FOR PAIN 08/20 completed Not Available Not Available Not Available ondansetron HCl 8 mg tablet Take 1 tablet 2 hours before the procedure . 08/13 completed Not Available Not Available Not Available fluconazole 200 mg tablet TAKE 1 TABLET BY MOUTH EVERY OTHER DAY FOR 3 DOSES 01/21 completed Not Available Not Available Not Available Restoril 15 mg capsule Take 1 capsule every day by oral route at bedtime. 09/03 completed Not Available Not Available Not Available sucralfate 1 gram tablet TAKE 1 TABLET BY MOUTH THREE TIMES DAILY active Not Available Not Available No t Available prednisone 20 mg tablet active Not Available Not Available Not Available dextroamphe tamine-amph etamine 10 mg tablet TAKE 1 TABLET BY MOUTH TWICE DAILY 05/03 completed Not Available Not Available Not Available spironolact one 100 mg tablet TAKE 1 TABLET BY MOUTH EVERY DAY 05/03 completed Not Available Not Available Not Available metronidazo le 500 mg tablet TAKE 1 TABLET BY MOUTH EVERY 12 HOURS 05/03 completed Not Available Not Available Not Available hydroxyzine HCl 50 mg tablet 08/13 completed Not Available Not Available Not Available acetaminoph en 300 mg-codeine 30 mg tablet TAKE 2 TABLETS BY MOUTH EVERY 6 HOURS NEEDED 08/20 completed Not Available Not Available Not Available estradiol 0.05 mg/24 hr semiweekly transdermal patch APPLY 1 PATCH TOPICALLY TO THE SKIN 2 TIMES A WEEK DIRECTED active Not Available Not Available No t Available sulfamethox azole 800 mg-trimetho prim 160 mg tablet TAKE 1 TABLET BY MOUTH TWICE DAILY FOR 3 DAYS 10/14 completed Not Available Not Available Not Available hydrocodone 10 mg-acetamin ophen 325 mg tablet TAKE 1 TABLET BY MOUTH EVERY 4 HOURS NEEDED FOR PAIN FOR 3 DAYS 05/03 completed Not Available Not Available Not Available acetaminoph en 500 mg tablet TAKE 2 TABLETS BY MOUTH EVERY 6 HOURS NEEDED FOR PAIN 10/14 completed Not Available Not Available Not Available ondansetron 8 mg disintegrat ing tablet DISSOLVE 1 TABLET ON THE TONGUE TWICE DAILY FOR 5 DAYS 05/03 completed Not Available Not Available Not Available disulfiram 250 mg tablet TAKE 1 TABLET BY MOUTH EVERY DAY 05/03 completed Not Available Not Available Not Available dextroamphe tamine-amph etamine 30 mg tablet TAKE 1 TABLET BY MOUTH TWICE A DAY active Not Available Not Available No t Available oxycodone-a cetaminophe n 5 mg-325 mg tablet TAKE 1 TO 2 TABLETS BY MOUTH EVERY 4 HOURS NEEDED 01/21 completed Not Available Not Available Not Available alprazolam 0.5 mg tablet TAKE 1 TABLET BY MOUTH FOUR TIMES DAILY NEEDED 05/03 completed Not Available Not Available Not Available famotidine 20 mg tablet TAKE 1 TABLET BY MOUTH TWICE DAILY NEEDED FOR HEARTBURN 10/14 completed Not Available Not Available Not Available methocarbam ol 750 mg tablet TAKE 1 TABLET BY MOUTH EVERY 6 HOURS 10/14 completed Not Available Not Available Not Available oxycodone-a cetaminophe n 10 mg-325 mg tablet TAKE 1 TABLET BY MOUTH EVERY 4 HOURS NEEDED FOR SEVERE PAIN 05/03 completed Not Available Not Available Not Available lorazepam 2 mg tablet TAKE 1 TABLET BY MOUTH THE NIGHT BEFORE AND 1 HOUR BEFORE PROCEDURE 08/20 completed Not Available Not Available Not Available diazepam 2 mg tablet TAKE 1 TABLET BY MOUTH THREE TIMES DAILY FOR 3 DAYS NEEDED FOR MUSCLE SPASM 05/03 completed Not Available Not Available Not Available cephalexin 500 mg capsule TAKE 1 CAPSULE BY MOUTH EVERY 6 HOURS UNTIL GONE 08/20 completed Not Available Not Available Not Available pantoprazol e 40 mg tablet,jannette yed release TAKE 1 TABLET BY MOUTH TWICE DAILY 01/21 completed Not Available Not Available Not Available cyanocobala min (vit B-12) 1,000 mcg/mL injection solution INJECT 1ML INTO MUSCLE EVERY 30 DAYS 08/20 completed Not Available Not Available Not Available esomeprazol e magnesium 40 mg capsule,del ayed release TAKE 1 CAPSULE BY MOUTH TWICE DAILY active Not Available Not Available No t Available neomycin-po lymyxin-dex ameth 3.5 mg/mL-10,00 0 unit/mL-0.1 % eye drops SHAKE LIQUID AND INSTILL 1 DROP IN EACH EYE EVERY 6 HOURS FOR 7 DAYS 05/03 completed Not Available Not Available Not Available dextroamphe tamine-amph etamine 20 mg tablet TAKE 1 TABLET BY MOUTH TWICE DAILY 08/20 completed Not Available Not Available Not Available dextroamphe tamine-amph etamine 15 mg tablet TAKE 1 TABLET BY MOUTH TWICE DAILY 08/20 completed Not Available Not Available Not Available omeprazole 20 mg capsule,del ayed release 07/07 completed Not Available Not Available Not Available dextroamphe tamine-amph etamine ER 10 mg 24hr capsule,ext end release TAKE 1 CAPSULE BY MOUTH EVERY DAY IN THE MORNING 05/03 completed Not Available Not Available Not Available metoprolol succinate ER 25 mg tablet,exte nded release 24 hr TAKE 1 TABLET BY MOUTH EVERY NIGHT 10/14 completed Not Available Not Available Not Available lorazepam 1 mg tablet active Not Available Not Available No t Available levofloxaci n 500 mg tablet TAKE 1 TABLET BY MOUTH EVERY 24 HOURS 05/03 completed Not Available Not Available Not Available methylpredn isolone 4 mg tablets in a dose pack FOLLOW PACKAGE DIRECTION S 05/03 completed Not Available Not Available Not Available albuterol sulfate HFA 90 mcg/actuati on aerosol inhaler INHALE 1-2 PUFFS EVERY 4 HOURS NEEDED FOR SHORTNESS OF BREATH 08/20 completed Not Available Not Available Not Available ketorolac 60 mg/2 mL intramuscul ar solution INJECT 2 ML INTRAMUSC ULARLY DIRECTED ONCE 05/03 completed Not Available Not Available Not Available celecoxib 100 mg capsule TAKE 1 CAPSULE BY MOUTH TWICE DAILY WITH MEALS 08/20 completed Not Available Not Available Not Available ondansetron 4 mg disintegrat ing tablet 07/07 completed Not Available Not Available Not Available lamotrigine 100 mg tablet TAKE 1 TABLET BY MOUTH ONCE DAILY active Not Available Not Available No t Available dextroamphe tamine-amph etamine 5 mg tablet TAKE 1 TABLET ORALLY ONCE DAILY AT 3 PM 05/03 completed Not Available Not Available Not Available diazepam 5 mg tablet 08/13 completed Not Available Not Available Not Available amoxicillin 875 mg-potassiu m clavulanate 125 mg tablet TAKE 1 TABLET BY MOUTH TWICE DAILY FOR 10 DAYS active Not Available Not Available No t Available aripiprazol e 10 mg tablet TAKE 1 TABLET BY MOUTH EVERY DAY AT BEDTIME FOR 14 DAYS 10/14 completed Not Available Not Available Not Available aripiprazol e 15 mg tablet TAKE 1 TABLET BY MOUTH EVERY DAY AT BEDTIME 10/14 completed Not Available Not Available Not Available atomoxetine 40 mg capsule TAKE 1 CAPSULE BY MOUTH EVERY DAY IN THE MORNING 05/03 completed Not Available Not Available Not Available cyclobenzap rine 5 mg tablet 05/03 completed Not Available Not Available Not Available aripiprazol e 5 mg tablet TAKE 1 TABLET BY MOUTH EVERY DAY AT BEDTIME FOR 7 DAYS 10/14 completed Not Available Not Available Not Available bupropion HCl XL 150 mg 24 hr tablet, extended release TAKE 1 TABLET BY MOUTH EVERY DAY IN THE MORNING 10/14 completed Not Available Not Available Not Available metoprolol tartrate 25 mg tablet TAKE 1/2 TABLET BY MOUTH TWICE A DAY 07/07 completed Not Available Not Available Not Available hydrocodone 7.5 mg-acetamin ophen 325 mg/15 mL oral solution TAKE 5 ML BY MOUTH EVERY 4 TO 6 HOURS NEEDED FOR PAIN 08/20 completed Not Available Not Available Not Available nitrofurant oin monohydrate /macrocryst als 100 mg capsule TAKE 1 CAPSULE BY MOUTH EVERY 12 HOURS WITH MEALS FOR 7 DAYS 05/03 completed Not Available Not Available Not Available duloxetine 30 mg capsule,del ayed release TAKE 1 CAPSULE BY MOUTH TWICE DAILY 05/03 completed Not Available Not Available Not Available duloxetine 60 mg capsule,del ayed release TAKE 1 CAPSULE BY MOUTH TWICE DAILY 05/03 completed Not Available Not Available Not Available alprazolam 10/14 completed Not Available Not Available Not Available metoprolol succinate 07/07 completed Not Available Not Available Not Available varenicline tartrate 0.5 mg (11)-1 mg (42) tablets in a dose pack TAKE DIRECTED PER PACKAGE INSTRUCTI ONS. TRY TO QUIT SMOKING AFTER 1 WEEK. active Not Available Not Available No t Available quetiapine 50 mg tablet TAKE 1 TABLET BY MOUTH EVERY DAY AT BEDTIME 01/21 completed Not Available Not Available Not Available paliperidon e ER 6 mg tablet,exte nded release 24 hr TAKE 1 TABLET BY MOUTH EVERY DAY 10/14 completed Not Available Not Available Not Available lisdexamfet amine 50 mg capsule 05/03 completed Not Available Not Available Not Available cholecalcif mir (vitamin D3) 1,250 mcg (50,000 unit) capsule TAKE 1 CAPSULE BY MOUTH ONCE A WEEK active Not Available Not Available No t Available lisdexamfet amine 30 mg capsule TAKE 1 CAPSULE BY MOUTH EVERY DAY IN THE MORNING 05/03 completed Not Available Not Available Not Available FeroSul 325 mg (65 mg iron) tablet TK 1 T PO D WITH SRUTHI 08/13 completed Not Available Not Available Not Available cyclobenzap rine ER 30 mg capsule,ext ended release 24 hr TAKE 1 CAPSULE BY MOUTH DAILY NEEDED active Not Available Not Available No t Available oxycodone 10 mg tablet TAKE 1 TABLET BY MOUTH EVERY 6 HOURS NEEDED 10/14 completed Not Available Not Available Not Available lamotrigine 25 mg disintegrat ing tablet 05/03 completed Not Available Not Available Not Available lamotrigine 100 mg disintegrat ing tablet DISSOLVE 1 TABLET ON THE TONGUE ONCE DAILY 08/20 completed Not Available Not Available Not Available lamotrigine 50 mg disintegrat ing tablet 05/03 completed Not Available Not Available Not Available Latuda 40 mg tablet Take 1 tablet every day by oral route. 10/14 completed Not Available Not Available Not Available Latuda 80 mg tablet 10/14 completed Not Available Not Available Not Available Eclipse Syringe 3 mL 25 gauge x 1 USE FOR B12 INJECTION S 05/03 completed Not Available Not Available Not Available Latuda 60 mg tablet 10/14 completed Not Available Not Available Not Available Trintellix 5 mg tablet TAKE 1 TABLET BY MOUTH EVERY DAY 05/03 completed Not Available Not Available Not Available Trintellix 10 mg tablet TAKE 1 TABLET BY MOUTH EVERY DAY 05/03 completed Not Available Not Available Not Available lisdexamfet amine 50 mg chewable tablet TAKE 1 BY MOUTH ONCE DAILY IN THE MORNING 08/20 completed Not Available Not Available Not Available Imvexxy Maintenance Pack 4 mcg vaginal insert Insert 1 vaginal insert twice a week by vaginal route as directed for 30 days. 08/20 completed Not Available Not Available Not Available ID NOW COVID-19 Test Kit TEST DIRECTED 10/14 completed Not Available Not Available Not Available Lyllana 0.025 mg/24 hr transdermal patch APPLY 1 PATCH TOPICALLY TO THE SKIN 2 TIMES A WEEK DIRECTED 06/12 completed Not Available Not Available Not Available Vitals Date Recorded Body height Body mass index (BMI) Body weight Systolic blood pressure Diastolic blood pressure Provider Name and Address Organization Details Last Updated DateTime 05/03/2023 170.18 cm 20.7 kg/m2 26490.19 g 116 mm[Hg] 74 mm[Hg] Alice Joselito [facility] 4 11:10:22 Date Recorded Body height Body mass index (BMI) Body weight Systolic blood pressure Diastolic blood pressure Provider Name and Address Organization Details Last Updated DateTime 08/21/2023 170.18 cm 20.7 kg/m2 02399.19 g 103 mm[Hg] 65 mm[Hg] Pricila Shiva [facility] 4 10:19:34 Social History Question Answer Notes LastModified by Organizat ion Details LastModified Time Tobacco Smoking Status Current Every Day Smoker Brenda Fab[facility] [facility] 01/21/2022 15:12:42 Do You Have An Advance Directive? No Information n ot available 01/21/2022 What Is Your Level Of Alcohol Consumption? None Information not available 07/02/2020 Are You Blind Or Do You Have Difficulty Seeing? No Information n ot available 01/21/2022 What Is Your Level Of Caffeine Consumption? Heavy Information not available 01/21/2022 How Much Tobacco Do You Chew? None Information not available 01/21/2022 In The 14 Days Before Symptom Onset, Have You Had Close Contact With A Laboratory-confirm ed COVID-19 While That Case Was Ill? No Information n ot available 01/21/2022 In The 14 Days Before Symptom Onset, Have You Had Close Contact With A Person Who Is Under Investigation For COVID-19 While That Person Was Ill? No Information not available 01/21/2022 Have You Been To An Area Known To Be High Risk For COVID-19? No Information not available 01/21/2022 Are You Deaf Or Do You Have Serious Difficulty Hearing? No Information not available 01/21/2022 What Type Of Diet Are You Following? REGULAR Information n ot available 01/21/2022 What Is The Highest Grade Or Level Of School You Have Completed Or The Highest Degree You Have Received? [id number] Information not available 01/21/2022 Are There Any Guns Present In Your Home? No Information not available 01/21/2022 Do You Use Protection During Sex? No Information not available 01/21/2022 Do You Use Your Seat Belt Or Car Seat Routinely? Yes Information not available 01/21/2022 Do You Have Smoke And Carbon Monoxide Detectors In Your Home? Yes Information not available 01/21/2022 At What Age Did You Start Smoking Tobacco? 11 Information not available 01/21/2022 How Much Tobacco Do You Smoke? 1 PPD Information not available 01/21/2022 Do You Feel Stressed (tense, Restless, Nervous, Or Anxious, Or Unable To Sleep At Night)? [id number] Information not available 01/21/2022 Do You Use Any Illicit Or Recreational Drugs? No Information not available 07/02/2020 Do You Use Sunscreen Routinely? Yes Information not available 01/21/2022 Has Tobacco Cessation Counseling Been Provided? No Information not available 01/21/2022 How Many Years Have You Smoked Tobacco? 28 Information not available 01/21/2022 Have You Used IV Drugs? No Information not available 01/21/2022 Do You Or Have You Ever Used Any Other Forms Of Tobacco Or Nicotine? No Information not available 01/21/2022 Sex: Unknown Functional Status Question Answer Note LastModified by Organizat ion Details LastModified Time Are you able to walk? YESWOREST Information not available 01/21/2022 What is your exercise level? Occasional Information not available 01/21/2022 Mental Status None recorded. Family History Relationship Description Onset Age of this Age Resolved Age Notes LastModified by Organization Details LastModified Time Mother Anemia [email or web address] Not available 11:41:49 Mother Carcinoma of uterine cervix, invasive Not available 2021 12:55:26 Mother Hypercholest erolemia smcaley Not available 2020 11:43:15 Mother Hypertensive disorder smcaley Not available 2020 11:43:27 Mother Cyst of ovary Not available 2021 12:55:26 Mother Mental disorder smcaley Not available 2020 11:44:41 Maternal Grandmother Carcinoma of uterine cervix, invasive Not available 2021 12:55:26 Maternal Grandmother Heart disease smcaley Not available 2020 11:43:05 Maternal Grandmother Hypertensive disorder smcaley Not available 2020 11:43:27 Maternal Grandmother Suspected ovarian cancer Not available 2021 12:55:26 Maternal Grandmother Cyst of ovary Not available 2021 12:55:26 Maternal Grandmother Mental disorder smcaley Not available 2020 11:44:41 Sister Carcinoma of uterine cervix, invasive Not available 2021 12:55:26 Sister Cyst of ovary Not available 2021 12:55:26 Maternal Aunt Carcinoma of uterine cervix, invasive Not available 2021 12:55:26 Maternal Aunt Cyst of ovary Not available 2021 12:55:26 Father Carcinoma in situ of colon Not available 2021 12:55:26 Brother Seizure disorder Not available 2021 12:55:26 Medical History Condition Response Allergies (Food, seasonal, environmental ) N Other N Breast Cancer N Drug/Latex Allergies/Reactions N Blood Transfusion N Dermatologic Disorders N Lung Disease N Defects or Inherited Disease N Breast Problem N Gestational Diabetes N Hematologic disorders N Anesthesia Complications N History of STI N Deep Vein Thrombosis N Polycystic ovary syndrome Y Anxiety Disorder N Autoimmune disease N Arthritis N Infertility N Polyps N Acid Reflux (GERD) N History of abnormal pap N Cancer N Stroke N Varicosities N Neurologic/Epilepsy N Endometriosis N High Cholesterol N Headaches N Fibromyalgia N Kidney Disease N Heart Problems Y Kidney or Bladder Problems N Thyroid Problems Y GI Problems N Eating Disorder N Anemia Y Art (IVF or FET) N Psychiatric Illness Y Ovarian Cancer N Diabetes N Pulmonary (TB, Asthma) N Hepatitis/Liver Disease N No Past Medical History N Eczema N Urinary Tract Infection N Abuse/Domestic Violence N Asthma N Trauma/Violence N Depression/ depression N Heart Disease N Pre-Eclampsia N Hypertension N Osteoporosis N Thrombophilias N Gynecological History Statement/Question Response Date of Last Mammogram Date of LMP 10/13/2021 N Was last menstrual period normal N STIs/STDs N Date of Last Colonoscopy Desired Control Method Sterilizati on Abnormal Pap N On BCP's at Conception? N HPV Vaccine N Colposcopy Current Control Method Hysterectom y Age at First Child 17 Are cycles usually normal N Sexually Active? Y Menses Monthly N Date of DEXA bone scan Age of first menstrual cycle 10 Date of Last Pap Smear 07/07/2020 Sexual Problems? N LMP Approximate 04/10/2020 N 04/10/2007 Obstetrics History GPAL:G 3 P 0 0 1 2 Type Value Spontaneous 1 Living 2 Total 3 Immunizations Vaccine Type Date Status Note Provider Nam e and Address Organization Details Recorded Time COVID-19, mRNA, LNP-S, PF, 30 mcg/0.3 mL dose 11/05/2020 completed Brenda [facility] 10/26/2021 14:59:36 Past Encounters Encounter ID Performer Location Encounter Start Date Encounter Closed Date Diagnosis/Indication Diagnosis SNOMED-CT Code Diagnosis ICD10 Code Diagnosis Note [id number] Arash Steve MD [facility] [address] [address] 07/02/2020 11:12:55 07/02/2020 12:08:48 Menorrhagia [id number] N92.0 patient is a 28-year-ol d female with abnormal uterine bleeding and menorrhagi a. She has bled a great deal. She was in emergency department for bleeding. We talked about evaluation of abnormal uterine bleeding and menorrhagi a. Obtain PCOS labs and a pelvic ultrasound . We talked about the various treatments of abnormal uterine bleeding menorrhagi a. Patient has some medical concerns that prohibit the use various hormone contracept keron options. We spent a significan t amount time discussing these very complex issues. This is a new problem with unknown prognosis. patient was treated with progestero ne only control pills to try to control her bleeding. She was given a packet of slynd Dysmenorrhea [id number] N 94.6 [id number] Arash Steve MD [facility] [address] [address] 07/02/2020 12:24:26 07/02/2020 14:24:47 Abnormal uterine bleeding [id number] 9100 N93.9 Menorrhagia [id number] N9 2.0 patient is a 28-year-ol d female with abnormal uterine bleeding and menorrhagi a. She has bled a great deal. She was in emergency department for bleeding. We talked about evaluation of abnormal uterine bleeding and menorrhagi a. Obtain PCOS labs and a pelvic ultrasound . We talked about the various treatments of abnormal uterine bleeding menorrhagi a. Patient has some medical concerns that prohibit the use various hormone contracept keron options. We spent a significan t amount time discussing these very complex issues. This is a new problem with unknown prognosis. [id number] Deneen Regalado [facility] [address] [address] 07/06/2020 15:55:33 07/06/2020 16:30:06 Menorrhagia [id number] N92.0 R10.2 N93.9 patient is a 28-year-ol d female with abnormal uterine bleeding and menorrhagi a. She has bled a great deal. She was in emergency department for bleeding. We talked about evaluation of abnormal uterine bleeding and menorrhagi a. Obtain PCOS labs and a pelvic ultrasound . We talked about the various treatments of abnormal uterine bleeding menorrhagi a. Patient has some medical concerns that prohibit the use various hormone contracept keron options. We spent a significan t amount time discussing these very complex issues. This is a new problem with unknown prognosis. [id number] Arash Steve MD [facility] [address] [address] 07/07/2020 16:06:32 07/07/2020 17:35:58 Menorrhagia [id number] N92.0 R10.2 N93.9 Patient is a 30-year-ol d female who presents for follow-up on severe menorrhagi a and irregular bleeding. Patient had a comprehens keron laboratory and ultrasound evaluation . She does have an elevated DHEA-S. Patient is likely polycystic ovarian syndrome patient. We discussed treatment options. Patient has psychiatri c issues and has severe psychiatri c side effects from the use of combined oral contracept keron pills. Talked about progestero ne only treatments . But, the patient like definitive treatment for her bleeding that is prolonged. The patient has severe iron deficiency due to an absorption issue. 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 her menorrhagi a is making the iron deficiency worse. Her hematologi st has recommende d hysterecto my or ablation. We discussed ablation today. We reviewed An informatio nal video. We talked about the limited recovery and the absence of postop pain associated with the ablation. We agreed to proceed with ablation. We talked about safety and minimally invasive nature. We spent a great deal of time talking about multiple complex issues include positive ovarian syndrome a, anemia, menorrhagi a, treatments , risks versus benefit of treatments . A treatment plan. Additional precaution alvaro measures were taken to minimize potential exposure to the Covid-19 virus during this patient s visit, including available hand security assessor upon arrive, temperatur e check and being asked a series of screening questions. All staff wore face coverings during this encounter, as well as provided additional cleaning and sanitizing of all surfaces, including countertop s, pens, chairs, door handles, light switches, etc, prior to and following the patient s visit. [id number] Arash Steve MD [facility] [address] [address] 08/24/2020 14:04:38 08/24/2020 17:23:44 Menorrhagia [id number] N92.0 R10.2 N93.9 endometria l ablation was performed without complicati ons. She tolerated it well. [id number] Arash Steve MD [facility] [address] [address] 09/03/2020 14:25:17 09/03/2020 15:08:37 Female hirsutism [id number] L68.0 Menorrhagia [id number] N9 2.0 R10.2 N93.9 This patient is a 30-year-ol d female presents Follow-up on menorrhagi a. She underwent endometria l ablation. She is recovering normally. She recently had pneumonia. We talked about hirsutism today. We agreed to start spironolac tone. We discussed metformin. We discussed her elevated androgens. She will begin spironolac tone. [id number] Brenda Regalado [facility] [address] [address] 10/14/2021 17:14:36 10/18/2021 16:01:14 Pain in pelvis [id number] R10.2 Today we agreed to have STAT US set up for tomorrow morning at [facility] as our tech's have no appts times available. Rx Percocet approved per Dr. Steve given, copy made. Time spent in visit is a total of 25 mins with at least 50% of visit consisting of counseling and review of plan of care. Patient is to contact office or go to nearest ED/Urgent care if fever >/= 100.1, pain, excessive bleeding, unusual drainage or swelling in area of concern; or experienci ng worsening sx's or new onset of concerning sx's. Understand ing verbalized . All questions answered to patient satisfacti on. Female hirsutism [id number] L68.0 Agreed to update labs for hirsutism and low libido.RF Spironolac tone sent [id number] Laura Debi [facility] [address] [address] 10/15/2021 17:28:54 10/18/2021 14:55:32 Pain in pelvis [id number] R10.2 [id number] [facility] [address] [address] 10/26/2021 14:40:53 10/26/2021 15:44:15 Pain in pelvis [id number] R10.2 Today we agreed to update US TVUS for this issue while she is having sx's.If we do not feel this is [employer] related we need to consider CT scan to evaluate further body systems that may be contributi ng to this issue. Toradol injection was given for pain today as she is unable to take oral NSAIDS.Jill d to consider updated STD screening as well especially if TVUS is wnl. Time spent in visit is a total of 22 mins with at least 50% of visit consisting of counseling and review of plan of care. [id number] Laura Carrera [facility] [address],[place] [address] 10/26/2021 15:06:57 10/26/2021 15:56:38 Pain in pelvis [id number] R10.2 [id number] [facility] [address],[place] [address] 12/14/2021 12:55:14 12/14/2021 13:53:46 Pain in pelvis [id number] R10.2 [id number] [facility] [address],[place] [address] 01/21/2022 14:56:41 01/24/2022 16:21:18 Urinary symptoms [id number] R39.9 N76.0 Treated for UTI with yeast prevention Time spent in visit is a total of 15 mins with at least 50% of visit consisting of counseling and review of plan of care. [id number] [facility] [address],[place] [address] 01/28/2022 16:15:34 01/28/2022 16:21:49 Pain in pelvis [id number] R10.2 [id number] [facility] [address],[place] [address] 02/25/2022 16:49:29 02/28/2022 16:21:20 Pain in pelvis [id number] R10.2 [id number] Arash Steve MD [facility] [address],[place] [address] 05/05/2022 09:29:47 05/05/2022 10:19:46 Dysmenorrhea [id number] N94.6 this patient is a 32-year-ol d female with severe dysmenorrh ea. She has had endometria l ablation. Her bleeding is not bad but she has severe pain at midcycle and very severe pain at the time of her menses. She has tried multiple treatments . She has tried medical treatment and the endometria l ablation. She would like definitive surgical treatment. We talked about surgical treatment. We talked about hysterecto my in detail. We agreed to move forward with robotic or laparoscop ic hysterecto my. That would be along with the a bilateral salpingect sadaf. Spent more than 40 minutes face-to-fa ce. We talked about the surgery in detail. We talked about the recovery. Talked about ovaries. We talked about her family history ovarian issues. It is uncertain if she has a true ovarian cancer family history. We agreed to perform surgery. More than 50% of our time together was counseling . [id number] Arash Steve MD [facility] [address] [address] 05/23/2022 16:58:48 05/24/2022 11:10:45 Anxiety [id number] F41.9 Dysmenorrhea [id number] N 94.6 this patient is a 32-year-ol d female with severe dysmenorrh ea. We have agreed to perform total laparoscop ic hysterecto my bilateral salpingect sadaf. She understand s the risks, benefits, and alternativ es. She has completed the informed consent process and is ready to proceed. [id number] Arash Steve MD [facility] [address] [address] 06/09/2022 17:04:22 06/09/2022 17:46:28 Postoperative care [id number] Z48.89 32-year-ol d who presents for postop follow-up. She is 1 week postop from laparoscop ic hysterecto my and bilateral salpingect sadaf. She has no complaints . Her incisions are clean dry and intact she is recovering normally. We went over restrictio ns. [id number] Arash Steve MD [facility] [address] [address] 06/13/2022 14:17:39 06/13/2022 15:34:17 Postoperative infection [id number] T81.40XA 32-year-ol d female presents for postop follow-up. She has intense of malaise and feelings fatigue. She has some abnormal increase in her vaginal discharge that is foul smelling and aguilar and yellow at times. Speculum exam was performed. There is some increased vaginal discharge at vaginal vaults and around the vaginal cuff. No direct evidence of an abscess. Vaginal cuff was not particular ly tender. Will obtain pelvic ultrasound to determine if an abscess is present. She will return after ultrasound to discuss treatment options. We will likely start antibiotic s [id number] Deneen Regalado [facility] [address],[place] [address] 06/13/2022 15:19:18 06/13/2022 16:28:52 Pain in pelvis [id number] R10.2 [id number] Arash Steve MD [facility] [address],[place] [address] 06/24/2022 12:28:13 06/27/2022 15:39:32 Postoperative complication [id number] T81.9XXS This patient is a 32-year-ol d female presents for postop follow-up. She is 3 weeks postop from a total laparoscop ic hysterecto my. She had concerns about fatiguing. She is concerned about vaginal discharge. She was evaluated week ago. Pelvic abscess has been essentiall y ruled out with normal vaginal culture and normal pelvic ultrasound . She looks well today. She is got improved energy. She thinks maybe this is because she is not doing her usual exercise routine. Her anxiety is worse. Her vital signs are stable. She is afebrile. We agreed to observe. We spent over 20 minutes face-to-fa ce. More than 50% was counseling . [id number] Laura Carrera [facility] [address],[place] [address] 07/07/2022 15:31:14 07/07/2022 18:13:09 Abnormal vaginal bleeding [id number] N93.9 [id number] [facility] [address],[facility] [place] [address] 05/03/2023 10:52:05 05/03/2023 11:49:35 Gynecologic examination [id number] Z01.419 Take Calcium with Vitamin D 1200mg daily if not receiving in daily diet. It is strongly advised to have an annual flu shot and up can obtain at most pharmacies . If you have not had a TDap shot in the last 10 years you should obtain one as well. Discussed with patient & provided with informatio n regarding Gardisil vaccine to prevent the 4 strains for HPV that cause cervical cancer if under age 26. Encourage safe sexual practices, to use condoms and limit partners if not already in a monogamous relationsh ip. Do monthly self breast exams. Have mammogram yearly or every other year depending on family history. BRCA testing is now available for patients with strong genetic history of female cancer. If interested contact the office. Engage in daily exercise of low impact aerobic exercise 45-60 minutes 4-5 times weekly. Avoid tobacco and illicit drugs as well as using moderation with alcohol intake less than 1-2 8 oz beverages daily. This lifestyle behavior pattern will lead to less health conditions and longer life span. If BMI greater than 25 weight watchers or dietary consult advised. Patient received above instructio ns, and questions have been answered. If you have any questions please call or respond to this email. Patient was made aware of the patient portal and may obtain a paper copy of today's plan if desired. Pap/hpv d/c USPSTF recommends against screening for cervical cancer in women older than 65yo, those who've had a hysterecto my for non-cancer indication s, & who have had adequate prior screening & are not otherwise at high risk for cervical cancer. STD Screen declinedGe netic Screen discussedC olon Screen naDexa Screen naRoutine Labs PCP Dyspareunia [id number] N94 .10 Counseled on the following: Vaginal Dryness: Bothersome symptoms of the vagina and vulva (outer lips of the vagina) increase during and after the menopause transition or may start several years after menopause. The decrease in estrogen with menopause is a major contributo r to vaginal dryness, itching, burning, discomfort , and pain during intercours e or other sexual activity. Vaginal atrophy is the medical term that describes these changes. The genitourin alvaro syndrome of menopause includes bothersome vaginal atrophy often combined with urinary symptoms. Vaginal atrophy may significan tly affect your quality of life, sexual satisfacti on, and relationsh ip with your partner. Unlike hot flashes, which generally improve with time, vaginal symptoms typically worsen with time because of aging and a prolonged lack of estrogen. Vaginal estrogen therapy An effective and safe treatment, low-dose local estrogen is applied directly to the vagina to restore vaginal health and relieve vaginal dryness and discomfort with sexual activity. Improvemen ts usually occur within a few weeks, although complete relief may take several months. This even may be an option for women with a history of breast or uterine cancer but only after careful considerat ion of risks and benefits with a healthcare provider and oncologist . Governmen t-approved low-dose vaginal estrogen products are available by prescripti on as vaginal creams (used two or three nights/wee k), a vaginal estradiol tablet (used twice/week ), and an estradiol vaginal ring (changed every 3 months). All are highly effective. You may wish to try several different forms and choose the one you prefer. Standard doses of estrogen therapy provided to treat hot flashes also treat vaginal dryness, although some women still benefit from additional low-dose vaginal estrogen treatment. If only vaginal symptoms are present, low doses of estrogen applied to the vagina are recommende d. Resources: https://ww w.[employer].org/docs /default-s ource/for- women/mn-v aginal-dry ness.pdf RTO x 6wk med check Menopausal symptom 60678 002 N95.1 Getting loop recorder removed.Ca rdiovascul ar physician cleared and deemed this is not needed; was placed mistakenin g and was unnecessar y which is why it is being removed.No heart issues or blood disorders presentTLH with bilateraly salping.RT O x 6wks medication checkProvi de date of Loop recorder removal. We discussed Menopausal Hormone therapy (MHT) for women with intact uterus with the goals of reliving vaso-motor sx's using estrogen/p rogestin therapy (EPT) using lowest doses for shortest duration in women 40-59yo. Contraindi cations include: Hx of DVT or thrombolic events, High cholestero l, Hx of breast cancer, known CHD, active liver disease, unexplaine d vag bleeding, high risk endometria l cancer, TIA. Side effects can include but are not limited to: Irregular vag bleeding,, breast tenderness , nausea, weight changes, libido changes, nausea. Adverse Rxn: Elevated BP migraine w/ visual changes, breast cancer dx, [place]/stroke, DVT/PE, Endometria l cancer. Please contact office with any new or worsening side effects or adverse reactions. Or if a medical emergency please go to nearest ED/Urgency care for further evaluation . [id number] [facility] [address],[facility] [place] [address] 08/21/2023 10:16:16 08/21/2023 12:20:26 Breast lump [id number] N63.0 right breast lump/tende rness/nipp le dischargeo rder for bilateral diagnostic mammogram with right breast u/s given to ptprolacti n level orderedpre cautions reviewedwi ll reach out to pt with imaging results when available Patient is to contact office or go to nearest ED/Urgent care if fever >/= 100.1, pain, excessive bleeding, unusual drainage or swelling in area of concern; or experienci ng worsening sx's or new onset of concerning sx's. Understand ing verbalized . All questions answered to patient satisfacti on. Time spent in visit is a total of 25 mins with at least 50% of visit consisting of counseling and review of plan of care. [id number] Deneen Regalado [facility] [address],[place] [address] 10/05/2023 17:20:43 10/06/2023 02:37:04 Cyst of ovary [id number] N83.209 [id number] Arash Steve MD [facility] [address],[facility] [place] [address] 10/07/2023 09:42:19 10/07/2023 10:52:34 Cyst of ovary [id number] 33-year-ol d female who presents for follow-up on ultrasound . She had an ovarian cyst on an CT scan. The CT was done at the emergency department . We repeated ultrasound here. The appears to be a normal follicle. Patient denies any symptoms. We talked about her hormone replacemen t therapy and possible perimenopa usal status. She is symptoms of vaginal dryness. Fatigue, reduced cognition. Addition of hormones did not change any of her symptoms. She is going to discontinu e hormones. Patient has a breast lump that she is getting evaluated. Health Concerns Section Related Observation LastModified by Organization Detai ls LastModified Time None Recorded Concern Status LastModified by Organization Details LastModified Time None Recorded Advance Directives Directive N: Payers Encounter Date Sequence Insurance Name Policy Number Policy [place]oyos Covered Member ID [place]oyos Member ID Guarantor Name 07/07/2022 1 [place] [id number] Shankar Gonzalez [id number] Aura Kitley 05/03/2023 1 [place]) [id number] Shankar Gonzalez [id number] 10 Aura Kitley 08/21/2023 1 [place] [id number] Shankar Rubioley [id number] 10 Aura Kitley 10/05/2023 1 [place] [id number] Shankar Gonzalez [id number] 10 Aura Kitley 10/07/2023 1 [place]) [id number] Shankar Gonzalez [id number] 10 Aura Kitley Notes Date Note Type Note Provider Name and Address Organization Details Recorded Time 4 text/html 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 Post-MenopausalReported bypatient.Menopausal Symptoms:hot flashes;inadequacy of lubrication of vaginal mucosa Vaginal Bleeding:history of menopause having occurred; no history of post menopausal bleeding Urinary Symptoms:no hematuria; no incontinence; no nocturia; no urinary frequency Vulva:no genital lesion; no vulvar atrophy Vagina:normal vaginal discharge; no vaginal atrophy Breast:no breast lump; no nipple discharge; no breast pain Sexual Complaints:no sexual complaints Psychological Symptoms:no depression; no anxiety Preventive Measures:encourage regular mammograms starting age 40; encourage self breast examination; encourage regular exercise; encourage no tobacco use surgical menopause Julia Monaco, NATA-BC [address], [place], [address], [facility] 05/03/2023 11:48:45 4 text/html 33yo [id number] TLH, BSpresents for evaluation of right breast lump, tenderness, and nipple dischargebilateral breast tenderness for the past 1 month, noticed lump about a week agohas noticed a few episodes of right nipple discharge (last in 2014)was on estradiol patch for hot flashes/night sweats, started about 4 months ago. She took the patch off about a week ago when she noticed the breast lump went to last week and was told to f/u with gyne for breast imaging neg rednessno recent breast injuries HAY Prince [address], [place], [address], [facility] 08/21/2023 11:35:28 4 text/html 33-year-old female who presents for follow-up on ultrasound. She had an ovarian cyst on an CT scan. The CT was done at the emergency department. We repeated ultrasound here. The appears to be a normal follicle. Patient denies any symptoms. We talked about her hormone replacement therapy and possible perimenopausal status. She is symptoms of vaginal dryness. Fatigue, reduced cognition. Addition of hormones did not change any of her symptoms. She is going to discontinue hormones. Patient has a breast lump that she is getting evaluated. Arash Steve MD [address], [place], [address], [facility] 10/07/2023 10:44:07 OBGyn Episode Ob Episode Information Episode Created Date Number of Fetuses Patient Bloodtype Patient rh Status Prepregnancy Weight lbs Domestic Partner Domestic Partner Phone Father Name Bobbin Dumper Status 07/03/19 21 1 CLOSED Fetus Data First Name Last Name Admitted to NICU Weight (g) Sex Living Outcome Pediatric Complications Fetus ID Race Codes Race Delivery Type 3089.86 8704 F Full Term 8630 Jung Calculation Initial Jung Date Initial Exam Date Initial Exam Provider Initial Ultrasound Date Last Menstrual Period Date Ultra Sound Weeks Gestation 0 Eighteen To Twenty Week Jung Update Ultra Sound Date Fundal Height At Umbil Quickening Date Ultra Sound Latest Weeks Gestation Final Jung Confirmed By Final Jung Confirmed Date Final Jung Date Ultra Sound Latest Days Gestation 0 0 Menstrual History Last Menstrual Date Menses Monthly On Bcp Conception Prior Menses Frequency Hcg Plus Date Menarche Onset Age Delivery Information Delivery Date Delivery Type Labor Anesthesia Weeks Gestation Incision Type Labor Labor Length Hrs Delivered By Post Complications Tubal Sterilization Discharge Date Comments 2 36 thyroid Discharge Information Feeding Method Contraceptive Method Maternal HG B and HCT Levels Ob Episode Information Episode Created Date Number of Fetuses Patient Bloodtype Patient rh Status Prepregnancy Weight lbs Domestic Partner Domestic Partner Phone Father Name Bobbin Dumper Status 07/03/19 21 1 CLOSED Fetus Data First Name Last Name Admitted to NICU Weight (g) Sex Living Outcome Pediatric Complications Fetus ID Race Codes Race Delivery Type , Spontane ous 8632 Jung Calculation Initial Jung Date Initial Exam Date Initial Exam Provider Initial Ultrasound Date Last Menstrual Period Date Ultra Sound Weeks Gestation 0 Eighteen To Twenty Week Jung Update Ultra Sound Date Fundal Height At Umbil Quickening Date Ultra Sound Latest Weeks Gestation Final Jung Confirmed By Final Jung Confirmed Date Final Jung Date Ultra Sound Latest Days Gestation 0 0 Menstrual History Last Menstrual Date Menses Monthly On Bcp Conception Prior Menses Frequency Hcg Plus Date Menarche Onset Age Delivery Information Delivery Date Delivery Type Labor Anesthesia Weeks Gestation Incision Type Labor Labor Length Hrs Delivered By Post Complications Tubal Sterilization Discharge Date Comments 7 x4 Discharge Information Feeding Method Contraceptive Method Maternal HG B and HCT Levels Ob Episode Information Episode Created Date Number of Fetuses Patient Bloodtype Patient rh Status Prepregnancy Weight lbs Domestic Partner Domestic Partner Phone Father Name Bobbin Dumper Status 07/03/19 21 1 CLOSED Fetus Data First Name Last Name Admitted to NICU Weight (g) Sex Living Outcome Pediatric Complications Fetus ID Race Codes Race Delivery Type 2721.55 2 M Full Term 8631 Primary Jung Calculation Initial Jung Date Initial Exam Date Initial Exam Provider Initial Ultrasound Date Last Menstrual Period Date Ultra Sound Weeks Gestation 0 Eighteen To Twenty Week Jung Update Ultra Sound Date Fundal Height At Umbil Quickening Date Ultra Sound Latest Weeks Gestation Final Jung Confirmed By Final Jung Confirmed Date Final Jung Date Ultra Sound Latest Days Gestation 0 0 Menstrual History Last Menstrual Date Menses Monthly On Bcp Conception Prior Menses Frequency Hcg Plus Date Menarche Onset Age Delivery Information Delivery Date Delivery Type Labor Anesthesia Weeks Gestation Incision Type Labor Labor Length Hrs Delivered By Post Complications Tubal Sterilization Discharge Date Comments 5 41 hemorrha g e,thyroid Discharge Information Feeding Method Contraceptive Method Maternal HG B and HCT Levels
--- OUTSIDE RECORDS SUMMARY | 2024-06-20 09:51 | XMS_ITS | Encounter Summary ---
Author Organization [facility] Address [address] [place] [id number] Care Team Providers Care Bath Solution Maker Name Role Phone Dionisio Angel MD Primary Care Provider [phone] Encounter Details Date Type Department Care Team (Late st Contact Info) Description 05/06/2020 Prep for Procedure [facility] [place], [place] [id number] Dionisio Angel MD [address] [facility] [place] [address] [place] [address] [phone] Social History Tobacco Use Types Packs/Day Years Used Date Smoking Tobacco: Some Days Cigarettes Smokeless Tobacco: Never Alcohol Use Standard Drinks/Week Comments Never 0 (1 standard drink = 0.6 oz pur e alcohol) AUDIT-C Answer Date Recorded Q1: How often do you have a drink containing alc ohol? Never 05/06/2020 Average Number of Drinks Not on file 021 Frequency of Binge Drinking Not on file 04/11 Comments Unknown Sex and Gender Information Value Date Recorded Sex Assigned at Not on file Legal Sex Female 11:35 AM CDT Gender Identity Not on file Sexual Orientation Not on file documented as of this encounter Plan of Treatment Not on file documented as of this encounter Results * PRE-SURGICAL/PRE-PROCEDURE CORONAVIRUS (COVID 19) (05/08/2020 9:50 AM DIRECTIONAL BORE OPERATOR) CORONAVIRUS SARS COV 2 PCR (RESP) NOT DETECTED NOT DETECTED 05/09/2020 4:31 PM DIRECTIONAL BORE OPERATOR [facility] Comment: A Not Detected (negative) test result for this test means that SARS- CoV-2 RNA was not present in the specimen above the limit of detection. A negative result does not rule out the possibility of COVID-19 and should not be used as the sole basis for treatment or patient management decisions. If COVID-19 is still suspected, based on exposure history together with other clinical findings, re-testing should be considered in consultation with public health authorities. Laboratory test results should always be considered in the context of clinical observations and epidemiological data in making a final diagnosis and patient management decisions. Please review the Fact Sheets and FDA authorized labeling available for health care providers and patients using the following websites: https://www.H[employer]Today.Org.Startupxplore/home/Covid-19/HCP/NAAT/fact-sheet2 https://www.H[employer]Today.Org.Startupxplore/home/Covid-19/Patients/NAAT/ fact-sheet2 This test has been authorized by the FDA under an Emergency Use Authorization (EUA) for use by authorized laboratories. Due to the current public health emergency, [facility] is receiving a high volume of samples from a wide variety of swabs and media for COVID-19 testing. In order to serve patients during this public health crisis, samples from appropriate clinical sources are being tested. Negative test results derived from specimens received in non-commercially manufactured viral collection and transport media, or in media and sample collection kits not yet authorized by FDA for COVID-19 testing should be cautiously evaluated and the patient potentially subjected to extra precautions such as additional clinical monitoring, including collection of an additional specimen. Methodology: Nucleic Acid Amplification Test (NAAT) includes RT-PCR or TMA Additional information about COVID-19 can be found at the [facility] website: www.[employer].Startupxplore/Covid19. [facility] [address] [place] [address] Director: MINNIE JEFFREY DO,MPH FIRST TEST NO 05/08/2020 9:22 AM [facility] EMPLOYED IN HEALTHCARE UNKNOWN 05/08/2020 9:22 AM [facility] SYMPTOMATIC DEFINED BY CDC NO 05/08/2020 9:22 AM [facility] DATE OF SYMPTOM ONSET NO 05/08/2020 11:36 AM DIRECTIONAL BORE OPERATOR [facility] HOSPITALIZATION STATUS NO 05/08/2020 9:22 AM DIRECTIONAL BORE OPERATOR [facility] PATIENT IN ICU NO 05/08/2020 9:22 AM DIRECTIONAL BORE OPERATOR [facility] RESIDENT OF CONGREGATE CARE UNKNOWN 05/08/2020 9:22 AM DIRECTIONAL BORE OPERATOR [facility] UNKNOWN 05/08/2020 9:22 AM DIRECTIONAL BORE OPERATOR [facility] PATIENT'S RACE WHITE OR 05/08/2020 9:22 AM DIRECTIONAL BORE OPERATOR [facility] ETHNICITY NONHISPANIC 05/08/2020 9:22 AM DIRECTIONAL BORE OPERATOR [facility] SOURCE (QST) NASOPHARYNGEAL SWAB 05/08/2020 9:22 AM DIRECTIONAL BORE OPERATOR [facility] NASOPHARYNGEAL SWAB / Unknown 05/08/2020 9:50 AM DIRECTIONAL BORE OPERATOR us Dionisio Angel MD MICROBIOLOGY - [facility] Final Result Performing Organization Address City/State/[facility] de Phone Number [facility] [address] [place] [address], [facility] [address] documented in this encounter Visit Diagnoses Diagnosis Abdominal pain- Primary Abdominal pain, unspecified site documented in this encounter Additional Health Concerns Infection Onset Date Last Indicated Resolved Time COVID-19 Rule Out 05/08/2020 05/08/2020 05/09/2020 4:32 PM DIRECTIONAL BORE OPERATOR documented as of this encounter Care Teams Bath Solution Maker Relationship Specialty Start Date End Date Dionisio Angel MD [address] [facility] [address] [place] [address] PCP - General GASTROENTEROLOGY 05/06/20 documented as of this encounter
--- OUTSIDE RECORDS SUMMARY | 2024-06-20 09:51 | XMS_ITS | Clinical Summary ---
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 Active sucralfate 1 G tablet Take 1 g by mouth 2 (two) times a day. Active disulfiram 250 MG tablet Take by mouth daily. Every 3 days Active OLANZapine 2.5 MG tablet 02/04/2020 Active ferrous sulfate, 65 mg elemental, 325 (65 FE) MG tablet TK 1 T PO D WITH SRUTHI 12/24/2019 Active Active Problems No known active problems Family History Medical History Relation Comments Hypertension Father COPD Mother Hypertension Mother Relation Status Comments Father Alive Mother Alive Social History Tobacco Use Types Packs/Day [...] Binge Drinking Not on file 04/11 Comments No Sex and Gender Information Value Date Recorded Sex Assigned at Not on file Legal Sex Female 11:35 AM CDT Gender Identity Not on file Sexual Orientation Not on file Last Filed Vital Signs Vital Sign Reading Time Taken Comments Blood Pressure 111/69 05/11/2020 4:25 PM NEW ACCOUNT INTERVIEWER Pulse 96 05/11/2020 4:25 PM NEW ACCOUNT INTERVIEWER Temperature 37 C (98.6 F) 05/11/2020 3:52 PM NEW ACCOUNT INTERVIEWER Respiratory Rate 16 05/11/2020 4:25 PM NEW ACCOUNT INTERVIEWER Oxygen Saturation 94% 05/11/2020 4:25 PM NEW ACCOUNT INTERVIEWER Inhaled Oxygen Concentration - - Weight 63.5 kg (140 lb) 05/06/2020 9:46 AM NEW ACCOUNT INTERVIEWER Height 170.2 cm (5' 7 ) 05/06/2020 9:46 AM NEW ACCOUNT INTERVIEWER Body Mass Index 21.93 05/06/2020 9:46 AM NEW ACCOUNT INTERVIEWER Plan of Treatment Health Maintenance Due Date Last Done Comments Cervical Cancer Screening Pa p Smear (Age 30 to 64) Every 3 Years 1988 Annual Physical 1991 Pneumococcal Vaccine: Pediat rics (0 to 5 Years) and At-Risk Patients (6 to 64 Years) (1 of 2 - PCV) 1994 PHQ-2 (Physician [place]) 2000 Hepatitis C 2006 DTaP, Tdap and Td Vaccines ( 1 - Tdap) 2007 Hepatitis B Vaccines (1 of 3 - 19+ 3-dose series) 2007 Cervical Cancer Screening Pa p with HPV Testing (Age 30 to 64) Every 5 Years 2018 Cervical Cancer Screening with HPV 2018 COVID-19 Vaccine ( - 2023-2 5 season) 2023 Influenza Adult (#1) 2024 PHQ-2 (Physician [place]) 04/10/2024 HPV Vaccines Aged Out No longer eligi ble based on patient's age to complete this topic Meningococcal B Vaccine Aged Out No l onger eligible based on patient's age to complete this topic Meningococcal Vaccine Aged Out No naveen mauricio eligible based on patient's age to complete this topic RSV Immunizations Under 20 Months Aged Out No longer eligible based on patient's age to complete this topic Medical Devices Implanted Type Area Microsoft Exchange Administrator Device Identifier Shelf Expiration Date Model / Serial / Lot Loop Recorder Care Teams Bowling Ball Mold Assembler Relationship Specialty Start Date End Date Dionisio Angel MD [address] [facility] [address] [place] [address] PCP - General GASTROENTEROLOGY 05/06/20
--- OUTSIDE RECORDS SUMMARY | 2024-06-20 09:51 | XMS_ITS ---
Author Organization [facility] Address [address] [place] [address] Care Team Providers Care Quick Technician Name Role Phone Sreekanth Maciel Primary Care Provider Herman Castillo Unavailable [phone] Allergies Allergen (clinical drug ingredient) Drug/Non Drug Allergy documented on EMR Reaction Allergy Type Onset Date Status Non-steroidal anti-inflammatory agent (FN) NSAIDs Unknown Drug Allergy Active REASON FOR VISIT History of recurrent rash and pain to the area of her L5-S1 surgical fusion site. Present since 2-3months after undergoing surgery. Additional history of recurrent fevers and infections since. IgG/M/A WNL. Here for patch test read at 168 horus, History of hives occurring twice a year with additional lower esophageal and gastric edema seen on EGD. Reports recurrent abdominal swelling without clear trigger. Baseline tryptase WNL. Medications Medication SIG (Take, Route, Frequency, Duration) Notes Start Date End Date Status Iron 28 MG 1 tablet Orally Thre e times a Week Active Vitamin D 50 MCG (1999) 1 tablet Oral ly Once a day Active Qelbree 200 MG Oral for 30 Days Active Esomeprazole Magnesium 40 MG Oral for 30 Days Active Amphetamine-Dextroamphetami [...] Problem Status W/U Status Risk Notes Problem Allergic contact dermatitis due to metals (L23.0) Active confirmed Problem Irritant contact dermatitis due to metals (L24.81) Active confirmed Vital Signs Blood pressure systolic 110 mm Hg 02/26/20 24 Blood pressure diastolic 73 mm Hg 024 Height 68 in 02/26/2024 Weight 145.4 lbs 02/26/2024 BMI 22.11 kg/m2 02/26/2024 Oximetry 100 % 02/26/2024 Encounters Encounter Location Date Provider Diagnosis [facility] [place] [address] [facility] [address] [place] [address] 02/26/2024 Herman Kumar Allergic contact dermatitis due to metals L23.0 ; Irritant contact dermatitis due to metals L24.81 ; Relapsing fever, unspecified A68.9 and Idiopathic urticaria L50.1 Assessments Encounter Date Diagnosis (ICD Code) Assessment Notes Treatment Notes Treatment Clinical Notes Section Notes 02/26/2024 Allergic contact dermatitis due to metals [...] to metals (ICD-10 - L24.81) as above 02/26/2024 Relapsing fever, unspecified (ICD-10 - A68.9) [...] work-up at the time for recurrent fevers 02/26/2024 Idiopathic urticaria (ICD-10 - L50.1) Reported [...] f/u with GI. No eosinophils noted 02/26/2024 Other Plan Of Treatment Treatment Notes Assessment Notes Allergic contact dermatitis due to metal s Chronic erythematous rash to general area of [...] neck numbness. Recent Brain MRI was normal. Irritant contact dermatitis due to metal s as above Relapsing fever, unspecified Waxing and waning fever [...] work-up at the time for recurrent fevers Idiopathic urticaria Reported history of hives occurring [...] noted Next Appt Details Follow Up: 4 Weeks, Reason: Evaluation and Management Procedure Notes * Category Sub-Category Detail Notes Patch Testing (Please insert time stamp) Herman Kumar 02/26/2024 12:31:53 PM THERAPEUTIC RECREATION ASSISTANT > Patch testing (RB-8086-Dtqaw can Core Series) was performed using the Pluromed NA-1000 t est patch testing delivery system (most common topical allergens causing delayed-type hypersensitivity reactions), Negative reactions at all patch testing locations, at 168 hours (1 week), Pictures below, The information from patch testing was placed into the [facility] registry and a report regarding our clinical findings was e-mailed to the patient Time (Provider Encounter) Time Attestation This follow-up encounter took more than:: more than 30 minutes ([id number]) Tasks performed during this encounter include:: taking a history, reviewing the patient's review of systems, performing the physical examnation, reviewing laboratory results, reviewing radiology imaging, reviewing outside medical records, counseling the patient on their diagnoses and chronic management, documenting in the EHR, This time calculation excludes any time associated with the separately identifiable medical procedures performed/described within this note (e.g. spirometry/flow volume loop, injections, skin testing, etc...) Progress Notes * Sherry TREVIZOMorenaOB:1990 (33 yo F)Acc No.[id number]:02/26/2024 Progress Note Patient: Aura MATHEWS Provider: Johnnie Kumar PA-C :1990 A ge:33 Y S ex:Female Date:02/26/2024 [facility] [id number] Pcp:Sreekanth Maciel Subjective: * Chief Complaints: * H istory of recurrent rash and pain to the area of her L5-S1 surgical fusion site. Present since 2-3 months after undergoing surgery. Additional history of recurrent fevers and infections since. IgG/M/A WNL. Here for patch test read at 168 horusHistory of hives occurring twice a year with additional lower esophageal and gastric edema seen on EGD. Reports recurrent abdominal swelling without clear trigger. Baseline tryptase WNL. * HPI: * Introduction: I had the pleasure of seeing Faviola Trevizo, a 33 y/o female with history of hypothyroidism and ADHD returning for patch test read at 168 hours. Faviola amaya is alone for today's visit. She reports [...] This started approx 2-3 months after surgery. S he does report numbess to right side of her tongue down to her neck. Prior work- up with her PCP with negatie CMV IgG and IgM, ANCA panel, normal PT/INR and Lipus anticoagulant. Noted + EBV ab and EBV VA IgG indicating prior infeciton. Negative CLOBY, Rheumatoid factor, Beta-2 glycoprotein 1, Cardiolopin IgG, IgM, HIV. Prior holter monitor with 3 episodes of SVT with plan on stress. She has not been c/w fever log since we last talked. She additionally reports history of hives and stomach ulcers. She reports EGD showing gastric and esophageal edema additionally with reported history of abdominal swelling. T rptased noted to be WNL. Today, she reports no fevers, chills, night [...] Age of carpet? 2 Do you have bnmq-on-iogg carpeting? N o What is the age [...] times a Week Vitamin D 50 MCG (1999 UT) Tablet 1 tablet Orally Once a day Esomeprazole Magnesium 40 MG Capsule Delayed Release Oral Qelbree 200 MG Capsule Extended Release 24 Hour Oral Amphetamine-Dextroamphetamine 30 MG Tablet Oral Medication List reviewed and reconciled with the patientTaking Iron 28 MG Tablet 1 tablet Orally Three times a Week Taking Vitamin D 50 MCG (2000 UT) Tablet 1 tablet Orally Once a day Taking Esomeprazole Magnesium 40 MG Capsule Delayed Release Oral Taking Qelbree 200 MG Capsule Extended Release 24 Hour Oral Taking Amphetamine-Dextroamphetamine 30 MG Tablet Oral Medication List reviewed and reconciled with the patient * Allergies: Jerri Oliver[Allergies Verified] Objective: * Vitals: B P:110/73mm Hg, HR:75/min, Pulse Oximetry:100%, Ht: 68 in, Wt: 145.4 lbs, BMI:22.11Index. * Examination: G eneral examination: General appearance: p leasant, well-developed, well-nourished, female, i n no apparent distress, speaking in full sentences. HEENT: c onjunctiva are normal bilaterally. Oral cavity: n ormal, no lesions. Breasts : n ot performed. Heart: n ormal, RRR, S1-S2, no murmurs. Neurologic exam: u nremarkable. Skin: H ey erythematous macule to the chin, no d ermatographism, urticaria, angioedema. Back: n ormal. Extremities: n ormal ROM, no clubbing, no cyanosis, no edema. Genitalia: n ot performed. Assessment: * Assessment: 1. A llergic contact dermatitis due to metals - L23.0 (Primary) 2 . I rritant contact dermatitis due to metals - L24.81 3 . R elapsing fever, unspecified - A68.9 4 . I diopathic urticaria - L50.1 Plan: * Treatment: 2. I rritant contact dermatitis due to metals Notes: as above 3. R elapsing fever, unspecified Notes:Waxing and waning [...] work-up at the time for recurrent fevers 4. I diopathic urticaria Notes: Reported history of [...] eosinophils noted * Procedures: P atch Testing: (Please insert time stamp) Herman Castaneda Faviola 02/26/2024 12:31:53 PM THERAPEUTIC RECREATION ASSISTANT >. Patch testing (XG-1729-Ihuomduv Core Series) w as performed using the Pluromed NA-1000 test patch testing delivery system (most common topical allergens causing delayed-type hypersensitivity reactions), Negative reactions at all patch testing locations, at 168 hours (1 week), Pictures below, The information from patch testing was placed into the [facility] registry and a report regarding our clinical findings was e-mailed to the patient. T raymond (Provider Encounter): Time Attestation T his follow-up encounter took more than: m ore than 30 minutes ([id number]) T asks performed during this encounter include: t aking a history, reviewing the patient's review of systems, performing the physical examnation, reviewing laboratory results, reviewing radiology imaging, reviewing outside medical records, counseling the patient on their diagnoses and chronic management, documenting in the EHR, This time calculation excludes any time associated with the separately identifiable medical procedures performed/described within this note (e.g. spirometry/flow volume loop, injections, skin testing, etc...) * Procedure Codes: G 8427 DOC MEDS VERIFIED W/PT OR RE * Preventive Medicine: Counseling: E xercise L imit exercise while patch test is secured, Avoid bathing, showering while patch test is secured and after removal during read phase of procedure through 168 hours. M edication instruction: W atch for side effects of prescribed medications, , Hold oral/topical corticosteroids until after allergen patch testing. P atient education material sent to portal? Y es * Follow Up: 4 Weeks (Reason: Evaluation and Management) * Billing Information: * Visit Code: 81739 Office Visit, Est Pt., Level 4. Modifiers: 25 * Procedure Codes: G8427 DOC MEDS VERIFIED W/PT OR RE. * APEUTIC RECREATION ASSISTANT Sign off status: Completed true * Provider: Johnnie Kumar PA-C Date: 04/27/2023 Generated for Jus martinez/Travis/eTsumanthsmitting on: 0 06/20/2024 09:51 AM CDT History and Physical Notes * HPI (History of Present Illness) Category Sub-Category Detail Notes Category Not es *Introduction I had the pleasure o f seeing Aura Trevizo, a 33 y/o female with history of hypothyroidism and ADHD returning for patch test read at 168 hours. Aura is alone for today's visit. She [...] started approx 2-3 months after surgery. She does report numbess to right side [...] episodes of SVT with plan on stress. She has not been c/w fever log since we last talked. She additionally reports history of hives and stomach ulcers. She reports EGD showing gastric and esophageal edema additionally with reported history of abdominal swelling. Trptased noted to be WNL. Today, she reports no fevers, chills, night sweats or other constitutional symptoms Examination Category Sub-Category Detail Notes Category Not es General examination HEENT: conjunctiva are frandy l bilaterally Heart: normal, RRR, S1-S2, no murmurs Extremities: normal ROM, no clubb ing, no cyanosis, no edema General appearance: pleasant, well-devel oped, well-nourished, female, in no apparent distress, speaking in full sentences Skin: Hey erythematous mac ule to the chin, no dermatographism, urticaria, angioedema Neurologic exam: unremarkable Oral cavity: normal, no lesions Breasts : not performed Back: normal Genitalia: not performed
[2024-06-20 10:45] LABS: Iron 131 ug/dL (37-170)
[2024-06-20 10:46] LABS: Anion Gap 9 mmol/L (4-12); Blood Urea Nitrogen 19 mg/dL (7-17); Calcium 9.2 mg/dL (8.4-10.2); Carbon Dioxide 25 mmol/L (22-30); Chloride 106 mmol/L (98-107); Estimated Glomerular Filt Rate > 60; Glucose 110 mg/dL (65-110); Potassium 4.3 mmol/L (3.4-5.0); Sodium 140 mmol/L (137-145)
[2024-06-20 10:56] LABS: Percent Iron Saturation 39 % (20-50)
[2024-06-20 11:54] LABS: Folic Acid 12.9 ng/mL (2.76->20)
== END 2024-06-20 08:58 | disposition home or self-care (01) ==
LOC: ANHLAB 08:58
PROVIDERS: PCP Family Medicine; Visit Provider Internal Medicine Hematology & Oncology
DX: D64.9 Anemia, unspecified (principal)
CPT/HCPCS: 36415; 80048; 82607; 82728; 82746; 83540; 83550; 85027

== ENCOUNTER 2024-10-09 10:16 | Outpatient (CLI) | payer BC, SELFPAY ==
--- OUTSIDE RECORDS SUMMARY | 2024-10-09 10:32 | XMS_ITS | Clinical Summary ---
Author Organization [facility] Address [facility] [place] [address] Care Team Providers Care Certified Massage Therapist Name Role Phone Dionisio Angel MD Primary Care Provider [phone] Allergies Active Allergy Reactions Criticality Noted Date [...] Comments Blood Pressure 111/69 05/11/2020 4:25 PM PURCHASING OFFICER Pulse 96 05/11/2020 4:25 PM PURCHASING OFFICER Temperature 37 C (98.6 F) 05/11/2020 3:52 PM PURCHASING OFFICER Respiratory Rate 16 05/11/2020 4:25 PM PURCHASING OFFICER Oxygen Saturation 94% 05/11/2020 4:25 PM PURCHASING OFFICER Inhaled Oxygen Concentration - - Weight 63.5 kg (140 lb) 05/06/2020 9:46 AM PURCHASING OFFICER Height 170.2 cm (5' 7) 05/06/2020 9:46 AM PURCHASING OFFICER Body Mass Index 21.93 05/06/2020 9:46 AM PURCHASING OFFICER Plan of Treatment Health Maintenance Due Date Last Done Comments Cervical Cancer Screening Pa p Smear (Age 30 to 64) Every 3 Years 1988 Annual Physical 1991 Hepatitis C 2006 DTaP, Tdap and Td Vaccines ( 1 - Tdap) 2007 Hepatitis B Vaccines (1 of 3 - 19+ 3-dose series) 2007 Pneumococcal Vaccine: Pediat rics (0 to 5 Years) and At-Risk Patients (6 to 49 Years) (1 of 2 - PCV) 2007 Cervical Cancer Screening Pa p with HPV Testing (Age 30 to 64) Every 5 Years 2018 Cervical Cancer Screening with HPV 2018 COVID-19 Vaccine (1 - 2023-2 5 season) 2023 PHQ-2 (Physician [place]) 04/10/2024 HPV Vaccines Aged Out No longer [...] this topic Medical Devices Implanted Type Area Marketing Intelligence Analyst Device Identifier Shelf Expiration Date Model / Serial / Lot Loop Recorder Care Teams Certified Massage Therapist Relationship Specialty Start Date End Date Dionisio Angel MD [address] [facility] [address] [place] [address] PCP - General GASTROENTEROLOGY 05/06/20
--- OUTSIDE RECORDS SUMMARY | 2024-10-09 10:32 | XMS_ITS | Clinical Summary ---
Author Organization [address] Address [address] [place] [id number] Care Team Providers Care Buffing Wheel Former Machine Name Role Phone Sreekanth Maciel MD Primary Care Provider Theresa Mcgowan SPORTING GOODS SALESPERSON Unavailable Arash Steve MD Unavailable [phone] Sandoval Jung MD Unavailable [phone] Allergies Active Allergy Reactions Criticality Noted Date Comments [place] Gluconate Unknown 02/28/2024 Patient had testing done [...] 4 (four) times a day 1 Active buPROPion XL (WELLBUTRIN XL) 300 mg 24 hr tablet TAKE 1 TABLET BY MOUTH DAILY IN THE MORNING. 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 Vitamin D 1713-2846 international units per day Calcium 500 mg/day [...] (03/18/2021): Added automatically from request for surgery [id number] Marginal ulcer 02/18/2021 Overview (02/18/2021): Added automatically from request for surgery [id number] Other dietary vitamin B12 deficiency anemia 02/08 [...] guidance Will refill omeprazole 20 mg BID [place] diet Update me in the next couple [...] Used Date Smoking Tobacco: Every Day Cigarettes 0.7 24.1 Started: 09/16/2000 Smokeless Tobacco: Never Tobacco Cessation:Ready [...] on file Legal Sex Female 10:42 AM COMMERCIAL MAINTENANCE TECHNICIAN Gender Identity Female 02/14/2021 8:33 PM COMMERCIAL MAINTENANCE TECHNICIAN Sexual Orientation Straight 02/14/2021 8: 33 PM COMMERCIAL MAINTENANCE TECHNICIAN Obstetrics History Last Filed Vital Signs Vital Sign Reading Time Taken Comments Blood Pressure 106/64 07/09/2024 3:48 PM CDT Pulse 87 07/09/2024 3:48 PM CDT Temperature 36.5 C (97.7 F) 04/16/2024 10:36 AM COMMERCIAL MAINTENANCE TECHNICIAN Respiratory Rate 16 04/16/2024 10:36 AM COMMERCIAL MAINTENANCE TECHNICIAN Oxygen Saturation 98% 04/16/2024 10:36 AM COMMERCIAL MAINTENANCE TECHNICIAN Inhaled Oxygen Concentration - - Weight 68 kg (150 lb) 07/09/2024 3:48 PM CDT Height 172.7 cm (5' 8) 07/09/2024 3:48 PM CDT Body Mass Index 22.81 07/09/2024 3:48 PM CDT Plan of Treatment Health Maintenance Due Date Last Done Comments Hepatitis C Screening 1988 Hepatitis B Screening 2006 Regular Well Visit/Exam 18-64 2006 Pneumococcal vaccine <65 (2 of 2 - PCV) 03/27/2013 03/27/2012 DTaP/Tdap/Td Vaccine (2 - Td or Tdap) 09/28/2021 09/29/2011 Covid-19 Vaccine (3 - season) 2023 11/05/2020, 10/09/2020 Influenza Vaccine (#1) 2024 , 02/18/2019, 03/27/2012, Additional history exists Depression Screening 04/16/2025 04/16/2024, 02/15/2024, 12/18/2023, Additional history exists HPV Vaccines Aged Out No longer eligi ble based on patient's age to complete this topic Varicella Vaccines Discontinued Medical Devices Implanted Type Area Case Maker Device Identifier Shelf Expiration Date Model / Serial / Lot Loop Recorder Heart Insurance [employer] ACCESS [employer] ACCESS CHOICE ANTHEM ACCESS Care Teams Buffing Wheel Former Machine Relationship Specialty Start Date End Date Sreekanth Maciel MD [address] [address] PCP - General Family Medicine 05/15/23 Theresa Mcgowan NP [address] [place] [address] [place] [address] Nurse Practitioner Behavioral Health 05/15/23 Arash Steve MD [address] [place] [address] Referring Physician Obstetrics and Gynecology 05/15/23 Sandoval Jung MD [address] [address] Referring Physician Hematology 05/15/23
--- OUTSIDE RECORDS SUMMARY | 2024-10-09 10:32 | XMS_ITS | Referral Summary ---
Author Organization [address] Address [address] [place] [phone] Care Team Providers Care Leak Operator Paraffin Plant Name Role Phone Sreekanth Maciel MD Primary Care Provider Theresa Mcgowan POULTRY FARMER Unavailable Arash Steve MD Unavailable [phone] Sandoval Jung MD Unavailable [phone] Allergies Active Allergy Reactions Criticality Noted Date Comments [place] Gluconate Unknown 02/28/2024 Patient had testing done [...] 04/19/2024 Assessment & Plan (04/19/2024 3:06 PM DESIGN ASSEMBLER): there may a link, given the facial [...] 05/15/2023 Assessment & Plan (05/18/2023 4:40 PM DESIGN ASSEMBLER): A(n) initial well visit to establish care [...] along with risks vs benefits. Vitamin D 3038-9792 international units per day Calcium 500 mg/day [...] (03/18/2021): Added automatically from request for surgery [id number] Marginal ulcer 02/18/2021 Overview (02/18/2021): Added automatically from request for surgery [id number] Other dietary vitamin B12 deficiency anemia 02/08 [...] guidance Will refill omeprazole 20 mg BID [place] diet Update me in the next couple [...] on file Legal Sex Female 10:42 AM DESIGN ASSEMBLER Gender Identity Female 02/14/2021 8:33 PM DESIGN ASSEMBLER Sexual Orientation Straight 02/14/2021 8: 33 PM DESIGN ASSEMBLER Last Filed Vital Signs Vital Sign Reading Time Taken Comments Blood Pressure 106/64 07/09/2024 3:48 PM CDT Pulse 87 07/09/2024 3:48 PM CDT Temperature 36.5 C (97.7 F) 04/16/2024 10:36 AM DESIGN ASSEMBLER Respiratory Rate 16 04/16/2024 10:36 AM DESIGN ASSEMBLER Oxygen Saturation 98% 04/16/2024 10:36 AM DESIGN ASSEMBLER Inhaled Oxygen Concentration - - Weight 68 kg (150 lb) 07/09/2024 3:48 PM CDT Height 172.7 cm (5' 8) 07/09/2024 3:48 PM CDT Body Mass Index 22.81 07/09/2024 3:48 PM CDT Plan of Treatment Not on file Medical Devices Implanted Type Area Service Attendant Device Identifier Shelf Expiration Date Model / Serial / Lot Loop Recorder Heart Insurance [facility] ACCESS ANTHEM ACCESS CHOICE ANTHEM ACCESS Care Teams Leak Operator Paraffin Plant Relationship Specialty Start Date End Date Sreekanth Maciel MD [address] [address] PCP - General Family Medicine 05/15/23 Theresa Mcgowan NP [address] [place] [address] [place] [address] Nurse Practitioner Behavioral Health 05/15/23 Arash Steve MD [address] [place] [address] Referring Physician Obstetrics and Gynecology 05/15/23 Sandoval Jung MD [address] [id number] Referring Physician Hematology 05/15/23
--- OUTSIDE RECORDS SUMMARY | 2024-10-09 10:32 | XMS_ITS | Encounter Summary ---
Author Organization [facility] Address [address] [place] [address] Care Team Providers Care Senior Net Application Developer Name Role Phone Dionisio Angel MD Primary Care Provider [phone] Encounter Details Date Type Department Care Team (Late st Contact Info) Description 05/06/2020 Prep for Procedure [facility] [place], [place] [phone] Dionisio Angel MD [address] [facility] [address] [place] [phone] Social History Tobacco Use Types Packs/Day Years [...] on file documented as of this encounter Functional Status documented as of this encounter Plan of Treatment Not on file documented as of this encounter Results * PRE-SURGICAL/PRE-PROCEDURE CORONAVIRUS (COVID 19) (05/08/2020 9:50 AM RADIATION PROTECTION ENGINEER) CORONAVIRUS SARS COV 2 PCR (RESP) NOT DETECTED NOT DETECTED 05/09/2020 4:31 PM RADIATION PROTECTION ENGINEER [employer] [facility] Comment: A Not Detected (negative) test result [...] providers and patients using the following websites: [email or web address]://[email or web address]/home/[email or web address]/HCP/NAAT/fact-sheet2 [email or web address]://[email or web address]/home/[email or web address]-19/Patients/NAAT/ fact-sheet2 This test has been authorized by the FDA under an Emergency Use Authorization (EUA) for use by authorized laboratories. Due to the current public health emergency, [facility] is receiving a high volume of samples [...] about COVID-19 can be found at the [facility] website: [email or web address]/[email or web address]. Test performed at [facility] [place] [address] [place] [address] Director: MINNIE JEFFREY DO,MPH FIRST TEST NO 05/08/2020 9:22 AM [facility] EMPLOYED IN HEALTHCARE UNKNOWN 05/08/2020 9:22 AM [facility] SYMPTOMATIC DEFINED BY CDC NO 05/08/2020 9:22 AM [facility] DATE OF SYMPTOM ONSET NO 05/08/2020 11:36 AM RADIATION PROTECTION ENGINEER [facility] HOSPITALIZATION STATUS NO 05/08/2020 9:22 AM RADIATION PROTECTION ENGINEER [facility] PATIENT IN ICU NO 05/08/2020 9:22 AM RADIATION PROTECTION ENGINEER [facility] RESIDENT OF CONGREGATE CARE UNKNOWN 05/08/2020 9:22 AM RADIATION PROTECTION ENGINEER [facility] UNKNOWN 05/08/2020 9:22 AM RADIATION PROTECTION ENGINEER [facility] PATIENT'S RACE WHITE OR 05/08/2020 9:22 AM RADIATION PROTECTION ENGINEER [facility] ETHNICITY NONHISPANIC 05/08/2020 9:22 AM RADIATION PROTECTION ENGINEER [facility] SOURCE (QST) NASOPHARYNGEAL SWAB 05/08/2020 9:22 AM RADIATION PROTECTION ENGINEER [facility] NASOPHARYNGEAL SWAB / Unknown 05/08/2020 9:50 AM RADIATION PROTECTION ENGINEER us Dionisio Angel MD [facility] Final Result Performing Organization Address City/State/[facility] Co de Phone Number [facility] [address] [place] [address], [employer] [address] documented in this encounter Visit Diagnoses Diagnosis Abdominal pain- Primary Abdominal pain, unspecified site documented in this encounter Additional Health Concerns Infection Onset Date Last Indicated Resolved Time COVID-19 Rule Out 05/08/2020 05/08/2020 05/09/2020 4:32 PM RADIATION PROTECTION ENGINEER documented as of this encounter Care Teams Senior Net Application Developer Relationship Specialty Start Date End Date Dionisio Angel MD [address] [facility] [address] [place] [address] PCP - General GASTROENTEROLOGY 05/06/20 documented as of this encounter
--- OUTSIDE RECORDS SUMMARY | 2024-10-09 10:32 | XMS_ITS | Patient Health Record ---
Author Organization Formerly [facility] [place] ([address]) Address [address] [place] [address] Care Team Providers Care Geospatial Image Analyst Name Role Phone Sreekanth Maciel Primary Care Provider Herman Castillo Unavailable [phone] Julissa Moses Unavailable [phone] Nora Andrews Unavailable [phone] Allergies Allergen (clinical drug ingredient) Drug/Non Drug Allergy documented on EMR Reaction Allergy Type Onset Date Status Non-steroidal anti-inflammatory agent (FN) NSAIDs Unknown Drug Allergy Active Results Component Value Reference Range Notes -Immunoglobulins A/G/M, Qn, Ser Reviewed date:02/06/2024 01:08:45 PM Interpretation:Normal Performing Lab:[facility] [address] [id number], Phone - [phone], Director - Jose Notes/Report: Immunoglobulin G, Qn, Serum 881 197-4433 mg/d L Immunoglobulin A, Qn, Serum 138 87-352 mg/dL Immunoglobulin M, Qn, Serum 130 26-217 mg/dL -Tryptase (910600) Reviewed date:02/12/2024 12:32:00 PM Interpretation:Normal Performing Lab:[facility] [address] [id number], Phone - [phone], Director - Claudy Notes/Report: Tryptase 3.8 2.2-13.2 ug/L Reason For Referral No Information Medications Medication SIG (Take, Route, Frequency, Duration) Notes Start Date End Date Status Esomeprazole Magnesium 40 MG Oral; Duration: 30 Days Acti ve Qelbree 200 MG Oral; Duration: 30 Days Active Vitamin D 50 MCG (1999) 1 tablet Oral ly Once a day Active Iron 28 MG 1 tablet Orally Thre e times a Week Active Amphetamine-Dextroamphetami ne 30 MG Oral; Duration: 30 Days Acti ve Social History Tobacco Use: Social History Observation Description Date Details (start date - stop date) Current Smoker NA - NA Tobacco Control (Standard) Question Answer Notes Tobacco use: Current smoker Additional Findings: Tobacco user Light cigarett e smoker (1-9 cigs/day) Problems Problem Type SNOMED Code ICD Code Onset Dates Problem Status W/U Status Risk Notes Problem Idiopathic urticaria (32636914) Idiopathic urticaria (L50.1) Active confirmed Problem Relapsing fever, 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) Active confirmed Problem Polycystic ovary syndrome (disorder) (391753591) Polycystic ovarian syndrome (E28.2) Active confirmed Problem Allergic contact dermatitis caused by metal and/or metal compound (disorder) (4571274158) Allergic contact dermatitis due to metals (L23.0) Active confirmed Problem Irritant contact dermatitis due to metals (L24.81) Active confirmed Problem Eruption of skin (440644061) Rash and other nonspecific skin eruption (R21) Active confirmed Vital Signs Blood pressure diastolic 73 mm Hg 02/26/2024 Oximetry 100 % 02/26/2024 Height 68 in 02/26/2024 Blood pressure systolic 110 mm Hg 02/26/2024 Weight 145.4 lbs 02/26/2024 BMI 22.11 kg/m2 02/26/2024 Encounters Encounter Location Date Provider Diagnosis [facility] [address] [facility] [address] [phone] 12/19/2023 Herman Kumar [facility] [address] [place] [phone] 01/29/2024 Herman Kumar Relapsing fever, unspecified A68.9 ; Rash and other nonspecific skin eruption R21 and Idiopathic urticaria L50.1 [facility] [address] [place] [phone] 02/19/2024 Nora Andrews Relapsing fever, unspecified A68.9 ; Rash and other nonspecific skin eruption R21 and Idiopathic urticaria L50.1 [facility] [address] [place] [phone] 02/21/2024 Julissa Moses Relapsing fever, unspecified A68.9 ; Rash and other nonspecific skin eruption R21 and Idiopathic urticaria L50.[address] [address] 02/22/2024 Julissa Moses Relapsing fever, unspecified A68.9 ; Rash and other nonspecific skin eruption R21 and Idiopathic urticaria L50.[address] [phone] 02/26/2024 Herman Kumar Allergic contact dermatitis due to metals L23.0 ; Irritant contact dermatitis due to metals L24.81 ; Relapsing fever, unspecified A68.9 and Idiopathic urticaria L50.[address] [address] 03/18/2024 Herman Kumar Assessments Encounter Date Diagnosis [...] - Patch testing was initiated today using [employer][MD] test patch testing delivery system. - Keep [...] Insured Coverage Start Date Coverage End Date [facility] [address] [place] [address] [id number] Shankar Garcias Spouse - patient is the spouse of the insured Medical (General) History Medical History History ICD Code Attention-deficit hyperactivity disorder , unspecified type F90.9 Esophagitis, unspecified K20.9 Polycystic ovarian syndrome E28.2 Endometriosis, unspecified N80.9 Gastro-esophageal reflux disease without esophagitis K21.9 Surgical History Surgery Date(Month/Year) GASTRIC BYPASS FOR OBESITY DELIVERY Spinal Fusion L5-S1
--- OUTSIDE RECORDS SUMMARY | 2024-10-09 10:32 | XMS_ITS | Encounter Summary ---
Author Organization [facility] Address [address] [facility] [place] [address] Care Team Providers Care Account Retention Representative Name Role Phone Unavailable Primary Care Provider Unavailabl e Reason for Visit * Reason Comments Refill Request Encounter Details Date Type Department Care Team (Late st Contact Info) Description 05/28/2022 Refill [facility] [address] [place] [address], [place] [address] David Jean MD [address] [place] [address] [place] [phone] Refill Request Social History Tobacco Use Types Packs/Day Years Used Date Smoking Tobacco: Every Day Smokeless Tobacco: Current AUDIT-C Answer Date Recorded Frequency of Alcohol Consumption Not on file 08/07/2021 Average Number of Drinks Not on file 022 Q3: How often do you have si x or more drinks on one occasion? Never 08/07/2021 Comments Unknown Sex and Gender Information Value Date Recorded Sex Assigned at Not on file Legal Sex Female 10:29 AM CASE PREPARER AND LINER Gender Identity Not on file Sexual Orientation Not on file documented as of this encounter Plan of Treatment Not on file documented as of this encounter Visit Diagnoses Not on filedocumented in this encounter
--- OUTSIDE RECORDS SUMMARY | 2024-10-09 10:32 | XMS_ITS | Clinical Summary ---
Author Organization [facility] Address [address] [facility] [place] [address] Care Team Providers Care Plaque Maker Name Role Phone Unavailable Primary Care Provider Unavailabl e Source Comments [facility],non-owned Affiliates and Associated Physician Practices is amultiple site organization consisting of ambulatory clinics and hospital sitesin [place], [place], [place] and [place]. This disclosure is being madepursuant to the Care Everywhere program and may not contain all information available regarding this patient. Last updated 17.[facility] [employer] Allergies Active Allergy Reactions Criticality Noted Date Comments Nsaids Other 08/07/2021 Abdominal pain Medications * Be aware that medications may not be up to date on this document. Alwaysverify current medications with the patient. sertraline (ZOLOFT) 50 MG tablet Take 50 mg by mouth once daily Active esomeprazole (NEXIUM) 40 MG capsule Take 40 mg by mouth daily before breakfast Active buPROPion SR 12hr (WELLBUTRIN-SR ) 150 MG tablet Take 150 mg by mouth 2 times daily Active acetaminophen (TYLENOL) 325 MG tablet Take 2 (two) tablets by mouth every 6 hours Maximum allowable Acetaminophen amount = 4 Grams (4000 mg) / 24 hours. 2 Active aluminum-magne sium-simethico ne (MAALOX; MYLANTA) 200-200-20 MG/5ML suspension Take 30 mL by mouth every 6 hours as needed for Heartburn 2 Active lidocaine (LIDODERM) 5 % patch Apply 1 (one) patch to skin every 24 hours 7 patch 2 Active oxyCODONE, immediate release, (ROXICODONE) 10 MG tablet Take 1 (one) tablet by mouth every 6 hours as needed 30 tablet 2 Active senna (SENOKOT EXTRA STRENGTH) 17.2 MG Take 17.2 mg by mouth once daily 30 tablet 2 Active Vortioxetine HBr (TRINTELLIX PO) Take 10 mg by mouth once daily Active methocarbamol (ROBAXIN) 750 MG tablet Take 1 (one) tablet by mouth every 6 hours 30 tablet 2 Active Active Problems Problem Noted Date Diagnosed Date Fall 08/07/2021 Renal hematoma, left 08/07/2021 Multiple closed fractures of ribs of left side 0 08/07/2021 Immunizations Immunization Administration Dates Next Due INFLUENZA VACCINE 01/22/2021 [...] on file Legal Sex Female 10:29 AM REGISTERED PUBLIC SURVEYOR Gender Identity Not on file Sexual Orientation [...] 11:40 AM CDT Height 172.7 cm (5' 8) 08/19/2021 11:40 AM CDT Body Mass Index 24.48 08/19/2021 11:40 AM CDT Plan of Treatment Health Maintenance Due Date Last Done Comments HIV SCREENING 2003 HEPATITIS C SCREENING 03/17/2006 DTAP/TDAP/TD VACCINES (1 - Tdap) 2007 HEPATITIS B VACCINE (1 of 3 - 19+ 3-dose series) 2007 PNEUMOCOCCAL VACCINE (1 of 2 - PCV) 2007 PAP SMEAR 07/08/2023 07/07/2020, 07/07/2020 COVID-19 VACCINE (1 - 2023-2 5 season) 2023 DEPRESSION SCREENING 04/10/2024 INFLUENZA VACCINE (Season Ended) 2024 01/22/2021, 02/18/2019, 04/15/2011 ZOSTER VACCINE (1 of 2) 2038 HIB [...] patient's age to complete this topic Insurance [facility] SELF PAY NO INSURANCE Member Subscriber Plan / Payer (Ef fective for All Dates) Name:Geronimo Trevizo R Member ID:Not on file Relation to Subscriber:Not on file Name:GERONIMO TREVIZO Subscriber ID:Not on file Address: [address] [place] [address] Payer ID:Not on file Group ID:Not on file Type:Self Pay Address: [place], [place] BCBS/[employer]UE [employer] [facility] [place] SELF PAY NO INSURANCE Member Subscriber Plan / Payer (Ef fective for All Dates) Name:Geronimo Trevizo Member ID:Not on file Relation to Subscriber:Not on file Name:GERONIMO TREVIZO Subscriber ID:Not on file Address: [address] [place] [address] Payer ID:Not on file Group ID:Not on file Type:Self Pay Address: [place], [place] Advance Directives * Full Code (Latest Code Status on File) Date Activated Date Inactivated Comments 08/08/2021 3:58 AM 08/08/2021 5:20 PM
--- OUTSIDE RECORDS SUMMARY | 2024-10-09 10:32 | XMS_ITS | Encounter Summary ---
Author Organization [facility] Address [address] [place] [address] Care Team Providers Care Vegetable Cutter Name Role Phone Unavailable Primary Care Provider Unavailabl e Reason for Visit * Reason Comments Refill Request Encounter Details Date Type Department Care Team (Late st Contact Info) Description 05/24/2022 Refill [facility] [address] [place] [address], [place] [address] David Jean MD [address] [place] [address] [place] [phone] Refill Request Social History Tobacco Use Types [...] on file Legal Sex Female 10:29 AM WET COTTON FEEDER Gender Identity Not on file Sexual Orientation Not on file documented as of this encounter Plan of Treatment Not on file documented as of this encounter Visit Diagnoses Not on filedocumented in this encounter
--- OUTSIDE RECORDS SUMMARY | 2024-10-09 10:32 | XMS_ITS | Encounter Summary ---
Author Organization [facility] Address [address] [facility] [place] [address] Care Team Providers Care Clinical Program Director Name Role Phone Unavailable Primary Care Provider Unavailabl e Reason for Visit * Reason Comments Refill Request Encounter Details Date Type Department Care Team (Late st Contact Info) Description 05/16/2022 Refill [facility] [address] [place] [address], [place] [address] David Jean MD [address] [place] [address] [place] [phone] Refill Request Social History Tobacco Use Types [...] on file Legal Sex Female 10:29 AM HAT BODY INSPECTOR Gender Identity Not on file Sexual Orientation Not on file documented as of this encounter Plan of Treatment Not on file documented as of this encounter Visit Diagnoses Not on filedocumented in this encounter
--- OUTSIDE RECORDS SUMMARY | 2024-10-09 10:32 | XMS_ITS | Encounter Summary ---
Author Organization [facility] Address [address] [place] [address] Care Team Providers Care People Manager Name Role Phone Unavailable Primary Care Provider Unavailabl e Reason for Visit * Reason Comments Refill Request Encounter Details Date Type Department Care Team (Late st Contact Info) Description 05/20/2022 Refill [facility] [address] [place] [address], [place] [address] David Jean MD [address] [place] [address] [place] [phone] Refill Request Social History Tobacco Use Types [...] on file Legal Sex Female 10:29 AM ENGRAVER OPTICAL FRAMES Gender Identity Not on file Sexual Orientation Not on file documented as of this encounter Plan of Treatment Not on file documented as of this encounter Visit Diagnoses Not on filedocumented in this encounter
--- OUTSIDE RECORDS SUMMARY | 2024-10-09 10:32 | XMS_ITS | Data Portability ---
Author Organization [facility] [place] Address [address] [place] [address] [place] [address] Care Team Providers Care Boarder Hand Name Role Phone [facility] Primary Care Provider Assessment Encounter Date Assessment [...] None recorded. Lab prolactin, serum 2023 024 [facility] (Lab), [address], [place], [address], 4 02:36:29 Referral None recorded. Procedures None recorded. Surgeries None recorded. Imaging US, pelvis [email or web address], [address], [address], [place], [address], 4 22:09:54 US, transvagina l 2023 024 [email or web address] [place], [address], [address], [place], [address], 4 22:09:54 US, breast - Right breast lump, located around 9-12 oclock. Breast pain, nipple discharge [address] (Imaging), [address], [place], [address], 4 13:42:43 MAMMO, diagnostic, digital, bilateral 2023 024 [facility] (Imaging), [address], [place], [address], 4 15:02:10 US, pelvis 2022 023 [email or web address] [place], [address], [address], [place], [address], 3 20:25:25 US, transvagina l 2022 023 [email or web address] [place], [address], [address], [place], [address], 3 20:25:25 Medication Orders Imvexxy Maintenance Pack 4 mcg vaginal insert [address] [id number], [address] [place], [place], [id number], 4 10:23:21 estradiol 0.025 mg/24 hr semiweekly transdermal patch [address] [id number], [address] [place], [place], [id number], 4 14:19:33 Patient TargetsNo targets recorded. Patient InstructionsNo instructions recorded. Reason for Referral None Reported. Results Created Date Observation Date Name Description Value Unit Range Abnormal Flag Note LastModifiedBy Organization Detail LastModifiedTime 06/14/1906/13/2022 CULTU RE: AEROB IC/AN AEROB IC culture: aerobic/anae robic CANCEL LED Reord ered Not Available [facility] (Lab) [address], [place], [address], 06/14/2022 07:57:53 06/14/19 23 06/13/2022 CULTU RE: GENIT AL result report SEE RESULT S BELOW Test: Cultu re: Genit al Speci men Sourc e: Vagin a Speci men Type: Swab Speci men Date: 023 4:22 PM Resul t Date: 2022 6:42 PM Resul t Statu s: Final resul t Resul ting Lab: [facility] [address] [facility] [address] Tel: CULTU RE ----- ----- ----- --- No Neiss eria gonor rhoea e isola emerson Light Growt h Lelia l Vagin al Karine STAIN ----- ----- ----- --- Leila l vagin al karine negat keron for bacte rial vagin osis Not Available [facility] (Lab) [address] [place], [address], 06/17/2022 19:45:41 06/14/19 23 06/13/2022 CULTU RE: URINE result report SEE RESULT S BELOW Test: Cultu re: Urine Speci men Sourc e: Urine Voide d Speci men Type: Urine Speci men Date: 023 4:22 PM Resul t Date: 023 5:51 AM Resul t Statu s: Final resul t Abnor mal: No Resul ting Lab: [facility] [address] [facility] [address] Tel: CULTU RE ----- ----- ----- --- No growt h in 1 day (dete ction level of 10,00 0 colon ies / ml.) Not Available [facility] (Lab) [address], [place], [address], 06/17/2022 19:45:41 06/14/19 23 06/13/2022 urina lysis , dipst ick Leukocytes +3 Not Available Jose españa [address], [place], [address], 06/13/2022 16:06:01 06/14/19 23 06/13/2022 urina lysis , dipst ick Blood +++ Not Available [place] [address], [place], [address], 06/13/2022 16:06:01 05/11/19 24 05/11/2023 FSH, LH, ESTRA DIOL estradiol 72.4 pg/mL This assay was perfo rmed using [employer] ratio n reage nts and test kits. Value s obtai cathy with other assay metho ds or kits canno t be used inter lazo eably . Femal e Estra diol Range s: Folli cular phase 12.4- 233 pg/mL Ovula tion phase 41.0- 398 pg/mL Lutea l phase 22.3- 341 pg/mL Postm enopa usal< 5-138 pg/mL Healt hy Pregn ant Women 1st Trime ster1 54-32 43 pg/mL 2nd Trime ster1 561-2 1280 pg/mL 3rd Trime ster8 525-> 81627 pg/mL Not Available [facility] (Lab) [address] [place], [address], 05/12/2023 06:58:38 05/11/19 24 05/11/2023 FSH, LH, [...] use: 25.8- 134.8 mIU/m L Not Available [facility] (Lab) [address] [place], [address], 05/12/2023 06:58:38 05/11/19 24 05/11/2023 FSH, LH, ESTRA DIOL LH 5.1 mIU/m L This assay was perfo rmed using [employer] reage nts and test kits. Value s obtai cathy with other assay metho ds or kits canno t be used inter [facility] . Femal es Mid-F ollic ular: 2.4-1 2.6 mIU/m L Mid-C ycle: 14.0- 95.6 mIU/m L Mid-L uteal : 1.0-1 1.4 mIU/m L Postm enopa use: 7.7-5 8.5 mIU/m L Not Available [facility] (Lab) [address], [place], [address], 05/12/2023 06:58:38 08/21/19 24 08/21/2023 PROLA CTIN prolactin, total 13.60 NG/mL 4.79-2 3.30 This assay was perfo rmed using [employer] reage nts and test kits. Value s obtai cathy with other assay metho ds or kits canno t be used inter [facility] . Not Available [facility] (Lab) [address], [place], [address], 08/22/2023 02:36:29 06/14/19 23 06/13/2022 US, pelvi s No observ ation record ed. [email or web address] [place] [address], [place], [address], 06/13/2022 18:20:46 06/14/19 23 06/13/2022 US, trans vagin al No observ ation record ed. [email or web address] [place] [address], [place], [address], 06/13/2022 18:20:35 06/14/19 23 06/13/2022 US, pelvi s No observ ation record ed. [email or web address] [address], [place], [address], 06/13/2022 21:26:14 07/08/19 23 07/07/2022 US, pelvi s No observ ation record ed. [email or web address] [address], [place], [address], 05/03/2023 11:47:24 07/08/19 23 07/07/2022 US, pelvi s No observ ation record ed. [email or web address] [place] [address], [place], [address], 05/03/2023 11:47:24 07/08/19 23 07/07/2022 US, trans vagin al No observ ation record ed. [email or web address] [place] [address], [place], [address], 05/03/2023 11:47:24 08/25/19 24 08/24/2023 [email or web address] , diagn ostic , digit al, bilat eral No observ ation record ed. [facility] [address], [place], [address], 08/31/2023 11:30:59 10/05/19 24 10/05/2023 US, pelvi s No observ ation record ed. [email or web address] [place] [address], [place], [address], 10/05/2023 18:17:09 10/05/19 24 10/05/2023 US, trans vagin al No observ ation record ed. [email or web address] [place] [address], [place], [address], 10/05/2023 18:16:59 10/05/19 24 10/05/2023 US, pelvi s No observ ation record ed. [email or web address] [address], [place], [address], 10/05/2023 22:42:35 Result Notes None recorded. Procedures Surgical History Date Name Laterality Status Provider Name and Address Organization Details Recorded Time 01/03/20 23 procedure on back completed Alice Yee [facility] 05/03/2023 11:16:38 06/01/19 23 ROBOTIC ASSISTED HYSTERECTOMY WITH SALPINGECTOMY (SURG) completed Alva Neff [facility] 06/02/2022 10:15:42 08/25/19 21 Endometrial Ablation with Hysteroscopy completed Arash Steve MD [address], [place], [address], [facility] 08/24/2020 17:18:53 08/25/19 21 hysteroscopy with endometrial ablation completed [facility] 09/03/2020 14:38:56 07/08/19 21 Date of Last Pap Smear completed [facility] 05/05/2022 09:38:24 04/10/19 21 completed Brenda Regalado [facility] 01/21/2022 15:12:36 09/09/19 [address] [facility] 07/02/2020 11:27:20 06/09/19 18 Gastric Bypass completed [facility] 07/02/2020 11:38:27 02/20/[address] [facility] 07/02/2020 11:27:00 Imaging Results None recorded. Procedure Notes None recorded. Medical Equipment None Reported. Allergies Allergen ID Allergen Name Allergen Category Reaction Reaction Severity Criticality Documentation Date Start Date Code Code System Note Provider Name and Address Organization Details Recorded Time 02502 Non-stero idal anti-infl ammatory agent (product) medicatio n Not available Not available Not available 07/02/2020 96739 005 SNOMED Ofelia Iliana [facility] [place] - [facility] 11:31:04 Medications Name Sig Start Date Stop Date Status Note LastModified by Organization Details LastModified Time Hydromet 5 mg-1.5 mg/5 mL oral solution TAKE 5 ML BY [...] Not Available Not Available Not Available cholecalcif imr (vitamin D3) 1,250 mcg (50,000 unit) capsule [...] Updated DateTime 05/03/2023 170.18 cm 20.7 kg/m2 47485.19 g 116 mm[Hg] 74 mm[Hg] Alice Yee [facility] 4 11:10:22 Date Recorded Body height Body mass index (BMI) Body weight Systolic blood pressure Diastolic blood pressure Provider Name and Address Organization Details Last Updated DateTime 08/21/2023 170.18 cm 20.7 kg/m2 19719.19 g 103 mm[Hg] 65 mm[Hg] Pricila Shannon [facility] 4 10:19:34 Social History Question Answer Notes LastModified by Organizat ion Details LastModified Time Tobacco Smoking Status Current Every Day Smoker [facility] 01/21/2022 15:12:42 Do You Have An Advance Directive? No Information n ot available 01/21/2022 Are You Blind Or Do You Have [...] Or The Highest Degree You Have Received? [id number] Information not available 01/21/2022 Are There Any [...] PPD Information not available 01/21/2022 Do You Use Sunscreen Routinely? Yes Information not available 01/21/2022 Has Tobacco Cessation Counseling Been Provided? No Information not available 01/21/2022 How Many Years Have You Smoked Tobacco? 28 Information not available 01/21/2022 Have You Used IV Drugs? No Information not available 01/21/2022 Sex: Unknown Functional Status Question Answer Note LastModified by Organizat ion Details LastModified Time Do you use any illicit or recreational drugs? No Information not available 07/02/2020 Do you or have you ever used any other forms of tobacco or nicotine? No Information not available 01/21/2022 What is your level of alcohol consumption? None Information not available 07/02/2020 Are you able to walk? YESWOREST Information not available 01/21/2022 What is your exercise level? Occasional Information not available 01/21/2022 Mental Status Question Answer Note LastModified by Organization D etails LastModified Time Do you feel stressed (tense, restless, nervous, or anxious, or unable to sleep at night)? [id number] Information not available 01/21/2022 Family History Relationship Description Onset Age of [...] Immunizations Vaccine Type Date Status Note Provider Wallace ervin and Address Organization Details Recorded Time COVID-19, mRNA, LNP-S, PF, 30 mcg/0.3 mL dose 11/05/2020 [facility] 10/26/2021 14:59:36 Past Encounters Encounter ID Performer Location Encounter Start Date Encounter Closed Date Diagnosis/Indication Diagnosis SNOMED-CT Code Diagnosis ICD10 Code Diagnosis Note [id number] Arash Steve MD [place] [address] [address] 07/02/2020 11:12:55 07/02/2020 12:08:48 Menorrhagia 171681153 N92.0 patient is a 28-year-ol d female [...] was given a packet of slynd Dysmenorrhea 656750576 N 94.6 [id number] Arash Steve MD [place] [address],[place] [address] 07/02/2020 12:24:26 07/02/2020 14:24:47 Abnormal uterine bleeding 4440031772 9100 N93.9 Menorrhagia 520261768 N9 2.0 patient is a 28-year-ol d [...] is a new problem with unknown prognosis. [id number] Arash Steve MD [place] [address],[place] [address] 07/06/2020 15:55:33 07/06/2020 16:30:06 Menorrhagia 327014086 N92.0 R10.2 N93.9 patient is a 28-year-ol [...] is a new problem with unknown prognosis. [id number] Arash Steve MD [place] [address] [address] 07/07/2020 16:06:32 07/07/2020 17:35:58 Menorrhagia 844438411 N92.0 R10.2 N93.9 Patient is a 30-year-ol [...] this patient s visit, including available hand health sciences dean upon arrive, temperatur e check and being asked a series of screening questions. All staff wore face coverings during this encounter, as well as provided additional cleaning and sanitizing of all surfaces, including countertop s, pens, chairs, door handles, light switches, etc, prior to and following the patient s visit. [id number] Arash Steve MD [place] [address] [address] 08/24/2020 14:04:38 08/24/2020 17:23:44 Menorrhagia 682547259 N92.0 R10.2 N93.9 endometria l ablation was performed without complicati ons. She tolerated it well. [id number] Arash Steve MD [place] [address] [address] 09/03/2020 14:25:17 09/03/2020 15:08:37 Female hirsutism 84821050 L68.0 Menorrhagia 574941515 N9 2.0 R10.2 N93.9 This patient is a 30-year-ol d female presents Follow-up on menorrhagi a. She underwent endometria l ablation. She is recovering normally. She recently had pneumonia. We talked about hirsutism today. We agreed to start spironolac tone. We discussed metformin. We discussed her elevated androgens. She will begin spironolac tone. [id number] Julia Monaco [facility] [address] [address] 10/14/2021 17:14:36 10/18/2021 16:01:14 Pain in pelvis 63081263 R10.2 Today we agreed to have STAT US set up for tomorrow morning at [facility] as our tech's have no appts [...] answered to patient satisfacti on. Female hirsutism 6202854 9 L68.0 Agreed to update labs for hirsutism and low libido.RF Spironolac tone sent [id number] Arash Steve MD [place] [address] [address] 10/15/2021 17:28:54 10/18/2021 14:55:32 Pain in pelvis 52239496 R10.2 [id number] Julia Monaco [facility] [address] [address] 10/26/2021 14:40:53 10/26/2021 15:44:15 Pain in pelvis 89392752 R10.2 Today we agreed to update US TVUS for this issue while she is having sx's.If we do not feel this is [employer] related we need to consider CT scan [...] counseling and review of plan of care. [id number] Arash Steve MD [place] [address],[place] [address] 10/26/2021 15:06:57 10/26/2021 15:56:38 Pain in pelvis 74463476 R10.2 [id number] Julia Monaco [facility] [address],[place] [address] 12/14/2021 12:55:14 12/14/2021 13:53:46 Pain in pelvis 55965387 R10.2 [id number] Julia Monaco [place] [id number],[place] [address] 01/21/2022 14:56:41 01/24/2022 16:21:18 Urinary symptoms 929735645 R39.9 N76.0 Treated for UTI with yeast prevention Time spent in visit is a total of 15 mins with at least 50% of visit consisting of counseling and review of plan of care. [id number] Julia Monaco [facility] [address],[place] [address] 01/28/2022 16:15:34 01/28/2022 16:21:49 Pain in pelvis 81840541 R10.2 [id number] Julia Monaco [facility] [address],[place] [address] 02/25/2022 16:49:29 02/28/2022 16:21:20 Pain in pelvis 65798155 R10.2 [id number] Arash Steve MD [place] [address],[place] [address] 05/05/2022 09:29:47 05/05/2022 10:19:46 Dysmenorrhea 772465667 N94.6 this patient is a 32-year-ol d [...] of our time together was counseling . [id number] Arash Steve MD [place] [address] [address] 05/23/2022 16:58:48 05/24/2022 11:10:45 Anxiety 72652162 F41.9 Dysmenorrhea 954128933 N 94.6 this patient is a 32-year-ol d female with severe dysmenorrh ea. We have agreed to perform total laparoscop ic hysterecto my bilateral salpingect sadaf. She understand s the risks, benefits, and alternativ es. She has completed the informed consent process and is ready to proceed. [id number] Arash Steve MD [place] [address] [address] 06/03/2022 09:30:58 06/03/2022 09:34:28 [id number] Arash Steve MD [place] [address] [address] 06/09/2022 17:04:22 06/09/2022 17:46:28 Postoperative care 312631277 Z48.89 32-year-ol d who presents for postop follow-up. She is 1 week postop from laparoscop ic hysterecto my and bilateral salpingect sadaf. She has no complaints . Her incisions are clean dry and intact she is recovering normally. We went over restrictio ns. [id number] MD Joss Thomas [address] [address] 06/13/2022 14:17:39 06/13/2022 15:34:17 Postoperative infection 43607056 T81.40XA 32-year-ol d female presents for postop [...] options. We will likely start antibiotic s [id number] Arash Steve MD [place] [address] [address] 06/13/2022 15:19:18 06/13/2022 16:28:52 Pain in pelvis 26659928 R10.2 [id number] Arash Steve MD [place] [address],[place] [address] 06/24/2022 12:28:13 06/27/2022 15:39:32 Postoperative complication 267019339 T81.9XXS This patient is a 32-year-ol d [...] ce. More than 50% was counseling . [id number] MD Joss Thomas [address],[place] [address] 07/07/2022 15:31:14 07/07/2022 18:13:09 Abnormal vaginal bleeding 954326636 N93.9 [id number] Julia Monaco , [facility] [address] [address] 05/03/2023 10:52:05 05/03/2023 11:49:35 Gynecologic examination 68234706 Z01.419 Take Calcium with Vitamin D 1200mg [...] Screen naDexa Screen naRoutine Labs PCP Dyspareunia 80005551 N94 .10 Counseled on the following: Vaginal [...] the vagina are recommende d. Resources: [email or web address]://ww [email or web address].[employer].org/docs /default-s ource/for- women/mn-v aginal-dry ness.pdf RTO x 6wk med check Menopausal symptom 39528 002 N95.1 Getting loop recorder removed.Ca rdiovascul [...] migraine w/ visual changes, breast cancer dx, AL/stroke, DVT/PE, Endometria l cancer. Please contact office with any new or worsening side effects or adverse reactions. Or if a medical emergency please go to nearest ED/[facility] for further evaluation . [id number] HAY Prince [place] [address],[place] [address] 08/21/2023 10:16:16 08/21/2023 12:20:26 Breast lump 53475775 N63.0 right breast lump/tende rness/nipp le dischargeo [...] counseling and review of plan of care. [id number] Arash Steve MD [place] [address],[place] [address] 10/05/2023 17:20:43 10/06/2023 02:37:04 Cyst of ovary 52396748 N83.209 Arash Steve MD [place] [address],[place] [address] 10/07/2023 09:42:19 10/07/2023 10:52:34 Cyst of ovary 82378403 N83.209 33-year-ol d female who presents for [...] None Recorded Advance Directives Directive N: Payers Insurance Date Sequence Insurance Name Policy Number Policy Hoyos Covered Member ID Hoyos Member ID Guarantor Name 08/21/2020 1 [place] [id number] Shankar Gonzalez [id number] Aura Gonzalez 09/03/2020 1 [place] [id number] Shankar Gonzalez [id number] Aura Kitdoug 10/13/2021 1 [place] [id number] Shankar Gonzalez [id number] Aura Kitley 10/11/2023 1 [place] [id number] Shankar Gonzalez [id number] Aura Gonzalez Notes Date Note Type Note Provider Name and Address Organization Details Recorded Time 4 text/html 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 05/03/2023 11:48:45 4 text/html 33yo [id number] TLH, BSpresents for evaluation of right breast [...] breast injuries HAY Prince [address], [place], [address], [facility] 08/21/2023 11:35:28 4 text/html 33-year-old female [...] evaluated. Arash Steve MD [address], [place], [address], [facility] 10/07/2023 10:44:07 OBGyn Episode Ob Episode Information Episode Created Date Number of Fetuses Patient Bloodtype Patient rh Status Prepregnancy Weight lbs Domestic Partner Domestic Partner Phone Father Name Contracts Officer Status 07/03/19 21 1 CLOSED Fetus Data [...] Domestic Partner Domestic Partner Phone Father Name Contracts Officer Status 07/03/19 21 1 CLOSED Fetus Data [...] Domestic Partner Domestic Partner Phone Father Name Contracts Officer Status 07/03/19 21 1 CLOSED Fetus Data [...]
--- OUTSIDE RECORDS SUMMARY | 2024-10-09 10:32 | XMS_ITS | Encounter Summary ---
Author Organization [facility] Address [address] [place] [address] Care Team Providers Care Client Manager Name Role Phone Unavailable Primary Care Provider Unavailabl e Reason for Visit * Reason Comments Refill Request Encounter Details Date Type Department Care Team (Late st Contact Info) Description 05/12/2022 Refill [facility] [address] [place] [address], [place] [address] David Jean MD [address] [place] [address] DIV [place] [address] Refill Request Social History Tobacco Use Types [...] on file 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
[2024-10-09 10:49] LABS: Hematocrit 37.8 % (37.0-47.0); Hemoglobin 12.9 g/dL (12.0-15.0); Mean Corpuscular HGB Conc 34.1 g/dl (32-36); Mean Corpuscular Hemoglobin 31.8 pg (26-34); Mean Corpuscular Volume 93.1 fl (80-100); Platelet Count Result 187 k/mm3 (150-375); Red Blood Count 4.06 M/mm3 (4.2-5.4); White Blood Count 4.8 K/mm3 (4.5-10.0)
[2024-10-09 12:33] LABS: Iron 74 ug/dL (37-170)
[2024-10-09 12:34] LABS: Anion Gap 9 mmol/L (4-12); Blood Urea Nitrogen 21 mg/dL (7-17); Calcium 9.1 mg/dL (8.4-10.2); Carbon Dioxide 26 mmol/L (22-30); Chloride 104 mmol/L (98-107); Estimated Glomerular Filt Rate > 60; Glucose 94 mg/dL (65-110); Potassium 4.2 mmol/L (3.4-5.0); Sodium 139 mmol/L (137-145)
[2024-10-09 12:47] LABS: Percent Iron Saturation 21 % (20-50)
[2024-10-09 13:12] LABS: Ferritin 18.60 ng/mL (6.24-137)
[2024-10-09 13:44] LABS: Vitamin B12. 679.0 pg/mL (239-931)
== END 2024-10-09 10:17 | disposition home or self-care (01) ==
LOC: ANHLAB 10:16
PROVIDERS: PCP Family Medicine; Visit Provider Internal Medicine Hematology & Oncology
DX: D64.9 Anemia, unspecified (principal)
CPT/HCPCS: 36415; 80048; 82607; 82728; 82746; 83540; 83550; 85027

== ENCOUNTER 2024-12-07 08:49 | Emergency (ER) | payer BC, SELFPAY ==
--- NOTE | ~2024-12-07 | XR_ITS ---
EXAMINATION: XR hand RT min 3V, 12/07/2024 9:22 CDT HISTORY: right hand pain, swelling and bruising after fall COMPARISON: No comparisons available. Findings: No acute fracture or malalignment. No significant degenerative changes. Soft tissues unremarkable. Impression: No acute fracture or malalignment. Reviewed, dictated and finalized at location A. Impression: No acute fracture or malalignment.
--- NOTE | ~2024-12-07 | XR_ITS ---
EXAMINATION: XR hip LT min 2V, 12/07/2024 9:29 CDT HISTORY: left hip pain after fall COMPARISON: No comparisons available. Findings: No acute fracture or malalignment. No significant degenerative changes. Soft tissues unremarkable. Impression: No acute fracture or malalignment. Reviewed, dictated and finalized at location A. Impression: No acute fracture or malalignment.
--- OUTSIDE RECORDS SUMMARY | 2024-12-07 08:53 | XMS_ITS | Patient Health Record ---
Author Organization [facility] [place] ([address]) Address [address] [place] [address] Care Team Providers Care Procedure Writer Name Role Phone Sreekanth Maciel Primary Care Provider Herman Castillo Unavailable [phone] Julissa Moses Unavailable [phone] Nora Andrews Unavailable [phone] Allergies Allergen (clinical drug ingredient) Drug/Non Drug Allergy documented on EMR Reaction Allergy Type Onset Date Status Non-steroidal anti-inflammatory agent (FN) NSAIDs Unknown Drug Allergy Active Results Component Value Reference Range Notes -Immunoglobulins A/G/M, Qn, Ser Reviewed date:02/06/2024 01:08:45 PM Interpretation:Normal Performing Lab:[facility] [address] [id number], Phone - [phone], Director - Jose Notes/Report: Immunoglobulin G, Qn, Serum 397 188-0432 mg/d L Immunoglobulin A, Qn, Serum 138 87-352 mg/dL Immunoglobulin M, Qn, Serum 130 26-217 mg/dL -Tryptase ([id number]) Reviewed date:02/12/2024 12:32:00 PM Interpretation:Normal Performing Lab:[facility] [address] [id number], Phone - [phone], Director - Claudy Notes/Report: Tryptase 3.8 2.2-13.2 [...] W/U Status Risk Notes Problem Idiopathic urticaria (80643401) Idiopathic urticaria (L50.1) Active confirmed Problem Relapsing fever, 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) Active confirmed Problem Polycystic ovary syndrome (disorder) (263109255) Polycystic ovarian syndrome (E28.2) Active confirmed Problem Allergic contact dermatitis caused by metal and/or metal compound (disorder) (5503274308) Allergic contact dermatitis due to metals (L23.0) Active confirmed Problem Irritant contact dermatitis due to metals (L24.81) Active confirmed Problem Eruption of skin (858879960) Rash and other nonspecific skin eruption (R21) Active confirmed Vital Signs Oximetry 100 % 02/26/2024 Blood pressure diastolic 73 mm Hg 02/26/2024 Height 68 in 02/26/2024 Blood pressure systolic 110 mm Hg 02/26/2024 Weight 145.4 lbs 02/26/2024 BMI 22.11 kg/m2 02/26/2024 Encounters Encounter Location Date Provider Diagnosis [facility] [address] [place] [address] [address] 12/19/2023 Herman Kumar [address] [place] [address] [address] 03/18/2024 Herman Kumar [address] [place] [address] [address] 01/29/2024 Herman Kumar Relapsing fever, unspecified A68.9 ; Rash and other nonspecific skin eruption R21 and Idiopathic urticaria L50.[address] [address] 02/19/2024 Nora Andrews Relapsing fever, unspecified A68.9 ; Rash and other nonspecific skin eruption R21 and Idiopathic urticaria L50.[address] [address] 02/21/2024 Julissa Josué Relapsing fever, unspecified A68.9 ; Rash and other nonspecific skin eruption R21 and Idiopathic urticaria L50.[address] [address] 02/22/2024 Julissa Notone Relapsing fever, unspecified A68.9 ; Rash and other nonspecific skin eruption R21 and Idiopathic urticaria L50.[address] [address] 02/26/2024 Herman Kumar Allergic contact dermatitis due [...] to metals (ICD-10 - L24.81) as above 02/22/2024 Relapsing fever, unspecified (ICD-10 - A68.9) [...] for final patch read at 168 hours. 02/21/2024 Relapsing fever, unspecified (ICD-10 - A68.9) [...] for patch read #2 at 72 hours. 02/19/2024 Relapsing fever, unspecified (ICD-10 - A68.9) [...] - Patch testing was initiated today using MET-1000 test patch testing delivery system. - Keep back dry and avoid topical and oral steroids. - Return in 2 days for patch removal and initial read. 01/29/2024 Relapsing fever, unspecified (ICD-10 - A68.9) [...] returning next month to start patch testing 01/29/2024 Idiopathic urticaria (ICD-10 - L50.1) Reported [...] f/u with GI. No eosinophils noted 02/22/2024 Idiopathic urticaria (ICD-10 - L50.1) Reported [...] f/u with GI. No eosinophils noted 02/19/2024 Other 02/21/2024 Other 02/22/2024 Other 02/26/2024 Other 01/29/2024 Other Plan Of Treatment No Information Insurance Providers Payer Name Payer Address Payer Phone Subscriber Number Group Number Insured Name Patient Relationship to Insured Coverage Start Date Coverage End Date [facility] [address] [place] [address] [id number] Shankar Garcias Spouse - patient is the spouse of the insured Medical (General) History Medical History History ICD Code Attention-deficit hyperactivity disorder , unspecified type F90.9 Esophagitis, unspecified K20.9 Polycystic ovarian syndrome E28.2 Endometriosis, unspecified N80.9 Gastro-esophageal reflux disease without esophagitis K21.9 Surgical History Surgery Date(Month/Year) GASTRIC BYPASS FOR OBESITY DELIVERY Spinal Fusion L5-S1
--- OUTSIDE RECORDS SUMMARY | 2024-12-07 08:53 | XMS_ITS | Clinical Summary ---
Author Organization [facility] Address [address] [facility] [place] [address] Care Team Providers Care Bilingual Sales Consultant Name Role Phone Unavailable Primary Care Provider Unavailabl e Source Comments [facility],non-owned Affiliates and Associated Physician Practices is amultiple site organization consisting of ambulatory clinics and hospital sitesin [place], [place], [place] and [place]. This disclosure is being madepursuant to the Care Everywhere program and may not contain all information available regarding this patient. 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 Gender Identity Not on file Sexual Orientation [...] VACCINE (1 of 2 - PCV) 2007 HPV VACCINE (1 - 3-dose SCDM series) 2015 PAP SMEAR 07/08/2023 07/07/2020, 07/07/2020 COVID-19 VACCINE (1 - 2023-2 5 season) 2023 DEPRESSION SCREENING 04/10/2024 INFLUENZA VACCINE (#1) 2024 , 02/18/2019, 04/15/2011 ZOSTER VACCINE (1 of 2) 2038 HIB VACCINE Aged Out No longer eligi ble based on patient's age to complete this topic MENINGOCOCCAL (Group B) VACCINE SHARED DECISION-MAKING Aged Out No longer eligible based on patient's age to complete this topic MENINGOCOCCAL GROUPS A/C/Y/W VACCINE Aged Out No longer eligible b ased on patient's age to complete this topic Insurance [facility] SELF PAY NO INSURANCE Member Subscriber Plan / Payer (Ef fective for All Dates) Name:Geronimo Trevizo R Member ID:Not on file Relation to Subscriber:Not on file Name:GERONIMO TREVIZO Subscriber ID:Not on file Address: [address] [place] [address] Payer ID:Not on file Group ID:Not on file Type:Self Pay Address: [place], [place] BC[place]/BL[employer] [place] [place] SELF PAY NO INSURANCE Member Subscriber Plan / Payer (Ef fective for All Dates) Name:Geronimo Trevizo R Member ID:Not on file Relation to Subscriber:Not on file Name:GERONIMO TREVIZO Subscriber ID:Not on file Address: [address] [place] [address] Payer ID:Not on file Group ID:Not on file Type:Self Pay Address: [place], [place] Advance Directives * Full Code (Latest Code Status on File) Date Activated Date Inactivated Comments 08/08/2021 3:58 AM 08/08/2021 5:20 PM
--- OUTSIDE RECORDS SUMMARY | 2024-12-07 08:53 | XMS_ITS | Clinical Summary ---
Author Organization [facility] Address [address] [place] [address] Care Team Providers Care Affiliate Marketing Coordinator Name Role Phone Endy Zuñiga MD Primary Care Provider [phone] Allergies Active Allergy Reactions Criticality Noted Date Comments [place] Gluconate Unknown 02/28/2024 Patient had testing done and is allergic to cobalt in ingredients in medications Nsaids (Non-Steroidal Anti-Inflammatory Drug) Other (See Comments) High 08/27/2019 Post gastric bypass Other reaction(s): GI Upset Pt is post gastric bypass - unable to have nsaids Medications multivitamin-m pt-jioq-JW-vit K (Bariatric Multivitamins) 45 mg iron- 800 [...] Encounters Date Type Department Care Team Description 11/27/2024 External Device Data STL ABSTRACTION Provider, Abstract 11/26/2024 External Device Data STL ABSTRACTION Provider, Abstract 11/12/2024 External Device Data ST[facility] ABSTRACTION Provider, Abstract 10/23/2024 External Device Data ST[facility] ABSTRACTION Provider, Abstract 10/23/2024 External Device Data STL ABSTRACTION Provider, Abstract 10/09/2024 Orders Only [facility] - [address] [place] [phone] Sandoval Jung MD 10/01/2024 External Device Data STL ABSTRACTION Provider, Abstract 09/25/2024 External Device Data STL ABSTRACTION Provider, Abstract [...] on file Legal Sex Female 11:52 AM SAMPLE CASE PORTER Gender Identity Not on file Sexual Orientation Not on file Last Filed Vital Signs Vital Sign Reading Time Taken Comments Blood Pressure 117/66 02/28/2024 11:43 AM SAMPLE CASE PORTER Pulse 79 02/28/2024 11:43 AM SAMPLE CASE PORTER Temperature 36.8 C (98.2 F) 02/28/2024 11:43 AM SAMPLE CASE PORTER Respiratory Rate 18 02/28/2024 11:43 AM SAMPLE CASE PORTER Oxygen Saturation 98% 02/28/2024 11:43 AM SAMPLE CASE PORTER Inhaled Oxygen Concentration - - Weight 65.3 kg (144 lb) 02/28/2024 11:43 AM SAMPLE CASE PORTER Height 172.7 cm (5' 8) 09/07/2021 3:51 PM CDT Body Mass Index 21.9 09/07/2021 3:51 PM CDT Plan of Treatment Health Maintenance Due Date Last Done Comments HEPATITIS B VACCINES (1 of 3 - 19+ 3-dose series) 03/10 HPV/Cotest (21-29) 2009 HPV VACCINES (1 - 3-dose SCDM series) 2015 HPV/Cotest (30-65) 2018 DTAP/TDAP/TD VACCINES (2 - Td or Tdap) 09/28/2021 CERVICAL CANCER SCREENING 07/08/2023 PAP SMEAR 07/08/2023 07/07/2020 COVID-19 Vaccine ( season) 2023 INFLUENZA VACCINE (#1) 2024 02/18/2019 Procedures Procedure Name Priority Date/Time Associated Diagnosis Comments CBC WITH DIFFERENTIAL Routine 10/09/2024 12:41 PM CDT from Last 3 Months Results * CBC WITH DIFFERENTIAL (10/09/2024 12:41 PM CDT) Blood us Sandoval Jung MD HEMATOLOGY ORDERABLES Final Res ult from Last [address] [facility] Care Teams Affiliate Marketing Coordinator Relationship Specialty Start Date End Date Endy Zuñiga MD [address] [facility] [address] [place] [address] PCP - General Internal Medicine 02/13/20
--- OUTSIDE RECORDS SUMMARY | 2024-12-07 08:53 | XMS_ITS | Encounter Summary ---
Author Organization [facility] Address [address] [place] [address] Care Team Providers Care Customer Response Representative Name Role Phone Sreekanth Maciel MD Primary Care Provider [phone] Theresa Mcgowan NP Unavailable Arash Steve MD Unavailable [phone] Sandoval Jung MD Unavailable [phone] Encounter Details Date Type Department Care Team (Late st Contact Info) Description 01/17/2024 Orders Only [facility] [place] Information Management [address] [place] [address] Scanning, Provider Social History Tobacco Use Types Packs/Day Years Used Date Smoking Tobacco: Every Day Cigarettes 0.8 24.2 Started: 09/16/2000 Smokeless Tobacco: Never Alcohol Use [...] more points, staff should administer the PHQ-9) 2 12/18/2023 PHQ-9 Answer Date Recorded PHQ-9 Total Score 7 11/29/2023 Personal Safety Answer Date Recorded Have you ever been in or are you currently in a harmful physical or emotional relationship or is someone making you feel afraid or unsafe? Denies 02/14/2023 Comments No Sex and Gender Information Value Date Recorded Sex Assigned at Not on file Legal Sex Female 10:42 AM HEDIS ABSTRACTOR Gender Identity Female 02/14/2021 8:33 PM HEDIS ABSTRACTOR Sexual Orientation Straight 02/14/2021 8: 33 PM HEDIS ABSTRACTOR documented as of this encounter Plan of Treatment Not on file documented as of this encounter Procedures Procedure Name Priority Date/Time Associated Diagnosis Comments SCAN - LABS 01/17/2024 documented in this encounter Results * SCAN - LABS (01/17/2024) us Provider Scanning Final Result documented in this encounter Visit Diagnoses Not on filedocumented in this encounter Care Teams Customer Response Representative Relationship Specialty Start Date End Date Sreekanth Maciel MD [address] [address] PCP - General Family Medicine 05/15/23 Theresa Mcgowan NP [address] [place] [address] [place] [address] Nurse Practitioner Behavioral Health 05/15/23 Arsah Steve MD [address] [place] [address] Referring Physician Obstetrics and Gynecology 05/15/23 Sandoval Jung MD [address] [phone] Referring Physician Hematology 05/15/23 documented as of this encounter
--- OUTSIDE RECORDS SUMMARY | 2024-12-07 08:53 | XMS_ITS | Encounter Summary ---
Author Organization [facility] Address [address] [facility] [place] [address] Care Team Providers Care Client Coordinator Name Role Phone Unavailable Primary Care Provider Unavailabl e Reason for Visit * Reason Comments Refill Request Encounter Details Date Type Department Care Team (Late st Contact Info) Description 05/28/2022 Refill [facility] [address] [place] [address], [place] [address] David Jean MD [address] [place] [address] [place] [phone] Refill Request Social History Tobacco Use Types [...] on file 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
--- OUTSIDE RECORDS SUMMARY | 2024-12-07 08:53 | XMS_ITS | Encounter Summary ---
Author Organization [facility] Address [address] [facility] [place] [address] Care Team Providers Care Quality Tester Name Role Phone Unavailable Primary Care Provider Unavailabl e Reason for Visit * Reason Comments Refill Request Encounter Details Date Type Department Care Team (Late st Contact Info) Description 05/16/2022 Refill [facility] [address] [place] [address], [place] [address] David Jean MD [address] [place] [address] [place] [phone] Refill Request Social History Tobacco Use Types [...] on file 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
--- OUTSIDE RECORDS SUMMARY | 2024-12-07 08:53 | XMS_ITS | Encounter Summary ---
Author Organization [facility] Address [address] [facility] [place] [address] Care Team Providers Care Noodle Press Operator Name Role Phone Unavailable Primary Care Provider Unavailabl e Reason for Visit * Reason Comments Refill Request Encounter Details Date Type Department Care Team (Late st Contact Info) Description 05/20/2022 Refill [facility] [address] [place] [address], [place] [address] David Jean MD [address] [place] [address] [place] [phone] Refill Request Social History Tobacco Use Types [...] on file 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
--- OUTSIDE RECORDS SUMMARY | 2024-12-07 08:53 | XMS_ITS | Encounter Summary ---
Author Organization [facility] Address [address] [place] [address] Care Team Providers Care Hydraulic Miner Name Role Phone Dionisio Angel MD Primary Care Provider [phone] Encounter Details Date Type Department Care Team (Late st Contact Info) Description 05/06/2020 Prep for Procedure [facility] [place], [place] [id number] Dionisio Angel MD [address] [facility] [address] [place] [id number] Social History Tobacco Use Types Packs/Day Years [...] PRE-SURGICAL/PRE-PROCEDURE CORONAVIRUS (COVID 19) (05/08/2020 9:50 AM STOVE CLEANER) CORONAVIRUS SARS COV 2 PCR (RESP) NOT DETECTED NOT DETECTED 05/09/2020 4:31 PM STOVE CLEANER [facility] Comment: A Not Detected (negative) test result [...] providers and patients using the following websites: https://www.Sepior.Planeta.ru/home/Covid-19/HCP/NAAT/fact-sheet2 https://www.Sepior.Planeta.ru/home/Covid-19/Patients/NAAT/ fact-sheet2 This test has been authorized by the FDA under an Emergency Use Authorization (EUA) for use by authorized laboratories. Due to the current public health emergency, [facility] is receiving a high volume of samples [...] about COVID-19 can be found at the [facility] website: www.EntraTympanic.Planeta.ru/Covid19. Test performed at [facility] [place] [address] [place] [address] Director: MINNIE JEFFREY DO,MPH FIRST TEST NO 05/08/2020 9:22 AM [facility] EMPLOYED IN HEALTHCARE UNKNOWN 05/08/2020 9:22 AM [facility] SYMPTOMATIC DEFINED BY CDC NO 05/08/2020 9:22 AM [facility] DATE OF SYMPTOM ONSET NO 05/08/2020 11:36 AM STOVE CLEANER [facility] HOSPITALIZATION STATUS NO 05/08/2020 9:22 AM STOVE CLEANER [facility] PATIENT IN ICU NO 05/08/2020 9:22 AM STOVE CLEANER [facility] RESIDENT OF CONGREGATE CARE UNKNOWN 05/08/2020 9:22 AM STOVE CLEANER [facility] UNKNOWN 05/08/2020 9:22 AM STOVE CLEANER [facility] PATIENT'S RACE WHITE OR 05/08/2020 9:22 AM STOVE CLEANER [facility] ETHNICITY NONHISPANIC 05/08/2020 9:22 AM STOVE CLEANER [facility] SOURCE (QST) NASOPHARYNGEAL SWAB 05/08/2020 9:22 AM STOVE CLEANER [facility] NASOPHARYNGEAL SWAB / Unknown 05/08/2020 9:50 AM STOVE CLEANER us Dionisio Angel MD [facility] Final Result Performing Organization Address City/State/[facility] Co de Phone Number [facility] [address] [place] [address], [facility] [address] documented in this encounter Visit Diagnoses Diagnosis Abdominal pain- Primary Abdominal pain, unspecified site documented in this encounter Additional Health Concerns Infection Onset Date Last Indicated Resolved Time COVID-19 Rule Out 05/08/2020 05/08/2020 05/09/2020 4:32 PM STOVE CLEANER documented as of this encounter Care Teams Hydraulic Miner Relationship Specialty Start Date End Date Dionisio Angel MD [address] [facility] [address] [place] [address] PCP - General GASTROENTEROLOGY 05/06/20 documented as of this encounter
--- OUTSIDE RECORDS SUMMARY | 2024-12-07 08:53 | XMS_ITS | Encounter Summary ---
Author Organization [facility] Address [address] [facility] [place] [address] Care Team Providers Care Distillery Miller Helper Name Role Phone Unavailable Primary Care Provider Unavailabl e Reason for Visit * Reason Comments Refill Request Encounter Details Date Type Department Care Team (Late st Contact Info) Description 05/24/2022 Refill [facility] [address] [place] [address], [place] [address] David Jean MD [address] [place] [address] [place] [phone] Refill Request Social History Tobacco Use Types [...] on file 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
--- OUTSIDE RECORDS SUMMARY | 2024-12-07 08:53 | XMS_ITS | Encounter Summary ---
Author Organization [facility] Address [address] [facility] [place] [address] Care Team Providers Care Shallot Packer Name Role Phone Unavailable Primary Care Provider Unavailabl e Reason for Visit * Reason Comments Refill Request Encounter Details Date Type Department Care Team (Late st Contact Info) Description 05/12/2022 Refill [facility] [address] [place] [address], [place] [address] David Jean MD [address] [place] [address] DIV [place] [phone] Refill Request Social History Tobacco Use Types [...] on file 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
--- OUTSIDE RECORDS SUMMARY | 2024-12-07 08:53 | XMS_ITS | Clinical Summary ---
Author Organization [facility] Address [facility] [place] [address] Care Team Providers Care Order Entry Technician Name Role Phone Dionisio Angel MD Primary Care Provider [phone] Allergies Active Allergy Reactions Criticality Noted Date [...] Comments Blood Pressure 111/69 05/11/2020 4:25 PM RESEARCH INSTRUCTOR Pulse 96 05/11/2020 4:25 PM RESEARCH INSTRUCTOR Temperature 37 C (98.6 F) 05/11/2020 3:52 PM RESEARCH INSTRUCTOR Respiratory Rate 16 05/11/2020 4:25 PM RESEARCH INSTRUCTOR Oxygen Saturation 94% 05/11/2020 4:25 PM RESEARCH INSTRUCTOR Inhaled Oxygen Concentration - - Weight 63.5 kg (140 lb) 05/06/2020 9:46 AM RESEARCH INSTRUCTOR Height 170.2 cm (5' 7) 05/06/2020 9:46 AM RESEARCH INSTRUCTOR Body Mass Index 21.93 05/06/2020 9:46 AM RESEARCH INSTRUCTOR Plan of Treatment Health Maintenance Due Date [...] Years) (1 of 2 - PCV) 2007 HPV Vaccines (1 - 3-dose SCD M series) 2015 Cervical Cancer Screening Pa p with HPV Testing (Age 30 to 64) Every 5 Years 2018 Cervical Cancer Screening with HPV 2018 COVID-19 Vaccine ( - 2023-2 5 season) 2023 PHQ-2 (Physician [place]) 04/10/2024 Meningococcal B Vaccine Aged Out No l onger eligible based on patient's age to complete this topic Meningococcal Vaccine Aged Out No naveen mauricio eligible based on patient's age to complete this topic RSV Immunizations Under 20 Months Aged Out No longer eligible based on patient's age to complete this topic Medical Devices Implanted Type Area Auger Press Operator Device Identifier Shelf Expiration Date Model / Serial / Lot Loop Recorder Care Teams Order Entry Technician Relationship Specialty Start Date End Date Dionisio Angel MD [address] [facility] [address] [place] [address] PCP - General GASTROENTEROLOGY 05/06/20
--- OUTSIDE RECORDS SUMMARY | 2024-12-07 08:53 | XMS_ITS | Clinical Summary ---
Author Organization [address] Address [address] [place] [address] Care Team Providers Care Crane Hoist Or Lift Operator Name Role Phone Sreekanth Maciel MD Primary Care Provider Theresa Mcgowan PATIENT SAFETY TECH Unavailable Arash Steve MD Unavailable [phone] Sandoval Jung MD Unavailable [phone] Allergies Active Allergy Reactions Criticality Noted Date Comments Alta Gluconate Unknown 02/28/2024 Patient had testing done [...] 04/19/2024 Assessment & Plan (04/19/2024 3:06 PM NEEDLE PUNCH OPERATOR): there may a link, given the facial [...] 05/15/2023 Assessment & Plan (05/18/2023 4:40 PM NEEDLE PUNCH OPERATOR): A(n) initial well visit to establish care [...] along with risks vs benefits. Vitamin D [id number] international units per day Calcium 500 mg/day [...] (03/18/2021): Added automatically from request for surgery [id number] Marginal ulcer 02/18/2021 Overview (02/18/2021): Added automatically from request for surgery [id number] Other dietary vitamin B12 deficiency anemia 02/08 [...] guidance Will refill omeprazole 20 mg BID [place] diet Update me in the next couple [...] 0.8 24.2 Started: 09/16/2000 Smokeless Tobacco: Never Tobacco Cessation:Ready [...] on file Legal Sex Female 10:42 AM NEEDLE PUNCH OPERATOR Gender Identity Female 02/14/2021 8:33 PM NEEDLE PUNCH OPERATOR Sexual Orientation Straight 02/14/2021 8: 33 PM NEEDLE PUNCH OPERATOR Obstetrics History Last Filed Vital Signs Vital Sign Reading Time Taken Comments Blood Pressure 106/64 07/09/2024 3:48 PM CDT Pulse 87 07/09/2024 3:48 PM CDT Temperature 36.5 C (97.7 F) 04/16/2024 10:36 AM NEEDLE PUNCH OPERATOR Respiratory Rate 16 04/16/2024 10:36 AM NEEDLE PUNCH OPERATOR Oxygen Saturation 98% 04/16/2024 10:36 AM NEEDLE PUNCH OPERATOR Inhaled Oxygen Concentration - - Weight 68 [...] (2 of 2 - PCV) 03/27/2013 03/27/2012 HPV Vaccines (1 - 3-dose SCD M series) 2015 DTaP/Tdap/Td Vaccine (2 - Td or Tdap) 09/28/2021 09/29/2011 Covid-19 Vaccine (3 - 2023-2 5 season) 2023 11/05/2020, 10/09/2020 Influenza Vaccine (#1) 2024 , 02/18/2019, 03/27/2012, Additional history exists Depression Screening 04/16/2025 04/16/2024, 02/15/2024, 12/18/2023, Additional history exists Varicella Vaccines Discontinued Medical Devices Implanted Type Area Special Procedures Technologist Device Identifier Shelf Expiration Date Model / Serial / Lot Loop Recorder Heart Insurance [employer]TH[employer] ACCESS giddy ACCESS CHOICE ANTHEM ACCESS Care Teams Crane Hoist Or Lift Operator Relationship Specialty Start Date End Date Sreekanth Maciel MD [id number] [address] PCP - General Family Medicine 05/15/23 Theresa Mcgowan NP [address] [place] [address] [place] [address] Nurse Practitioner Behavioral Health 05/15/23 Arash Steve MD [address] [place] [address] Referring Physician Obstetrics and Gynecology 05/15/23 Sandoval Jung MD [address] [address] Referring Physician Hematology 05/15/23
--- OUTSIDE RECORDS SUMMARY | 2024-12-07 08:53 | XMS_ITS | Patient Health Record ---
Author Organization [facility] [employer] [facility] Address [address] [place] [address] Care Team Providers Care Corporate Relations Manager Name Role Phone Nohemi Cai Unavailable [phone] Reason For Referral No Information Medications Medication SIG (Take, Route, Frequency, Duration) Notes Start Date End Date Status buPROPion HCl ER (SR) 100 MG Tablet Extended Release 12 Hour Oral 05/27/2019 Active Doxycycline Hyclate 100 MG Tablet Oral 05/27/2019 Active Zolpidem Tartrate 10 MG Tablet Oral 05/27/2019 Active Oxazepam 15 mg Capsule Oral 05/27/2019 Active Clindamycin HCl 150 MG Capsule Oral 05/27/2019 Active Fluconazole 150 MG Tablet Oral 05/27/2019 Active Ciprofloxacin HCl 500 MG Tablet Oral 05/27/2019 Active Sertraline HCl 50 MG Tablet Oral 05/27/2019 Active hydrOXYzine HCl 50 MG Tablet Oral 05/27/2019 Active QUEtiapine Fumarate 25 MG Tablet Oral 05/27/2019 Active Omeprazole 20 MG Capsule Delayed Release Oral 05/27/2019 Active metroNIDAZOLE 500 MG Tablet Oral 05/27/2019 Active Fluconazole 100 MG Tablet Oral 05/27/2019 Active Phenazopyridine HCl 100 MG Tablet Oral 05/27/2019 Active traMADol HCl 50 MG Tablet Oral 05/27/2019 Active traZODone HCl 100 MG Tablet Oral 05/27/2019 Active Naltrexone HCl 50 MG Tablet Oral 05/27/2019 Active LORazepam 1 MG Tablet Oral 05/27/2019 Active Folic Acid 1 MG Tablet Oral 05/27/2019 Active Vivitrol 380 mg Suspension Reconstituted Intramuscular 05/27/2019 Active Chantix Starting Month Brodie 0.5 MG X 11 & 1 MG X 42 Tablet Oral 05/27/2019 Active Cyclobenzaprine HCl 10 MG Tablet Oral 05/27/2019 Active Cephalexin 500 MG Capsule Oral 05/27/2019 Active HYDROcodone-Acetaminophen 5-325 MG Tablet Oral 05/27/2019 Active oxyCODONE-Acetaminophen 5-325 MG Tablet Oral 05/27/2019 Active Ondansetron 4 MG Tablet Disintegrating Oral 05/27/2019 Active Immunizations Vaccine Route Administration Date Status Comme nts Tdap Unknown 05/10/2014 Administered Social History Social History Additional Details Category Social Info Options Details Migrated Social History Migrated Social History Alcohol Intake: Occasional 05/03/2019,Tobacco Years: Current every day smoker 05/03/2019,Smoking Status: 15 05/03/2019 Plan Of Treatment No Information Insurance Providers Payer Name Payer Address Payer Phone Subscriber Number Group Number Insured Name Patient Relationship to Insured Coverage Start Date Coverage End Date [facility] [address] [place] [address] [id number] GERONIMO TREVIZO Self - patient is the insured
[2024-12-07 08:59] VITALS: BP 131/78; PULSE 103; RESP 16; TEMP 36.4; O2SAT 100
--- NOTE | 2024-12-07 09:19 | ED.FALL ---
HPI - Fall General Chief Complaint: Extremity Injury, Upper Stated Complaint: fall/hip and wrist pain Source: patient Mode of arrival: ambulatory Limitations: no limitations History of Present Illness HPI Narrative: 34-year-old female presents to [facility] with complaints of pain, swelling and bruising to the base of her right thumb and pain to her left hip after falling 2 days ago. Patient reports that she was on a stepstool clean and when she fell landed on her left hip and right hand. Patient reports that she landed on her right hand as she was shielding her face. Patient denies hitting her head, loss conscious, headache, dizziness or blurred vision. Patient reports that she has been taking Tylenol for pain as patient has history of gastric bypass. Patient reports that she has noticed a popping sensation to her left hip with ambulation. MD complaint: fall Onset (ago): day(s) (2) Place fall occurred: home Loss of consciousness: none Symptoms prior to fall: none Location of injury: other ( right hand, left hip) Associated symptoms (after fall): denies Related Data Home Medications ?Medication ?Instructions ?Recorded ?Confirmed ?Last Taken ?Type bupropion HCl 300 mg 24 hr tablet, 300 mg PO DAILY 03/11/24 03/19/24 03/10/24 History extended release cholecalciferol (vitamin D3) 1,250 50,000 unit PO WEEKLY 03/19/24 03/19/24 03/17/24 History mcg (50,000 unit) capsule omeprazole 40 mg capsule,delayed 40 mg PO BID 03/19/24 03/19/24 03/19/24 History release Allergies Allergy/AdvReac Type Severity Reaction Status Date / Time NSAIDS (Non-Steroidal AdvReac Intermediate r/t Verified 12/07/24 08:58 Anti-Inflamma gastric bypass and ulcer history Review of Systems Constitutional: Constitutional: Denies chills, Denies fatigue, Denies fever(s) and Denies weakness ENT: Denies dizziness and Denies nasal congestion Cardiovascular: Cardiovascular: Denies chest pain Respiratory: Respiratory: Denies cough, Denies dyspnea and Denies wheezing Gastrointestinal: Gastrointestinal: Denies diarrhea, Denies nausea and Denies vomiting Musculoskeletal: Comments: pain, swelling and bruising to right hand, pain to left hip Integumentary/Breasts: Skin/Breast: Denies rash Neurologic: Denies vertigo, Denies dizziness, Denies syncope and Denies headache(s) [facility] Past Medical History Medical History Hematemesis Chronic anastomotic ulcer of gastrojejunal region Epigastric pain BMI 21.0-21.9, adult Tobacco abuse GERD (gastroesophageal reflux disease) Low back pain radiating to left lower extremity Encounter to establish care History of uterine bleeding Depression Anxiety History of cardiac monitoring Third degree heart block Unconfirmed, currently being evaluated by Cardiology outpatient Hypothyroid Surgical History Surgical History H/O rhinoplasty History of Adolfo-en-Y gastric bypass H/O spinal fusion H/O section H/O: hysterectomy H/O abdominoplasty History of facial surgery right side facial reconstruction Hx of tonsillectomy Hx of gastric bypass Adolfo-en-Y 2017 Family History Family History Mother Hypertension Anxiety Depression Alcoholism Heart disease Father Hypertension Heart disease Cancer Other Cancer Anxiety Depression Grandparent Cancer Diabetes mellitus Depression Heart disease Anxiety Cerebrovascular accident Sibling Anxiety Depression CVS disease Daughter Anxiety Depression Grandparent Cancer Grandparent Cancer Social History Social History Social History: Ms. Gonzalez lives at home with her and two children. Her family recently moved to the area from [place] where her was stationed with the [employer]. She would like to be a full code and she designates her as her surrogate decision maker. Smoking packs per day: 0.5 Smoking cigarettes per day: 10.0 Years smoked: 15 Smoking pack-years: 7.50 Smoking status: Current every day smoker Tobacco type: cigarettes Second hand tobacco smoke exposure: Yes Alcohol intake: never Substance use: former Substance use type: does not use Do You Feel Safe in your Home?: Yes Lack of Transportation: No Lack of Food: Never True Current Housing: I Have Housing Concerned About Future Housing: No Difficulty Paying Gas/Electric Bills: No Difficulty Paying for Meds: No Currently Unemployed: No Education: Master's Degree or Higher Difficulty w/ Childcare or Family Care: No Living arrangements: with family Additional living arrangements comments: with and kids Occupation/Education: occupation Additional occupation/education comments: She stays home with her children. Gender identity (if verbalized by the patient): Female Spiritual care concerns: No Agree to blood products: Yes Comments At time of signature, I agree with nursing past medical, surgical, social and family history. There is no relevant family history pertinent to the presenting complaint. Exam Const: General: healthy appearing, no acute distress and alert Nutritional Appearance: well nourished Orientation/consciousness: patient oriented x3 Limitations: no limitations HENMT: Head: normal to inspection Face and sinus: normal facial exam Eyes: Conjunctivae: conjunctivae normal Neck: Neck: normal visual inspection Resp: Effort & Inspection: normal respiratory effort and not labored Auscultation: clear to auscultation bilaterally, no crackles, no rales, no rhonchi and no wheezes Cardio: Rate: regular rate Rhythm: regular rhythm Heart sounds: no murmurs Skin: General skin exam: normal color Neuro: General: patient oriented x3 and moves all extremities Speech: normal speech Extrem: Other: Mild swelling and bruising noted to palmar aspect of right hand at base of right thumb. There is pain noted to left hip upon palpation and range of motion. Limping noted with ambulation Psych: Affect: normal affect Attitude: cooperative Course Course Level of Care: Express Care Visit Vital Signs Vital signs: Vital Signs Temperature 36.4 C L 12/07/24 08:59 Pulse Rate 103 H 12/07/24 08:59 Respiratory Rate 16 12/07/24 08:59 Blood Pressure 131/78 12/07/24 08:59 Pulse Oximetry 100 12/07/24 08:59 Oxygen Delivery Room Air 12/07/24 08:59 Temperature 36.4 C L 12/07/24 08:59 Pulse Rate 103 H 12/07/24 08:59 Respiratory Rate 16 12/07/24 08:59 Blood Pressure 131/78 12/07/24 08:59 Pulse Oximetry 100 12/07/24 08:59 Oxygen Delivery Room Air 12/07/24 08:59 MDM - Fall MDM Narrative Medical decision making narrative: discussed negative x-ray results with patient. Educated patient follow-up with primary care provider for further testing if symptoms do not improve. rice therapy discussed with patient. Instructed patient to continue Tylenol As needed for pain Differential Diagnosis Differential diagnosis: Likely other ( fracture, sprain, strain) Imaging Data Radiologist's impression: EXAMINATION: XR hip LT min 2V, 12/07/2024 9:29 CDT HISTORY: left hip pain after fall COMPARISON: No comparisons available. Findings: No acute fracture or malalignment. No significant degenerative changes. Soft tissues unremarkable. Impression: No acute fracture or malalignment. Reviewed, dictated and finalized at location A. Please be advised this is a medical document. It is intended for [id number]-[id number] communication. It is written in medical language and may contain unfamiliar abbreviations or verbiage. Medical documents are intended to carry relevant information, facts as evident, and the clinical opinion of the practitioner at the time of the encounter. This report may have been done utilizing a voice recognition system. Attempts have been made to correct errors. However, there may be uncorrected grammatical, spelling, and recognition errors present. The file time of this note does not necessarily represent the time of service. Dictated By: Sandoval Shabazz MD 12/07/24 1037 Signed By: <Electronically signed by Sandoval Shabazz MD in OV> EXAMINATION: XR hand RT min 3V, 12/07/2024 9:22 CDT HISTORY: right hand pain, swelling and bruising after fall COMPARISON: No comparisons available. Findings: No acute fracture or malalignment. No significant degenerative changes. Soft tissues unremarkable. Impression: No acute fracture or malalignment. Reviewed, dictated and finalized at location A. Please be advised this is a medical document. It is intended for [id number] communication. It is written in medical language and may contain unfamiliar abbreviations or verbiage. Medical documents are intended to carry relevant information, facts as evident, and the clinical opinion of the practitioner at the time of the encounter. This report may have been done utilizing a voice recognition system. Attempts have been made to correct errors. However, there may be uncorrected grammatical, spelling, and recognition errors present. The file time of this note does not necessarily represent the time of service. Dictated By: Sandoval Shabazz MD 12/07/24 1038 Signed By: <Electronically signed by Sandoval Shabazz MD in OV> 12/07/24 1038 Critical Care Time Critical Care Time Critical Care Time: No Discharge Plan Discharge Clinical Impression: Acute pain of left hip, Hand pain, right Patient Disposition: Home Condition: Stable Instructions: Fall Prevention (ED) Additional Instructions: apply cold compress to the area of pain [id number] Tylenol as needed for pain Follow-up with primary care provider for additional testing if symptoms do not improve proceed to the emergency room if symptoms worsen Patient Language: Wolof Prescriptions: No Action bupropion HCl 300 mg tablet extended release 24 hr 300 mg PO DAILY cholecalciferol (vitamin D3) 1,250 mcg (50,000 unit) capsule 50,000 unit PO WEEKLY Patient Comments: WEEKLY ON MONDAY omeprazole 40 mg capsule,delayed release(DR/EC) 40 mg PO BID sucralfate 1 gram tablet See Rx Instructions .ROUTE .COMPLEX Qty: 120 1RF Dose Instruction: TAKE 1 TABLET BY MOUTH THREE TIMES DAILY Rx Instructions: TAKE 1 TABLET BY MOUTH THREE TIMES DAILY Follow-up/Referrals: Janell,Sreekanth Blair MD [Primary Care Provider, Unknown] Time of Disposition: 10:58
== END 2024-12-07 11:02 | disposition home or self-care (01) ==
PROVIDERS: Emergency Provider Nurse Practitioner Family; PCP Family Medicine
DX: M25.552 Pain in left hip (principal); M79.641 Pain in right hand; F17.210 Nicotine dependence, cigarettes, uncomplicated; K21.9 Gastro-esophageal reflux disease without esophagitis; E03.9 Hypothyroidism, unspecified; F41.9 Anxiety disorder, unspecified; F32.A Depression, unspecified; Z98.84 Bariatric surgery status
CPT/HCPCS: 73130; 73502; 99214; G0463

== ENCOUNTER 2025-01-02 09:30 | Emergency (ER) | payer BC, SELFPAY ==
--- OUTSIDE RECORDS SUMMARY | 2025-01-01 20:18 | XMS_ITS | Encounter Summary ---
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 Potassium, pl 3.7 3.3 - 4.9 mmol/L [facility] Chloride 106 97 - 110 mmol/L [facility] CO2 27 22 - 32 mmol/L [facility] Anion gap 10 2 - 15 mmol/L [facility] BUN 7 6 - 25 mg/dL [facility] Creatinine 0.61 0.60 - 1.10 mg/dL [facility] Glucose 94 70 - 199 mg/dL [facility] Comment: Interpretive Data Fasting glucose >/= 126 [...] interpretive data was last revised 2022. Calcium 9.1 8.5 - 10.3 mg/dL [facility] Bilirubin, total 0.3 0.1 - 1.2 mg/dL [facility] Protein, pl 7.2 6.5 - 8.5 g/dL [facility] Albumin 4.5 3.5 - 5.0 g/dL [facility] Alk phos 89 40 - 130 Units/L [facility] ALT 31 7 - 45 Units/L [facility] AST 33 10 - 45 Units/L [facility] Blood 01/01/2025 8:08 PM CDT 01/01/2025 8:12 PM CDT us Renato Santillan MD LAB BLOOD ORDERABLE S Final Result Performing Organization Address City/[facility]/ZIP Co de Phone Number OJ [facility] [email or web address] [address] * (ABNORMAL) CBC with auto differential (01/01/2025 8:08 PM CDT) Pathologist [facility] WBC 8.41 3.80 - 9.90 K/cumm Hgb 13.4 11.9 - 15.5 g/dL [facility] Hct 39.5 35.6 - 45.5 % [facility] Plt 216 150 - 400 K/cumm [facility] MPV 8.4(L) 9.1 - 12.3 fL [facility] RBC 4.20 3.90 - 5.20 M/cumm [facility] MCV 94.0 81.3 - 96.4 fL [facility] MCH 31.9 27.1 - 33.3 pg [facility] MCHC 33.9 32.3 - 35.7 g/dL [facility] RDW CV 13.0 11.1 - 14.9 % [facility] RDW SD 44.5 35.7 - 48.1 fL [facility] NRBC abs 0.00 0.00 - 0.01 K/cumm [facility] Blood Venous blood specimen / Unknown 01/01/2025 8:08 PM CDT 01/01/2025 8:12 PM CDT us Renato Santillan MD LAB BLOOD ORDERABLE S Final Result Performing Organization Address City/[facility]/ZIP Co de Phone Number OJ [address] [place] [address] documented in this encounter Visit Diagnoses Diagnosis Alcohol withdrawal syndrome without complication (HCC)- Primary documented in this encounter Administered Medications Inactive Administered Medications - up to 3 most recent administrations Medication Order MAR Action Action Date Dose Rate Site diazePAM (VALIUM) injection 5 mg 5 mg, intravenous, Administer over 1 Minutes, Every 6 hours PRN, Score greater than 18 on Alcohol Withdrawal Assessment, Starting on Mon01/01/25 at 2100 Given 01/01/2025 9:49 PM CDT 5 mg folic acid (FOLVITE) tablet 1 mg 1 mg, oral, Daily, First dose on Mon01/01/25 at 2055, For 3 days, Each tablet contains 1 mg of folic acid (1.67 mg DFE)., Indications: Folate DeficiencyIndications:Folate Deficiency Given 01/01/2025 9:25 PM CDT 1 mg LORazepam (ATIVAN) tablet 1 mg 1 mg, oral, Every 4 hours PRN, other, Score between 3 and 5 on Alcohol Withdrawl Assessment, Starting on Mon01/01/25 at 2053, For 6 days, HOLD for any status indicating over sedation including the following: drifts off to sleep during conversation, minimal or no response to verbal or physical stimulation, or respiratory rate less than 10 breaths per minute., Indications: Alcohol Withdrawal Assessment Scale scoreIndications:Alcohol Withdrawal Assessment Scale score LORazepam (ATIVAN) tablet 1 mg 1 mg, oral, Every 2 hours PRN, other, Score between 6 and 12 on Alcohol Withdrawl Assessment, Starting on Mon01/01/25 at 2053, For 6 days, HOLD for any status indicating over sedation including the following: drifts off to sleep during conversation, minimal or no response to verbal or physical stimulation, or respiratory rate less than 10 breaths per minute., Indications: Alcohol Withdrawal Assessment Scale scoreIndications:Alcohol Withdrawal Assessment Scale score LORazepam (ATIVAN) tablet 1 mg 1 mg, oral, Every 1 hour PRN, anxiety, Score between 13 and 18 on Alcohol Withdrawl Assessment, Starting on Mon01/01/25 at 2053, For 6 days, HOLD for any status indicating over sedation including the following: drifts off to sleep during conversation, minimal or no response to verbal or physical stimulation, or respiratory rate less than 10 breaths per minute., Indications: Alcohol Withdrawal Assessment Scale scoreIndications:Alcohol Withdrawal Assessment Scale score ondansetron (ZOFRAN) injection 4 mg 4 mg, intravenous, Administer over 2 Minutes, Once, On Mon01/01/25 at 2121, For 1 dose Given 01/01/2025 9:25 PM CDT 4 mg PHENobarbital injection 130 mg 130 mg, intravenous, Administer over 5 Minutes, Once, On Mon01/01/25 at 220, For 1 dose, Indications: alcohol withdrawlIndications:alcohol withdrawl Given 01/01/2025 10:09 PM CDT 130 mg thiamine (VITAMIN B-1) tablet 100 mg 100 mg, oral, Daily, First dose on Mon01/01/25 at 2055, For 5 days, Indications: Thiamine DeficiencyIndications:Thiamine Deficiency Given 01/01/2025 9:25 PM CDT 100 mg documented in this encounter Active and Recently Administered Medications Times are shown in CDT. Scheduled Medication Order 12/30/2024 12/31/2024 01/01/2025 folic acid (FOLVITE) tablet 1 mg 1 mg, oral, Daily, First dose on Mon01/01/25 at 2055, For 3 days, Each tablet contains 1 mg of folic acid (1.67 mg DFE)., Indications: Folate Deficiency 2124 (Given - Provid er: Johanna Ricardo) ondansetron (ZOFRAN) injection 4 mg (COMPLETED) 4 mg, intravenous, Administer over 2 Minutes, Once, On Mon01/01/25 at 2120, For 1 dose 2124 (Given - Provid er: Johanna Silva) PHENobarbital injection 130 mg (COMPLETED) 130 mg, intravenous, Administer over 5 Minutes, Once, On Mon01/01/25 at 2205, For 1 dose, Indications: alcohol withdrawl 2208 (Given - Provid er: Johanna Ricardo) thiamine (VITAMIN B-1) tablet 100 mg 100 mg, oral, Daily, First dose on Mon01/01/25 at 205, For 5 days, Indications: Thiamine Deficiency 2124 (Given - Provid er: Johanna Silva) PRN Medication Order 12/30/2024 12/31/2024 01/01/2025 diazePAM (VALIUM) injection 5 mg 5 mg, intravenous, Administer over 1 Minutes, Every 6 hours PRN, Score greater than 18 on Alcohol Withdrawal Assessment, Starting on Mon01/01/25 at 2100 2148 (Given - Provid er: Johanna Silva) LORazepam (ATIVAN) tablet 1 mg(Linked Group 1) 1 mg, oral, Every 4 hours PRN, other, Score between 3 and 5 on Alcohol Withdrawl Assessment, Starting on Mon01/01/25 at 2053, For 6 days, HOLD for any status indicating over sedation including the following: drifts off to sleep during conversation, minimal or no response to verbal or physical stimulation, or respiratory rate less than 10 breaths per minute., Indications: Alcohol Withdrawal Assessment Scale score LORazepam (ATIVAN) tablet 1 mg(Linked Group 1) 1 mg, oral, Every 2 hours PRN, other, Score between 6 and 12 on Alcohol Withdrawl Assessment, Starting on Mon01/01/25 at 2053, For 6 days, HOLD for any status indicating over sedation including the following: drifts off to sleep during conversation, minimal or no response to verbal or physical stimulation, or respiratory rate less than 10 breaths per minute., Indications: Alcohol Withdrawal Assessment Scale score LORazepam (ATIVAN) tablet 1 mg(Linked Group 1) 1 mg, oral, Every 1 hour PRN, anxiety, Score between 13 and 18 on Alcohol Withdrawl Assessment, Starting on Mon01/01/25 at 2053, For 6 days, HOLD for any status indicating over sedation including the following: drifts off to sleep during conversation, minimal or no response to verbal or physical stimulation, or respiratory rate less than 10 breaths per minute., Indications: Alcohol Withdrawal Assessment Scale score Linked Groups Order Group 1: LORazepam (ATIVAN) tablet 1 mgJump to med 1 mg, oral, Every 4 hours PRN, other, Score between 3 and 5 on Alcohol Withdrawl Assessment, Starting on Mon01/01/25 at 2053, For 6 days, HOLD for any status indicating over sedation including the following: drifts off to sleep during conversation, minimal or no response to verbal or physical stimulation, or respiratory rate less than 10 breaths per minute., Indications: Alcohol Withdrawal Assessment Scale score Or LORazepam (ATIVAN) tablet 1 mgJump to med 1 mg, oral, Every 2 hours PRN, other, Score between 6 and 12 on Alcohol Withdrawl Assessment, Starting on Mon01/01/25 at 2053, For 6 days, HOLD for any status indicating over sedation including the following: drifts off to sleep during conversation, minimal or no response to verbal or physical stimulation, or respiratory rate less than 10 breaths per minute., Indications: Alcohol Withdrawal Assessment Scale score Or LORazepam (ATIVAN) tablet 1 mgJump to med 1 mg, oral, Every 1 hour PRN, anxiety, Score between 13 and 18 on Alcohol Withdrawl Assessment, Starting on Mon01/01/25 at 2053, For 6 days, HOLD for any status indicating over sedation including the following: drifts off to sleep during conversation, minimal or no response to verbal or physical stimulation, or respiratory rate less than 10 breaths per minute., Indications: Alcohol Withdrawal Assessment Scale score Or LORazepam (ATIVAN) 2 mg in sodium chloride 0.9% (further dilution required) injection (CANCELED) 2 mg, intravenous, Every 1 hour PRN, other, Score greater than 18 on Alcohol Withdrawl Assessmen, Starting on Mon01/01/25 at 2053, For 6 days, HOLD for any status indicating over sedation including the following: drifts off to sleep during conversation, minimal or no response to verbal or physical stimulation, or respiratory rate less than 10 breaths per minute. Withdraw ordered dose amount then dilute with equal volume of 0.9% sodium chloride. Administer total volume to patient. Do not exceed a rate of 2 mg/minute., Indications: Alcohol Withdrawal Assessment Scale score Or LORazepam (ATIVAN) injection 2 mg (CANCELED) 2 mg, intramuscular, Every 1 hour PRN, other, Score greater than 18 on Alcohol Withdrawl Assessment, Starting on Mon01/01/25 at 2053, For 6 days, Administer IM if unable to provide IV Push.HOLD for any status indicating over sedation including the following: drifts off to sleep during conversation, minimal or no response to verbal or physical stimulation, or respiratory rate less than 10 breaths per minute. For IV administration, draw up ordered admin dose/volume, then dilute with equal volume of 0.9% sodium chloride and administer total volume to patient. Do not exceed a rate of 2 mg/minute., Indications: Alcohol Withdrawal Assessment Scale score documented in this encounter Orders Medications Ordered That Farzad ht Not Have Been Administered Count Last Ordered Date First Ordered Date LORazepam (ATIVAN) 2 mg in s odium chloride 0.9% (further dilution required) injection 1 01/01/2025 LORazepam (ATIVAN) injection 2 mg 1 025 LORazepam (ATIVAN) tablet 1 mg 3 01/01/2025 Lab Orders Without Results Count Last Ordered D ate First Ordered Date MAGNESIUM 1 01/01/2025 documented in this encounter Care Teams Ware Tester Relationship Specialty Start Date End Date Sreekanth Maciel MD [address] [facility] [address] [place] [address] PCP - General Family Medicine 05/15/23 Theresa Mcgowan NP [address] [place] [address] [place] [address] Nurse Practitioner Behavioral Health 05/15/23 Arash Steve MD [address] [place] [address] Referring Physician Obstetrics and Gynecology 05/15/23 Sandoval Jung MD [address] [id number] Referring Physician Hematology 05/15/23 documented as of this encounter
[2025-01-02 09:37] VITALS: BP 120/70; PULSE 98; RESP 18; TEMP 36.6; O2SAT 100
--- NOTE | 2025-01-02 09:37 | ED.FEMALEGU ---
HPI - Female Genitourinary General Chief complaint: Urogenital-Female Stated complaint: UTI Time Seen by Provider: 01/02/25 09:45 Source: patient Mode of arrival: ambulatory Limitations: no limitations History of Present Illness HPI Narrative: Aura is a 34 year old female patient presenting to the clinic today with complaints of possible UTI. She reports she has had burning with urination, frequency, malodorous urine, and urinary urgency x1 week. She had appointment to see her doctor today but her doctor was sick so they canceled her appointment. Reports a very low-grade fever of 99.8? F. Has had some low back pain. No flank pain. Denies any abdominal pain, nausea, or vomiting. Has not taken any medications to treat her symptoms. Related Data Home Medications ?Medication ?Instructions ?Recorded ?Confirmed ?Last Taken ?Type bupropion HCl 300 mg 24 hr tablet, 300 mg PO DAILY 03/11/24 03/19/24 03/10/24 History extended release cholecalciferol (vitamin D3) 1,250 50,000 unit PO WEEKLY 03/19/24 03/19/24 03/17/24 History mcg (50,000 unit) capsule omeprazole 40 mg capsule,delayed 40 mg PO BID 03/19/24 03/19/24 03/19/24 History release mirtazapine 30 mg tablet mg 01/02/25 Unknown History Allergies Allergy/AdvReac Type Severity Reaction Status Date / Time NSAIDS (Non-Steroidal AdvReac Intermediate r/t Verified 01/02/25 09:40 Anti-Inflamma gastric bypass and ulcer history Review of Systems Review of Systems: Pertinent positives per HPI. Patient denies any fever, chills, rash, headache, visual changes, dizziness, cough, shortness of breath, chest pain, palpitations, nausea, vomiting, diarrhea, constipation, abdominal pain, or any urinary issues. [facility] Past Medical History Medical History Hematemesis Chronic anastomotic ulcer of gastrojejunal region Epigastric pain BMI 21.0-21.9, adult Tobacco abuse GERD (gastroesophageal reflux disease) Low back pain radiating to left lower extremity Encounter to establish care History of uterine bleeding Depression Anxiety History of cardiac monitoring Third degree heart block Unconfirmed, currently being evaluated by Cardiology outpatient Hypothyroid Surgical History Surgical History H/O rhinoplasty History of Adolfo-en-Y gastric bypass H/O spinal fusion H/O section H/O: hysterectomy H/O abdominoplasty History of facial surgery right side facial reconstruction Hx of tonsillectomy Hx of gastric bypass Adolfo-en-Y 2018 Family History Family History Mother Hypertension Anxiety Depression Alcoholism Heart disease Father Hypertension Heart disease Cancer Other Cancer Anxiety Depression Grandparent Cancer Diabetes mellitus Depression Heart disease Anxiety Cerebrovascular accident Sibling Anxiety Depression CVS disease Daughter Anxiety Depression Grandparent Cancer Grandparent Cancer Social History Social History Social History: Ms. Gonzalez lives at home with her and two children. Her family recently moved to the area from [place] where her was stationed with the [employer]. She would like to be a full code and she designates her as her surrogate decision maker. Smoking packs per day: 0.5 Smoking cigarettes per day: 10.0 Years smoked: 15 Smoking pack-years: 7.50 Smoking status: Current every day smoker Tobacco type: cigarettes Second hand tobacco smoke exposure: Yes Alcohol intake: never Substance use: former Substance use type: does not use Do You Feel Safe in your Home?: Yes Lack of Transportation: No Lack of Food: Never True Current Housing: I Have Housing Concerned About Future Housing: No Difficulty Paying Gas/Electric Bills: No Difficulty Paying for Meds: No Currently Unemployed: No Education: Master's Degree or Higher Difficulty w/ Childcare or Family Care: No Living arrangements: with family Additional living arrangements comments: with and kids Occupation/Education: occupation Additional occupation/education comments: She stays home with her children. Gender identity (if verbalized by the patient): Female Spiritual care concerns: No Agree to blood products: Yes Comments At the time of my signature, I reviewed and agree with the nursing past medical, surgical, social, and family history. There is no relevant family history pertinent to the patient complaint. Exam Narrative: General: Well-developed, well nourished, in no apparent distress. Head: Normocephalic, atraumatic. Cardio: Regular rate and rhythm, s1 and s2 normal, no murmur appreciated. Resp: Clear to auscultation bilaterally, no rhonchi, rales, wheezing or rubs. Abdomen: Soft, pliable, bowel sounds present in all quadrants, non-tender to palpation, no organomegly, no CVAT tenderness. Course Course Emergency Course: Portions of this record may have been created with voice recognition software. Level of Care: Express Care Visit Vital Signs Vital signs: Vital Signs Temperature 36.6 C 01/02/25 09:37 Pulse Rate 98 01/02/25 09:37 Respiratory Rate 18 01/02/25 09:37 Blood Pressure 120/70 01/02/25 09:37 Pulse Oximetry 100 01/02/25 09:37 Oxygen Delivery Room Air 01/02/25 09:37 Temperature 36.6 C 01/02/25 09:37 Pulse Rate 98 01/02/25 09:37 Respiratory Rate 18 01/02/25 09:37 Blood Pressure 120/70 01/02/25 09:37 Pulse Oximetry 100 01/02/25 09:37 Oxygen Delivery Room Air 01/02/25 09:37 Vital signs reviewed MDM - Female Genitourinary MDM Narrative Medical decision making narrative: At the time of visit patient is resting comfortably on the exam table. Patient appears to be nontoxic. Complaints of possible UTI. She reports she has had burning with urination, frequency, malodorous urine, and urinary urgency x1 week. She had appointment to see her doctor today but her doctor was sick so they canceled her appointment. Reports a very low-grade fever of 99.8? F. has had some low back pain. No flank pain. Denies any abdominal pain, nausea, or vomiting. Has not taken any medications to treat her symptoms. Urine dip ordered. Labs: Urine dip positive for leukocytes, nitrates, blood, and Uro. We will send urine for culture. Plan: I suspect patient has UTI. Prescription for Bactrim was sent to the pharmacy. Also send in prescription for Diflucan as patient states she gets oral thrush and vaginal yeast infections when taking antibiotics. Supportive measures were discussed with the patient and they voiced understanding discharge instructions and agrees to treatment plan. Return precautions reviewed Differential Diagnosis Differential diagnosis: Likely urinary tract infection, cystitis and other (Pyelonephritis) Lab Data Labs: Lab Results 01/02/25 Range/Units 09:43 POC Urine Color Yellow POC Urine Clarity Cloudy POC Urine pH 7.0 POC Ur Specif Ranger 1.015 POC Urine Protein Negative (Negative) POC Ur Glucose (UA) Negative (Negative) POC Urine Ketones Negative (Negative) POC Urine Blood Trace (Negative) POC Urine Nitrite Positive (Negative) POC Urine Bilirubin Negative (Negative) POC Urine Urobilinogen 2.0 POC U Leukocyte Esteras 1+ (Negative) Discharge Plan Discharge Clinical Impression: Urinary tract infection Qualifiers: Urinary tract infection type: acute cystitis Hematuria presence: with hematuria Qualified Code(s): N30.01 - Acute cystitis with hematuria Patient Disposition: Home Condition: Stable Instructions: Antibiotic Form, Urinary Tract Infection in Women (ED) Additional Instructions: Urine shows 1+ leukocytes, nitrate positive, and trace of blood. We will send urine for culture. Take Bactrim as prescribed Increase fluids and stay well hydrated Wipe front to back. May use wet wipes. Avoid tub baths If sexually active- pee before and after intercourse. Wear cotton panties Avoid tight clothing up against the genitals Follow up with your PCP in 1 week if symptoms persist. Patient Language: Barbadian Prescriptions: New sulfamethoxazole-trimethoprim [Bactrim DS] 800-160 mg tablet 1 tablet PO Q12H 7 Days Qty: 14 0RF fluconazole 150 mg tablet 150 mg PO ONCE Qty: 2 0RF Rx Instructions: as a single dose. May repeat in 72 hours if needed. No Action mirtazapine 30 mg tablet bupropion HCl 300 mg tablet extended release 24 hr 300 mg PO DAILY cholecalciferol (vitamin D3) 1,250 mcg (50,000 unit) capsule 50,000 unit PO WEEKLY Patient Comments: WEEKLY ON MONDAY omeprazole 40 mg capsule,delayed release(DR/EC) 40 mg PO BID sucralfate 1 gram tablet See Rx Instructions .ROUTE .COMPLEX Qty: 120 1RF Dose Instruction: TAKE 1 TABLET BY MOUTH THREE TIMES DAILY Rx Instructions: TAKE 1 TABLET BY MOUTH THREE TIMES DAILY Follow-up/Referrals: Janell,Sreekanth Blair MD [Primary Care Provider, Unknown] Time of Disposition: 09:57 Quality NIHSS Nursing Documentation ED NIHSS nursing documentation: reviewed/agree
[2025-01-02 09:45] LABS: EDUAAPPEAR Cloudy; EDUABILI Negative (Negative); EDUABLOOD Trace (Negative); EDUACOLOR1 Yellow; EDUAGLUCOSE Negative (Negative); EDUAKETONE Negative (Negative); EDUALEUKO 1+ (Negative); EDUANITRATE Positive (Negative); EDUAPH 7.0; EDUAPROTEIN Negative (Negative); EDUASPGRAVITY 1.015; EDUAUROBILI 2.0
--- OUTSIDE RECORDS SUMMARY | 2025-01-02 10:18 | XMS_ITS | Data Portability ---
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 Lab prolactin, serum 2023 024 [facility] (Lab), [address] [facility], [place], [address], 4 02:36:29 Referral None recorded. Procedures None recorded. Surgeries None recorded. Imaging US, pelvis [email or web address], [address], [address], [place], [address], 4 22:09:54 US, transvagina l 2023 024 sophia [place], [address], [address], [place], [address], 4 22:09:54 US, breast - Right breast lump, located around 9-12 oclock. Breast pain, nipple discharge [address] (Imaging), [address], [place], [address], 4 13:42:43 MAMMO, diagnostic, digital, bilateral 2023 024 [facility] (Imaging), [address], [place], [address], 4 15:02:10 US, pelvis 2022 023 [email or web address] [place], [address], [address], [place], [address], 3 20:25:25 US, transvagina l 2022 023 [email or web address] [facility], [address], [address], [place], [address], 3 20:25:25 Medication Orders Imvexxy Maintenance Pack 4 mcg vaginal insert [address] [id number], [address] [place], [place], [id number], 4 10:23:21 estradiol 0.025 mg/24 hr semiweekly transdermal patch [address] [id number], [address] [place], [place], [id number], 4 14:19:33 Patient TargetsNo targets recorded. Patient InstructionsNo instructions recorded. Reason for Referral None Reported. Results Created Date Observation Date Name Description Value Unit Range Abnormal Flag Note LastModifiedBy Organization Detail LastModifiedTime 06/14/1906/13/2022 CULTU RE: AEROB IC/AN AEROB IC culture: aerobic/anae robic CANCEL LED Reord ered Not Available [facility] (Lab) [address], [place], [address], 06/14/2022 07:57:53 06/14/19 23 06/13/2022 CULTU RE: GENIT AL result report SEE RESULT S BELOW Test: Cultu re: Genit al Speci men Sourc e: Vagin a Speci men Type: Swab Speci men Date: 023 4:22 PM Resul t Date: 2022 6:42 PM Resul t Statu s: Final resul t Resul ting Lab: [facility] [address] [facility] [address] Tel: CULTU RE ----- ----- ----- --- No Neiss eria gonor rhoea e isola emerson Light Growt h Leila l Vagin al Karine STAIN ----- ----- ----- --- Leila l vagin al karine negat keron for bacte rial vagin osis Not Available [facility] (Lab) [address] [place], [address], 06/17/2022 19:45:41 06/14/19 23 06/13/2022 CULTU RE: URINE result report SEE RESULT S BELOW Test: Cultu re: Urine Speci men Sourc e: Urine Voide d Speci men Type: Urine Speci men Date: 023 4:22 PM Resul t Date: 023 5:51 AM Resul t Statu s: Final resul t Abnor mal: No Resul ting Lab: [facility] [address] [facility] [address] Tel: CULTU RE ----- ----- ----- --- No growt h in 1 day (dete ction level of 10,00 0 colon ies / ml.) Not Available [facility] (Lab) [address] [facility], [place], [address], 06/17/2022 19:45:41 06/14/19 23 06/13/2022 urina lysis , dipst ick Leukocytes +3 Not Available Jose españa [address], [place], [address], 06/13/2022 16:06:01 06/14/19 23 06/13/2022 urina lysis , dipst ick Blood +++ Not Available [facility] [address], [place], [address], 06/13/2022 16:06:01 05/11/19 24 05/11/2023 FSH, LH, [...] 561-2 1280 pg/mL 3rd Trime ster8 525-> 48262 pg/mL Not Available [facility] (Lab) [address] [place], [address], 05/12/2023 06:58:38 05/11/19 24 05/11/2023 FSH, LH, [...] use: 25.8- 134.8 mIU/m L Not Available [facility] (Lab) [address] [place], [address], 05/12/2023 06:58:38 05/11/19 24 05/11/2023 FSH, LH, ESTRA DIOL LH 5.1 mIU/m L This assay was perfo rmed using [employer] ratio n reage nts and test kits. Value s obtai cathy with other assay metho ds or kits canno t be used inter [facility] . Femal es Mid-F ollic ular: 2.4-1 2.6 mIU/m L Mid-C ycle: 14.0- 95.6 mIU/m L Mid-L uteal : 1.0-1 1.4 mIU/m L Postm enopa use: 7.7-5 8.5 mIU/m L Not Available [facility] (Lab) [address] [facility], [place], [address], 05/12/2023 06:58:38 08/21/19 24 08/21/2023 PROLA CTIN prolactin, total 13.60 NG/mL 4.79-2 3.30 This assay was perfo rmed using [employer] reage nts and test kits. Value s obtai cathy with other assay metho ds or kits canno t be used inter [facility] . Not Available [facility] (Lab) [address] [facility], [place], [address], 08/22/2023 02:36:29 06/14/19 23 06/13/2022 US, pelvi s No observ ation record ed. [email or web address] [facility] [address], [place], [address], 06/13/2022 18:20:46 06/14/19 23 06/13/2022 US, trans vagin al No observ ation record ed. [email or web address] [place] [address], [place], [address], 06/13/2022 18:20:35 06/14/19 23 06/13/2022 US, pelvi s No observ ation record ed. [email or web address] [address], [place], [address], 06/13/2022 21:26:14 07/08/19 23 07/07/2022 US, pelvi s No observ ation record ed. [email or web address] [address], [place], [address], 05/03/2023 11:47:24 07/08/19 23 07/07/2022 US, pelvi s No observ ation record ed. [email or web address] [facility] [address], [place], [address], 05/03/2023 11:47:24 07/08/19 23 07/07/2022 US, trans vagin al No observ ation record ed. [email or web address] [facility] [address], [place], [address], 05/03/2023 11:47:24 08/25/19 24 08/24/2023 [email or web address] , diagn ostic , digit al, bilat eral No observ ation record ed. [facility] [address], [place], [address], 08/31/2023 11:30:59 10/05/19 24 10/05/2023 US, pelvi s No observ ation record ed. [email or web address] [place] [address], [place], [address], 10/05/2023 18:17:09 10/05/19 24 10/05/2023 US, trans vagin al No observ ation record ed. [email or web address] [facility] [address], [place], [address], 10/05/2023 18:16:59 10/05/19 24 10/05/2023 US, pelvi s No observ ation record ed. [email or web address] [address], [place], [address], 10/05/2023 22:42:35 Result Notes None recorded. Procedures Surgical History Date Name Laterality Status Provider Name and Address Organization Details Recorded Time 01/03/20 23 procedure on back completed Alice Yee [facility] 05/03/2023 11:16:38 06/01/19 23 ROBOTIC ASSISTED HYSTERECTOMY WITH SALPINGECTOMY (SURG) completed Alva Neff [facility] 06/02/2022 10:15:42 08/25/19 21 Endometrial Ablation with Hysteroscopy completed Arash Steve MD [address], [place], [address], [facility] 08/24/2020 17:18:53 08/25/19 21 hysteroscopy with endometrial ablation completed [facility] 09/03/2020 14:38:56 07/08/19 21 Date of Last Pap Smear completed [facility] 05/05/2022 09:38:24 04/10/19 21 completed Brenda Regalado [facility] 01/21/2022 15:12:36 09/09/19 19 abdominoplasty completed [facility] 07/02/2020 11:27:20 06/09/19 18 Gastric Bypass completed [facility] 07/02/2020 11:38:27 02/20/20 15 delivery completed [facility] 07/02/2020 11:27:00 Imaging Results None recorded. Procedure Notes None recorded. Medical Equipment None Reported. Allergies Allergen ID Allergen Name Allergen Category Reaction Reaction Severity Criticality Documentation Date Start Date Code Code System Note Provider Name and Address Organization Details Recorded Time 58660 Non-stero idal anti-infl ammatory agent (substanc e) medicatio n Not available Not available Not available 07/02/2020 32517 5008 SNOMED Ofelia [facility] 11:31:04 Medications Name Sig Start Date [...] Body mass index (BMI) Body weight Systolic And Diastolic Provider Name and Address Organization Details Last Updated DateTime 05/03/2023 170.18 cm 20.7 kg/m2 36962.19 g 116/74 mm[Hg] Alice Joselito [facility] 05/03/2023 11:10:22 Date Recorded Body height Body mass index (BMI) Body weight Systolic And Diastolic Provider Name and Address Organization Details Last Updated DateTime 08/21/2023 170.18 cm 20.7 kg/m2 60091.19 g 103/65 mm[Hg] Pricila Shannon [facility] 08/21/2023 10:19:34 Social History Question Answer Notes LastModified by Organizat ion Details LastModified Time Tobacco Smoking Status Current Every Day Smoker [facility] 01/21/2022 15:12:42 Do You Have An [...] Or The Highest Degree You Have Received? [id number] Information not available 01/21/2022 Are There Any [...] not available 07/02/2020 Are you able to walk independently without assistance or assistive devices? YESWOREST Information not available 01/21/2022 What is your exercise level? Occasional Information not available 01/21/2022 Mental Status Question Answer Note LastModified by Organization D etails LastModified Time Do you feel stressed (tense, restless, nervous, or anxious, or unable to sleep at night)? [id number] Information not available 01/21/2022 Family History Relationship [...] 30 mcg/0.3 mL dose 11/05/2020 completed Brenda [facility] 10/26/2021 14:59:36 Past Encounters Encounter ID Performer Location Encounter Start Date Encounter Closed Date Diagnosis/Indication Diagnosis SNOMED-CT Code Diagnosis ICD10 Code Diagnosis IMO Codes Diagnosis Note [id number] Arash Steve MD [place] [address] [address] 07/02/2020 11:12:55 07/02/2020 12:08:48 Menorrhagia 901315982 N92.0 patient is a 28-year-ol d female [...] was given a packet of slynd Dysmenorrhea 258310420 N 94.6 [id number] Arash Steve MD [facility] [address] [address] 07/02/2020 12:24:26 07/02/2020 14:24:47 Abnormal uterine bleeding 3663268653 9100 N93.9 Menorrhagia 879777142 N9 2.0 patient is a 28-year-ol d [...] is a new problem with unknown prognosis. [id number] Arash Steve MD [facility] [address] [address] 07/06/2020 15:55:33 07/06/2020 16:30:06 Menorrhagia 919604313 N92.0 R10.2 N93.9 patient is a 28-year-ol [...] is a new problem with unknown prognosis. [id number] Arash Steve MD [place] [address] [address] 07/07/2020 16:06:32 07/07/2020 17:35:58 Menorrhagia 736196882 N92.0 R10.2 N93.9 Patient is a 30-year-ol [...] this patient s visit, including available hand satin finisher upon arrive, temperatur e check and being asked a series of screening questions. All staff wore face coverings during this encounter, as well as provided additional cleaning and sanitizing of all surfaces, including countertop s, pens, chairs, door handles, light switches, etc, prior to and following the patient s visit. [id number] Arash Steve MD [facility] [address] [address] 08/24/2020 14:04:38 08/24/2020 17:23:44 Menorrhagia 096063989 N92.0 R10.2 N93.9 endometria l ablation was performed without complicati ons. She tolerated it well. [id number] Arash Steve MD [place] [address] [address] 09/03/2020 14:25:17 09/03/2020 15:08:37 Female hirsutism 50935624 L68.0 Menorrhagia 342749894 N9 2.0 R10.2 N93.9 This patient is a 30-year-ol d female presents Follow-up on menorrhagi a. She underwent endometria l ablation. She is recovering normally. She recently had pneumonia. We talked about hirsutism today. We agreed to start spironolac tone. We discussed metformin. We discussed her elevated androgens. She will begin spironolac tone. [id number] Julia Monaco [facility] [address] [address] 10/14/2021 17:14:36 10/18/2021 16:01:14 Pain in pelvis 41099364 R10.2 Today we agreed to have STAT US set up for tomorrow morning at [facility] as our tech's have no [...] answered to patient satisfacti on. Female hirsutism 5863236 9 L68.0 Agreed to update labs for hirsutism and low libido.RF Spironolac tone sent [id number] Arash Steve MD [facility] [address] [address] 10/15/2021 17:28:54 10/18/2021 14:55:32 Pain in pelvis 86345070 R10.2 [id number] Julia Monaco [facility] [address] [address] 10/26/2021 14:40:53 10/26/2021 15:44:15 Pain in pelvis 62883194 R10.2 Today we agreed to update US TVUS for this issue while she is having sx's.If we do not feel this is INTERNET SECURITY SPECIALIST related we need to consider CT scan to evaluate further body systems that may be contributi ng to this issue. Toradol injection was given for pain today as she is unable to take oral NSAIDS.Nee d to consider updated STD screening as well especially if TVUS is wnl. Time spent in visit is a total of 22 mins with at least 50% of visit consisting of counseling and review of plan of care. [id number] Arash Steve MD [facility] [address],[place] [address] 10/26/2021 15:06:57 10/26/2021 15:56:38 Pain in pelvis 76511965 R10.2 [id number] Julia Monaco [facility] [address],[place] [address] 12/14/2021 12:55:14 12/14/2021 13:53:46 Pain in pelvis 30233612 R10.2 [id number] Julia Monaco [place] [address],[place] [address] 01/21/2022 14:56:41 01/24/2022 16:21:18 Urinary symptoms 294214910 R39.9 N76.0 Treated for UTI with yeast prevention Time spent in visit is a total of 15 mins with at least 50% of visit consisting of counseling and review of plan of care. [id number] Julia Monaco [facility] [address],[place] [address] 01/28/2022 16:15:34 01/28/2022 16:21:49 Pain in pelvis 90902694 R10.2 [id number] Julia Monaco [facility] [address],[place] [address] 02/25/2022 16:49:29 02/28/2022 16:21:20 Pain in pelvis 69127803 R10.2 [id number] Arash Steve MD [facility] [address],[place] [address] 05/05/2022 09:29:47 05/05/2022 10:19:46 Dysmenorrhea 684411911 N94.6 this patient is a 32-year-ol d [...] of our time together was counseling . [id number] Arash Steve MD [facility] [address] [address] 05/23/2022 16:58:48 05/24/2022 11:10:45 Anxiety 84353018 F41.9 Dysmenorrhea 305023612 N 94.6 this patient is a 32-year-ol d female with severe dysmenorrh ea. We have agreed to perform total laparoscop ic hysterecto my bilateral salpingect sadaf. She understand s the risks, benefits, and alternativ es. She has completed the informed consent process and is ready to proceed. [id number] Arash Steve MD [facility] [address] [address] 06/03/2022 09:30:58 06/03/2022 09:34:28 [id number] Arash Steve MD [facility] [address] [address] 06/09/2022 17:04:22 06/09/2022 17:46:28 Postoperative care 196054625 Z48.89 32-year-ol d who presents for postop follow-up. She is 1 week postop from laparoscop ic hysterecto my and bilateral salpingect sadaf. She has no complaints . Her incisions are clean dry and intact she is recovering normally. We went over laurieio ns. [id number] Arash Steve MD [facility] [address] [address] 06/13/2022 14:17:39 06/13/2022 15:34:17 Postoperative infection 24369531 T81.40XA 32-year-ol d female presents for postop [...] options. We will likely start antibiotic s [id number] Arash Steve MD [facility] [address],[place] [address] 06/13/2022 15:19:18 06/13/2022 16:28:52 Pain in pelvis 84573260 R10.2 [id number] Arash Steve MD [facility] [address],[place] [address] 06/24/2022 12:28:13 06/27/2022 15:39:32 Postoperative complication 316463699 T81.9XXS This patient is a 32-year-ol d [...] ce. More than 50% was counseling . [id number] MD Joss Thomas [address] [address] 07/07/2022 15:31:14 07/07/2022 18:13:09 Abnormal vaginal bleeding 362850441 N93.9 [id number] Julia Monaco , [facility] [address] [address] 05/03/2023 10:52:05 05/03/2023 11:49:35 Gynecologic examination 16341149 Z01.419 Take Calcium with Vitamin D 1200mg [...] Screen naDexa Screen naRoutine Labs PCP Dyspareunia 11172202 N94 .10 Counseled on the following: Vaginal [...] with a healthcare provider and oncologist . Government -approved low-dose vaginal estrogen products are available by [...] the vagina are recommende d. Resources: https://ww w.[employer].org/docs /default-s ource/for- women/mn-v aginal-dry ness.pdf RTO x 6wk med check Menopausal symptom 51519 002 N95.1 Getting loop recorder removed.Ca rdiovascul [...] migraine w/ visual changes, breast cancer dx, CA/stroke, DVT/PE, Endometria l cancer. Please contact office with any new or worsening side effects or adverse reactions. Or if a medical emergency please go to nearest ED/[facility] for further evaluation . [id number] HAY Prince [facility] [address],[place] [address] 08/21/2023 10:16:16 08/21/2023 12:20:26 Breast lump 14016701 N63.0 right breast lump/tende rness/nipp le dischargeo [...] counseling and review of plan of care. [id number] Arash Steve MD [facility] [address],[place] [address] 10/05/2023 17:20:43 10/06/2023 02:37:04 Cyst of ovary 87271871 N83.209 Arash Steve MD [facility] [address],[place] [address] 10/07/2023 09:42:19 10/07/2023 10:52:34 Cyst of ovary 06703645 N83.209 33-year-ol d female who presents for [...] [employer]os Member ID Guarantor Name 08/21/2020 1 [employer] [id number] Shankar Gonzalez [id number] Aura Gonzalez 09/03/2020 1 [place] [id number] Shankar Gonzalez [id number] [id number] Aura Gonzalez 10/13/2021 1 [place] [id number] Shankar Gonzalez [id number] [id number] Aura Gonzalez 10/11/2023 1 [place] [id number] Shankar Carlos [id number] Aura Gonzalez Notes Date Note Type Note Provider Name and Address Organization Details Recorded Time 4 text/html 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 For vaginal bleeding, patient reportshistory of menopause having occurredandno history of post menopausal bleeding. For urinary symptoms, patient reportsno hematuria,no incontinence,no nocturia, andno urinary frequency. For vulva, patient reportsno genital lesionandno vulvar atrophy. For vagina, patient reportsnormal vaginal dischargeandno vaginal atrophy.Breast symptomsFor breast, patient reportsno breast lump,no nipple discharge, andno breast pain.Psychological symptomsFor sexual complaints, patient reportsno sexual complaints. For psychological symptoms, patient reportsno depressionandno anxiety.Preventative measuresFor preventive measures, patient reportsencourage regular mammograms starting age 40,encourage self breast examination,encourage regular exercise, andencourage no tobacco use. surgical menopause HAY Somers- [address], [place], [address], [facility] 05/03/2023 11:48:45 4 text/html 33yo [id number] TLH, BSpresents for evaluation of right breast [...] breast injuries HAY Prince [address], [place], [address], [facility] 08/21/2023 11:35:28 4 text/html 33-year-old [...] evaluated. Arash Steve MD [address], [place], [address], [facility] 10/07/2023 10:44:07 OBGyn Episode Ob Episode Information Episode Created Date Number of Fetuses Patient Bloodtype Patient rh Status Prepregnancy Weight lbs Domestic Partner Domestic Partner Phone Father Name Or First Assist Registered Nurse Status 07/03/19 21 1 CLOSED Fetus Data [...] Domestic Partner Domestic Partner Phone Father Name Or First Assist Registered Nurse Status 07/03/19 21 1 CLOSED Fetus Data [...] Domestic Partner Domestic Partner Phone Father Name Or First Assist Registered Nurse Status 07/03/19 21 1 CLOSED Fetus Data [...]
--- OUTSIDE RECORDS SUMMARY | 2025-01-02 10:18 | XMS_ITS | Encounter Summary ---
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 Name Role Phone Unavailable Primary Care Provider Unavailabl e Reason for Visit * Reason Comments Refill Request Encounter Details Date Type Department Care Team (Late st Contact Info) Description 05/12/2022 Refill [facility] [address] [place] [address], [place] [address] David Jean MD [address] [place] [address] DIV OF TRA[place] [address] Refill Request Social History Tobacco Use Types [...] on file 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
--- OUTSIDE RECORDS SUMMARY | 2025-01-02 10:18 | XMS_ITS | Encounter Summary ---
Author Organization [facility] Address [address] [place] [address] Care Team Providers Care Oyster Washer Name Role Phone Unavailable Primary Care Provider Unavailabl e Reason for Visit * Reason Comments Refill Request Encounter Details Date Type Department Care Team (Late st Contact Info) Description 05/28/2022 Refill [facility] [address] [place] [address], [place] [address] David Jean MD [address] [place] [address] DIV OF TRA[place] [address] Refill Request Social History Tobacco Use Types [...] on file 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
--- OUTSIDE RECORDS SUMMARY | 2025-01-02 10:18 | XMS_ITS | Clinical Summary ---
Author Organization [address] Address [address] [place] [id number] Care Team Providers Care Enterer Name Role Phone Sreekanth Maciel MD Primary Care Provider Theresa Mcgowan MEAL COOK Unavailable Aarsh Steve MD Unavailable [phone] Sandoval Jung MD Unavailable [phone] Allergies Active Allergy Reactions Criticality Noted Date Comments [place] Gluconate Unknown 02/28/2024 Patient had testing done and is allergic to cobalt in ingredients in medications Nsaids (Non-Steroidal Anti-Inflammatory Drug) Other (See comments) High 08/27/2019 Post gastric bypass Medications omeprazole (PriLOSEC) 40 mg capsule Take 1 capsule (40 mg total) by mouth 2 (two) times a day Active Qelbree 200 mg capsule,extend ed release 24hr 01/12/20 24 Active sucralfate (CARAFATE) 1 gram tablet Take 1 tablet (1 g total) by mouth 4 (four) times a day 05/19/19 21 Active buPROPion XL (WELLBUTRIN XL) 300 mg 24 hr tablet TAKE 1 TABLET BY MOUTH DAILY IN THE MORNING. START AFTER COMPLETING 150 MG DOSE 30 DAYS 03/26/20 24 Active Qelbree 100 mg capsule,extend ed release 24hr 04/23/19 25 Active hydrOXYzine (ATARAX) 25 mg tablet 04/24/[address] (NexIUM) 40 mg capsule 04/22/19 25 Active QUEtiapine (SEROquel) 50 mg tablet Take 1 tablet (50 mg total) by mouth nightly 06/19/19 25 Active cholecalcifero l (VITAMIN D-3) 50,000 unit capsule TAKE 1 CAPSULE BY MOUTH ONCE A WEEK 12 capsule 12/11/19 25 Active cholecalcifero l (VITAMIN D-3) 50,000 unit capsule TAKE 1 CAPSULE BY MOUTH ONCE A WEEK 12 capsule 09/07/19 25 025 Discontinued Active Problems Problem Noted Date Diagnosed Date 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 Vitamin D 7445-5013 international units per day Calcium 500 mg/day [...] (03/18/2021): Added automatically from request for surgery [id number] Marginal ulcer 02/18/2021 Overview (02/18/2021): Added automatically from request for surgery [id number] Other dietary vitamin B12 deficiency anemia 02/08 [...] guidance Will refill omeprazole 20 mg BID [place] diet Update me in the next couple [...] Encounters Date Type Department Care Team Description 01/01/2025 8:18 PM CDT - 01/01/2025 11:02 PM CDT Emergency [address] [address] Renato Santillan MD Alcohol withdrawal syndrome without complication (HCC) (Primary Dx) Discharge Disposition: Discharge to home or self care 12/17/2024 Telephone [facility] Cardiology [address] [place] [address] Khalif Melo MD Loss of Consciousness; 48 monitor 12/10/2024 Orders Only [facility] Primary Care at [address] [phone] ProviderLianet MD 12/07/2024 Patient Self-Triage [facility] [address] [place] [address] Mychart, Generic Provider from Last 3 Months Immunizations Immunization Administration [...] 0.7 24.3 Started: 09/16/2000 Smokeless Tobacco: Never Tobacco Cessation:Ready [...] on file Legal Sex Female 10:42 AM LEAD REFINERY SUPERVISOR Gender Identity Female 02/14/2021 8:33 PM LEAD REFINERY SUPERVISOR Sexual Orientation Straight 02/14/2021 8: 33 PM LEAD REFINERY SUPERVISOR Obstetrics History Last Filed Vital Signs Vital [...] Mass Index 22.8 01/01/2025 10:06 PM CDT Plan of Treatment Health Maintenance Due Date Last Done Comments Hepatitis C Screening 1988 Hepatitis B Screening 2006 Regular Well Visit/Exam 18-64 2006 Pneumococcal vaccine <65 (2 of 2 - PCV) 03/27/2013 03/27/2012 HPV Vaccines (1 - 3-dose SCD M series) 2015 DTaP/Tdap/Td Vaccine (2 - Td or Tdap) 09/28/2021 09/29/2011 Covid-19 Vaccine (3 - 2024-2 6 season) 2024 11/05/2020, 10/09/2020 Influenza Vaccine (#1) 2024 , 02/18/2019, 03/27/2012, Additional history exists Depression Screening 04/16/2025 04/16/2024, 02/15/2024, 12/18/2023, Additional history exists Varicella Vaccines Discontinued Medical Devices Implanted Type Area Lead Die Molder Device Identifier Shelf Expiration Date Model / Serial / Lot Loop Recorder Heart Procedures Procedure Name Priority Date/Time Associated Diagnosis Comments MAGNESIUM STAT 01/01/2025 8:08 PM CDT EGFR STAT 01/01/2025 8:08 PM CDT DIFFERENTIAL AUTO STAT 01/01/2025 8:0 8 PM CDT DRUGS OF ABUSE SCREEN, URINE WITHOUT CONFIRMATION STAT 01/01/2025 8:08 PM CDT ETHANOL STAT 01/01/2025 8:08 PM CDT THYROID FUNCTION CASCADE STAT 01/01/2025 8:08 PM CDT COMPREHENSIVE METABOLIC PANEL STAT 01/01/2025 8:08 PM CDT CBC WITH AUTO DIFFERENTIAL STAT 01/01/2025 8:08 PM CDT COVID-19 CORONAVIRUS RNA STAT 01/01/2025 8:08 PM CDT URINALYSIS AND REFLEX TO MICROSCOPIC AND CULTURE STAT 01/01/2025 8:08 PM CDT XR HIP LEFT 2 OR 3 VIEWS Schedule Routine, Read Routine (OP Routine) 12/10/2024 1:27 PM CDT from Last 3 Months Results * COVID-19 Coronavirus RNA Nasopharyngeal (01/01/2025 8:08 PM CDT) COVID-19 RNA Negative Negative Nasopharyngeal 01/01/2025 8: 08 PM CDT 01/01/2025 8:12 PM CDT Narrative CERNER - 01/01/2025 8:50 PM CDT Is the patient experiencing any symptoms consistent with COVID (eg. Fever, cough, shortness of breath)?->No What is the reason for testing?->Screening prior to Behavioral health admission Interpretive data Testing performed by [facility]. This test is performed using the [employer] Xpert Xpress CoV-2 plus assay. This is a real-time RT-PCR test intended for the qualitative detection of nucleic acid from the SARS-CoV-2. This assay has been cleared by the [place] Food and Drug administration. The performance characteristics have been verified by the [facility]. Results must be considered in the clinical context, and a negative result does not rule out infection. Interpretive data last revised 2023. Interpretive data Testing performed by [facility]. This test is performed using the [employer] Xpert Xpress CoV-2 plus assay. This is a real-time RT-PCR test intended for the qualitative detection of nucleic acid from the SARS-CoV-2. This assay has been cleared by the [facility] Food and Drug administration. The performance characteristics have been verified by the [facility]. Results must be considered in the clinical context, and a negative result does not rule out infection. Interpretive data last revised 2023. us Renato Santillan MD LAB MICROBIOLOGY - GENERAL ORDERABLES Final Result [facility] [address] [facility] Department [place] [address] * eGFR (01/01/2025 8:08 PM CDT) eGFR >90 >=60 mL/min/1. 73 m2 Comment: [...] of Race in Diagnosing Kidney Disease, JASN 202). The CKD-EPI equation should not be used for patients with unstable renal function and has not been validated in children and those over 70. Current interpretive data was last reviewed 2021. Blood 01/01/2025 8:08 PM CDT 01/01/2025 8:12 PM CDT us Renato Santillan MD LAB BLOOD ORDERABLE S Final Result [facility] [address] [facility] Department [place] [address] * (ABNORMAL) Differential, auto (01/01/2025 8:08 PM CDT) Neutrophil abs 3.28 1.50 - 6.50 K/cumm Imm gran abs 0.01 0.00 - 0.10 K/cumm [facility] Lymphocyte abs 4.42(H) 0.80 - 3.30 K/cumm [facility] Monocyte abs 0.33 0.20 - 0.80 K/cumm [facility] Eosinophil abs 0.30 0.00 - 0.50 K/cumm [facility] Basophil abs 0.07 0.00 - 0.10 K/cumm [facility] Neutrophil pct 39.0 % [facility] Comment: Interpretive Data Percent cell count reference ranges are not reported, since discordance with absolute values may lead to misinterpretation of CBC data. Current Interpretive Data was last revised on 2017. Imm gran pct 0.1 % [facility] Comment: Interpretive Data Percent cell count reference ranges are not reported, since discordance with absolute values may lead to misinterpretation of CBC data. Current Interpretive Data was last revised on 2017. Lymphocyte pct 52.6 % [facility] Comment: Interpretive Data Percent cell count reference ranges are not reported, since discordance with absolute values may lead to misinterpretation of CBC data. Current Interpretive Data was last revised on 2017. Monocyte pct 3.9 % [facility] Comment: Interpretive Data Percent cell count reference ranges are not reported, since discordance with absolute values may lead to misinterpretation of CBC data. Current Interpretive Data was last revised on 2017. Eosinophil pct 3.6 % [facility] Comment: Interpretive Data Percent cell count reference ranges are not reported, since discordance with absolute values may lead to misinterpretation of CBC data. Current Interpretive Data was last revised on 2017. Basophil pct 0.8 % [facility] Comment: Interpretive Data Percent cell count reference ranges are not reported, since discordance with absolute values may lead to misinterpretation of CBC data. Current Interpretive Data was last revised on 2017. Blood 01/01/2025 8:08 PM CDT 01/01/2025 8:12 PM CDT Renato Santillan MD LAB BLOOD ORDERABLE S Final Result Performing Organization Address [facility] Co de Phone Number JUAN [address] [address] * Thyroid Function [place] (01/01/2025 8:08 PM CDT) Pathologist [facility] TSH 1.67 0.30 - 4.20 mcIUnit/mL Blood 01/01/2025 8:08 PM CDT 01/01/2025 8:12 PM CDT Renato Santillan MD LAB BLOOD ORDERABLE S Final Result Performing Organization Address [facility] de Phone Number [address] [address] * (ABNORMAL) Urinalysis reflex to microscopic and culture Urine (01/01/2025 8:08 PM CDT) Color, ur Straw Yellow Clarity, ur Clear Clear OJ Specific gravity, ur 1.002(L) 1.003 - 1.030 OJ pH, urine 6.5 OJ Comment: Interpretive Data U rine pH is affected by diet, medications, systemic acid-base disturbances, and renal tubular function. pH may affect urinary stone formation. For example, urine pH below 6.0 may help reduce the tendency for calcium phosphate stones and pH greater than 6.0 may reduce the tendency for uric acid stone formation. Source: [facility] Current Interpretive Data was last revised on 2017 Protein, ur ql Negative Negative [facility] Glucose, ur ql Negative Negative [facility] Ketones, ur Negative Negative [facility] Bilirubin, ur Negative Negative [facility] Blood, ur Negative Negative [facility] Urobilinogen, ur <2.0 <2.0 mg/dL [facility] Nitrite, ur Negative Negative [facility] Leukocyte esterase, ur Negative Negative [facility] UA reflex comment Reflex conditions for microscopic UA and culture not met. [facility] Urine 01/01/2025 8:08 PM CDT 01/01/2025 8:12 PM CDT us Renato Santillan MD LAB MICROBIOLOGY - GENERAL ORDERABLES Final Result Performing Organization Address City/[facility]/ZIP Co de Phone Number OJ [address] [employer] [place] [address] * (ABNORMAL) CBC with auto differential (01/01/2025 8:08 PM CDT) WBC 8.41 3.80 - 9.90 K/cumm Hgb 13.4 11.9 - 15.5 g/dL [facility] Hct 39.5 35.6 - 45.5 % [facility] Plt 216 150 - 400 K/cumm [facility] MPV 8.4(L) 9.1 - 12.3 fL [facility] RBC 4.20 3.90 - 5.20 M/cumm [facility] MCV 94.0 81.3 - 96.4 fL [facility] MCH 31.9 27.1 - 33.3 pg [facility] MCHC 33.9 32.3 - 35.7 g/dL [facility] RDW CV 13.0 11.1 - 14.9 % [facility] RDW SD 44.5 35.7 - 48.1 fL [facility] NRBC abs 0.00 0.00 - 0.01 K/cumm [facility] Blood Venous blood specimen / Unknown 01/01/2025 8:08 PM CDT 01/01/2025 8:12 PM CDT Renato Santillan MD LAB BLOOD ORDERABLE S Final Result Performing Organization Address City/[facility]/ZIP Co de Phone Number OJ [address] [employer] [address] * Drugs of Abuse Screen, Urine without Confirmation (01/01/2025 8:08 PM CDT) [facility] Amphetamine, ur Not Detected CutOff 500ng/mL Comment: Interpretive Data - Amphetamines: Samples containing greater than 500 ng/mL d-methamphetamine or other cross-reacting amphetamine compounds are reported as positive. Amphetamine immunoassays are subject to significant false positive rates due to cross-reactivity of non-amphetamine drugs. Confirmatory testing required for definitive results. Current Interpretive Data was last reviewed 2022. Barbiturates, ur Not Detected CutOff 200ng/mL [facility] Comment: Interpretive Data - Barbiturates: Samples containing greater than 200 ng/mL secobarbital or other cross-reacting barbiturate compounds are reported as positive. False positive and false negative results are possible. Confirmatory testing required for definitive results. Current Interpretive Data was last reviewed 2022. Benzodiazepines, ur Not Detected CutOff 100ng/mL [facility] Comment: Interpretive Data - Benzodiazepines: Samples containing greater than 100 ng/mL nordiazepam or other cross-reacting compounds are reported as positive. False positive and false negative results are possible. Confirmatory testing required for definitive results. Current Interpretive Data was last reviewed 2022. Cannabinoids, ur Not Detected CutOff 50 ng/mL [facility] Comment: Interpretive Data - Cannabinoids: Samples containing greater than 50 ng/mL delta-9 THC -COOH or other cross- reacting compounds are reported as positive. False positive and false negative results are possible. Confirmatory testing required for definitive results. Current Interpretive Data was last reviewed 2022. Cocaine, ur Not Detected CutOff 150ng/mL [facility] Comment: Interpretive Data - Cocaine: Samples containing greater than 150 ng/mL benzoylecgonine or other cross- reacting compounds are reported as positive. False positive and false negative results are possible. Confirmatory testing required for definitive results. Current Interpretive Data was last reviewed 2022. Fentanyl, Ur Not Detected CutOff 5 ng/mL [facility] Comment: Interpretive Data - Fentanyl: Samples containing greater than 5 ng/mL norfentanyl, fentanyl, or other cross-reacting fentanyl compounds are reported as positive. False positive and false negative results are possible. Confirmatory testing required for definitive results. Current Interpretive Data was last reviewed 2023. Methadone, ur Not Detected CutOff 300ng/mL OJ Comment: Interpretive Data - Methadone: Samples containing greater than 300 ng/mL d,l-methadone or other cross-reacting compounds are reported as positive. False positive and false negative results are possible. Confirmatory testing required for definitive results. Current Interpretive Data was last reviewed 2022. Opiates, ur Not Detected CutOff 300ng/mL O[facility] Comment: Interpretive Data - Opiates: Samples containing greater than 300 ng/mL morphine or other cross-reacting compounds are reported as positive. False positive and false negative results are possible. Confirmatory testing required for definitive results. Current Interpretive Data was last reviewed 2022. Oxycodone, ur Not Detected CutOff 100ng/mL OJ Comment: Interpretive Data - Oxycodone: Samples containing [...] to be used for Pain Management purposes. us Renato Santillan MD LAB URINE ORDERABLE S Final Result [facility] [address] [facility] [place] [address] * Magnesium (01/01/2025 8:08 PM CDT) [facility] Magnesium 2.1 1.4 - 2.5 mg/dL Blood 01/01/2025 8:08 PM CDT 01/01/2025 8:12 PM CDT Renato Santillan MD LAB BLOOD ORDERABLE S Final Result Performing Organization Address [facility] de Phone Number JUAN [address] [address] * (ABNORMAL) Ethanol (01/01/2025 8:08 PM CDT) [facility] Ethanol 318(H) <=10 mg/dL Comment: Interpretive Data Legal limit of intoxication > or = 80 mg/dL Levels > or = 400 mg/dL are potentially TOXIC. Current interpretive data was last revised on 2018. Blood 01/01/2025 8:08 PM CDT 01/01/2025 8:12 PM CDT Renato Santillan MD LAB BLOOD ORDERABLE S Final Result Performing Organization Address [facility] de Phone Number [address] [address] * Comprehensive metabolic panel (01/01/2025 8:08 PM CDT) [facility] Sodium 143 135 - 145 mmol/L Potassium, pl 3.7 3.3 - 4.9 mmol/L [facility] Chloride 106 97 - 110 mmol/L [facility] CO2 27 22 - 32 mmol/L [facility] Anion gap 10 2 - 15 mmol/L [facility] BUN 7 6 - 25 mg/dL [facility] Creatinine 0.61 0.60 - 1.10 mg/dL [facility] Glucose 94 70 - 199 mg/dL [facility] Comment: Interpretive Data Fasting glucose >/= 126 [...] classification and Diagnosis of Diabetes Diabetes Care 2021; 46: S19-S40. Current interpretive data was last revised 2022. Calcium 9.1 8.5 - 10.3 mg/dL [facility] Bilirubin, total 0.3 0.1 - 1.2 mg/dL [facility] Protein, pl 7.2 6.5 - 8.5 g/dL [facility] Albumin 4.5 3.5 - 5.0 g/dL [facility] Alk phos 89 40 - 130 Units/L [facility] ALT 31 7 - 45 Units/L [facility] AST 33 10 - 45 Units/L [facility] Blood 01/01/2025 8:08 PM CDT 01/01/2025 8:12 PM CDT Renato Santillan MD LAB BLOOD ORDERABLE S Final Result [facility] [address] [facility] [place] [address] * XR Hip Left 2 or 3 Views (12/10/2024 1:27 PM CDT) Anatomical Region Laterality Modality Lower Extremities, Hip, Pelvis Left R adiographic Imaging Historical Provider IMG XR PROCEDURES Final R esult from Last 3 Months Insurance [facility] ACCESS CHOICE ANTHEM ACCESS CHOICE Care Teams Enterer Relationship Specialty Start Date End Date Sreekanth Maciel MD [address] [address] PCP - General Family Medicine 05/15/23 Theresa Mcgowan NP [address] [place] [address] [place] [address] Nurse Practitioner Behavioral Health 05/15/23 Arash Steve MD [address] [place] [address] Referring Physician Obstetrics and Gynecology 05/15/23 Sandoval Jung MD [address] [address] Referring Physician Hematology 05/15/23
--- OUTSIDE RECORDS SUMMARY | 2025-01-02 10:18 | XMS_ITS | Encounter Summary ---
Author Organization [facility] Address [address] [place] [address] Care Team Providers Care Head Filter Press Tender Name Role Phone Dionisio Angel MD Primary Care Provider [phone] Encounter Details Date Type Department Care Team (Late st Contact Info) Description 05/06/2020 Prep for Procedure [facility] [place], [place] [id number] Dionisio Angel MD 3 [facility] [place] [address] [place] [phone] Social History Tobacco Use Types Packs/Day Years [...] PRE-SURGICAL/PRE-PROCEDURE CORONAVIRUS (COVID 19) (05/08/2020 9:50 AM SHIPPING AND RECEIVING CLERK) CORONAVIRUS SARS COV 2 PCR (RESP) NOT DETECTED NOT DETECTED 05/09/2020 4:31 PM SHIPPING AND RECEIVING CLERK [facility] Comment: A Not Detected (negative) test [...] providers and patients using the following websites: https://www.[employer].3nder/home/Covid-19/HCP/NAAT/fact-sheet2 https://www.[employer].3nder/home/Covid-19/Patients/NAAT/ fact-sheet2 This test has been authorized by the FDA under an Emergency Use Authorization (EUA) for use by authorized laboratories. Due to the current public health emergency, [facility] is receiving a high volume of samples [...] about COVID-19 can be found at the [employer] website: www.[facility] (PRN).3nder/Covid19. Test performed at [facility] [address] [place] [address] Director: MINNIE JEFFREY DO,MPH FIRST TEST NO 05/08/2020 9:22 AM [facility] EMPLOYED IN HEALTHCARE UNKNOWN 05/08/2020 9:22 AM [facility] SYMPTOMATIC DEFINED BY CDC NO 05/08/2020 9:22 AM [facility] DATE OF SYMPTOM ONSET NO 05/08/2020 11:36 AM SHIPPING AND RECEIVING CLERK [facility] HOSPITALIZATION STATUS NO 05/08/2020 9:22 AM SHIPPING AND RECEIVING CLERK [facility] PATIENT IN ICU NO 05/08/2020 9:22 AM SHIPPING AND RECEIVING CLERK [facility] RESIDENT OF CONGREGATE CARE UNKNOWN 05/08/2020 9:22 AM SHIPPING AND RECEIVING CLERK [facility] UNKNOWN 05/08/2020 9:22 AM SHIPPING AND RECEIVING CLERK [facility] PATIENT'S RACE WHITE OR 05/08/2020 9:22 AM SHIPPING AND RECEIVING CLERK [facility] ETHNICITY NONHISPANIC 05/08/2020 9:22 AM SHIPPING AND RECEIVING CLERK [facility] SOURCE (QST) NASOPHARYNGEAL SWAB 05/08/2020 9:22 AM SHIPPING AND RECEIVING CLERK [facility] NASOPHARYNGEAL SWAB / Unknown 05/08/2020 9:50 AM SHIPPING AND RECEIVING CLERK us Dionisio Angel MD MICROBIOLOGY - [facility] LANIERJose [facility] Final Result Performing Organization Address City/State/[facility] Co de Phone Number [facility] [address] [place] [address], [employer] [address] documented in this encounter Visit Diagnoses Diagnosis Abdominal pain- Primary Abdominal pain, unspecified site documented in this encounter Additional Health Concerns Infection Onset Date Last Indicated Resolved Time COVID-19 Rule Out 05/08/2020 05/08/2020 05/09/2020 4:32 PM SHIPPING AND RECEIVING CLERK documented as of this encounter Care Teams Head Filter Press Tender Relationship Specialty Start Date End Date Dionisio Angel MD [address] [facility] [address] [place] [address] PCP - General GASTROENTEROLOGY 05/06/20 documented as of this encounter
--- OUTSIDE RECORDS SUMMARY | 2025-01-02 10:18 | XMS_ITS | Clinical Summary ---
Author Organization [facility] Address [facility] [place] [address] Care Team Providers Care Laborer Tanbark Name Role Phone Dionisio Angel MD Primary Care Provider [phone] Allergies Active Allergy Reactions Criticality Noted Date [...] Comments Blood Pressure 111/69 05/11/2020 4:25 PM NONFARM ANIMAL CARETAKER Pulse 96 05/11/2020 4:25 PM NONFARM ANIMAL CARETAKER Temperature 37 C (98.6 F) 05/11/2020 3:52 PM NONFARM ANIMAL CARETAKER Respiratory Rate 16 05/11/2020 4:25 PM NONFARM ANIMAL CARETAKER Oxygen Saturation 94% 05/11/2020 4:25 PM NONFARM ANIMAL CARETAKER Inhaled Oxygen Concentration - - Weight 63.5 kg (140 lb) 05/06/2020 9:46 AM NONFARM ANIMAL CARETAKER Height 170.2 cm (5' 7) 05/06/2020 9:46 AM NONFARM ANIMAL CARETAKER Body Mass Index 21.93 05/06/2020 9:46 AM NONFARM ANIMAL CARETAKER Plan of Treatment Health Maintenance Due Date [...] 2018 Cervical Cancer Screening with HPV 2018 PHQ-2 (Physician [place]) 04/10/2024 COVID-19 Vaccine ( - 2023-2 5 season) 2024 Meningococcal B Vaccine Aged Out No l onger eligible based on patient's age to complete this topic Meningococcal Vaccine Aged Out No naveen mauricio eligible based on patient's age to complete this topic RSV Immunizations Under 20 Months Aged Out No longer eligible based on patient's age to complete this topic Medical Devices Implanted Type Area Tower Director Device Identifier Shelf Expiration Date Model / Serial / Lot Loop Recorder Care Teams Laborer Tanbark Relationship Specialty Start Date End Date Dionisio Angel MD [address] [facility] [address] [place] [address] PCP - General GASTROENTEROLOGY 05/06/20
--- OUTSIDE RECORDS SUMMARY | 2025-01-02 10:18 | XMS_ITS | Patient Health Record ---
Author Organization [facility] [employer] [facility] Address [address] [facility] [address] [place] [address] Care Team Providers Care Slip Operator Name Role Phone Nohemi Cai Unavailable [phone] Reason For Referral No Information Medications Medication [...] Coverage Start Date Coverage End Date [facility] [place] [facility] [address] [place] [address] [id number] GERONIMO TREVIZO Self - patient is the insured
--- OUTSIDE RECORDS SUMMARY | 2025-01-02 10:18 | XMS_ITS | Clinical Summary ---
Author Organization [facility] Address [address] [place] [address] Care Team Providers Care Summer Intern Name Role Phone Endy Zuñiga MD Primary Care Provider [phone] Allergies Active Allergy Reactions Criticality Noted Date Comments [place] Gluconate Unknown 02/28/2024 Patient had testing done and is allergic to cobalt in ingredients in medications Nsaids (Non-Steroidal Anti-Inflammatory Drug) Other (See Comments) High 08/27/2019 Post gastric bypass Other reaction(s): GI Upset Pt is post gastric bypass - unable to have nsaids Medications multivitamin-m [id number]-GZ-vit K (Bariatric Multivitamins) 45 mg iron- 800 [...] STL ABSTRACTION Provider, Abstract 10/09/2024 Orders Only [facility] Oncology and Hematology - Roberto [address] [place] [phone] Sandoval Jung MD from Last 3 Months Family History Medical [...] on file Legal Sex Female 11:52 AM BUTTON INSPECTOR Gender Identity Not on file Sexual Orientation Not on file Last Filed Vital Signs Vital Sign Reading Time Taken Comments Blood Pressure 117/66 02/28/2024 11:43 AM BUTTON INSPECTOR Pulse 79 02/28/2024 11:43 AM BUTTON INSPECTOR Temperature 36.8 C (98.2 F) 02/28/2024 11:43 AM BUTTON INSPECTOR Respiratory Rate 18 02/28/2024 11:43 AM BUTTON INSPECTOR Oxygen Saturation 98% 02/28/2024 11:43 AM BUTTON INSPECTOR Inhaled Oxygen Concentration - - Weight 65.3 kg (144 lb) 02/28/2024 11:43 AM BUTTON INSPECTOR Height 172.7 cm (5' 8) 09/07/2021 3:51 [...] CANCER SCREENING 07/08/2023 PAP SMEAR 07/08/2023 07/07/2020 INFLUENZA VACCINE (#1) 2024 02/18/2019 COVID-19 Vaccine (2 - season) 2024 Procedures Procedure Name Priority Date/Time Associated Diagnosis Comments CBC WITH DIFFERENTIAL Routine 10/09/2024 12:41 PM CDT from Last 3 Months Results * CBC WITH DIFFERENTIAL (10/09/2024 12:41 PM CDT) Blood us Sandoval Jung MD HEMATOLOGY ORDERABLES Final Res ult from Last 3 Months Insurance [facility] Care Teams Summer Intern Relationship Specialty Start Date End Date Endy Zuñiga MD [address] [facility] [address] [place] [address] PCP - General Internal Medicine 02/13/20
--- OUTSIDE RECORDS SUMMARY | 2025-01-02 10:18 | XMS_ITS | Encounter Summary ---
Author Organization [facility] Address [address] [facility] [place] [address] Care Team Providers Care Bingo Manager Name Role Phone Unavailable Primary Care Provider Unavailabl e Reason for Visit * Reason Comments Refill Request Encounter Details Date Type Department Care Team (Late st Contact Info) Description 05/24/2022 Refill [facility] [address] [place] [address], [place] [address] David Jean MD [address] [place] [address] DIV OF TRA[place] [phone] Refill Request Social History Tobacco Use Types [...] on file Legal Sex 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
--- OUTSIDE RECORDS SUMMARY | 2025-01-02 10:18 | XMS_ITS | Encounter Summary ---
Author Organization [facility] Address [address] [facility] [place] [address] Care Team Providers Care Marketing Business Analyst Name Role Phone Unavailable Primary Care Provider Unavailabl e Reason for Visit * Reason Comments Refill Request Encounter Details Date Type Department Care Team (Late st Contact Info) Description 05/20/2022 Refill [facility] [address] [place] [address], [place] [address] David Jean MD [address] [place] [address] DIV [place] [phone] Refill Request Social History Tobacco Use Types [...] on file 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
--- OUTSIDE RECORDS SUMMARY | 2025-01-02 10:18 | XMS_ITS | Patient Health Record ---
Author Organization [facility] [place] ([address]) Address [address] [place] [address] Care Team Providers Care Assistant Technician Name Role Phone Janell Sreekanth Primary Care Provider Herman Castillo Unavailable [phone] Julissa Moses Unavailable [phone] Nora Andrews Unavailable [phone] Allergies Allergen (clinical drug ingredient) Drug/Non Drug Allergy documented on EMR Reaction Allergy Type Onset Date Status Non-steroidal anti-inflammatory agent (FN) NSAIDs Unknown Drug Allergy Active Results Component Value Reference Range Notes -Tryptase ([id number]) Reviewed date:02/12/2024 12:32:00 PM Interpretation:Normal Performing Lab:[facility] [address] [id number], Phone - [phone], Director - Claudy Notes/Report: Tryptase 3.8 2.2-13.2 ug/L -Immunoglobulins A/G/M, Qn, Ser Reviewed date:02/06/2024 01:08:45 PM Interpretation:Normal Performing Lab:[facility] [place], [address] [place], [place] [id number], Phone - [phone], Director - Jose Notes/Report: Immunoglobulin G, Qn, Serum 133 590-7065 mg/d L Immunoglobulin A, Qn, Serum 138 [...] W/U Status Risk Notes Problem Idiopathic urticaria (93988240) Idiopathic urticaria (L50.1) Active confirmed Problem Relapsing fever, 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) Active confirmed Problem Polycystic ovary syndrome (disorder) (354479344) Polycystic ovarian syndrome (E28.2) Active confirmed Problem Allergic contact dermatitis caused by metal and/or metal compound (disorder) (1974648537) Allergic contact dermatitis due to metals (L23.0) Active confirmed Problem Irritant contact dermatitis due to metals (L24.81) Active confirmed Problem Eruption of skin (817132116) Rash and other nonspecific skin eruption (R21) Active confirmed Vital Signs Oximetry 100 % 02/26/2024 Blood pressure diastolic 73 mm Hg 02/26/2024 Height 68 in 02/26/2024 Blood pressure systolic 110 mm Hg 02/26/2024 Weight 145.4 lbs 02/26/2024 BMI 22.11 kg/m2 02/26/2024 Encounters Encounter Location Date Provider Diagnosis [facility] [address] [facility] [email or web address] [address] [address] 03/18/2024 Herman Kumar [facility] [address] [place] [phone] 01/29/2024 Herman Kumar Relapsing fever, unspecified A68.9 ; Rash and other nonspecific skin eruption R21 and Idiopathic urticaria L50.1 [facility] [address] [place] [phone] 02/19/2024 Nora Andrews Relapsing fever, unspecified A68.9 ; Rash and other nonspecific skin eruption R21 and Idiopathic urticaria L50.1 [facility] [address] [address] 02/21/2024 Julissa Moses Relapsing fever, unspecified A68.9 ; Rash and other nonspecific skin eruption R21 and Idiopathic urticaria L50.1 [facility] [address] [place] [phone] 02/22/2024 Julissa Moses Relapsing fever, unspecified A68.9 ; Rash and other nonspecific skin eruption R21 and Idiopathic urticaria L50.1 [facility] [address] [place] [phone] 02/26/2024 Herman Kumar Allergic contact dermatitis due [...] - Patch testing was initiated today using [employer]-1000 test patch testing delivery system. - Keep [...] Insured Coverage Start Date Coverage End Date [facility] [address] [place] [address] [id number] Shankar Garcias Spouse - patient is the spouse of the insured Medical (General) History Medical History History ICD Code Attention-deficit hyperactivity disorder , unspecified type F90.9 Esophagitis, unspecified K20.9 Polycystic ovarian syndrome E28.2 Endometriosis, unspecified N80.9 Gastro-esophageal reflux disease without esophagitis K21.9 Surgical History Surgery Date(Month/Year) GASTRIC BYPASS FOR OBESITY DELIVERY Spinal Fusion L5-S1
--- OUTSIDE RECORDS SUMMARY | 2025-01-02 10:18 | XMS_ITS | Clinical Summary ---
Author Organization [facility] Address [address] [facility] [place] [address] Care Team Providers Care Lay Out Drafter Name Role Phone Unavailable Primary Care Provider Unavailabl e Source Comments [facility],non-owned Affiliates and Associated Physician Practices is amultiple site organization consisting of ambulatory clinics and hospital sitesin [place], [place], [place] and [place]. This disclosure is being madepursuant to the Care Everywhere program and may not contain all information available regarding this patient. 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 Gender Identity Not on file Sexual Orientation [...] series) 2015 PAP SMEAR 07/08/2023 07/07/2020, 07/07/2020 DEPRESSION SCREENING 04/10/2024 COVID-19 VACCINE (1 - 2023-2 5 season) 2024 INFLUENZA VACCINE (#1) 2024 , 02/18/2019, 04/15/2011 [...] patient's age to complete this topic Insurance [facility] SELF PAY NO INSURANCE Member Subscriber Plan / Payer (Ef fective for All Dates) Name:Geronimo Trevizo R Member ID:Not on file Relation to Subscriber:Not on file Name:GERONIMO TREVIZO Subscriber ID:Not on file Address: [address] [place] [address] Payer ID:Not on file Group ID:Not on file Type:Self Pay Address: [place], [place] BCBS/BLUE BLUE [employer] [employer] [place] SELF PAY NO INSURANCE Member Subscriber Plan / Payer (Ef fective for All Dates) Name:Geronimo Trevizo R Member ID:Not on file Relation to Subscriber:Not on file Name:GERONIMO TREVIZO Subscriber ID:Not on file Address: [address] [place] [address] Payer ID:Not on file Group ID:Not on file Type:Self Pay Address: [place], [place] Advance Directives * Full Code (Latest Code Status on File) Date Activated Date Inactivated Comments 08/08/2021 3:58 AM 08/08/2021 5:20 PM
--- OUTSIDE RECORDS SUMMARY | 2025-01-02 10:18 | XMS_ITS | Encounter Summary ---
Author Organization 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
--- OUTSIDE RECORDS SUMMARY | 2025-01-02 10:18 | XMS_ITS | Encounter Summary ---
Author Organization [facility] Healthcare Address [address] [place] [address] Care Team Providers Care Crusher And Blender Operator Name Role Phone Sreekanth Maciel MD Primary Care Provider [phone] Theresa Mcgowan NP Unavailable Arash Steve MD Unavailable [phone] Sandoval Jung MD Unavailable [phone] Encounter Details Date Type Department Care Team (Late st Contact Info) Description 01/17/2024 Orders Only [facility] Information Management [address] [place] [address] Scanning, Provider Social History Tobacco Use [...] on file Legal Sex Female 10:42 AM UNIT DIRECTOR Gender Identity Female 02/14/2021 8:33 PM UNIT DIRECTOR Sexual Orientation Straight 02/14/2021 8: 33 PM UNIT DIRECTOR documented as of this encounter Plan of Treatment Not on file documented as of this encounter Procedures Procedure Name Priority Date/Time Associated Diagnosis Comments SCAN - LABS 01/17/2024 documented in this encounter Results * SCAN - LABS (01/17/2024) us Provider Scanning Final Result documented in this encounter Visit Diagnoses Not on filedocumented in this encounter Care Teams Crusher And Blender Operator Relationship Specialty Start Date End Date Sreekanth Maciel MD [address] [address] PCP - General Family Medicine 05/15/23 Theresa Mcgowan NP [address] [place] [address] [place] [address] Nurse Practitioner Behavioral Health 05/15/23 Arash Steve MD [address] [place] [address] Referring Physician Obstetrics and Gynecology 05/15/23 Sandoval Jung MD [address] [phone] Referring Physician Hematology 05/15/23 documented as of this encounter
== END 2025-01-02 10:02 | disposition home or self-care (01) ==
PROVIDERS: Emergency Provider Nurse Practitioner Family; PCP Family Medicine
DX: N30.01 Acute cystitis with hematuria (principal); E03.9 Hypothyroidism, unspecified; F17.210 Nicotine dependence, cigarettes, uncomplicated
CPT/HCPCS: 81003; 87077; 87086; 87186; 99213; G0463

== ENCOUNTER 2025-01-06 11:53 | Emergency (ER) | payer BC, SELFPAY ==
[2025-01-06 11:51] VITALS: BP 120/75; PULSE 105; RESP 14; TEMP 37.2; O2SAT 99
[2025-01-06 11:59] VITALS: RESP 13; O2SAT 99
--- OUTSIDE RECORDS SUMMARY | 2025-01-06 12:19 | XMS_ITS | Encounter Summary ---
Author Organization [facility] Address [address] [facility] [place] [address] Care Team Providers Care Estate Planner Name Role Phone Unavailable Primary Care Provider Unavailabl e Reason for Visit * Reason Comments Refill Request Encounter Details Date Type Department Care Team (Late st Contact Info) Description 05/12/2022 Refill [facility] [address] [place] [address], [place] [address] David Jean MD [address] [place] [address] [place] [phone] Refill Request Social History Tobacco Use Types [...] on file 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
--- OUTSIDE RECORDS SUMMARY | 2025-01-06 12:19 | XMS_ITS | Patient Health Record ---
Author Organization [facility] [place] ([address]) Address [address] [place] [address] Care Team Providers Care Tank Operator Name Role Phone Sreekanth Maciel Primary Care Provider Herman Castillo Unavailable [phone] Julissa Moses Unavailable [phone] Nora Andrews Unavailable [phone] Allergies Allergen (clinical drug ingredient) Drug/Non Drug Allergy documented on EMR Reaction Allergy Type Onset Date Status Non-steroidal anti-inflammatory agent (FN) NSAIDs Unknown Drug Allergy Active Results Component Value Reference Range Notes -Immunoglobulins A/G/M, Qn, Ser Reviewed date:02/06/2024 01:08:45 PM Interpretation:Normal Performing Lab:[facility] [address] [id number], Phone - [phone], Director - Jose Notes/Report: Immunoglobulin G, Qn, Serum 027 238-3329 mg/d L Immunoglobulin A, Qn, Serum 138 87-352 mg/dL Immunoglobulin M, Qn, Serum 130 26-217 mg/dL -Tryptase ([id number]) Reviewed date:02/12/2024 12:32:00 PM Interpretation:Normal Performing Lab:[facility] [address] [id number], Phone - [phone], Director - Claudy Notes/Report: Tryptase 3.8 2.2-13.2 [...] W/U Status Risk Notes Problem Idiopathic urticaria (11130172) Idiopathic urticaria (L50.1) Active confirmed Problem Relapsing fever, 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) Active confirmed Problem Polycystic ovary syndrome (disorder) (566618119) Polycystic ovarian syndrome (E28.2) Active confirmed Problem Allergic contact dermatitis caused by metal and/or metal compound (disorder) (8225212590) Allergic contact dermatitis due to metals (L23.0) Active confirmed Problem Irritant contact dermatitis due to metals (L24.81) Active confirmed Problem Eruption of skin (959825044) Rash and other nonspecific skin eruption (R21) Active confirmed Vital Signs Oximetry 100 % 02/26/2024 Blood pressure diastolic 73 mm Hg 02/26/2024 Height 68 in 02/26/2024 Blood pressure systolic 110 mm Hg 02/26/2024 Weight 145.4 lbs 02/26/2024 BMI 22.11 kg/m2 02/26/2024 Encounters Encounter Location Date Provider Diagnosis [facility] [address] [place] [phone] 01/29/2024 Herman Greff Relapsing fever, unspecified A68.9 ; Rash and other nonspecific skin eruption R21 and Idiopathic urticaria L50.[address] [address] 02/19/2024 Nora Andrews Relapsing fever, unspecified A68.9 ; Rash and other nonspecific skin eruption R21 and Idiopathic urticaria L50.1 [address] [place] [address] 02/21/2024 Julissa Moses Relapsing fever, unspecified A68.9 ; Rash and other nonspecific skin eruption R21 and Idiopathic urticaria L50.[address] [address] 02/22/2024 Julissa Moses Relapsing fever, unspecified A68.9 ; Rash and other nonspecific skin eruption R21 and Idiopathic urticaria L50.[address] [address] 02/26/2024 Herman Kumar Allergic contact dermatitis due to metals L23.0 ; Irritant contact dermatitis due to metals L24.81 ; Relapsing fever, unspecified A68.9 and Idiopathic urticaria L50.[address] [address] 03/18/2024 Herman Kumar Assessments Encounter Date Diagnosis [...] - Patch testing was initiated today using [employer]-1000 test patch testing delivery system. - Keep [...] Insured Coverage Start Date Coverage End Date [facility] [address] [place] [address] [id number] Shankar Garcias Spouse - patient is the spouse of the insured Medical (General) History Medical History History ICD Code Attention-deficit hyperactivity disorder , unspecified type F90.9 Esophagitis, unspecified K20.9 Polycystic ovarian syndrome E28.2 Endometriosis, unspecified N80.9 Gastro-esophageal reflux disease without esophagitis K21.9 Surgical History Surgery Date(Month/Year) GASTRIC BYPASS FOR OBESITY DELIVERY Spinal Fusion L5-S1
--- OUTSIDE RECORDS SUMMARY | 2025-01-06 12:19 | XMS_ITS | Encounter Summary ---
Author Organization [facility] Healthcare Address [address] [place] [address] Care Team Providers Care Machine Shop Worker Name Role Phone Sreekanth Maciel MD Primary Care Provider [phone] Theresa Mcgowan NP Unavailable Arash Steve MD Unavailable [phone] Sandoval Jung MD Unavailable [phone] Encounter Details Date Type Department Care Team (Late st Contact Info) Description 01/17/2024 Orders Only [facility] Health Information Management [address] [place] [address] Scanning, Provider Social History Tobacco Use [...] on file Legal Sex Female 10:42 AM BALE TIE MACHINE OPERATOR Gender Identity Female 02/14/2021 8:33 PM BALE TIE MACHINE OPERATOR Sexual Orientation Straight 02/14/2021 8: 33 PM BALE TIE MACHINE OPERATOR documented as of this encounter Plan of Treatment Not on file documented as of this encounter Procedures Procedure Name Priority Date/Time Associated Diagnosis Comments SCAN - LABS 01/17/2024 documented in this encounter Results * SCAN - LABS (01/17/2024) us Provider Scanning Final Result documented in this encounter Visit Diagnoses Not on filedocumented in this encounter Care Teams Machine Shop Worker Relationship Specialty Start Date End Date Sreekanth Maciel MD [address] [address] PCP - General Family Medicine 05/15/23 Theresa Mcgowan NP [address] [place] [address] [place] [address] Nurse Practitioner Behavioral Health 05/15/23 Arash Steve MD [address] [place] [address] Referring Physician Obstetrics and Gynecology 05/15/23 Sandoval Jung MD [address] [phone] Referring Physician Hematology 05/15/23 documented as of this encounter
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
--- OUTSIDE RECORDS SUMMARY | 2025-01-06 12:20 | XMS_ITS | Encounter Summary ---
Author Organization [facility] Address [address] [place] [address] Care Team Providers Care Rag Shredder Name Role Phone Unavailable Primary Care Provider Unavailabl e Reason for Visit * Reason Comments Refill Request Encounter Details Date Type Department Care Team (Late st Contact Info) Description 05/28/2022 Refill [facility] [address] [place] [address], [place] [address] David Jean MD [address] [place] [address] DIV [place] [phone] Refill Request Social History Tobacco Use Types [...] on file 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
--- OUTSIDE RECORDS SUMMARY | 2025-01-06 12:20 | XMS_ITS | Encounter Summary ---
Author Organization [facility] Address [address] [facility] [place] [address] Care Team Providers Care Distributor Publications Name Role Phone Unavailable Primary Care Provider Unavailabl e Reason for Visit * Reason Comments Refill Request Encounter Details Date Type Department Care Team (Late st Contact Info) Description 05/20/2022 Refill [facility] [address] [place] [address], [place] [address] David Jean MD [address] [place] [address] DIV [place] [phone] Refill Request Social History Tobacco Use Types [...] on file Legal Sex Female 10:29 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
--- OUTSIDE RECORDS SUMMARY | 2025-01-06 12:20 | XMS_ITS | Encounter Summary ---
Author Organization [facility] Address [address] [place] [address] Care Team Providers Care Ager Operator Name Role Phone Unavailable Primary Care Provider Unavailabl e Reason for Visit * Reason Comments Refill Request Encounter Details Date Type Department Care Team (Late st Contact Info) Description 05/16/2022 Refill [facility] [address] [place] [address], [place] [address] David Jean MD [address] [place] [address] DIV [place] [phone] Refill Request Social History Tobacco Use Types [...] on file 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
--- OUTSIDE RECORDS SUMMARY | 2025-01-06 12:20 | XMS_ITS | Clinical Summary ---
Author Organization [facility] Address [address] [place] [address] Care Team Providers Care Agricultural Production Engineer Name Role Phone Endy Zuñiga MD Primary Care Provider [phone] Allergies Active Allergy Reactions Criticality Noted Date Comments [place] Gluconate Unknown 02/28/2024 Patient had testing done and is allergic to cobalt in ingredients in medications Nsaids (Non-Steroidal Anti-Inflammatory Drug) Other (See Comments) High 08/27/2019 Post gastric bypass Other reaction(s): GI Upset Pt is post gastric bypass - unable to have nsaids Medications multivitamin-m tm-gfgh-VS-vit K (Bariatric Multivitamins) 45 mg iron- 800 [...] STL ABSTRACTION Provider, Abstract 10/09/2024 Orders Only [facility] Oncology and Hematology - Roberto [address] [place] [place] [phone] Sandoval Jung MD from Last 3 [...] on file Legal Sex Female 11:52 AM 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 SCHOOL 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 Gender Identity Not on file Sexual Orientation Not on file Last Filed Vital Signs Vital Sign Reading Time Taken Comments Blood Pressure 117/66 02/28/2024 11:43 AM MIDDLE SCHOOL 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 Pulse 79 02/28/2024 11:43 AM MIDDLE SCHOOL 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 Temperature 36.8 C (98.2 F) 02/28/2024 11:43 AM MIDDLE SCHOOL 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 Respiratory Rate 18 02/28/2024 11:43 AM MIDDLE SCHOOL 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 Oxygen Saturation 98% 02/28/2024 11:43 AM MIDDLE SCHOOL 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 Inhaled Oxygen Concentration - - Weight 65.3 kg (144 lb) 02/28/2024 11:43 AM MIDDLE SCHOOL 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 Height 172.7 cm (5' 8) 09/07/2021 3:51 [...] Res ult from Last 3 Months Insurance [facility] Care Teams Agricultural Production Engineer Relationship Specialty Start Date End Date Endy Zuñiga MD [address] [facility] [address] [place] [address] PCP - General Internal Medicine 02/13/20
--- OUTSIDE RECORDS SUMMARY | 2025-01-06 12:20 | XMS_ITS | Encounter Summary ---
Author Organization [facility] Address [address] [place] [address] Care Team Providers Care Emulsification Operator Name Role Phone Dionisio Angel MD Primary Care Provider [phone] Encounter Details Date Type Department Care Team (Late st Contact Info) Description 05/06/2020 Prep for Procedure [facility] One Day [facility] [place] [id number] Dionisio Angel MD [address] [facility] [address] [place] [phone] Social History Tobacco Use Types Packs/Day Years [...] PRE-SURGICAL/PRE-PROCEDURE CORONAVIRUS (COVID 19) (05/08/2020 9:50 AM MOTOR OPERATOR) CORONAVIRUS SARS COV 2 PCR (RESP) NOT DETECTED NOT DETECTED 05/09/2020 4:31 PM MOTOR OPERATOR [facility] Comment: A Not Detected (negative) test [...] providers and patients using the following websites: https://www.[employer]/home/Covid-19/HCP/NAAT/fact-sheet2 https://www.[employer]/home/Covid-19/Patients/NAAT/ fact-sheet2 This test has been authorized by the FDA under an Emergency Use Authorization (EUA) for use by authorized laboratories. Due to the current public health emergency, [facility] is receiving a high volume of samples [...] about COVID-19 can be found at the [facility] website: www.[employer]/Covid19. Test performed at [facility] [place] [address] [place] [address] Director: MINNIE JEFFREY DO,MPH FIRST TEST NO 05/08/2020 9:22 AM [facility] EMPLOYED IN HEALTHCARE UNKNOWN 05/08/2020 9:22 AM [facility] SYMPTOMATIC DEFINED BY CDC NO 05/08/2020 9:22 AM [facility] DATE OF SYMPTOM ONSET NO 05/08/2020 11:36 AM MOTOR OPERATOR [facility] HOSPITALIZATION STATUS NO 05/08/2020 9:22 AM MOTOR OPERATOR [facility] PATIENT IN ICU NO 05/08/2020 9:22 AM MOTOR OPERATOR [facility] RESIDENT OF CONGREGATE CARE UNKNOWN 05/08/2020 9:22 AM MOTOR OPERATOR [facility] UNKNOWN 05/08/2020 9:22 AM MOTOR OPERATOR [facility] PATIENT'S RACE WHITE OR 05/08/2020 9:22 AM MOTOR OPERATOR [facility] ETHNICITY NONHISPANIC 05/08/2020 9:22 AM MOTOR OPERATOR [facility] SOURCE (QST) NASOPHARYNGEAL SWAB 05/08/2020 9:22 AM MOTOR OPERATOR [facility] NASOPHARYNGEAL SWAB / Unknown 05/08/2020 9:50 AM MOTOR OPERATOR us Dionisio Angel MD [facility] Final Result Performing Organization Address City/State/[facility] Co de Phone Number [facility] [address] [place] [address], [employer] [address] documented in this encounter Visit Diagnoses Diagnosis Abdominal pain- Primary Abdominal pain, unspecified site documented in this encounter Additional Health Concerns Infection Onset Date Last Indicated Resolved Time COVID-19 Rule Out 05/08/2020 05/08/2020 05/09/2020 4:32 PM MOTOR OPERATOR documented as of this encounter Care Teams Emulsification Operator Relationship Specialty Start Date End Date Dionisio Angel MD [address] [facility] [address] [place] [address] PCP - General GASTROENTEROLOGY 05/06/20 documented as of this encounter
--- OUTSIDE RECORDS SUMMARY | 2025-01-06 12:20 | XMS_ITS | Clinical Summary ---
Author Organization [address] Address [address] [place] [address] Care Team Providers Care Radiology Nurse Name Role Phone Sreekanth Maciel MD Primary Care Provider Theresa Mcgowan RUBY ON RAILS SOFTWARE DEVELOPER Unavailable Arash Steve MD Unavailable [phone] Sandoval Jung MD Unavailable [phone] Allergies Active Allergy Reactions Criticality Noted Date Comments [place] Gluconate Unknown 02/28/2024 Patient had testing done [...] 04/19/2024 Assessment & Plan (04/19/2024 3:06 PM TACTICAL RESPONSE GROUP OFFICER): there may a link, given the facial [...] 05/15/2023 Assessment & Plan (05/18/2023 4:40 PM TACTICAL RESPONSE GROUP OFFICER): A(n) initial well visit to establish care [...] along with risks vs benefits. Vitamin D 0714-4883 international units per day Calcium 500 mg/day [...] (03/18/2021): Added automatically from request for surgery [id number] Marginal ulcer 02/18/2021 Overview (02/18/2021): Added automatically from request for surgery [id number] Other dietary vitamin B12 deficiency anemia 02/08 [...] guidance Will refill omeprazole 20 mg BID [place] diet Update me in the next couple [...] CDT - 01/01/2025 11:02 PM CDT Emergency [address] [address] Renato Santillan MD Alcohol withdrawal syndrome without complication (HCC) (Primary Dx) Discharge Disposition: Discharge to home or self care 12/17/[address] [facility] Cardiology [address] [place] [address] Khalif Melo MD Loss of Consciousness; 48 monitor 12/10/[address] [facility] Primary Care at [address] [phone] ProviderLianet MD 12/07/2024 Patient Self-Triage [facility] [address] [place] [address] Mychart, Generic Provider from Last 3 Months [...] on file Legal Sex Female 10:42 AM TACTICAL RESPONSE GROUP OFFICER Gender Identity Female 02/14/2021 8:33 PM TACTICAL RESPONSE GROUP OFFICER Sexual Orientation Straight 02/14/2021 8: 33 PM TACTICAL RESPONSE GROUP OFFICER Obstetrics History Last Filed Vital Signs Vital [...] Vaccines Discontinued Medical Devices Implanted Type Area Physical Therapy Technician Device Identifier Shelf Expiration Date Model / [...] health admission Interpretive data Testing performed by [facility]. This test is performed using the [employer] Xpert Xpress CoV-2 plus assay. This is a real-time RT-PCR test intended for the qualitative detection of nucleic acid from the SARS-CoV-2. This assay has been cleared by the [place] Food and Drug administration. The performance characteristics have been verified by the [facility]. Results must be considered in the clinical context, and a negative result does not rule out infection. Interpretive data last revised 2023. Interpretive data Testing performed by [facility]. This test is performed using the [employer] Xpert Xpress CoV-2 plus assay. This is a real-time RT-PCR test intended for the qualitative detection of nucleic acid from the SARS-CoV-2. This assay has been cleared by the [facility] Food and Drug administration. The performance characteristics have been verified by the [facility]. Results must be considered in the clinical context, and a negative result does not rule out infection. Interpretive data last revised 2023. us Renato Santillan MD LAB MICROBIOLOGY - GENERAL ORDERABLES Final Result [facility] [address] [facility] Department [place] [address] * eGFR (01/01/2025 8:08 PM CDT) eGFR [...] LAB BLOOD ORDERABLE S Final Result [facility] [address] [facility] [place] [address] * (ABNORMAL) Differential, auto (01/01/2025 8:08 PM [...] ORDERABLE S Final Result Performing Organization Address [facility] Co de Phone Number JUAN [address] [address] * Thyroid Function [place] (01/01/2025 8:08 PM CDT) Pathologist [facility] TSH 1.67 0.30 - 4.20 mcIUnit/mL Blood 01/01/2025 8:08 PM CDT 01/01/2025 8:12 PM CDT Renato Santillan MD LAB BLOOD ORDERABLE S Final Result Performing Organization Address [facility] de Phone Number [address] [address] * (ABNORMAL) Urinalysis reflex to microscopic and [...] uric acid stone formation. Source: [facility] Current Interpretive Data was last revised on 2017 Protein, ur ql Negative Negative [facility] Glucose, ur ql Negative Negative [facility] Ketones, ur Negative Negative [facility] Bilirubin, ur Negative Negative [facility] Blood, ur Negative Negative [facility] [...] GENERAL ORDERABLES Final Result Performing Organization Address City/[facility]/ZIP Co de Phone Number OJ [address] [place] [address] * (ABNORMAL) CBC with auto differential (01/01/2025 [...] PM CDT 01/01/2025 8:12 PM CDT Renato Satnillan MD LAB BLOOD ORDERABLE S Final Result Performing Organization Address City/[facility]/ZIP Co de Phone Number OJ [address] [place] [address] * Drugs of Abuse Screen, Urine without Confirmation (01/01/2025 8:08 PM CDT) [facility] Amphetamine, ur Not Detected CutOff 500ng/mL Comment: [...] LAB URINE ORDERABLE S Final Result OJ [address] [facility] [place] [address] * Magnesium (01/01/2025 8:08 PM CDT) [facility] Magnesium 2.1 1.4 - 2.5 mg/dL Blood 01/01/2025 8:08 PM CDT 01/01/2025 8:12 PM CDT Renato Santillan MD LAB BLOOD ORDERABLE S Final Result Performing Organization Address [facility] de Phone Number JUAN [address] [address] * (ABNORMAL) Ethanol (01/01/2025 8:08 PM CDT) [facility] Ethanol 318(H) <=10 mg/dL Comment: Interpretive Data Legal limit of intoxication > or = 80 mg/dL Levels > or = 400 mg/dL are potentially TOXIC. Current interpretive data was last revised on 2018. Blood 01/01/2025 8:08 PM CDT 01/01/2025 8:12 PM CDT Renato Santillan MD LAB BLOOD ORDERABLE S Final Result Performing Organization Address [facility] de Phone Number [address] [address] * Comprehensive metabolic panel (01/01/2025 8:08 PM CDT) [facility] Sodium 143 135 - 145 mmol/L Potassium, [...] Bilirubin, total 0.3 0.1 - 1.2 mg/dL [facility] Protein, pl 7.2 6.5 - 8.5 g/dL [facility] Albumin 4.5 3.5 - 5.0 g/dL [facility] Alk phos 89 40 - 130 Units/L [facility]NOTE 2] ALT 31 7 - 45 Units/L [facility] 2] AST 33 10 - 45 Units/L [facility] Blood 01/01/2025 8:08 PM CDT 01/01/2025 8:12 PM CDT Renato Santillan MD LAB BLOOD ORDERABLE S Final Result [facility] [address] [facility] Department [place] [address] * XR Hip Left 2 or 3 Views (12/10/2024 1:27 PM CDT) Anatomical Region Laterality Modality Lower Extremities, Hip, Pelvis Left R adiographic Imaging Historical Provider IMG XR PROCEDURES Final R esult from Last 3 Months Insurance [facility] ACCESS CHOICE ANTHEM ACCESS CHOICE Care Teams Radiology Nurse Relationship Specialty Start Date End Date Sreekanth Maciel MD [address] [address] PCP - General Family Medicine 05/15/23 Theresa Mcgowan NP [address] [place] [address] [place] [address] Nurse Practitioner Behavioral Health 05/15/23 Arash Steve MD [address] [place] [address] Referring Physician Obstetrics and Gynecology 05/15/23 Sandoval Jung MD [address] [address] Referring Physician Hematology 05/15/23
--- OUTSIDE RECORDS SUMMARY | 2025-01-06 12:20 | XMS_ITS | Clinical Summary ---
Author Organization [facility] Address [address] [facility] [place] [address] Care Team Providers Care Chemical Maker Name Role Phone Unavailable Primary Care Provider Unavailabl e Source Comments [facility],non-owned Affiliates and Associated Physician Practices is amultiple site organization consisting of ambulatory clinics and hospital sitesin [place], [place], [place] and [place]. This disclosure is being madepursuant to the Care Everywhere program and may not contain all information available regarding this patient. Last updated 17.[facility] [employer] Allergies Active Allergy Reactions Criticality Noted Date [...] on file Legal Sex Female 10:29 AM PIANO REGULATOR Gender Identity Not on file Sexual Orientation [...] patient's age to complete this topic Insurance [facility] SELF PAY NO INSURANCE Member Subscriber Plan / Payer (Ef fective for All Dates) Name:Geronimo Trevizo R Member ID:Not on file Relation to Subscriber:Not on file Name:GERONIMO TREVIZO Subscriber ID:Not on file Address: [address] [place] [address] Payer ID:Not on file Group ID:Not on file Type:Self Pay Address: [place], [place] BCBS/BLUE BLUE [place] [employer] [place] [facility] Address: [facility] [id number] [place] [address] SELF PAY NO INSURANCE Member Subscriber Plan / Payer (Ef fective for All Dates) Name:Geronimo Trevizo R Member ID:Not on file Relation to Subscriber:Not on file Name:GERONIMO TREVIZO Subscriber ID:Not on file Address: [address] [place] [address] Payer ID:Not on file Group ID:Not on file Type:Self Pay Address: [place], [place] Advance Directives * Full Code (Latest Code Status on File) Date Activated Date Inactivated Comments 08/08/2021 3:58 AM 08/08/2021 5:20 PM
--- OUTSIDE RECORDS SUMMARY | 2025-01-06 12:20 | XMS_ITS | Encounter Summary ---
Author Organization [facility] Address [address] [facility] [address] Care Team Providers Care Analyst Sales Name Role Phone Unavailable Primary Care Provider Unavailabl e Reason for Visit * Reason Comments Refill Request Encounter Details Date Type Department Care Team (Late st Contact Info) Description 05/24/2022 Refill [facility] [address] [place] [address], [place] [address] David Jean MD [address] [place] [address] [place] [phone] Refill Request Social History Tobacco Use Types [...] on file Legal Sex Female 10:29 AM HOSPITAL SOCIAL WORKER Gender Identity Not on file Sexual Orientation Not on file documented as of this encounter Plan of Treatment Not on file documented as of this encounter Visit Diagnoses Not on filedocumented in this encounter
--- OUTSIDE RECORDS SUMMARY | 2025-01-06 12:20 | XMS_ITS | Clinical Summary ---
Author Organization [facility] Address Counts include 234 beds at the [facility] [place] [address] Care Team Providers Care Youth Probation Officer Name Role Phone Dionisio Angel MD Primary Care Provider [phone] Allergies Active Allergy Reactions Criticality Noted Date [...] Comments Blood Pressure 111/69 05/11/2020 4:25 PM QUILL MACHINE OPERATOR Pulse 96 05/11/2020 4:25 PM QUILL MACHINE OPERATOR Temperature 37 C (98.6 F) 05/11/2020 3:52 PM QUILL MACHINE OPERATOR Respiratory Rate 16 05/11/2020 4:25 PM QUILL MACHINE OPERATOR Oxygen Saturation 94% 05/11/2020 4:25 PM QUILL MACHINE OPERATOR Inhaled Oxygen Concentration - - Weight 63.5 kg (140 lb) 05/06/2020 9:46 AM QUILL MACHINE OPERATOR Height 170.2 cm (5' 7) 05/06/2020 9:46 AM QUILL MACHINE OPERATOR Body Mass Index 21.93 05/06/2020 9:46 AM QUILL MACHINE OPERATOR Plan of Treatment Health Maintenance Due Date [...] Cancer Screening with HPV 2018 PHQ-2 (Physician Vesta) 04/10/2024 COVID-19 Vaccine ( - 2023-2 5 [...] this topic Medical Devices Implanted Type Area Php Mysql Web Developer Device Identifier Shelf Expiration Date Model / Serial / Lot Loop Recorder Care Teams Youth Probation Officer Relationship Specialty Start Date End Date Dionisio Angel MD [address] [facility] [address] [place] [address] PCP - General GASTROENTEROLOGY 05/06/20
[2025-01-06 12:29] VITALS: TEMP 36.7
== END 2025-01-06 12:29 | disposition home or self-care (01) ==
PROVIDERS: Emergency Provider Emergency Medicine; PCP Family Medicine
DX: Z04.89 Encounter for examination and observation for other specified reasons (principal); X00.1XXA Exposure to smoke in uncontrolled fire in building or structure, initial encounter; S80.212A Abrasion, left knee, initial encounter; W22.8XXA Striking against or struck by other objects, initial encounter
CPT/HCPCS: 99283

== ENCOUNTER 2025-01-11 10:03 | Emergency (ER) | payer BC, SELFPAY ==
--- NOTE | ~2025-01-11 | CT_ITS ---
CT HEAD NON-CONTRAST CT C-SPINE Clinical History: head injury altered mental status Comparison: MR brain 12/20/2023 Technique: Unenhanced axial images skull base to vertex. Coronal, sagittal reformats. Axial images thoracic inlet to skull base. Sagittal and coronal reformats. CT images acquired with automatic exposure control for dose reduction DLP: 605 mGy-cm Findings: Head: Sulci, ventricles: Unremarkable. No intracerebral hemorrhage. No evidence acute territorial infarct. No mass effect, midline shift, intra-/extra-axial fluid collection. Bony calvarium intact. Visualized paranasal sinuses: Ethmoid disease/fluid. Mastoid air cells: Clear. Right parietal scalp contusion. C-spine: No acute fracture or listhesis. Straightening of normal cervical lordosis.. No significant degenerative changes. Disc spaces maintained. Prevertebral soft tissues within normal limits. Visualized lung apices: Clear. Visualized thyroid: Unremarkable. No enlarged cervical nodes. IMPRESSION: HEAD: 1. No acute intracranial findings. C-SPINE: 1. No acute fracture. Reviewed, dictated and finalized at location R. IMPRESSION: HEAD: 1. No acute intracranial findings. C-SPINE: 1. No acute fracture.
--- OUTSIDE RECORDS SUMMARY | 2025-01-11 10:06 | XMS_ITS | Encounter Summary ---
Author Organization [facility] Address [address] [place] [address] Care Team Providers Care Weatherization Field Technician Name Role Phone Unavailable Primary Care Provider Unavailabl e Reason for Visit * Reason Comments Refill Request Encounter Details Date Type Department Care Team (Late st Contact Info) Description 05/20/2022 Refill [facility] [address] [place] [address], [place] [address] David Jean MD [address] [place] [address] [place] [phone] Refill Request Social History Tobacco Use Types [...] on file Legal Sex Female 10:29 AM SPUDDER Gender Identity Not on file Sexual Orientation Not on file documented as of this encounter Plan of Treatment Not on file documented as of this encounter Visit Diagnoses Not on filedocumented in this encounter
--- OUTSIDE RECORDS SUMMARY | 2025-01-11 10:06 | XMS_ITS | Encounter Summary ---
Author Organization [facility] Address [address] [place] [id number] Care Team Providers Care Surgical Nurse Name Role Phone Dionisio Angel MD Primary Care Provider [phone] Encounter Details Date Type Department Care Team (Late st Contact Info) Description 05/06/2020 Prep for Procedure [facility] [place], [place] [id number] Dionisio Angel MD [address] [facility] [address] [place] [id number] Social History Tobacco Use Types Packs/Day Years [...] PRE-SURGICAL/PRE-PROCEDURE CORONAVIRUS (COVID 19) (05/08/2020 9:50 AM VP) CORONAVIRUS SARS COV 2 PCR (RESP) NOT DETECTED NOT DETECTED 05/09/2020 4:31 PM [facility] Comment: A Not Detected (negative) [...] providers and patients using the following websites: https://[email or web address]seeds/home/Covid-19/HCP/NAAT/fact-sheet2 https://[email or web address]seeds/home/Covid-19/Patients/NAAT/ fact-sheet2 This test has been authorized by the FDA under an Emergency Use Authorization (EUA) for use by authorized laboratories. Due to the current public health emergency, [employer] is receiving a high volume of samples [...] about COVID-19 can be found at the [employer] website: www.[employer] [place].22seeds/Covid19. Test performed at [facility] [address] [place] [address] Director: MINNIE JEFFREY DO,MPH FIRST TEST NO 05/08/2020 9:22 AM [facility] EMPLOYED IN HEALTHCARE UNKNOWN 05/08/2020 9:22 AM [facility] SYMPTOMATIC DEFINED BY CDC NO 05/08/2020 9:22 AM [facility] DATE OF SYMPTOM ONSET NO 05/08/2020 11:36 AM [facility] HOSPITALIZATION STATUS NO 05/08/2020 9:22 AM [facility] PATIENT IN ICU NO 05/08/2020 9:22 AM [facility] RESIDENT OF [place] CARE UNKNOWN 05/08/2020 9:22 AM [facility] UNKNOWN 05/08/2020 9:22 AM [facility] PATIENT'S RACE WHITE OR 05/08/2020 9:22 AM [facility] ETHNICITY NONHISPANIC 05/08/2020 9:22 AM [facility] SOURCE (QST) NASOPHARYNGEAL SWAB 05/08/2020 9:22 AM [facility] NASOPHARYNGEAL SWAB / Unknown 05/08/2020 9:50 AM [facility] us Dionisio Angel MD [facility] Final Result Performing Organization Address City/State/[facility] Co de Phone Number [facility] [address] [place] [address], [place] [address] documented in this encounter Visit Diagnoses Diagnosis Abdominal pain- Primary Abdominal pain, unspecified site documented in this encounter Additional Health Concerns Infection Onset Date Last Indicated Resolved Time COVID-19 Rule Out 05/08/2020 05/08/2020 05/09/2020 4:32 PM VP documented as of this encounter Care Teams Surgical Nurse Relationship Specialty Start Date End Date Dionisio Angel MD [address] [facility] [address] [place] [address] PCP - General GASTROENTEROLOGY 05/06/20 documented as of this encounter
--- OUTSIDE RECORDS SUMMARY | 2025-01-11 10:06 | XMS_ITS | Clinical Summary ---
Author Organization [address] Address [address] [place] [address] Care Team Providers Care Manager Marketing Communications Name Role Phone Sreekanth Maciel MD Primary Care Provider [phone] Theresa Mcgowan CHIEF MARKETING OFFICER Unavailable Arash Steve MD Unavailable [phone] Sandoval Jung MD Unavailable Allergies Active Allergy Reactions Criticality Noted Date Comments [place] Gluconate Unknown 02/28/2024 Patient had testing done [...] 04/19/2024 Assessment & Plan (04/19/2024 3:06 PM CAREER DEVELOPMENT ENGINEER): there may a link, given the facial [...] 05/15/2023 Assessment & Plan (05/18/2023 4:40 PM CAREER DEVELOPMENT ENGINEER): A(n) initial well visit to establish care has been performed today. Aura Gonzalez is not up to date on screening [...] along with risks vs benefits. Vitamin D 2225-2630 international units per day Calcium 500 mg/day [...] (03/18/2021): Added automatically from request for surgery [id number] Marginal ulcer 02/18/2021 Overview (02/18/2021): Added automatically from request for surgery [id number] Other dietary vitamin B12 deficiency anemia 02/08 [...] guidance Will refill omeprazole 20 mg BID [place] diet Update me in the next couple [...] CDT - 01/01/2025 11:02 PM CDT Emergency [address] [address] Renato Santillan MD Alcohol withdrawal syndrome without complication (HCC) (Primary Dx) Discharge Disposition: Discharge to home or self care 12/17/2024 Telephone [facility] Cardiology [address] [place] [address] Khalif Melo MD Loss of Consciousness; 48 monitor 12/10/2024 Orders Only [facility] Primary Care at [address] [address] ProviderLianet MD 12/07/2024 Patient Self-Triage [facility] Physicians [address] [place] [address] Mychart, Generic Provider from Last 3 Months [...] Date Smoking Tobacco: Every Day Cigarettes 0.8 24.3 Started: 09/16/2000 Smokeless Tobacco: Never Tobacco [...] on file Legal Sex Female 10:42 AM CAREER DEVELOPMENT ENGINEER Gender Identity Female 02/14/2021 8:33 PM CAREER DEVELOPMENT ENGINEER Sexual Orientation Straight 02/14/2021 8: 33 PM CAREER DEVELOPMENT ENGINEER Obstetrics History Last Filed Vital Signs Vital [...] Vaccines Discontinued Medical Devices Implanted Type Area Repack Room Worker Device Identifier Shelf Expiration Date Model / [...] 08 PM CDT 01/01/2025 8:12 PM CDT Leodan MCWILLIAMS - 01/01/2025 8:50 PM CDT Is the patient experiencing any symptoms consistent with COVID (eg. Fever, cough, shortness of breath)?->No What is the reason for testing?->Screening prior to Behavioral health admission Interpretive data Testing performed by [facility]. This test is performed using the [employer] Xpert Xpress CoV-2 plus assay. This is a real-time RT-PCR test intended for the qualitative detection of nucleic acid from the SARS-CoV-2. This assay has been cleared by the [place] Food and Drug administration. The performance characteristics have been verified by the [facility]. Results must be considered in the clinical context, and a negative result does not rule out infection. Interpretive data last revised 2023. Interpretive data Testing performed by [facility]. This test is performed using the [employer] Xpert Xpress CoV-2 plus assay. This is a real-time RT-PCR test intended for the qualitative detection of nucleic acid from the SARS-CoV-2. This assay has been cleared by the [place] Food and Drug administration. The performance characteristics have been verified by the [facility]. Results must be considered in the clinical context, and a negative result does not rule out infection. Interpretive data last revised 2023. us Renato Santillan MD LAB MICROBIOLOGY - GENERAL ORDERABLES Final Result OJ [address] [facility] [place] [address] * eGFR (01/01/2025 8:08 PM CDT) eGFR [...] LAB BLOOD ORDERABLE S Final Result OJ [address] [facility] [place] [address] * (ABNORMAL) Differential, auto (01/01/2025 8:08 PM CDT) Neutrophil abs 3.28 1.50 - 6.50 K/cumm Imm gran abs 0.01 0.00 - 0.10 K/cumm [facility] Lymphocyte abs 4.42(H) 0.80 - 3.30 K/cumm [facility] Monocyte abs 0.33 0.20 - 0.80 K/cumm [facility] Eosinophil abs 0.30 0.00 - 0.50 K/cumm [facility] Basophil abs 0.07 0.00 - 0.10 K/cumm [facility] Neutrophil pct 39.0 % [facility] Comment: Interpretive Data Percent cell count reference ranges are not reported, since discordance with absolute values may lead to misinterpretation of CBC data. Current Interpretive Data was last revised on 2017. Imm gran pct 0.1 % [facility] Comment: Interpretive Data Percent cell count reference ranges are not reported, since discordance with absolute values may lead to misinterpretation of CBC data. Current Interpretive Data was last revised on 2017. Lymphocyte pct 52.6 % [facility] Comment: Interpretive Data Percent cell count reference ranges are not reported, since discordance with absolute values may lead to misinterpretation of CBC data. Current Interpretive Data was last revised on 2017. Monocyte pct 3.9 % [facility] Comment: Interpretive Data Percent cell count reference ranges are not reported, since discordance with absolute values may lead to misinterpretation of CBC data. Current Interpretive Data was last revised on 2017. Eosinophil pct 3.6 % [facility] Comment: Interpretive Data Percent cell count reference ranges are not reported, since discordance with absolute values may lead to misinterpretation of CBC data. Current Interpretive Data was last revised on 2017. Basophil pct 0.8 % [facility] Comment: Interpretive Data Percent cell count reference ranges are not reported, since discordance with absolute values may lead to misinterpretation of CBC data. Current Interpretive Data was last revised on 2017. Blood 01/01/2025 8:08 PM CDT 01/01/2025 8:12 PM CDT Renato Santillan MD LAB BLOOD ORDERABLE S Final Result Performing Organization Address City/[facility]/ZIP Co de Phone Number [address] [address] * Thyroid Function [place] (01/01/2025 8:08 PM CDT) TSH 1.67 0.30 - 4.20 mcIUnit/mL Blood 01/01/2025 8:08 PM CDT 01/01/2025 8:12 PM CDT Renato Santillan MD LAB BLOOD ORDERABLE S Final Result Performing Organization Address [facility] de Phone Number [address] [address] * (ABNORMAL) Urinalysis reflex to microscopic and culture Urine (01/01/2025 8:08 PM CDT) Color, ur Straw Yellow Clarity, ur Clear Clear [facility] Specific gravity, ur 1.002(L) 1.003 - 1.030 [facility] pH, urine 6.5 [facility] Comment: Interpretive Data U rine pH is affected by diet, medications, systemic acid-base disturbances, and renal tubular function. pH may affect urinary stone formation. For example, urine pH below 6.0 may help reduce the tendency for calcium phosphate stones and pH greater than 6.0 may reduce the tendency for uric acid stone formation. Source: [facility] [employer] Current Interpretive Data was last revised on 2017 Protein, ur ql Negative Negative [facility] Glucose, ur ql Negative Negative [facility] Ketones, ur Negative Negative [facility] Bilirubin, ur Negative Negative [facility] Blood, ur Negative Negative [facility] Urobilinogen, ur <2.0 <2.0 mg/dL [facility] Nitrite, ur Negative Negative [facility] Leukocyte esterase, ur Negative Negative [facility] UA reflex comment Reflex conditions for microscopic UA and culture not met. [facility] Urine 01/01/2025 8:08 PM CDT 01/01/2025 8:12 PM CDT Renato Santillan MD LAB MICROBIOLOGY - GENERAL ORDERABLES Final Result Performing Organization Address City/[facility] Co de Phone Number OJ [address] [address] * (ABNORMAL) CBC with auto differential (01/01/2025 8:08 PM CDT) Pathologist [facility] WBC 8.41 3.80 - 9.90 K/cumm Hgb 13.4 11.9 - 15.5 g/dL [facility] Hct 39.5 35.6 - 45.5 % [facility] Plt 216 150 - 400 K/cumm [facility] MPV 8.4(L) 9.1 - 12.3 fL [facility] RBC 4.20 3.90 - 5.20 M/cumm [facility] MCV 94.0 81.3 - 96.4 fL [facility] MCH 31.9 27.1 - 33.3 pg [facility] MCHC 33.9 32.3 - 35.7 g/dL [facility] RDW CV 13.0 11.1 - 14.9 % [facility] RDW SD 44.5 35.7 - 48.1 fL [facility] NRBC abs 0.00 0.00 - 0.01 K/cumm [facility] Blood Venous blood specimen / Unknown 01/01/2025 8:08 PM CDT 01/01/2025 8:12 PM CDT us Renato Santillan MD LAB BLOOD ORDERABLE S Final Result Performing Organization Address City/[facility]/ZIP Co de Phone Number OJ [address] [place] [address] * Drugs of Abuse Screen, Urine without Confirmation (01/01/2025 8:08 PM CDT) Pathologist [facility] Amphetamine, ur Not Detected [facility] 500ng/mL Comment: Interpretive Data - Amphetamines: Samples containing greater than 500 ng/mL d-methamphetamine or other cross-reacting amphetamine compounds are reported as positive. Amphetamine immunoassays are subject to significant false positive rates due to cross-reactivity of non-amphetamine drugs. Confirmatory testing required for definitive results. Current Interpretive Data was last reviewed 2022. Barbiturates, ur Not Detected CutOff 200ng/mL [facility] Comment: Interpretive Data - Barbiturates: Samples containing greater than 200 ng/mL secobarbital or other cross-reacting barbiturate compounds are reported as positive. False positive and false negative results are possible. Confirmatory testing required for definitive results. Current Interpretive Data was last reviewed 2022. Benzodiazepines, ur Not Detected CutOff 100ng/mL [facility] Comment: Interpretive Data - Benzodiazepines: Samples containing greater than 100 ng/mL nordiazepam or other cross-reacting compounds are reported as positive. False positive and false negative results are possible. Confirmatory testing required for definitive results. Current Interpretive Data was last reviewed 2022. Cannabinoids, ur Not Detected CutOff 50 ng/mL [facility] Comment: Interpretive Data - Cannabinoids: Samples containing greater than 50 ng/mL delta-9 THC -COOH or other cross- reacting compounds are reported as positive. False positive and false negative results are possible. Confirmatory testing required for definitive results. Current Interpretive Data was last reviewed 2022. Cocaine, ur Not Detected CutOff 150ng/mL [facility] Comment: Interpretive Data - Cocaine: Samples containing greater than 150 ng/mL benzoylecgonine or other cross- reacting compounds are reported as positive. False positive and false negative results are possible. Confirmatory testing required for definitive results. Current Interpretive Data was last reviewed 2022. Fentanyl, Ur Not Detected CutOff 5 ng/mL [facility] Comment: Interpretive Data - Fentanyl: Samples containing greater than 5 ng/mL norfentanyl, fentanyl, or other cross-reacting fentanyl compounds are reported as positive. False positive and false negative results are possible. Confirmatory testing required for definitive results. Current Interpretive Data was last reviewed 2023. Methadone, ur Not Detected CutOff 300ng/mL [facility] Comment: Interpretive Data - Methadone: Samples containing [...] 2022. Oxycodone, ur Not Detected CutOff 100ng/mL [facility] Comment: Interpretive Data - Oxycodone: Samples containing greater than 100 ng/mL oxycodone or other cross-reacting compounds are reported as positive. False positive and false negative results are possible. Confirmatory testing required for definitive results. Current Interpretive Data was last reviewed 2022. Phencyclidine, ur Not Detected CutOff 25 ng/mL [facility] Comment: Interpretive Data - Phencyclidine: Samples containing [...] PM CDT 01/01/2025 8:12 PM CDT Narrative [facility] - 01/01/2025 8:38 PM CDT Drug of Abuse screening is performed by immunoassay for medical purposes only. This is not to be used for Pain Management purposes. us Renato Santillan MD LAB URINE ORDERABLE S Final Result OJ [address] [facility] [place] [address] * Magnesium (01/01/2025 8:08 PM CDT) [facility] Magnesium 2.1 1.4 - 2.5 mg/dL Blood 01/01/2025 8:08 PM CDT 01/01/2025 8:12 PM CDT Renato Santillan MD LAB BLOOD ORDERABLE S Final Result Performing Organization Address [facility] de Phone Number [address] [place] [address] * (ABNORMAL) Ethanol (01/01/2025 8:08 PM CDT) [facility] Ethanol 318(H) <=10 mg/dL Comment: Interpretive Data Legal limit of intoxication > or = 80 mg/dL Levels > or = 400 mg/dL are potentially TOXIC. Current interpretive data was last revised on 2018. Blood 01/01/2025 8:08 PM CDT 01/01/2025 8:12 PM CDT Renato Santillan MD LAB BLOOD ORDERABLE S Final Result Performing Organization Address [facility] de Phone Number [address] [address] * Comprehensive metabolic panel (01/01/2025 8:08 PM CDT) [facility] Sodium 143 135 - 145 mmol/L Potassium, pl 3.7 3.3 - 4.9 mmol/L [facility] Chloride 106 97 - 110 mmol/L [facility] CO2 27 22 - 32 mmol/L [facility] Anion gap 10 2 - 15 mmol/L [facility] BUN 7 6 - 25 mg/dL [facility] Creatinine 0.61 0.60 - 1.10 mg/dL [facility] Glucose 94 70 - 199 mg/dL [facility] Comment: Interpretive Data Fasting glucose >/= 126 [...] 2022. Calcium 9.1 8.5 - 10.3 mg/dL [facility] Bilirubin, total 0.3 0.1 - 1.2 mg/dL [facility] Protein, pl 7.2 6.5 - 8.5 g/dL [facility] Albumin 4.5 3.5 - 5.0 g/dL [facility] Alk phos 89 40 - 130 Units/L [facility] ALT 31 7 - 45 Units/L [facility] AST 33 10 - 45 Units/L [facility] Blood 01/01/2025 8:08 PM CDT 01/01/2025 8:12 PM CDT Renato Santillan MD LAB BLOOD ORDERABLE S Final Result OJ [address] [facility] Department of Laboratories [place], [place] [id number] * XR Hip Left 2 or 3 Views (12/10/2024 1:27 PM CDT) Anatomical Region Laterality Modality Lower Extremities, Hip, Pelvis Left R adiographic Imaging Historical Provider IMG XR PROCEDURES Final R esult from Last 3 Months Insurance [facility] ACCESS CHOICE ANTHEM ACCESS CHOICE Care Teams Manager Marketing Communications Relationship Specialty Start Date End Date Sreekanth Maciel MD [address] [address] PCP - General Family Medicine 05/15/23 Theresa Mcgowan NP [address] [place] [address] [place] [address] Nurse Practitioner Behavioral Health 05/15/23 Arash Steve MD [address] [place] [address] Referring Physician Obstetrics and Gynecology 05/15/23 Sandoval Jung MD [address] [address] Referring Physician Hematology 05/15/23
--- OUTSIDE RECORDS SUMMARY | 2025-01-11 10:06 | XMS_ITS | Clinical Summary ---
Author Organization [facility] Address [address] [place] [address] Care Team Providers Care Lacemaker Name Role Phone Endy Zuñiga MD Primary Care Provider [phone] Allergies Active Allergy Reactions Criticality Noted Date Comments [place] Gluconate Unknown 02/28/2024 Patient had testing done and is allergic to cobalt in ingredients in medications Nsaids (Non-Steroidal Anti-Inflammatory Drug) Other (See Comments) High 08/27/2019 Post gastric bypass Other reaction(s): GI Upset Pt is post gastric bypass - unable to have nsaids Medications multivitamin-m [id number] K (Bariatric Multivitamins) 45 mg iron- 800 [...] on file Legal Sex Female 11:52 AM TURBO GENERATOR OILER Gender Identity Not on file Sexual Orientation Not on file Last Filed Vital Signs Vital Sign Reading Time Taken Comments Blood Pressure 117/66 02/28/2024 11:43 AM TURBO GENERATOR OILER Pulse 79 02/28/2024 11:43 AM TURBO GENERATOR OILER Temperature 36.8 C (98.2 F) 02/28/2024 11:43 AM TURBO GENERATOR OILER Respiratory Rate 18 02/28/2024 11:43 AM TURBO GENERATOR OILER Oxygen Saturation 98% 02/28/2024 11:43 AM TURBO GENERATOR OILER Inhaled Oxygen Concentration - - Weight 65.3 kg (144 lb) 02/28/2024 11:43 AM TURBO GENERATOR OILER Height 172.7 cm (5' 8) 09/07/2021 3:51 [...] 02/18/2019 COVID-19 Vaccine (2 - season) 2024 Insurance [facility] Care Teams Lacemaker Relationship Specialty Start Date End Date Endy Zuñiga MD [address] [facility] [address] [place] [address] PCP - General Internal Medicine 02/13/20
--- OUTSIDE RECORDS SUMMARY | 2025-01-11 10:06 | XMS_ITS | Clinical Summary ---
Author Organization [facility] Address [facility]ly [facility] [place] [address] Care Team Providers Care Educational Manager Name Role Phone Dionisio Angel MD Primary Care Provider [phone] Allergies Active Allergy Reactions Criticality Noted Date [...] Comments Blood Pressure 111/69 05/11/2020 4:25 PM FIBER ANALYST Pulse 96 05/11/2020 4:25 PM FIBER ANALYST Temperature 37 C (98.6 F) 05/11/2020 3:52 PM FIBER ANALYST Respiratory Rate 16 05/11/2020 4:25 PM FIBER ANALYST Oxygen Saturation 94% 05/11/2020 4:25 PM FIBER ANALYST Inhaled Oxygen Concentration - - Weight 63.5 kg (140 lb) 05/06/2020 9:46 AM FIBER ANALYST Height 170.2 cm (5' 7) 05/06/2020 9:46 AM FIBER ANALYST Body Mass Index 21.93 05/06/2020 9:46 AM FIBER ANALYST Plan of Treatment Health Maintenance Due Date [...] Cancer Screening with HPV 2018 PHQ-2 (Physician Valdez) 04/10/2024 COVID-19 Vaccine ( - 2023-2 5 [...] this topic Medical Devices Implanted Type Area Exhibitor Sales Device Identifier Shelf Expiration Date Model / Serial / Lot Loop Recorder Care Teams Educational Manager Relationship Specialty Start Date End Date Dionisio Angel MD [address] [facility] [address] [place] [address] PCP - General GASTROENTEROLOGY 05/06/20
--- OUTSIDE RECORDS SUMMARY | 2025-01-11 10:06 | XMS_ITS | Encounter Summary ---
Author Organization [facility] Address [address] [place] [address] Care Team Providers Care Furniture Repairer Name Role Phone Unavailable Primary Care Provider Unavailabl e Reason for Visit * Reason Comments Refill Request Encounter Details Date Type Department Care Team (Late st Contact Info) Description 05/28/2022 Refill [facility] [address] [place] [address], [place] [address] David Jean MD [address] [place] [address] DIV [place] [id number] Refill Request Social History Tobacco Use Types [...] on file Legal Sex Female 10:29 AM VICE PRESIDENT OF CUSTOMER SERVICE Gender Identity Not on file Sexual Orientation Not on file documented as of this encounter Plan of Treatment Not on file documented as of this encounter Visit Diagnoses Not on filedocumented in this encounter
--- OUTSIDE RECORDS SUMMARY | 2025-01-11 10:06 | XMS_ITS | Patient Health Record ---
Author Organization [facility] Address [address] [place] [address] Care Team Providers Care Exterminator Helper Name Role Phone Nohemi Cai Unavailable [phone] Reason For Referral No Information Medications Medication [...] Coverage Start Date Coverage End Date Machelle [facility] [address] [place] [address] [id number] GERONIMO TREVIZO Self - patient is the insured
--- OUTSIDE RECORDS SUMMARY | 2025-01-11 10:06 | XMS_ITS | Patient Health Record ---
Author Organization [facility] [place] ([address]) Address [address] [place] [address] Care Team Providers Care Corn Picker Name Role Phone Sreekanth Maciel Primary Care Provider Herman Castillo Unavailable [phone] Julissa Moses Unavailable [phone] Nora Andrews Unavailable [phone] Allergies Allergen (clinical drug ingredient) Drug/Non Drug Allergy documented on EMR Reaction Allergy Type Onset Date Status Non-steroidal anti-inflammatory agent (FN) NSAIDs Unknown Drug Allergy Active Results Component Value Reference Range Notes -Immunoglobulins A/G/M, Qn, Ser Reviewed date:02/06/2024 01:08:45 PM Interpretation:Normal Performing Lab:[facility] [address] [id number], Phone - [phone], Director - Jose Notes/Report: Immunoglobulin G, Qn, Serum 369 199-8626 mg/d L Immunoglobulin A, Qn, Serum 138 87-352 mg/dL Immunoglobulin M, Qn, Serum 130 26-217 mg/dL -Tryptase ([id number]) Reviewed date:02/12/2024 12:32:00 PM Interpretation:Normal Performing Lab:[facility] [address] [id number], Phone - [phone], Director - Claudy Notes/Report: Tryptase 3.8 2.2-13.2 [...] W/U Status Risk Notes Problem Idiopathic urticaria (63091530) Idiopathic urticaria (L50.1) Active confirmed Problem Relapsing fever, 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) Active confirmed Problem Polycystic ovary syndrome (disorder) (504592313) Polycystic ovarian syndrome (E28.2) Active confirmed Problem Allergic contact dermatitis caused by metal and/or metal compound (disorder) (4620968660) Allergic contact dermatitis due to metals (L23.0) Active confirmed Problem Irritant contact dermatitis due to metals (L24.81) Active confirmed Problem Eruption of skin (667472976) Rash and other nonspecific skin eruption (R21) Active confirmed Vital Signs Oximetry 100 % 02/26/2024 Blood pressure diastolic 73 mm Hg 02/26/2024 Height 68 in 02/26/2024 Blood pressure systolic 110 mm Hg 02/26/2024 Weight 145.4 lbs 02/26/2024 BMI 22.11 kg/m2 02/26/2024 Encounters Encounter Location Date Provider Diagnosis [facility] [address] [place] [address] 01/29/2024 Herman Greff Relapsing fever, unspecified A68.9 ; Rash and other nonspecific skin eruption R21 and Idiopathic urticaria L50.[address] [address] 02/19/2024 Nora Andrews Relapsing fever, unspecified A68.9 ; Rash and other nonspecific skin eruption R21 and Idiopathic urticaria L50.[address] [place] [address] 02/21/2024 Julissa Moses Relapsing fever, unspecified A68.9 ; Rash and other nonspecific skin eruption R21 and Idiopathic urticaria L50.[address] [address] 02/22/2024 Julissa Moses Relapsing fever, unspecified A68.9 ; Rash and other nonspecific skin eruption R21 and Idiopathic urticaria L50.[address] [address] 02/26/2024 Herman Kumar Allergic contact dermatitis due to metals L23.0 ; Irritant contact dermatitis due to metals L24.81 ; Relapsing fever, unspecified A68.9 and Idiopathic urticaria L50.[address] [address] 03/18/2024 Herman Kumar Assessments Encounter Date Diagnosis [...] - Patch testing was initiated today using [employer] test patch testing delivery system. - Keep [...] Insured Coverage Start Date Coverage End Date [facility] [id number] [place] [address] [id number] Shankar Garcias Spouse - patient is the spouse of the insured Medical (General) History Medical History History ICD Code Attention-deficit hyperactivity disorder , unspecified type F90.9 Esophagitis, unspecified K20.9 Polycystic ovarian syndrome E28.2 Endometriosis, unspecified N80.9 Gastro-esophageal reflux disease without esophagitis K21.9 Surgical History Surgery Date(Month/Year) GASTRIC BYPASS FOR OBESITY DELIVERY Spinal Fusion L5-S1
--- OUTSIDE RECORDS SUMMARY | 2025-01-11 10:06 | XMS_ITS | Encounter Summary ---
Author Organization [facility] Address [address] [place] [address] Care Team Providers Care Mine Engineering Supervisor Name Role Phone Unavailable Primary Care Provider Unavailabl e Reason for Visit * Reason Comments Refill Request Encounter Details Date Type Department Care Team (Late st Contact Info) Description 05/16/2022 Refill [facility] [address] [place] [address], [place] [address] David Jean MD [address] [place] [address] [place] [phone] Refill Request Social History Tobacco Use Types [...] on file 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
--- OUTSIDE RECORDS SUMMARY | 2025-01-11 10:06 | XMS_ITS | Clinical Summary ---
Author Organization [facility] Address [address] [place] [place] [address] Care Team Providers Care Aerial Tram Operator Name Role Phone Unavailable Primary Care Provider Unavailabl e Source Comments [facility],non-owned Affiliates and Associated Physician Practices is amultiple site organization consisting of ambulatory clinics and hospital sitesin [place], [place] and [place]. This disclosure is being madepursuant to the Care Everywhere program and may not contain all information available regarding this patient. 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 SELF PAY NO INSURANCE Member Subscriber Plan / Payer (Ef fective for All Dates) Name:Geronimo Trevizo R Member ID:Not on file Relation to Subscriber:Not on file Name:GERONIMO TREVIZO Subscriber ID:Not on file Address: [address] [place] [address] Payer ID:Not on file Group ID:Not on file Type:Self Pay Address: [place], [place] BCBS/[employer] [place] SELF PAY NO INSURANCE Member Subscriber Plan / Payer (Ef fective for All Dates) Name:Geronimo Trevizo R Member ID:Not on file Relation to Subscriber:Not on file Name:GERONIMO TREVIZO Subscriber ID:Not on file Address: [address] [place] [address] Payer ID:Not on file Group ID:Not on file Type:Self Pay Address: [place], [place] Advance Directives * Full Code (Latest Code Status on File) Date Activated Date Inactivated Comments 08/08/2021 3:58 AM 08/08/2021 5:20 PM
--- OUTSIDE RECORDS SUMMARY | 2025-01-11 10:06 | XMS_ITS | Encounter Summary ---
Author Organization [facility] Address [address] [facility] [place] [address] Care Team Providers Care Director Cardiology Name Role Phone Unavailable Primary Care Provider Unavailabl e Reason for Visit * Reason Comments Refill Request Encounter Details Date Type Department Care Team (Late st Contact Info) Description 05/24/2022 Refill [facility] [address] [place] [address], [place] [address] David Jean MD [address] [place] [address] [place] [phone] Refill Request Social History Tobacco Use Types [...] on file 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
--- OUTSIDE RECORDS SUMMARY | 2025-01-11 10:06 | XMS_ITS | Encounter Summary ---
Author Organization [facility] Address [address] [facility] [place] [address] Care Team Providers Care Isotope Technologist Name Role Phone Unavailable Primary Care Provider Unavailabl e Reason for Visit * Reason Comments Refill Request Encounter Details Date Type Department Care Team (Late st Contact Info) Description 05/12/2022 Refill [facility] [address] [place] [address], [place] [address] David Jean MD [address] [place] [address] [place] [phone] Refill Request Social History Tobacco Use Types [...] on file 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
--- OUTSIDE RECORDS SUMMARY | 2025-01-11 10:06 | XMS_ITS | Encounter Summary ---
Author Organization [facility] Healthcare Address [address] [place] [address] Care Team Providers Care Health Data Analyst Name Role Phone Sreekanth Maciel MD Primary Care Provider [phone] Theresa Mcgowan NP Unavailable Arash Steve MD Unavailable [phone] Sandoval Jung MD Unavailable [phone] Encounter Details Date Type Department Care Team (Late st Contact Info) Description 01/17/2024 Orders Only [facility] Health Information Management [address] [place] [address] Scanning, Provider Social History Tobacco Use Types Packs/Day Years Used Date Smoking Tobacco: Every Day Cigarettes 0.8 24.3 Started: 09/16/2000 Smokeless Tobacco: Never Alcohol [...] on file Legal Sex Female 10:42 AM 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/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 Gender Identity Female 02/14/2021 8:33 PM COUNTER WAITRESS/WAITER Sexual Orientation Straight 02/14/2021 8: 33 PM COUNTER WAITRESS/WAITER documented as of this encounter Plan of Treatment Not on file documented as of this encounter Procedures Procedure Name Priority Date/Time Associated Diagnosis Comments SCAN - LABS 01/17/2024 documented in this encounter Results * SCAN - LABS (01/17/2024) us Provider Scanning Final Result documented in this encounter Visit Diagnoses Not on filedocumented in this encounter Care Teams Health Data Analyst Relationship Specialty Start Date End Date Sreekanth Maciel MD [address] [address] PCP - General Family Medicine 05/15/23 Theresa Mcgowan NP [address] [place] [address] [place] [address] Nurse Practitioner Behavioral Health 05/15/23 Arash Steve MD [address] [place] [address] Referring Physician Obstetrics and Gynecology 05/15/23 Sandoval Jung MD [address] [phone] Referring Physician Hematology 05/15/23 documented as of this encounter
[2025-01-11 10:21] VITALS: BP 114/85; PULSE 74; RESP 18; TEMP 36.8; O2SAT 100
[2025-01-11 10:25] VITALS: PULSE 79; RESP 7; O2SAT 100
[2025-01-11 10:30] VITALS: PULSE 78; RESP 15; O2SAT 100
[2025-01-11 10:31] VITALS: BP 113/82; PULSE 75; RESP 20; O2SAT 100
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
[2025-01-11 10:58] LABS: Hematocrit 39.1 % (37.0-47.0); Hemoglobin 13.1 g/dL (12.0-15.0); Immature Granulocyte Percent A 0.0 % (0-0.5); Lymphocytes Absolute Auto 2.34 K/mm3 (0.9-3.2); Mean Corpuscular HGB Conc 33.5 g/dl (32-36); Mean Corpuscular Hemoglobin 32.3 pg (26-34); Mean Corpuscular Volume 96.5 fl (80-100); Nucleated Red Blood Cells Absolute Auto 0.000 K/mm3 (0.0-0.012); Nucleated Red Blood Cells Perc 0.0 % (0.0-0.2); Platelet Count Result 149 k/mm3 (150-375); Red Blood Count 4.05 M/mm3 (4.2-5.4); White Blood Count 5.7 K/mm3 (4.5-10.0)
[2025-01-11] MEDS: TETANUS,DIPHTHERIA,AC PERTUSSIS ADULT (0.5 ML) BOOSTRIX IM (10:58)
--- OUTSIDE RECORDS SUMMARY | 2025-01-11 11:05 | XMS_ITS | Encounter Summary ---
Author Organization [facility] Healthcare Address [address] [place] [address] Care Team Providers Care Software Developer Manager Name Role Phone Sreekanth Maciel MD Primary Care Provider [phone] Theresa Mcgowan NP Unavailable Arash Steve MD Unavailable [phone] Sandoval Jung MD Unavailable [phone] Encounter Details Date Type Department Care Team (Late st Contact Info) Description 01/17/2024 Orders Only [facility] Health Information Management [address] [place] [address] Scanning, Provider Social History Tobacco Use [...] on file 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 Gender Identity Female 02/14/2021 8:33 PM BUTT PRESSER Sexual Orientation Straight 02/14/2021 8: 33 PM BUTT PRESSER documented as of this encounter Plan of Treatment Not on file documented as of this encounter Procedures Procedure Name Priority Date/Time Associated Diagnosis Comments SCAN - LABS 01/17/2024 documented in this encounter Results * SCAN - LABS (01/17/2024) us Provider Scanning Final Result documented in this encounter Visit Diagnoses Not on filedocumented in this encounter Care Teams Software Developer Manager Relationship Specialty Start Date End Date Sreekanth Maciel MD [address] [address] PCP - General Family Medicine 05/15/23 Theresa Mcgowan NP [address] [place] [address] [place] [address] Nurse Practitioner Behavioral Health 05/15/23 Arash Steve MD [address] [place] [address] Referring Physician Obstetrics and Gynecology 05/15/23 Sandoval Jung MD [address] [phone] Referring Physician Hematology 05/15/23 documented as of this encounter
--- OUTSIDE RECORDS SUMMARY | 2025-01-11 11:05 | XMS_ITS | Encounter Summary ---
Author Organization [facility] Address [address] [place] [address] Care Team Providers Care Analytical Sciences Director Name Role Phone Unavailable Primary Care Provider Unavailabl e Reason for Visit * Reason Comments Refill Request Encounter Details Date Type Department Care Team (Late st Contact Info) Description 05/24/2022 Refill [facility] [address] [place] [address], [place] [address] David Jean MD [address] [place] [address] [place] [phone] Refill Request Social History Tobacco Use Types [...] on file 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
--- OUTSIDE RECORDS SUMMARY | 2025-01-11 11:05 | XMS_ITS | Clinical Summary ---
Author Organization [facility] Address [address] [place] [address] Care Team Providers Care Drill Presser Name Role Phone Endy Zuñiga MD Primary Care Provider [phone] Allergies Active Allergy Reactions Criticality Noted Date Comments Leon Gluconate Unknown 02/28/2024 Patient had testing done and is allergic to cobalt in ingredients in medications Nsaids (Non-Steroidal Anti-Inflammatory Drug) Other (See Comments) High 08/27/2019 Post gastric bypass Other reaction(s): GI Upset Pt is post gastric bypass - unable to have nsaids Medications multivitamin-m we-[id number]-[id number]-vit K (Bariatric Multivitamins) 45 mg iron- 800 [...] on file Legal Sex Female 11:52 AM DATA MANAGEMENT ENGINEER Gender Identity Not on file Sexual Orientation Not on file Last Filed Vital Signs Vital Sign Reading Time Taken Comments Blood Pressure 117/66 02/28/2024 11:43 AM DATA MANAGEMENT ENGINEER Pulse 79 02/28/2024 11:43 AM DATA MANAGEMENT ENGINEER Temperature 36.8 C (98.2 F) 02/28/2024 11:43 AM DATA MANAGEMENT ENGINEER Respiratory Rate 18 02/28/2024 11:43 AM DATA MANAGEMENT ENGINEER Oxygen Saturation 98% 02/28/2024 11:43 AM DATA MANAGEMENT ENGINEER Inhaled Oxygen Concentration - - Weight 65.3 kg (144 lb) 02/28/2024 11:43 AM DATA MANAGEMENT ENGINEER Height 172.7 cm (5' 8) 09/07/2021 3:51 [...] COVID-19 Vaccine (2 - season) 2024 Insurance [facility] Care Teams Drill Presser Relationship Specialty Start Date End Date Endy Zuñiga MD [address] [facility] [address] [place] [phone] PCP - General Internal Medicine 02/13/20
--- OUTSIDE RECORDS SUMMARY | 2025-01-11 11:05 | XMS_ITS | Clinical Summary ---
Author Organization [address] Address [address] [place] [address] Care Team Providers Care Bell Cleaner Name Role Phone Sreekanth Maciel MD Primary Care Provider Theresa Mcgowan TECHNICAL ADVISOR Unavailable Arash tSeve MD Unavailable [phone] Sandoval Jung MD Unavailable [phone] Allergies Active Allergy Reactions Criticality Noted Date Comments [place] Gluconate Unknown 02/28/2024 Patient had testing done [...] 04/19/2024 Assessment & Plan (04/19/2024 3:06 PM SENIOR MECHANICAL ESTIMATOR): there may a link, given the facial [...] 05/15/2023 Assessment & Plan (05/18/2023 4:40 PM SENIOR MECHANICAL ESTIMATOR): A(n) initial well visit to establish care [...] along with risks vs benefits. Vitamin D [id number] international units per day Calcium 500 mg/day [...] (03/18/2021): Added automatically from request for surgery [id number] Marginal ulcer 02/18/2021 Overview (02/18/2021): Added automatically from request for surgery [id number] Other dietary vitamin B12 deficiency anemia 02/08 [...] guidance Will refill omeprazole 20 mg BID [place] diet Update me in the next couple [...] CDT - 01/01/2025 11:02 PM CDT Emergency [address] [address] Renato Santillan MD Alcohol withdrawal syndrome without complication (HCC) (Primary Dx) Discharge Disposition: Discharge to home or self care 12/17/2024 Telephone [facility] Cardiology [address] [place] [address] Khalif Melo MD Loss of Consciousness; 48 monitor 12/10/2024 Orders Only [facility] Primary Care at [address] [address] ProviderLianet MD 12/07/2024 Patient Self-Triage [facility] HealthCare/ Physicians [address] [place] [address] Mychart, Generic Provider from Last 3 Months [...] on file Legal Sex Female 10:42 AM SENIOR MECHANICAL ESTIMATOR Gender Identity Female 02/14/2021 8:33 PM SENIOR MECHANICAL ESTIMATOR Sexual Orientation Straight 02/14/2021 8: 33 PM SENIOR MECHANICAL ESTIMATOR Obstetrics History Last Filed Vital Signs Vital [...] Vaccines Discontinued Medical Devices Implanted Type Area Windlasser Device Identifier Shelf Expiration Date Model / [...] health admission Interpretive data Testing performed by [facility]. This test is performed using the [employer]ia[employer] Xpert Xpress CoV-2 plus assay. This is a real-time RT-PCR test intended for the qualitative detection of nucleic acid from the SARS-CoV-2. This assay has been cleared by the [place] Food and Drug administration. The performance characteristics have been verified by the [facility]. Results must be considered in the clinical context, and a negative result does not rule out infection. Interpretive data last revised 2023. Interpretive data Testing performed by [facility]. This test is performed using the [employer] Xpert Xpress CoV-2 plus assay. This is a real-time RT-PCR test intended for the qualitative detection of nucleic acid from the SARS-CoV-2. This assay has been cleared by the [place] Food and Drug administration. The performance characteristics have been verified by the [facility]. Results must be considered in the clinical context, and a negative result does not rule out infection. Interpretive data last revised 2023. us Renato Santillan MD LAB MICROBIOLOGY - GENERAL ORDERABLES Final Result OJ [address] [facility] [place] [address] * eGFR (01/01/2025 8:08 PM CDT) eGFR [...] BLOOD ORDERABLE S Final Result OJ [address] [facility] [place] [address] * (ABNORMAL) Differential, auto (01/01/2025 8:08 PM CDT) Neutrophil abs 3.28 1.50 - 6.50 K/cumm Imm gran abs 0.01 0.00 - 0.10 K/cumm [facility] Lymphocyte abs 4.42(H) 0.80 - 3.30 K/cumm [facility] Monocyte abs 0.33 0.20 - 0.80 K/cumm [facility] Eosinophil abs 0.30 0.00 - 0.50 K/cumm [facility] Basophil abs 0.07 0.00 - 0.10 K/cumm [facility] Neutrophil pct 39.0 % [facility] Comment: Interpretive Data Percent cell count reference ranges are not reported, since discordance with absolute values may lead to misinterpretation of CBC data. Current Interpretive Data was last revised on 2017. Imm gran pct 0.1 % [facility] Comment: Interpretive Data Percent cell count reference ranges are not reported, since discordance with absolute values may lead to misinterpretation of CBC data. Current Interpretive Data was last revised on 2017. Lymphocyte pct 52.6 % [facility] Comment: Interpretive Data Percent cell count reference ranges are not reported, since discordance with absolute values may lead to misinterpretation of CBC data. Current Interpretive Data was last revised on 2017. Monocyte pct 3.9 % [facility] Comment: Interpretive Data Percent cell count reference ranges are not reported, since discordance with absolute values may lead to misinterpretation of CBC data. Current Interpretive Data was last revised on 2017. Eosinophil pct 3.6 % [facility] Comment: Interpretive Data Percent cell count reference ranges are not reported, since discordance with absolute values may lead to misinterpretation of CBC data. Current Interpretive Data was last revised on 2017. Basophil pct 0.8 % [facility] Comment: Interpretive Data Percent cell count reference ranges are not reported, since discordance with absolute values may lead to misinterpretation of CBC data. Current Interpretive Data was last revised on 2017. Blood 01/01/2025 8:08 PM CDT 01/01/2025 8:12 PM CDT Renato Santillan MD LAB BLOOD ORDERABLE S Final Result Performing Organization Address City/[facility]/ZIP Co de Phone Number [address] [address] * Thyroid Function [place] (01/01/2025 8:08 PM CDT) TSH 1.67 0.30 - 4.20 mcIUnit/mL Blood 01/01/2025 8:08 PM CDT 01/01/2025 8:12 PM CDT Renato Santillan MD LAB BLOOD ORDERABLE S Final Result Performing Organization Address [facility] de Phone Number [address] [address] * (ABNORMAL) Urinalysis reflex to microscopic and culture Urine (01/01/2025 8:08 PM CDT) Color, ur Straw Yellow Clarity, ur Clear Clear [facility] Specific gravity, ur 1.002(L) 1.003 - 1.030 [facility] pH, urine 6.5 [facility] Comment: Interpretive Data U rine pH is affected by diet, medications, systemic acid-base disturbances, and renal tubular function. pH may affect urinary stone formation. For example, urine pH below 6.0 may help reduce the tendency for calcium phosphate stones and pH greater than 6.0 may reduce the tendency for uric acid stone formation. Source: [facility] [place] Current Interpretive Data was last revised on 2017 Protein, ur ql Negative Negative [facility] Glucose, ur ql Negative Negative [facility] Ketones, ur Negative Negative [facility] Bilirubin, ur Negative Negative [facility] Blood, ur Negative Negative [facility] Urobilinogen, ur <2.0 <2.0 mg/dL [facility] Nitrite, ur Negative Negative [facility] Leukocyte esterase, ur Negative Negative [facility] UA reflex comment Reflex conditions for microscopic UA and culture not met. [facility] Urine 01/01/2025 8:08 PM CDT 01/01/2025 8:12 PM CDT Renato Santillan MD LAB MICROBIOLOGY - GENERAL ORDERABLES Final Result Performing Organization Address City/[facility] Co de Phone Number OJ [address] [address] * (ABNORMAL) CBC with auto differential (01/01/2025 8:08 PM CDT) Pathologist [facility] WBC 8.41 3.80 - 9.90 K/cumm Hgb 13.4 11.9 - 15.5 g/dL [facility] Hct 39.5 35.6 - 45.5 % [facility] Plt 216 150 - 400 K/cumm [facility] MPV 8.4(L) 9.1 - 12.3 fL [facility] RBC 4.20 3.90 - 5.20 M/cumm [facility] MCV 94.0 81.3 - 96.4 fL [facility] MCH 31.9 27.1 - 33.3 pg [facility] MCHC 33.9 32.3 - 35.7 g/dL [facility] RDW CV 13.0 11.1 - 14.9 % [facility] RDW SD 44.5 35.7 - 48.1 fL [facility] NRBC abs 0.00 0.00 - 0.01 K/cumm [facility] Blood Venous blood specimen / Unknown 01/01/2025 8:08 PM CDT 01/01/2025 8:12 PM CDT us Renato Santillan MD LAB BLOOD ORDERABLE S Final Result Performing Organization Address City/[facility]/ZIP Co de Phone Number OJ [address] [address] * Drugs of Abuse Screen, Urine without Confirmation (01/01/2025 8:08 PM CDT) Pathologist [facility] Amphetamine, ur Not Detected CutOff 500ng/mL Comment: Interpretive Data - Amphetamines: Samples containing greater than 500 ng/mL d-methamphetamine or other cross-reacting amphetamine compounds are reported as positive. Amphetamine immunoassays are subject to significant false positive rates due to cross-reactivity of non-amphetamine drugs. Confirmatory testing required for definitive results. Current Interpretive Data was last reviewed 2022. Barbiturates, ur Not Detected CutOff 200ng/mL [facility] Comment: Interpretive Data - Barbiturates: Samples containing greater than 200 ng/mL secobarbital or other cross-reacting barbiturate compounds are reported as positive. False positive and false negative results are possible. Confirmatory testing required for definitive results. Current Interpretive Data was last reviewed 2022. Benzodiazepines, ur Not Detected CutOff 100ng/mL [facility] Comment: Interpretive Data - Benzodiazepines: Samples containing greater than 100 ng/mL nordiazepam or other cross-reacting compounds are reported as positive. False positive and false negative results are possible. Confirmatory testing required for definitive results. Current Interpretive Data was last reviewed 2022. Cannabinoids, ur Not Detected CutOff 50 ng/mL [facility] Comment: Interpretive Data - Cannabinoids: Samples containing greater than 50 ng/mL delta-9 THC -COOH or other cross- reacting compounds are reported as positive. False positive and false negative results are possible. Confirmatory testing required for definitive results. Current Interpretive Data was last reviewed 2022. Cocaine, ur Not Detected CutOff 150ng/mL [facility] Comment: Interpretive Data - Cocaine: Samples containing greater than 150 ng/mL benzoylecgonine or other cross- reacting compounds are reported as positive. False positive and false negative results are possible. Confirmatory testing required for definitive results. Current Interpretive Data was last reviewed 2022. Fentanyl, Ur Not Detected CutOff 5 ng/mL [facility] Comment: Interpretive Data - Fentanyl: Samples containing greater than 5 ng/mL norfentanyl, fentanyl, or other cross-reacting fentanyl compounds are reported as positive. False positive and false negative results are possible. Confirmatory testing required for definitive results. Current Interpretive Data was last reviewed 2023. Methadone, ur Not Detected CutOff 300ng/mL [facility] Comment: Interpretive Data - Methadone: Samples containing [...] 2022. Oxycodone, ur Not Detected CutOff 100ng/mL [facility] Comment: Interpretive Data - Oxycodone: Samples containing greater than 100 ng/mL oxycodone or other cross-reacting compounds are reported as positive. False positive and false negative results are possible. Confirmatory testing required for definitive results. Current Interpretive Data was last reviewed 2022. Phencyclidine, ur Not Detected CutOff 25 ng/mL [facility] Comment: Interpretive Data - Phencyclidine: Samples containing [...] PM CDT 01/01/2025 8:12 PM CDT Narrative [facility] - 01/01/2025 8:38 PM CDT Drug of Abuse screening is performed by immunoassay for medical purposes only. This is not to be used for Pain Management purposes. us Renato Santillan MD LAB URINE ORDERABLE S Final Result OJ [address] [facility] [place] [address] * Magnesium (01/01/2025 8:08 PM CDT) [facility] Magnesium 2.1 1.4 - 2.5 mg/dL Blood 01/01/2025 8:08 PM CDT 01/01/2025 8:12 PM CDT Renato Santillan MD LAB BLOOD ORDERABLE S Final Result Performing Organization Address [facility] de Phone Number [address] [place] [address] * (ABNORMAL) Ethanol (01/01/2025 8:08 PM CDT) [facility] Ethanol 318(H) <=10 mg/dL Comment: Interpretive Data Legal limit of intoxication > or = 80 mg/dL Levels > or = 400 mg/dL are potentially TOXIC. Current interpretive data was last revised on 2018. Blood 01/01/2025 8:08 PM CDT 01/01/2025 8:12 PM CDT Renato Santillan MD LAB BLOOD ORDERABLE S Final Result Performing Organization Address [facility] de Phone Number [address] [address] * Comprehensive metabolic panel (01/01/2025 8:08 PM CDT) [facility] Sodium 143 135 - 145 mmol/L Potassium, pl 3.7 3.3 - 4.9 mmol/L [facility] Chloride 106 97 - 110 mmol/L [facility] CO2 27 22 - 32 mmol/L [facility] Anion gap 10 2 - 15 mmol/L [facility] BUN 7 6 - 25 mg/dL [facility] Creatinine 0.61 0.60 - 1.10 mg/dL [facility] Glucose 94 70 - 199 mg/dL [facility] Comment: Interpretive Data Fasting glucose >/= 126 [...] 2022. Calcium 9.1 8.5 - 10.3 mg/dL [facility] Bilirubin, total 0.3 0.1 - 1.2 mg/dL [facility] Protein, pl 7.2 6.5 - 8.5 g/dL [facility] Albumin 4.5 3.5 - 5.0 g/dL [facility] Alk phos 89 40 - 130 Units/L [facility] ALT 31 7 - 45 Units/L [facility] AST 33 10 - 45 Units/L [facility] Blood 01/01/2025 8:08 PM CDT 01/01/2025 8:12 PM CDT Renato Santillan MD LAB BLOOD ORDERABLE S Final Result OJ [address] [facility] Department of Laboratories [place], [place] [id number] * XR Hip Left 2 or 3 Views (12/10/2024 1:27 PM CDT) Anatomical Region Laterality Modality Lower Extremities, Hip, Pelvis Left R adiographic Imaging Historical Provider IMG XR PROCEDURES Final R esult from Last 3 Months Insurance [facility] ACCESS CHOICE ANTHEM ACCESS CHOICE Care Teams Bell Cleaner Relationship Specialty Start Date End Date Sreekanth Maciel MD [address] [address] PCP - General Family Medicine 05/15/23 Theresa Mcgowan NP [address] [place] [address] [place] [address] Nurse Practitioner Behavioral Health 05/15/23 Arash Steve MD [address] [place] [address] Referring Physician Obstetrics and Gynecology 05/15/23 Sandoval Jung MD [address] [address] Referring Physician Hematology 05/15/23
--- OUTSIDE RECORDS SUMMARY | 2025-01-11 11:05 | XMS_ITS | Encounter Summary ---
Author Organization [facility] Address [address] [place] [address] Care Team Providers Care Calender Feeder Name Role Phone Unavailable Primary Care Provider Unavailabl e Reason for Visit * Reason Comments Refill Request Encounter Details Date Type Department Care Team (Late st Contact Info) Description 05/16/2022 Refill [facility] [address] [place] [address], [place] [address] David Jean MD [address] [place] [address] DIV [place] [phone] Refill Request Social History Tobacco Use Types [...] on file 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
--- OUTSIDE RECORDS SUMMARY | 2025-01-11 11:05 | XMS_ITS | Encounter Summary ---
Author Organization [facility] Address [address] [facility] [place] [address] Care Team Providers Care Form Block Maker Name Role Phone Unavailable Primary Care Provider Unavailabl e Reason for Visit * Reason Comments Refill Request Encounter Details Date Type Department Care Team (Late st Contact Info) Description 05/12/2022 Refill [facility] [address] [place] [address], [place] [address] David Jean MD [address] [place] [address] DIV [place] [phone] Refill Request Social History Tobacco Use Types [...] on file Legal Sex Female 10:29 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
--- OUTSIDE RECORDS SUMMARY | 2025-01-11 11:05 | XMS_ITS | Encounter Summary ---
Author Organization [facility] Address [address] [place] [address] Care Team Providers Care Licensing Engineer Name Role Phone Dionisio Angel MD Primary Care Provider [phone] Encounter Details Date Type Department Care Team (Late st Contact Info) Description 05/06/2020 Prep for Procedure [facility] [place], [place] [id number] Dionisio Angel MD [address] [facility] [place] [phone] Social History Tobacco Use Types Packs/Day Years [...] PRE-SURGICAL/PRE-PROCEDURE CORONAVIRUS (COVID 19) (05/08/2020 9:50 AM SALON SHAMPOO ASSISTANT) CORONAVIRUS SARS COV 2 PCR (RESP) NOT DETECTED NOT DETECTED 05/09/2020 4:31 PM SALON SHAMPOO ASSISTANT [facility] Comment: A Not Detected (negative) test result [...] providers and patients using the following websites: https://www.[facility] [employer]/home/Covid-19/HCP/NAAT/fact-sheet2 https://www.[employer]/home/Covid-19/Patients/NAAT/ fact-sheet2 This test has been authorized by the FDA under an Emergency Use Authorization (EUA) for use by authorized laboratories. Due to the current public health emergency, [facility] is receiving a high volume of samples [...] about COVID-19 can be found at the [facility] website: www.[employer].Sur[facility]/Covid19. Test performed at [facility] [place] [address] [place] [address] Director: MINNIE JEFFREY DO,MPH FIRST TEST NO 05/08/2020 9:22 AM [facility] EMPLOYED IN HEALTHCARE UNKNOWN 05/08/2020 9:22 AM [facility] SYMPTOMATIC DEFINED BY CDC NO 05/08/2020 9:22 AM [facility] DATE OF SYMPTOM ONSET NO 05/08/2020 11:36 AM SALON SHAMPOO ASSISTANT [facility] HOSPITALIZATION STATUS NO 05/08/2020 9:22 AM SALON SHAMPOO ASSISTANT [facility] PATIENT IN ICU NO 05/08/2020 9:22 AM SALON SHAMPOO ASSISTANT [facility] RESIDENT OF CONGREGATE CARE UNKNOWN 05/08/2020 9:22 AM SALON SHAMPOO ASSISTANT [facility] UNKNOWN 05/08/2020 9:22 AM SALON SHAMPOO ASSISTANT [facility] PATIENT'S RACE WHITE OR 05/08/2020 9:22 AM SALON SHAMPOO ASSISTANT [facility] ETHNICITY NONHISPANIC 05/08/2020 9:22 AM SALON SHAMPOO ASSISTANT [facility] SOURCE (QST) NASOPHARYNGEAL SWAB 05/08/2020 9:22 AM SALON SHAMPOO ASSISTANT [facility] NASOPHARYNGEAL SWAB / Unknown 05/08/2020 9:50 AM SALON SHAMPOO ASSISTANT us Dionisio Angel MD [facility] Final Result Performing Organization Address City/State/[facility] Co de Phone Number [facility] [address] [place] [address], [employer] [address] documented in this encounter Visit Diagnoses Diagnosis Abdominal pain- Primary Abdominal pain, unspecified site documented in this encounter Additional Health Concerns Infection Onset Date Last Indicated Resolved Time COVID-19 Rule Out 05/08/2020 05/08/2020 05/09/2020 4:32 PM SALON SHAMPOO ASSISTANT documented as of this encounter Care Teams Licensing Engineer Relationship Specialty Start Date End Date Dionisio Angel MD [address] [facility] [address] [place] [address] PCP - General GASTROENTEROLOGY 05/06/20 documented as of this encounter
--- OUTSIDE RECORDS SUMMARY | 2025-01-11 11:05 | XMS_ITS | Clinical Summary ---
Author Organization [facility] Address [facility] [place] [address] Care Team Providers Care Cleaner Assistant Name Role Phone Dionisio Angel MD Primary Care Provider [phone] Allergies Active Allergy Reactions Criticality Noted Date [...] Comments Blood Pressure 111/69 05/11/2020 4:25 PM ROCK WOOL INSULATOR Pulse 96 05/11/2020 4:25 PM ROCK WOOL INSULATOR Temperature 37 C (98.6 F) 05/11/2020 3:52 PM ROCK WOOL INSULATOR Respiratory Rate 16 05/11/2020 4:25 PM ROCK WOOL INSULATOR Oxygen Saturation 94% 05/11/2020 4:25 PM ROCK WOOL INSULATOR Inhaled Oxygen Concentration - - Weight 63.5 kg (140 lb) 05/06/2020 9:46 AM ROCK WOOL INSULATOR Height 170.2 cm (5' 7) 05/06/2020 9:46 AM ROCK WOOL INSULATOR Body Mass Index 21.93 05/06/2020 9:46 AM ROCK WOOL INSULATOR Plan of Treatment Health Maintenance Due Date [...] Cancer Screening with HPV 2018 PHQ-2 (Physician [place]) 04/10/2024 COVID-19 Vaccine ( - 2023-2 5 [...] this topic Medical Devices Implanted Type Area 3D Animator Device Identifier Shelf Expiration Date Model / Serial / Lot Loop Recorder Care Teams Cleaner Assistant Relationship Specialty Start Date End Date Dionisio Angel MD [address] [facility] [address] [place] [address] PCP - General GASTROENTEROLOGY 05/06/20
--- OUTSIDE RECORDS SUMMARY | 2025-01-11 11:05 | XMS_ITS | Clinical Summary ---
Author Organization [facility] Address [address] [facility] [place] [address] Care Team Providers Care Assistant Product Manager Name Role Phone Unavailable Primary Care Provider Unavailabl e Source Comments [facility],non-owned Affiliates and Associated Physician Practices is amultiple site organization consisting of ambulatory clinics and hospital sitesin [place], [place], [place] and [place]. This disclosure is being madepursuant to the Care Everywhere program and may not contain all information available regarding this patient. 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 Gender Identity Not on file Sexual [...] patient's age to complete this topic Insurance [facility] SELF PAY NO INSURANCE Member Subscriber Plan / Payer (Ef fective for All Dates) Name:Geronimo Trevizo R Member ID:Not on file Relation to Subscriber:Not on file Name:GERONIMO TREVIZO Subscriber ID:Not on file Address: [address] [place] [address] Payer ID:Not on file Group ID:Not on file Type:Self Pay Address: [place], [place] BCBS/BLUE [employer]UE [employer] [place] SELF PAY NO INSURANCE Member Subscriber Plan / Payer (Ef fective for All Dates) Name:Geronimo Trevizo R Member ID:Not on file Relation to Subscriber:Not on file Name:GERONIMO TREVIZO Subscriber ID:Not on file Address: [address] [place] [address] Payer ID:Not on file Group ID:Not on file Type:Self Pay Address: [place], [place] Advance Directives * Full Code (Latest Code Status on File) Date Activated Date Inactivated Comments 08/08/2021 3:58 AM 08/08/2021 5:20 PM
--- OUTSIDE RECORDS SUMMARY | 2025-01-11 11:05 | XMS_ITS | Encounter Summary ---
Author Organization [facility] Address [address] [facility] [place] [address] Care Team Providers Care Sole Dyer Name Role Phone Unavailable Primary Care Provider Unavailabl e Reason for Visit * Reason Comments Refill Request Encounter Details Date Type Department Care Team (Late st Contact Info) Description 05/20/2022 Refill [facility] [address] [place] [address], [place] [address] David Jean MD [address] [place] [address] DIV [place] [phone] Refill Request Social History Tobacco Use Types [...] on file Legal Sex Female 10:29 AM [employer] Gender Identity Not on file Sexual Orientation Not on file documented as of this encounter Plan of Treatment Not on file documented as of this encounter Visit Diagnoses Not on filedocumented in this encounter
--- OUTSIDE RECORDS SUMMARY | 2025-01-11 11:05 | XMS_ITS | Encounter Summary ---
Author Organization 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
[2025-01-11 11:10] LABS: Alanine Aminotransferase 35 U/L (6-35); Albumin Level 4.7 g/dL (3.5-5.1); Alkaline Phosphatase 95 U/L (38-126); Anion Gap 9 mmol/L (4-12); Aspartate Amino Transferase 39 U/L (14-36); Bilirubin,Total 0.2 mg/dL (0.2-1.3); Blood Urea Nitrogen 12 mg/dL (7-17); Calcium 8.9 mg/dL (8.4-10.2); Carbon Dioxide 26 mmol/L (22-30); Chloride 107 mmol/L (98-107); Estimated CRCL calculation 101 ml/min; Estimated Glomerular Filt Rate > 60; Glucose 89 mg/dL (65-110); Potassium 3.9 mmol/L (3.4-5.0); Sodium 142 mmol/L (137-145); Total Protein 7.5 g/dL (6.3-8.2)
[2025-01-11 11:38] VITALS: BP 106/70; PULSE 80; RESP 17; O2SAT 100
[2025-01-11 11:38] LABS: Lithium < 0.2 mmol/L (0.6-1.2)
--- NOTE | 2025-01-11 11:45 | PC.NURSE ---
Pt's wound cleaned and Dr. Olmos placed 3 lino. Pt admits to drinking alcohol and brother is at bedside who reports he can safely drive pt home.
[2025-01-11 12:05] LABS: Add Urine Microscopic? NO; Appearance Urine Clear (Clear); Glucose Urine UA Negative (Negative); Leukocyte Esterase Ur Negative LEU/UL (Negative); Nitrate Urine Negative (Negative); Specific Grav Ur 1.006 (1.001-1.035)
[2025-01-11 12:06] LABS: BEDSIDEPREGUCG Negative (Negative)
--- NOTE | 2025-01-11 12:19 | PC.NURSE ---
Pt was educated on needing lino removed in 7 days during wound care. Pt was seen by EDT running out of department followed by family. Pt was reportedly steady on her feet. Pt left prior to receiving discharge paperwork or signing.
[2025-01-11 12:25] LABS: Cannabinoid Screen Urine Negative (Negative)
== END 2025-01-11 12:24 | disposition home or self-care (01) ==
PROVIDERS: Emergency Provider Emergency Medicine; PCP Family Medicine
DX: S01.01XA Laceration without foreign body of scalp, initial encounter (principal); F10.129 Alcohol abuse with intoxication, unspecified; Y90.8 Blood alcohol level of 240 mg/100 ml or more; Z23 Encounter for immunization; E03.9 Hypothyroidism, unspecified; K21.9 Gastro-esophageal reflux disease without esophagitis; K28.7 Chronic gastrojejunal ulcer without hemorrhage or perforation; F41.9 Anxiety disorder, unspecified; F32.A Depression, unspecified; F17.210 Nicotine dependence, cigarettes, uncomplicated; Z98.84 Bariatric surgery status; Z98.1 Arthrodesis status; Z90.710 Acquired absence of both cervix and uterus; Z79.899 Other long term (current) drug therapy; W19.XXXA Unspecified fall, initial encounter
CPT/HCPCS: 12001; 36415; 70450; 72125; 80053; 80178; 80307; 81003; 81025; 82077; 85025; 90471; 90715; 99284